=== PATIENT | female | born 1975 | race Caucasian/White ===

== ENCOUNTER 2021-05-12 16:55 | Inpatient (IN) | payer OTHER, SELFPAY ==
--- NOTE | ~2021-05-12 | CT_ITS ---
PROCEDURE: CT GUIDED ABSCESS DRAINAGE CLINICAL INFORMATION: Diverticular abscess. COMPARISON: CT scan of 05/12/2021. TECHNIQUE: CT fluoroscopic-guided abscess drainage catheter placement. This CT examination was performed using dose optimization techniques as appropriate, variously including the following: Automated exposure control. Adjustment of mA and/or kV according to patient size (this includes techniques or standardized protocols for targeted exams where dose is matched to indication/reason for exam; i.e. extremities or head). Use of iterative reconstruction technique. DLP: 953 mGy-cm FINDINGS: Informed consent was obtained from the patient prior to the procedure. During this process, the procedure and potential alternatives were explained, along with the intended outcome and benefits. The risks of the procedure, as well as the risk of not doing the procedure, were discussed. The patient was given the opportunity to ask questions regarding the procedure and appeared competent to make medical decisions. A signed consent form which documents this discussion was placed in the medical record. Using sterile technique and CT fluoroscopic-guidance and 18-gauge Mondragon Lauren needle was directed from an anterolateral approach into the diverticular abscess. A small amount of fluid was removed for culture. A guidewire was coiled within the cavity. Following fascial dilatation, a 12-Lao drainage catheter was placed with pigtail locked. There remained some aspiration of air, therefore, a small amount of contrast was administered through the tube which demonstrated communication with sigmoid colon. For this reason, the catheter was left to gravity drainage and not suction bulb drainage. Due to patient's size and thickness of the abdominal wall, movement over time may displace the catheter. CT/CT guided drainage IMPRESSION: Placement of 12-Lao drainage catheter into diverticular abscess with contrast injection demonstrating communication with the sigmoid colon.
--- NOTE | ~2021-05-12 | CT_ITS ---
EXAMINATION: CT ABDOMEN AND PELVIS WITH CONTRAST CLINICAL INFORMATION: Left lower quadrant pain with question of diverticulitis COMPARISON: CT abdomen pelvis 07/09/2018 TECHNIQUE: Multidetector volumetric images were obtained from the superior aspect of the liver through the pubic symphysis following administration 100 mL of Omnipaque 350 intravenous contrast. Sagittal and coronal reformatted images were obtained on the technologist's workstation. Oral contrast: No This CT examination was performed using dose optimization techniques as appropriate, variously including the following: *Automated exposure control *Adjustment of mA and/or kV according to patient size (this includes techniques or standardized protocols for targeted exams where dose is matched to indication/reason for exam; i.e. extremities or head) *Use of iterative reconstruction technique DLP: 1462 mGy-cm FINDINGS: LUNG BASES: The visualized lung bases are unremarkable. LIVER, GALLBLADDER, AND BILIARY TREE: The liver is enlarged measuring 19.5 cm in length. I suspect that there is fatty infiltration as there may be some focal fatty sparing adjacent to the gallbladder. The gallbladder is unremarkable with no evidence of radiopaque gallstones, gallbladder wall thickening, or obvious pericholecystic inflammatory changes. PANCREAS: Unremarkable. SPLEEN: There is mild splenomegaly with the spleen measuring 13.8 cm in greatest length. ADRENAL GLANDS: Unremarkable. KIDNEYS AND URETERS: The kidneys are normal in size, shape, and attenuation. No hydronephrosis, hydroureter, or calculi seen. No perinephric stranding. BLADDER: Unremarkable. GASTROINTESTINAL TRACT: There is acute uncomplicated diverticulitis involving the sigmoid colon with marked inflammatory changes present and extraluminal air extending into a pericolonic abscess between the sigmoid and the right pelvic wall. The abscess measures 6.9 x 4.8 x 6.8 cm. The connection between the abscess and the sigmoid can be seen (3:73). No free intraperitoneal air is seen. There is fluid along the anterior pararenal fascia. There are some tethering artifacts from the inflammatory process on some adjacent loops of small bowel. The remainder of the small bowel and remainder of the large bowel are unremarkable. The appendix is unremarkable. Of note, at the time of the patient's prior study on 07/10/2018, similar to changes in the sigmoid were present although more marked on today's exam and an abscess was present on the contralateral more medial aspect of the sigmoid. ABDOMINAL WALL: No significant hernia is appreciated. LYMPH NODES: Normal. VASCULAR: Unremarkable. PELVIC VISCERA: There is an anteverted uterus present which sits directly under this inflammatory process. An ovoid mass is seen in the right adnexa which has been noted on prior CTs but appears a bit larger measuring 7.0 x 5.4 x 7.1 cm. OSSEOUS STRUCTURES: Unremarkable. CT/CT abdomen pelvis w con IMPRESSION: Acute diverticulitis complicated by large air and fluid filled taras-sigmoid abscess. This would be amenable to percutaneous drainage. This critical result was discussed with Dr. Chapman at 12:01 AM on 05/13/2021 and it was ascertained that the content and urgency of the report was understood at the time of direct communication. Fleischner guidelines were followed.
[2021-05-12 17:27] VITALS: BP 186/113; PULSE 110; RESP 20; TEMP 36.8; O2SAT 98; BMI 60.0
[2021-05-12 18:05] LABS: MANUAL DIFF FLAG NO
[2021-05-12 18:19] LABS: Anion Gap 18 (12-20); Blood Urea Nitrogen 13 mg/dL (9-16); Calcium 9.9 mg/dL (8.4-10.2); Carbon Dioxide 25 mmol/L (22-29); Chloride 101 mmol/L (96-108); Creatinine Clr Calc Pharmacy 155.9; Estimated Glomerular Filt Rate > 60; Glucose Random 157 mg/dL (60-115); Potassium 4.6 mmol/L (3.3-5.1); Sodium 139 mmol/L (135-145)
[2021-05-12 18:21] LABS: Basophils Absolute Auto 0.1 X10*3/uL (0.0-0.2); Basophils Percent Auto 0.3 % (0-2); Eosinophils Percent Auto 0.1 % (0-4); Hematocrit 43.5 % (37.0-47.0); Hemoglobin 14.6 g/dl (12.0-16.0); Imm Gran Pct Auto 0.6 % (0.0-0.4); Lymphocytes Absolute Auto 0.5 X10*3/uL (1.2-4.9); Lymphocytes Percent Auto 2.9 % (20-40); Mean Corpuscular HGB Conc 33.6 g/dl (31.0-35.0); Mean Corpuscular Hemoglobin 28.5 pg (27.0-33.0); Mean Platelet Volume 9.7 fL (9.4-12.3); Monocytes Absolute Auto 1.1 X10*3/uL (0.1-1.2); Monocytes Percent Auto 6.4 % (2-11); Neutrophils Absolute Auto 15.7 x10*3/uL (2.0-8.3); Neutrophils Percent Auto 89.7 % (45-73); Platelet Count 433 X10*3/uL (160-400); Red Blood Count 5.12 X10*6/uL (4.20-5.50); Red Cell Distribution Width 12.8 % (11.0-16.0); White Blood Count 17.5 X10*3/uL (4.8-10.8)
[2021-05-12 18:27] LABS: Appearance Urine CLOUDY; Glucose Urine UA 100 MG/DL (NEG); Leukocyte Esterase Urine NEG (NEG); Nitrite Urine POS (NEG); PH 6.5 (5.0-8.0); Specific Gravity - Urine >= 1.030 (1.005-1.025); UACC Culture Trigger YES; Urine Blood 3+ (NEG); Urine Ketones >=80 MG/DL (NEG); Urine Protein 3+ MG/DL (NEG-TRACE)
[2021-05-12 18:28] LABS: Urine Pregnancy NEGATIVE (NEGATIVE)
[2021-05-12 18:29] LABS: UPreg QC Valid YES
[2021-05-12 18:31] LABS: Color Urine ORANGE
[2021-05-12 18:37] LABS: Bacteria Urine 2+ /LPF; Squamous Epithelial Cell Urine 2+ /LPF; WBC Urine 0 /HPF (0-4)
[2021-05-12 20:20] VITALS: BP 186/102; PULSE 105; RESP 16; TEMP 37.2; O2SAT 97
[2021-05-12 21:28] VITALS: RESP 16
[2021-05-12] MEDS: ondansetron HCL 4 MG/2 ML VIAL IVPUSH (21:28)
[2021-05-12] MEDS: 0.9 % Sodium Chloride 1,000 ML 999 ML IV (21:28)
[2021-05-12] MEDS: Morphine Sulfate 4 MG/ML CARTRIDGE IVPUSH (21:28)
[2021-05-12 21:35] VITALS: BP 176/92; PULSE 91; RESP 16; TEMP 37; O2SAT 96
--- NOTE | 2021-05-12 22:47 | ED_ITS ---
HPI - Abdominal Pain General Chief Complaint: Urogenital-Female Stated Complaint: abd pain Time Seen by Provider: 05/12/21 20:44 Source: patient Mode of arrival: EMS Limitations: no limitations History of Present Illness HPI narrative: Patient's history of diverticulitis about 5 years ago noticed pain in lower abdo men for last 3- 4 days getting worse seen her primary care doctor for urinary symptoms start on Macrobid pain is getting worse now with severe nausea no back pain or flank pain no vomiting no high fever feels chills in between no blood in the stool Related Data Allergies Allergy/AdvReac Type Severity Reaction Status Date / Time No Known Allergies Allergy Unverified 01/02/20 15:18 Review of Systems Review of Systems Yes all other systems are reviewed and are negative Physical Exam Verdana 4l Vital Signs: Verdana 4d Verdana 4d Vital Signs: Verdana 4d Verdana 4Bd Last Vital Signs Verdana 4d Cushion Maker New 4d Cushion Maker New 4d Temp 99.1 F 05/13/21 00:34 Cushion Maker New 4d Pulse 108 H 05/13/21 00:34 Cushion Maker New 4d Resp 20 05/13/21 00:34 BP 178/115 H 05/13/21 00:34 Pulse Ox 98 05/13/21 00:34 BMI result Body Mass Index 60.0 Appearance: Alert. Oriented X3. Obese patient In moderate distress Eyes: No pallor/ icterus ENT: Pharynx normal. Oral Mucosa moist Neck: Normal inspection. Neck supple. CVS: Normal heart rate and rhythm. Pulses normal. Respiratory: No respiratory distress. Equal air entry bilateral, no wheezing/rales/rhonchi Abdomen: Soft , obese patient, diffuse tenderness suprapubic left lower quadrant, no rebound tenderness ++ guarding , Bowel sounds are present, no mass palpable, no CVA tenderness Skin: Skin warm and dry. Normal skin color. Normal skin turgor. Extremities: No lower extremity edema. No calf tenderness Neuro: Oriented X 3. MDM - Abdominal Pain MDM Narrative Medical decision making narrative: Patient with recurrent diverticulitis with diverticular abscess 7 x 5 x 7 cm will admit patient for IV antibiotic and IR drainage of the abscess Lab Data Attestation: I reviewed the patient's lab results. Result diagrams: 05/12/21 18:00 05/12/21 18:00 Labs: Lab Results 05/12/21 05/12/21 05/12/21 Range/Units 18:00 18:00 18:00 WBC 17.5 H (4.8-10.8) X10*3/uL RBC 5.12 (4.20-5.50) X10*6/uL Hgb 14.6 (12.0-16.0) g/dl Hct 43.5 (37.0-47.0) % MCV 85.0 (80.0-98.0) fL MCH 28.5 (27.0-33.0) pg MCHC 33.6 (31.0-35.0) g/dl RDW 12.8 (11.0-16.0) % Plt Count 433 H (160-400) X10*3/uL MPV 9.7 (9.4-12.3) fL Immature Gran % (Auto) 0.6 H (0.0-0.4) % Neut % (Auto) 89.7 H (45-73) % Lymph % (Auto) 2.9 L (20-40) % [place] % (Auto) 6.4 (2-11) % Eos % (Auto) 0.1 (0-4) % Baso % (Auto) 0.3 (0-2) % Lymph # (Auto) 0.5 L (1.2-4.9) X10*3/uL [place] # (Auto) 1.1 (0.1-1.2) X10*3/uL Eos # (Auto) 0.0 (0.0-0.4) X10*3/uL Baso # (Auto) 0.1 (0.0-0.2) X10*3/uL Abs Immat Gran (auto) 0.10 H (0.00-0.03) X10*3/uL Absolute Neuts (auto) 15.7 H (2.0-8.3) x10*3/uL Absolute Nucleated RBC 0.000 (0.0-0.012) X10*3/uL Nucleated RBC % (auto) 0.0 (0.0-0.2) /100WBC Sodium 139 (135-145) mmol/L Potassium 4.6 (3.3-5.1) mmol/L Chloride 101 (96-108) mmol/L Carbon Dioxide 25 (22-29) mmol/L Anion Gap 18 (12-20) BUN 13 (9-16) mg/dL Creatinine 0.70 (0.5-1.4) mg/dL Estim Creat Clear Calc 155.9 Estimated GFR > 60 Random Glucose 157 H (60-115) mg/dL Lactic Acid (0.5-2.0) mmol/L Calcium 9.9 (8.4-10.2) mg/dL Urine Color ORANGE A Urine Appearance CLOUDY Urine pH 6.5 (5.0-8.0) Ur Specific [place] >= 1.030 H (1.005-1.025) Urine Protein 3+ H (NEG-TRACE) MG/DL Urine Glucose (UA) 100 H (NEG) MG/DL Urine Ketones >=80 (NEG) MG/DL Urine Blood 3+ H (NEG) Urine Nitrite POS H (NEG) Ur Leukocyte Esterase NEG (NEG) Urine RBC 15-29 H (0) /HPF Urine WBC 0 (0-4) /HPF Ur Squamous Epith Cells 2+ /LPF Urine Bacteria 2+ /LPF Urine Yeast 1+ /HPF Urine Test (NEGATIVE) COVID-19 (CANDY) (Negative) COVID-19 Clin Com 05/12/21 05/13/21 05/13/21 Range/Units 18:00 00:29 00:29 WBC (4.8-10.8) X10*3/uL RBC (4.20-5.50) X10*6/uL Hgb (12.0-16.0) g/dl Hct (37.0-47.0) % MCV (80.0-98.0) fL MCH (27.0-33.0) pg MCHC (31.0-35.0) g/dl RDW (11.0-16.0) % Plt Count (160-400) X10*3/uL MPV (9.4-12.3) fL Immature Gran % (Auto) (0.0-0.4) % Neut % (Auto) (45-73) % Lymph % (Auto) (20-40) % [place] % (Auto) (2-11) % Eos % (Auto) (0-4) % Baso % (Auto) (0-2) % Lymph # (Auto) (1.2-4.9) X10*3/uL [place] # (Auto) (0.1-1.2) X10*3/uL Eos # (Auto) (0.0-0.4) X10*3/uL Baso # (Auto) (0.0-0.2) X10*3/uL Abs Immat Gran (auto) (0.00-0.03) X10*3/uL Absolute Neuts (auto) (2.0-8.3) x10*3/uL Absolute Nucleated RBC (0.0-0.012) X10*3/uL Nucleated RBC % (auto) (0.0-0.2) /100WBC Sodium (135-145) mmol/L Potassium (3.3-5.1) mmol/L Chloride (96-108) mmol/L Carbon Dioxide (22-29) mmol/L Anion Gap (12-20) BUN (9-16) mg/dL Creatinine (0.5-1.4) mg/dL Estim Creat Clear Calc Estimated GFR Random Glucose (60-115) mg/dL Lactic Acid 1.2 (0.5-2.0) mmol/L Calcium (8.4-10.2) mg/dL Urine Color Urine Appearance Urine pH (5.0-8.0) Ur Specific [place] (1.005-1.025) Urine Protein (NEG-TRACE) MG/DL Urine Glucose (UA) (NEG) MG/DL Urine Ketones (NEG) MG/DL Urine Blood (NEG) Urine Nitrite (NEG) Ur Leukocyte Esterase (NEG) Urine RBC (0) /HPF Urine WBC (0-4) /HPF Ur Squamous Epith Cells /LPF Urine Bacteria /LPF Urine Yeast /HPF Urine Test NEGATIVE (NEGATIVE) COVID-19 (CANDY) Negative (Negative) COVID-19 Clin Com See Note Imaging Data CT scan - abdomen: Radiologist's impression: Patient: Mana Rodriguez MR#: [id number] : 1975 Acct:[id number] Age/Sex: 46 / F ADM Date: 05/12/21 Loc: HO.ED Attending Dr: Ordering Physician: Rogelio Chapman MD Date of Service: 05/12/21 Procedure(s): CT abdomen pelvis w con Accession Number(s): [id number] cc: Rogelio Chapman MD~ EXAMINATION: CT ABDOMEN AND PELVIS WITH CONTRAST? CLINICAL INFORMATION: Left lower quadrant pain with question of diverticulitis? COMPARISON: CT abdomen pelvis 07/09/2018? TECHNIQUE: Multidetector volumetric images were obtained from the superior aspect of the liver through the pubic symphysis following administration 100 mL of Omnipaque 350 intravenous contrast. Sagittal and coronal reformatted images were obtained on the technologist's workstation.? Oral contrast: No This CT examination was performed using dose optimization techniques as appropriate, variously including the following: *Automated exposure control *Adjustment of mA and/or kV according to patient size (this includes techniques or standardized protocols for targeted exams where dose is matched to indication/reason for exam; i.e. extremities or head) *Use of iterative reconstruction technique DLP: 1462 mGy-cm FINDINGS: LUNG BASES: The visualized lung bases are unremarkable.? LIVER, GALLBLADDER, AND BILIARY TREE: The liver is enlarged measuring 19.5 cm in length. I suspect that there is fatty infiltration as there may be some focal fatty sparing adjacent to the gallbladder.? The gallbladder is unremarkable with no evidence of radiopaque gallstones, gallbladder wall thickening, or obvious pericholecystic inflammatory changes.? PANCREAS: Unremarkable.? SPLEEN: There is mild splenomegaly with the spleen measuring 13.8 cm in greatest length.? ADRENAL GLANDS: Unremarkable.? KIDNEYS AND URETERS: The kidneys are normal in size, shape, and attenuation. No hydronephrosis, hydroureter, or calculi seen. No perinephric stranding. ? BLADDER: Unremarkable.? GASTROINTESTINAL TRACT: There is acute uncomplicated diverticulitis involving the sigmoid colon with marked inflammatory changes present and extraluminal air extending into a pericolonic abscess between the sigmoid and the right pelvic wall. The abscess measures 6.9 x 4.8 x 6.8 cm. The connection between the abscess and the sigmoid can be seen (3:73). No free intraperitoneal air is seen. There is fluid along the anterior pararenal fascia. There are some tethering artifacts from the inflammatory process on some adjacent loops of small bowel. The remainder of the small bowel and remainder of the large bowel are unremarkable. The appendix is unremarkable. Of note, at the time of the patient's prior study on 07/10/2018, similar to changes in the sigmoid were present although more marked on today's exam and an abscess was present on the contralateral more medial aspect of the sigmoid. ABDOMINAL WALL: No significant hernia is appreciated.? LYMPH NODES: Normal. VASCULAR: Unremarkable. PELVIC VISCERA: There is an anteverted uterus present which sits directly under this inflammatory process. An ovoid mass is seen in the right adnexa which has been noted on prior CTs but appears a bit larger measuring 7.0 x 5.4 x 7.1 cm.? OSSEOUS STRUCTURES: Unremarkable.? CT/CT abdomen pelvis w con IMPRESSION: Acute diverticulitis complicated by large air and fluid filled taras-sigmoid abscess. This would be amenable to percutaneous drainage. ? Discharge Plan Discharge Clinical Impression: Diverticulitis of intestine with abscess Patient Disposition: Admitted As Inpatient [facility] Social History Social History Advance Directives: No Advance Directives Information Provided: No Patient : No
[2021-05-12] MEDS: iohexoL 350 MG/ML 100 ML INFUS..BTL IV (23:37)
[2021-05-13] VITALS (9 sets, daily range): BP systolic 145–189; BP diastolic 78–115; PULSE 90–109; RESP 12–20; TEMP 36.6–37.3; O2SAT 93–99
[2021-05-13] MEDS: 0.9 % Sodium Chloride 1,000 ML 999 ML IV (00:25)
[2021-05-13] MEDS: Piperacillin Sodium/Tazobactam 4.5 GM in 0.9 % Sodium Chloride 100 ML IV (00:26)
[2021-05-13 00:51] LABS: COVID-19 Test Negative (Negative)
[2021-05-13 00:58] LABS: Lactic Acid 1.2 mmol/L (0.5-2.0)
--- NOTE | 2021-05-13 01:53 | P.HPHOSP_ITS ---
History of Present Illness Date of Service: 05/13/21 Chief Complaint: abd pain This is a 46 yo F with past medical history of asthma who presents to the hospital with acute complaint of abd pain for the past 3-4 days. pain in located at the left lower quadrant, radiating to the rest of her abdomen, she was also h aving urinary symptoms including urinary frequency and urgency, was started on Macrobid by her primary physician but reports that her symptoms continue to give worsened therefore came into the hospital. She was also having abdominal bloating, nausea and vomiting, has been having diarrhea, feeling chills, no fever. Patient denies any lower extremity edema. No headache or change in vision, no weakness numbness or tingling. On arrival to the ED patient hemodynamically stable with slightly elevated heart rate of 100-110 Labs are significant for WBC count of 17.5, UA that is positive for nitrites , COVID-[address] showed acute diverticulitis complicated by large air and fluid-filled perisigmoid abscess. This would be amenable to percutaneous drainage. Review of Systems Verdana 4l Review of Systems: Yes all other systems are reviewed and Verdana 4d are negative [facility] Medical History (Updated 05/13/21 @ 06:44 by Flaquito Morales MD) Asthma Pertinent family history: No hx of CAD Surgical History (Updated 05/13/21 @ 06:44 by Flaquito Morales MD) No pertinent past surgical history Social History (Updated 05/13/21 @ 06:45 by Flaquito Morales MD) Alcohol intake: current Patient Tobacco Use Status: Never used Tobacco Use of substances other than those prescribed or required for medical reasons: No Advance Directives: No Advance Directives Information Provided: No Patient : No Meds Allergies Allergy/AdvReac Type Severity Reaction Status Date / Time No Known Allergies Allergy Unverified 01/02/20 15:18 Active Medications: Current Medications Acetaminophen (Acetaminophen 325 Mg Tablet) 650 mg PO Q6H PRN PRN Reason: Pain, Mild (Pain Scale 1-3) Ceftriaxone Sodium 1 gm/ (Sodium Chloride) 50 mls @ 100 mls/hr IV Q24H ZEN Metronidazole (Flagyl) 500 mg in 100 mls @ 100 mls/hr IV Q8H ZEN Morphine Sulfate (Morphine Sulfate 4 Mg/Ml Cartridge) 4 mg IVPUSH Q4H PRN; Protocol PRN Reason: Pain, Severe (Pain Scale 7-10) Ondansetron HCl (Ondansetron Hcl 4 Mg/2 Ml Vial) 4 mg IVPUSH Q8H PRN PRN Reason: Nausea and Vomiting Sodium Chloride (0.9 % Sodium Chloride Flush 3 Ml Syringe) 3 ml IVFLUSH QSHIFT ZEN Physical Exam Verdana 4l Vital Signs and Narrative: Verdana 4d Verdana 4d Vital Signs: Verdana 4d Verdana 4Bd Last Vital Signs Verdana 4d Chief Accountant New 4d Chief Accountant New 4d Temp 99.1 F 05/13/21 00:34 Chief Accountant New 4d Pulse 108 H 05/13/21 00:34 Chief Accountant New 4d Resp 20 05/13/21 00:34 BP 178/115 H 05/13/21 00:34 Pulse Ox 98 05/13/21 00:34 BMI result Body Mass Index 60.0 Const: General: cooperative Orientation/consciousness: patient oriented x3 Eyes: General: appearance normal, both eyes and all related structures Pupils: Equal, round and reactive pupils present Resp: Effort & Inspection: normal respiratory effort Auscultation: clear to auscultation bilaterally Cardio: Rate: regular rate Rhythm: regular rhythm GI: Other: obese abdomen diffused tenderness Skin: General skin exam: no rashes or lesions noted Neuro: General: patient oriented x3 Cranial nerves: Yes Equal, round and reactive pupils present Cognition (Neuro): normal cognition Extrem: General: Yes normal to inspection and Yes no pedal edema Results Labs CBC and Chem 7: 05/13/21 05:50 05/13/21 05:50 Labs: Laboratory Results - last 24 hr 05/12/21 05/12/21 05/12/21 18:00 18:00 18:00 MCV 85.0 MCH 28.5 MCHC 33.6 RDW 12.8 Plt Count 433 H MPV 9.7 Immature Gran % (Auto) 0.6 H Neut % (Auto) 89.7 H Lymph % (Auto) 2.9 L [place] % (Auto) 6.4 Eos % (Auto) 0.1 Baso % (Auto) 0.3 Lymph # (Auto) 0.5 L [place] # (Auto) 1.1 Eos # (Auto) 0.0 Baso # (Auto) 0.1 Abs Immat Gran (auto) 0.10 H Absolute Neuts (auto) 15.7 H Absolute Nucleated RBC 0.000 Nucleated RBC % (auto) 0.0 Anion Gap 18 Estim Creat Clear Calc 155.9 Estimated GFR > 60 Random Glucose 157 H Lactic Acid Calcium 9.9 Urine Color ORANGE A Urine Appearance CLOUDY Urine pH 6.5 Ur Specific [place] >= 1.030 H Urine Protein 3+ H Urine Glucose (UA) 100 H Urine Ketones >=80 Urine Blood 3+ H Urine Nitrite POS H Ur Leukocyte Esterase NEG Urine RBC 15-29 H Urine WBC 0 Ur Squamous Epith Cells 2+ Urine Bacteria 2+ Urine Yeast 1+ Urine Test COVID-19 (CANDY) COVID-19 Clin Com 05/12/21 05/13/21 05/13/21 18:00 00:29 00:29 MCV MCH MCHC RDW Plt Count MPV Immature Gran % (Auto) Neut % (Auto) Lymph % (Auto) [place] % (Auto) Eos % (Auto) Baso % (Auto) Lymph # (Auto) [place] # (Auto) Eos # (Auto) Baso # (Auto) Abs Immat Gran (auto) Absolute Neuts (auto) Absolute Nucleated RBC Nucleated RBC % (auto) Anion Gap Estim Creat Clear Calc Estimated GFR Random Glucose Lactic Acid 1.2 Calcium Urine Color Urine Appearance Urine pH Ur Specific [place] Urine Protein Urine Glucose (UA) Urine Ketones Urine Blood Urine Nitrite Ur Leukocyte Esterase Urine RBC Urine WBC Ur Squamous Epith Cells Urine Bacteria Urine Yeast Urine Test NEGATIVE COVID-19 (CANDY) Negative COVID-19 Clin Com See Note Imaging Radiologist's Impressions: Impressions Abdomen/Pelvis CT 05/12/21 23:31 IMPRESSION: Acute diverticulitis complicated by large air and fluid filled taras-sigmoid abscess. This would be amenable to percutaneous drainage. This critical result was discussed with Dr. Chapman at 12:01 AM on 05/13/2021 and it was ascertained that the content and urgency of the report was understood at the time of direct communication. Fleischner guidelines were followed. Assessment and Plan (1) Diverticulitis of intestine with abscess: Status: Acute Plan 46-year-old female with past medical history of asthma presents to the hospital with complaints of abdominal pain found to have diverticulitis with contained abscess # diverticulitis complicated by abscess - will start on IV antibiotics - consult IR for possible drainage - general surgery also consulted - pain control # asthma - no acute exacerbation DVT prophylaxis: SCDs in anticipation of drainage placement Quality Stroke Does the patient have a stroke diagnosis?: No VTE Prior VTE?: No VTE Risk Level:: Medical - moderate - high VTE Device Contraindication: N/A - Device Ordered VTE Drug Contraindication: Treatment Not Indicated
[2021-05-13] MEDS: cefTRIAXone sodium 1 GM in 0.9 % Sodium Chloride 50 ML IV (01:55)
[2021-05-13] MEDS: Morphine Sulfate 4 MG/ML CARTRIDGE IVPUSH ×5 (01:55→23:44)
[2021-05-13] MEDS: metroNIDAZOLE/NS 500 MG/100 ML PIGGYBACK 100 MG IV ×3 (02:47→17:05)
[2021-05-13 05:58] LABS: MANUAL DIFF FLAG NO
[2021-05-13 05:59] LABS: Basophils Percent Auto 0.1 % (0-2); Eosinophils Percent Auto 0.1 % (0-4); Hematocrit 38.3 % (37.0-47.0); Hemoglobin 12.8 g/dl (12.0-16.0); Imm Gran Abs Auto 0.19 X10*3/uL (0.00-0.03); Imm Gran Pct Auto 1.1 % (0.0-0.4); Lymphocytes Absolute Auto 0.8 X10*3/uL (1.2-4.9); Lymphocytes Percent Auto 4.7 % (20-40); Mean Corpuscular HGB Conc 33.4 g/dl (31.0-35.0); Mean Corpuscular Hemoglobin 28.5 pg (27.0-33.0); Mean Corpuscular Volume 85.3 fL (80.0-98.0); Mean Platelet Volume 9.6 fL (9.4-12.3); Monocytes Absolute Auto 1.5 X10*3/uL (0.1-1.2); Monocytes Percent Auto 8.4 % (2-11); Neutrophils Absolute Auto 15.3 x10*3/uL (2.0-8.3); Neutrophils Percent Auto 85.6 % (45-73); Platelet Count 371 X10*3/uL (160-400); Red Blood Count 4.49 X10*6/uL (4.20-5.50); White Blood Count 17.8 X10*3/uL (4.8-10.8)
[2021-05-13 06:25] LABS: Anion Gap 13 (12-20); Blood Urea Nitrogen 11 mg/dL (9-16); Calcium 8.8 mg/dL (8.4-10.2); Carbon Dioxide 26 mmol/L (22-29); Chloride 101 mmol/L (96-108); Creatinine Clr Calc Pharmacy 153.7; Estimated Glomerular Filt Rate > 60; Glucose Random 134 mg/dL (60-115); Potassium 3.8 mmol/L (3.3-5.1); Sodium 136 mmol/L (135-145)
--- NOTE | 2021-05-13 08:00 | PC.NURSE ---
Pt received from night shift supervisor: Pt AOX4 and offers moderate pain to LLQ. Pt ordered for pain medication on scheduled basis. Heart sounds normal and lungs clear. LLQ tenderness noted. Pt remains NPO for pending OR.
--- NOTE | 2021-05-13 08:40 | PHA.MEDREC ---
Pharmacy Consult ? Medication Reconciliation Pharmacy has completed the medication reconciliation. Kelli Marx, PharmD
--- NOTE | 2021-05-13 08:52 | P.HPGS_ITS ---
History of Present Illness History of Present Illness Date of Service: 05/13/21 <Tena Del Real PA-C - Last Filed: 05/13/21 09:14> 05/13/21 <Cm Barrett MD - Last Filed: 05/13/21 15:57> Chief complaint: abd pain <Tena Del Real PA-C - Last Filed: 05/13/21 09:14> Narrative: Mana Rodriguez is a 46 year old female with PMH of asthma who presented to the ED with complaints of LLQ/suprapubic abd pain. She reports the pain began Monday morning. It was associated with nausea without vomiting and diarrhea. She denies fever, chills, blood in stool or melena. She saw her PCP on Monday who diagnosed her with a UTI and started her on PO abx. She however did not improve and the pain became severe, prompting her to seek evaluation in the ED. Work up included CT scan abd/pelvis which demonstrated diverticulitis of the sigmoid with marked inflammatory changes and extraluminal air extending into a pericolonic abscess between the sigmoid and the right pelvic wall measuring 6.9 x 4.8 x 6.8 cm. She also had a leukocytosis of 17.5. She reports a previous episode of diverticulitis with abscess in 2019 where she was admitted for IV abx and underwent CT guided drainage with improvement. She never followed up with surgery regarding further treatment. She has never had a colonoscopy. She feels improved this morning after morphine with decreased pain. <Tena Del Real PA-C - Last Filed: 05/13/21 09:14> Review of Systems Verdana 4l Constitutional: Verdana 4d Verdana 4d Constitutional: Verdana 4d Reports as per HPI, Denies chills and Denies fever(s) Verdana 4Il <Tena Del Real PA-C - Last Filed: 05/13/21 09:14> Verdana 4d Verdana 4l ENT: Verdana 4d Denies dizziness Verdana 4Il <NICOLE Rosales Last Filed: 05/13/21 09:14> Verdana 4d Verdana 4l Cardiovascular: Verdana 4d Verdana 4d Cardiovascular: Verdana 4d Denies chest pain, Denies palpitations and Denies dyspnea Verdana 4Il <Tena Del Real PA-C - Last Filed: 05/13/21 09:14> Verdana 4d Verdana 4l Respiratory: Verdana 4d Verdana 4d Respiratory: Verdana 4d Denies dyspnea Verdana 4Il <Tena Del Real PA-C - Last Filed: 05/13/21 09:14> Verdana 4d Verdana 4l Gastrointestinal: Verdana 4d Verdana 4d Gastrointestinal: Verdana 4d Reports as per HPI, Denies melena, Denies hematochezia, Denies change in stool character, Reports diarrhea and Reports nausea Verdana 4Il <Tena Del Real PA-C - Last Filed: 05/13/21 09:14> Verdana 4d4d Genitourinary: Genitourinary: Denies hematuria and Denies dysuria <Tena Del Real PA-C - Last Filed: 05/13/21 09:14> Integumentary/Breasts: Skin/Breast: Denies rash <Tena Del Real PA-C Last Filed: 05/13/21 09:14> Neurologic: Denies dizziness and Denies focal weakness <Tena Del Real PA-C - Last Filed: 05/13/21 09:14> Endocrine: Endocrine: Denies palpitations <Tena Del Real PA-C Last Filed: 05/13/21 09:14> [facility] Past Medical History Medical History: Medical History (Updated 05/13/21 @ 06:44 by Flaquito Morales MD) Asthma <Tena Del Real PA-C - Last Filed: 05/13/21 09:14> Surgical History Surgical History: Surgical History (Updated 05/13/21 @ 06:44 by Flaquito Morales MD) No pertinent past surgical history <Tena Del Real PA-C Last Filed: 05/13/21 09:14> Social History Social History: Social History (Updated 05/13/21 @ 06:45 by Flaquito Morales MD) Alcohol intake: current Patient Tobacco Use Status: Never used Tobacco Use of substances other than those prescribed or required for medical reasons: No Advance Directives: No Advance Directives Information Provided: No Patient : No <NICOLE Rosales Last Filed: 05/13/21 09:14> Meds Allergies/Adverse reactions: Allergies Allergy/AdvReac Type Severity Reaction Status Date / Time No Known Allergies Allergy Verified 05/13/21 10:40 <Tena Del Real PA-C - Last Filed: 05/13/21 09:14> Active Medications: Current Medications Acetaminophen (Acetaminophen 325 Mg Tablet) 650 mg PO Q6H PRN PRN Reason: Pain, Mild (Pain Scale 1-3) Ceftriaxone Sodium 1 gm/ (Sodium Chloride) 50 mls @ 100 mls/hr IV Q24H [facility] Last Infusion: 05/13/21 02:45 Dose: Infused Documented by: Metronidazole (Flagyl) 500 mg in 100 mls @ 100 mls/hr IV Q8H [facility] Last Admin: 05/13/21 08:10 Dose: 100 mls/hr Documented by: Morphine Sulfate (Morphine Sulfate 4 Mg/Ml Cartridge) 4 mg IVPUSH Q4H PRN; Protocol PRN Reason: Pain, Severe (Pain Scale 7-10) Last Admin: 05/13/21 06:27 Dose: 4 mg Documented by: Ondansetron HCl (Ondansetron Hcl 4 Mg/2 Ml Vial) 4 mg IVPUSH Q8H PRN PRN Reason: Nausea and Vomiting Sodium Chloride (0.9 % Sodium Chloride Flush 3 Ml Syringe) [facility] Admin: 05/13/21 07:05 Dose: Not Given Documented by: <Tena Del Real PA-C - Last Filed: 05/13/21 09:14> Home medications: Home Medications Medication Instructions Recorded Confirmed Last Taken Type albuterol sulfate 1 puff 05/13/21 05/13/21 Unknown History 90 mcg/actuation INHALATION Q4H PRN aerosol inhaler nitrofurantoin 1 cap PO BID 05/13/21 05/13/21 05/12/21 History monohydrate/macro crystals 100 mg capsule <NICOLE Rosales Last Filed: 05/13/21 09:14> Physical Exam Verdana 4l Vital Signs: Verdana 4d Verdana 4d Vital Signs: Verdana 4d Verdana 4Bd Last Vital Signs Verdana 4d Sewer Repairer New 4d Sewer Repairer New 4d Temp 98.1 F 05/13/21 06:14 Sewer Repairer New 4d Pulse 99 05/13/21 06:14 Sewer Repairer New 4d Resp 12 05/13/21 06:14 BP 158/93 H 05/13/21 06:14 Pulse Ox 97 05/13/21 06:14 BMI result Body Mass Index 60.0 <NICOLE Rosales Last Filed: 05/13/21 09:14> Const: General: comfortable, no acute distress and alert <Tena Del Real PA-C [employer] Last Filed: 05/13/21 09:14> Orientation/consciousness: patient oriented x3 <NICOLE Rosales Last Filed: 05/13/21 09:14> Resp: Effort & Inspection: normal respiratory effort <NICOLE Rosales Last Filed: 05/13/21 09:14> Cardio: Rate: regular rate <NICOLE Rosales Last Filed: 05/13/21 09:14> GI: Inspection: No distended and Yes obesity <NICOLE Rosales Last Filed: 05/13/21 09:14> Palpation (GI): Soft to palpation, Tenderness to palpation present (GI) in the LLQ and suprapubicly; Negative for with no rebound tenderness, no guarding and not rigid <NICOLE Rosales Last Filed: 05/13/21 09:14> Percussion: Yes normal to percussion <NICOLE Rosales Last Filed: 05/13/21 09:14> Skin: General skin exam: no rashes or lesions noted <NICOLE Rosales Last Filed: 05/13/21 09:14> Neuro: General: patient oriented x3 <NICOLE Rosales Last Filed: 05/13/21 09:14> Extrem: General: Yes no clubbing, cyanosis or edema <NICOLE Rosales Last Filed: 05/13/21 09:14> Results Results Labs: Short CBC 05/12/21 05/13/21 Range/Units 18:00 05:50 WBC 17.5 H 17.8 H (4.8-10.8) X10*3/uL Hgb 14.6 12.8 (12.0-16.0) g/dl Hct 43.5 38.3 (37.0-47.0) % Plt Count 433 H 371 (160-400) X10*3/uL BMP 05/12/21 05/13/21 18:00 05:50 Sodium 139 136 Potassium 4.6 3.8 Chloride 101 101 Carbon Dioxide 25 26 BUN 13 11 Creatinine 0.70 0.71 Calcium 9.9 8.8 D Urine 05/12/21 05/12/21 Range/Units 18:00 18:00 Urine Color ORANGE A Urine Appearance CLOUDY Urine pH 6.5 (5.0-8.0) Ur Specific [place] >= 1.030 H (1.005-1.025) Urine Protein 3+ H (NEG-TRACE) MG/DL Urine Glucose (UA) 100 H (NEG) MG/DL Urine Test NEGATIVE (NEGATIVE) <Tena Del Real PA-C - Last Filed: 05/13/21 09:14> Assessment and Plan (1) Diverticulitis of intestine with abscess: Status: Acute <Tena Del Real PA-C - Last Filed: 05/13/21 09:14> Patient seen and examined earlier Nontoxic looking Scheduled for CT drainage Abdomen soft and benign Will follow-up Agree with BIBIANA Del Real <Cm Barrett MD - Last Filed: 05/13/21 15:57> Plan 46 year old female who presented with LLQ/suprapubic pain found to have leukocytosis and sigmoid diverticular abscess on CT scan. Patient with previous history of sigmoid diverticulitis with abscess treated with CT guided drainage and IV antibiotics in 2019. She is non toxic appearing with stable vitals. Plan for CT guided drainage this morning. Cont IV abx, bowel rest, IVF. Discussed with her that if she has no improvement following the drainage or worsens or the CT drainage of abscess unable to be performed, we may have to proceed with sigmoid resection and likely colostomy during this admission. If she does improve, she will need to follow up with Dr. Barrett in office to discuss resection of the diseased segment to prevent further recurrences as this is her second complicated diverticulitis episode. She understands. Further plan dependent on clinical course. Case discussed with Dr. Barrett. <Tena Del Real PA-C - Last Filed: 05/13/21 09:14> Quality Stroke Does the patient have a stroke diagnosis?: No <Tena Del Real PA-C - Last Filed: 05/13/21 09:14> VTE Prior VTE?: No <Tena Del Real PA-C - Last Filed: 05/13/21 09:14> VTE Risk Level:: Medical - moderate - high <Tena Del Real PA-C - Last Filed: 05/13/21 09:14> VTE Device Contraindication: N/A - Device Ordered <Tena Del Real PA-C - Last Filed: 05/13/21 09:14> VTE Drug Contraindication: Treatment Not Indicated <Tena Del Real PA-C - Last Filed: 05/13/21 09:14> Procedures Date of Service Date of Service: 05/13/21 <Tena Del Real PA-C - Last Filed: 05/13/21 09:14>
[2021-05-13] MEDS: ondansetron HCL 4 MG/2 ML VIAL IVPUSH ×2 (09:34→23:46)
[2021-05-13 10:20] LABS: INTERNATIONAL NORM RATIO 1.1 (0.9-1.1); Prothrombin Time 12.3 SEC (9.9-13.0)
[2021-05-13 10:22] LABS: Partial Thromboplastin Time 30.5 SEC (24.1-38.0)
--- NOTE | 2021-05-13 10:23 | PC.NURSE ---
MD Barrett at bedside early this morning. Received communication order that pt may get ice chips. Report also give to [facility] and pt will be picked up for procedure around 1130 with table time of 1200. Pt remains in intermittent pain with order PRN medications. RN will continue to monitor.
--- NOTE | 2021-05-13 10:42 | PC.NURSE ---
Pt to [facility] at this time with wheelchair and PCT.
--- NOTE | 2021-05-13 12:14 | MHC.CM.PN ---
CM ATTEMPTED TO MEET WITH PT WHO WAS OFF UNIT CM WILL REVISIT WHEN PT RETURNS FROM [facility]
--- NOTE | 2021-05-13 14:03 | PM.EVENT ---
Event Note Date of Service: 05/13/21 Event Note: Pt seen/examined/chart reviewed. Exam unchanged since admit. Scheduled for IR drainage of abcess. Follow clinically
--- NOTE | 2021-05-13 15:32 | PC.NURSE ---
Pt returned back from PACU at this time. Pt fully recovered in PACU and was able to self transfer from stretcher to bed. Pt offers no complaints at this time. OSVALDO drain noted LLQ- red drainage
--- NOTE | 2021-05-13 15:48 | PC.NURSE ---
Dr Foss made aware of current BP 189/84 and HR 105. No new orders received. Pt remains in no acute distress. RN will continue to monitor.
--- NOTE | 2021-05-13 17:38 | PM.EVENT ---
Event Note Date of Service: 05/13/21 Event Note: underwent succesful CT drain looks comfortable abd soft stable VS oain mgt IV abx clear liquids ffup cultures
[2021-05-14 01:31] VITALS: BP 134/96; PULSE 100; RESP 18; TEMP 36; O2SAT 94
[2021-05-14] MEDS: cefTRIAXone sodium 1 GM in 0.9 % Sodium Chloride 50 ML IV (01:53)
[2021-05-14] MEDS: metroNIDAZOLE/NS 500 MG/100 ML PIGGYBACK 100 MG IV (01:53)
[2021-05-14 05:23] VITALS: BP 148/86; PULSE 91; RESP 16; TEMP 36.4; O2SAT 95
[2021-05-14] MEDS: Morphine Sulfate 4 MG/ML CARTRIDGE IVPUSH ×2 (05:56→12:47)
[2021-05-14 09:21] LABS: MANUAL DIFF FLAG NO
[2021-05-14 09:27] LABS: Basophils Percent Auto 0.1 % (0-2); Eosinophils Absolute Auto 0.1 X10*3/uL (0.0-0.4); Eosinophils Percent Auto 0.6 % (0-4); Hematocrit 38.3 % (37.0-47.0); Hemoglobin 12.4 g/dl (12.0-16.0); Imm Gran Abs Auto 0.07 X10*3/uL (0.00-0.03); Imm Gran Pct Auto 0.5 % (0.0-0.4); Lymphocytes Absolute Auto 1.2 X10*3/uL (1.2-4.9); Lymphocytes Percent Auto 8.3 % (20-40); Mean Corpuscular HGB Conc 32.4 g/dl (31.0-35.0); Mean Corpuscular Hemoglobin 27.7 pg (27.0-33.0); Mean Corpuscular Volume 85.5 fL (80.0-98.0); Mean Platelet Volume 9.5 fL (9.4-12.3); Monocytes Absolute Auto 0.9 X10*3/uL (0.1-1.2); Monocytes Percent Auto 6.7 % (2-11); Neutrophils Absolute Auto 11.7 x10*3/uL (2.0-8.3); Neutrophils Percent Auto 83.8 % (45-73); Platelet Count 394 X10*3/uL (160-400); Red Blood Count 4.48 X10*6/uL (4.20-5.50); Red Cell Distribution Width 13.1 % (11.0-16.0)
[2021-05-14 10:03] LABS: Alanine Aminotransferase 19 U/L (0-31); Albumin Level 3.3 g/dL (3.5-5.0); Alkaline Phosphatase 85 U/L (39-117); Anion Gap 14 (12-20); Aspartate Amino Transferase 9 U/L (5-31); Bilirubin Total 0.7 mg/dL (0.0-1.0); Blood Urea Nitrogen 13 mg/dL (9-16); Calcium 9.1 mg/dL (8.4-10.2); Carbon Dioxide 29 mmol/L (22-29); Chloride 99 mmol/L (96-108); Creatinine Clr Calc Pharmacy 162.9; Estimated Glomerular Filt Rate > 60; Glucose Fasting 116 mg/dL (60-99); Potassium 3.7 mmol/L (3.3-5.1); Sodium 138 mmol/L (135-145); Total Protein 6.4 g/dL (6.5-8.0)
--- NOTE | 2021-05-14 10:12 | P.PNGS_ITS ---
Subjective Subjective Date of Service: 05/14/21 <Tena Del Real PA-C - Last Filed: 05/14/21 10:21> 05/14/21 <Cm Barrett MD - Last Filed: 05/14/21 14:50> Interval history: Feels better this morning but feels blah . Overall less pain and now only reports discomfort at drain site. Tolerating clears. <Tena Del Real PA-C - Last Filed: 05/14/21 10:21> Physical Exam Verdana 4l Vital Signs: Verdana 4d Verdana 4d Vital Signs: Verdana 4d Verdana 4Bd Last Vital Signs Verdana 4d Rn Neurosurgical New 4d Rn Neurosurgical New 4d Temp 97.5 F 05/14/21 05:23 Rn Neurosurgical New 4d Pulse 91 05/14/21 05:23 Rn Neurosurgical New 4d Resp 16 05/14/21 05:23 BP 148/86 H 05/14/21 05:23 Pulse Ox 95 05/14/21 05:23 BMI result Body Mass Index 60.0 <Tena Del Real PA-C - Last Filed: 05/14/21 10:21> Const: General: comfortable and alert <NICOLE Rosales Last Filed: 0 05/14/21 10:21> Orientation/consciousness: patient oriented x3 <NICOLE Rosales Last Filed: 05/14/21 10:21> Resp: Effort & Inspection: normal respiratory effort <Tena Del Real PA-C - Last Filed: 05/14/21 10:21> GI: Other: drain with sanguineous output, some debris in bag <Tena Del Real PA-C - Last Filed: 05/14/21 10:21> Inspection: No distended and Yes obesity <NICOLE Rosales Last Filed: 05/14/21 10:21> Palpation (GI): Soft to palpation, Tenderness to palpation present (GI) (mild LLQ tenderness, tender at drain site), no guarding and not rigid <NICOLE Rosales Last Filed: 05/14/21 10:21> Percussion: Yes normal to percussion <Tena Del Real PA-C - Last Filed: 05/14/21 10:21> Skin: General skin exam: no rashes or lesions noted <Tena Del Real PA-C - Last Filed: 05/14/21 10:21> Neuro: General: patient oriented x3 <NICOLE Rosales Last Filed: 05/14/21 10:21> Objective Data Active Medications Acetaminophen (Acetaminophen 325 Mg Tablet) 650 mg PO Q6H PRN PRN Reason: Pain, Mild (Pain Scale 1-3) Ceftriaxone Sodium 1 gm/ (Sodium Chloride) 50 mls @ 100 mls/hr IV Q24H [facility] [place] Last Infusion: 05/14/21 07:50 Dose: 0 mls/hr Documented by: AIDA Metronidazole (Metronidazole 500 Mg Tablet) 500 mg PO Q8H [facility] [place] Morphine Sulfate (Morphine Sulfate 4 Mg/Ml Cartridge) 4 mg IVPUSH Q4H PRN; Protocol PRN Reason: Pain, Severe (Pain Scale 7-10) Last Admin: 05/14/21 05:56 Dose: 4 mg Documented by: DONNIE Ondansetron HCl (Ondansetron Hcl 4 Mg/2 Ml Vial) 4 mg IVPUSH Q8H PRN PRN Reason: Nausea and Vomiting Last Admin: 05/13/21 23:46 Dose: 4 mg Documented by: DONNIE Oxycodone HCl (Oxycodone Hcl Immed Release 5 Mg Tablet) 5 mg PO Q4H PRN PRN Reason: Pain, Moderate (Pain Scale 4-6 Sodium Chloride (0.9 % Sodium Chloride Flush 3 Ml Syringe) 3 ml IVFLUSH QSHIFT [facility] [place] Last Admin: 05/14/21 07:57 Dose: Not Given Documented by: AIDA Non-Admin Reason: Patient Asleep <NICOLE Rosales Last Filed: 05/14/21 10:21> Labs CBC & Chem 7: : 05/14/21 09:11 05/14/21 09:11 <NICOLE Rosales Last Filed: 05/14/21 10:21> Labs: Laboratory Results - last 24 hr 05/13/21 05/14/21 05/14/21 10:01 09:11 09:11 MCV 85.5 MCH 27.7 MCHC 32.4 RDW 13.1 Plt Count 394 MPV 9.5 Immature Gran % (Auto) 0.5 H Neut % (Auto) 83.8 H Lymph % (Auto) 8.3 L Davis % (Auto) 6.7 Eos % (Auto) 0.6 Baso % (Auto) 0.1 Lymph # (Auto) 1.2 Davis # (Auto) 0.9 Eos # (Auto) 0.1 Baso # (Auto) 0.0 Abs Immat Gran (auto) 0.07 H Absolute Neuts (auto) 11.7 H Absolute Nucleated RBC 0.000 Nucleated RBC % (auto) 0.0 PT 12.3 INR 1.1 APTT 30.5 Anion Gap 14 Estim Creat Clear Calc 162.9 Estimated GFR > 60 Fasting Glucose 116 H Calcium 9.1 Total Bilirubin 0.7 AST 9 ALT 19 Alkaline Phosphatase 85 Total Protein 6.4 L Albumin 3.3 L <Tena Del Real PA-C - Last Filed: 05/14/21 10:21> Microbiology Microbiology Results: Microbiology 05/13/21 14:45 Gram Stain - Final Abscess Intra-abdominal Routine Culture - Preliminary Gram negative mikala 05/13/21 00:29 Blood Culture - Preliminary Blood - Venous No growth after 24 hours. 05/13/21 00:29 Blood Culture - Preliminary Blood - Venous No growth after 24 hours. 05/12/21 19:35 Urine Culture - Preliminary Urine clean catch - Urine araujo top Culture too young to evaluate. <Tena Del Real PA-C - Last Filed: 05/14/21 10:21> Procedures Date of Service Date of Service: 05/14/21 <Tena Del Real PA-C - Last Filed: 05/14/21 10:21> Progress Note: A&P Assessment and plan (1) Diverticulitis of intestine with abscess: Status: Acute <Tena Del Real PA-C - Last Filed: 05/14/21 10:21> Assessment and Plan: Status post CT drain the Feels well No abdominal pain Has not taken pain meds IV antibiotics Follow up cultures Possibly advance diet slowly starting tomorrow Explained plan to patient Exam benign <Cm Barrett MD - Last Filed: 05/14/21 14:50> Plan 46 year old female admitted with sigmoid diverticular abscess on CT scan. Previous history of sigmoid diverticulitis with abscess treated with CT guided drainage and IV antibiotics in 2019. Now s/p CT guided drainage. Small amount of drainage aspirated during procedure. There was aspiration of air and a small amount of contrast was administered which demonstrated communication with sigmoid colon. Catheter was therefore left to gravity drainage. She feels improved this morning- now only with discomfort at drain site. Abd tender at drain site and mild tenderness at LLQ (improved). WBC downtrending. Drain output sanguineous with debris. and remains non toxic appearing. Can continue supportive measures at this time including IV abx, clear liquids, IVF. F/u abscess cultures. Please record drain output in I&Os. <Tena Del Real PA-C - Last Filed: 05/14/21 10:21> Fall Risk Details Current Medications: Current Medications Acetaminophen (Acetaminophen 325 Mg Tablet) 650 mg PO Q6H PRN PRN Reason: Pain, Mild (Pain Scale 1-3) Ceftriaxone Sodium 1 gm/ (Sodium Chloride) 50 mls @ 100 mls/hr IV Q24H [facility] [place] Last Infusion: 05/14/21 07:50 Dose: Infused Documented by: Metronidazole (Metronidazole 500 Mg Tablet) 500 mg PO Q8H [facility] Morphine Sulfate (Morphine Sulfate 4 Mg/Ml Cartridge) 4 mg IVPUSH Q4H PRN; Protocol PRN Reason: Pain, Severe (Pain Scale 7-10) Last Admin: 05/14/21 05:56 Dose: 4 mg Documented by: Ondansetron HCl (Ondansetron Hcl 4 Mg/2 Ml Vial) 4 mg IVPUSH Q8H PRN PRN Reason: Nausea and Vomiting Last Admin: 05/13/21 23:46 Dose: 4 mg Documented by: Oxycodone HCl (Oxycodone Hcl Immed Release 5 Mg Tablet) 5 mg PO Q4H PRN PRN Reason: Pain, Moderate (Pain Scale 4-6 Sodium Chloride (0.9 % Sodium Chloride Flush 3 Ml Syringe) 3 ml IVFLUSH QSHIFT [facility] [place] Last Admin: 05/14/21 07:57 Dose: Not Given Documented by: <Tena Del Real PA-C - Last Filed: 05/14/21 10:21> Time Spent With Patient Time: Total time spent is greater than 50% in coordination of care (as documented) at patient's floor/unit and/or counseling patient: <Tena Del Real PA-C - Last Filed: 05/14/21 10:21> Time with patient: 15 - 24 minutes <Tena Del Real PA-C - Last Filed: 05/14/21 10:21> Quality Stroke Does the patient have a stroke diagnosis?: No <Tena Del Real PA-C - Last Filed: 05/14/21 10:21> VTE Prior VTE?: No <Tena Del Real PA-C - Last Filed: 05/14/21 10:21> VTE Risk Level:: Medical - moderate - high <Tena Del Real PA-C - Last Filed: 05/14/21 10:21> VTE Device Contraindication: N/A - Device Ordered <Tena Del Real PA-C - Last Filed: 05/14/21 10:21> VTE Drug Contraindication: Treatment Not Indicated <Tena Del Real PA-C - Last Filed: 05/14/21 10:21>
[2021-05-14] MEDS: metroNIDAZOLE 500 MG TABLET PO ×2 (10:44→18:15)
--- NOTE | 2021-05-14 14:47 | MHC.CM.PN ---
PT REPORTS SHE LIVES ALONE AND IS INDEPENDENT WITH CARE, WORKS AND DRIVES. PT DENIES USE OF DME OR HOME/COMMUNITY SERVICES PT REPORTS SHE DOES NOT HAVE A PCP SINCE HER INSURANCE CHANGE AT WORK, HOWEVER REPORTS SHE DOES KNOW HOW TO OBTAIN A NEW ONE PT DECLINES TO COMPLETE A HCP DCP HOME NO SERVICES PT TO SELF ARRANGE TRANSPORT
--- NOTE | 2021-05-14 14:58 | P.PNIM_ITS ---
Subjective Subjective Date of Service: 05/14/21 Interval History: Feels better after drain; no other acute complaints. Review of Systems Denies CP Denies SOB Denies N/V/D Pain improved Physical Exam Verdana 4l Vital Signs: Verdana 4d Verdana 4d Vital Signs: Verdana 4d Verdana 4Bd Last Vital Signs Verdana 4d Sanitation Laborer New 4d Sanitation Laborer New 4d Temp 97.5 F 05/14/21 05:23 Sanitation Laborer New 4d Pulse 91 05/14/21 05:23 Sanitation Laborer New 4d Resp 16 05/14/21 05:23 BP 148/86 H 05/14/21 05:23 Pulse Ox 95 05/14/21 05:23 BMI result Body Mass Index 60.0 Const: Other: No acute distress Resp: Other: Clear all morales Cardio: Other: -S4 +S1/S2 -S3 M/R/G GI: Other: soft NABS. Drain LLQ mildly tender Extrem: Other: no edema bilat Objective Data Active Medications Acetaminophen (Acetaminophen 325 Mg Tablet) 650 mg PO Q6H PRN PRN Reason: Pain, Mild (Pain Scale 1-3) Ceftriaxone Sodium 1 gm/ (Sodium Chloride) 50 mls @ 100 mls/hr IV Q24H [facility] Last Infusion: 05/14/21 07:50 Dose: 0 mls/hr Documented by: AIDA Metronidazole (Metronidazole 500 Mg Tablet) 500 mg PO Q8H [facility] Last Admin: 05/14/21 10:44 Dose: 500 mg Documented by: KARINA Morphine Sulfate (Morphine Sulfate 4 Mg/Ml Cartridge) 4 mg IVPUSH Q4H PRN; Protocol PRN Reason: Pain, Severe (Pain Scale 7-10) Last Admin: 05/14/21 12:47 Dose: 4 mg Documented by: KARINA Ondansetron HCl (Ondansetron Hcl 4 Mg/2 Ml Vial) 4 mg IVPUSH Q8H PRN PRN Reason: Nausea and Vomiting Last Admin: 05/13/21 23:46 Dose: 4 mg Documented by: DONNIE Oxycodone HCl (Oxycodone Hcl Immed Release 5 Mg Tablet) 5 mg PO Q4H PRN PRN Reason: Pain, Moderate (Pain Scale 4-6 Sodium Chloride (0.9 % Sodium Chloride Flush 3 Ml Syringe) 3 ml IVFLUSH QSHIFT [facility] Last Admin: 05/14/21 07:57 Dose: Not Given Documented by: AIDA Non-Admin Reason: Patient Asleep Labs CBC & Chem 7: 05/14/21 09:11 05/14/21 09:11 Labs: Laboratory Results - last 24 hr 05/12/21 05/13/21 05/14/21 18:00 05:50 09:11 WBC 17.5 H 17.8 H 14.0 H MCV 85.5 MCH 27.7 MCHC 32.4 RDW 13.1 Plt Count 394 MPV 9.5 Immature Gran % (Auto) 0.5 H Neut % (Auto) 83.8 H Lymph % (Auto) 8.3 L [place] % (Auto) 6.7 Eos % (Auto) 0.6 Baso % (Auto) 0.1 Lymph # (Auto) 1.2 [place] # (Auto) 0.9 Eos # (Auto) 0.1 Baso # (Auto) 0.0 Abs Immat Gran (auto) 0.07 H Absolute Neuts (auto) 11.7 H Absolute Nucleated RBC 0.000 Nucleated RBC % (auto) 0.0 Anion Gap Estim Creat Clear Calc Estimated GFR Fasting Glucose Calcium Total Bilirubin AST ALT Alkaline Phosphatase Total Protein Albumin 05/14/21 09:11 WBC MCV MCH MCHC RDW Plt Count MPV Immature Gran % (Auto) Neut % (Auto) Lymph % (Auto) [place] % (Auto) Eos % (Auto) Baso % (Auto) Lymph # (Auto) [place] # (Auto) Eos # (Auto) Baso # (Auto) Abs Immat Gran (auto) Absolute Neuts (auto) Absolute Nucleated RBC Nucleated RBC % (auto) Anion Gap 14 Estim Creat Clear Calc 162.9 Estimated GFR > 60 Fasting Glucose 116 H Calcium 9.1 Total Bilirubin 0.7 AST 9 ALT 19 Alkaline Phosphatase 85 Total Protein 6.4 L Albumin 3.3 L Microbiology Microbiology Results: Microbiology 05/13/21 14:45 Gram Stain - Final Abscess Intra-abdominal Routine Culture - Preliminary Gram negative mikala Anaerobic Culture - Preliminary Culture in progress. 05/12/21 19:35 Urine Culture - Final Urine clean catch - Urine araujo top 05/13/21 00:29 Blood Culture - Preliminary Blood - Venous No growth after 24 hours. 05/13/21 00:29 Blood Culture - Preliminary Blood - Venous No growth after 24 hours. Assessment and Plan (1) Diverticulitis of intestine with abscess: Status: Acute Plan 46-year-old female with past medical history of asthma presents to the hospital with complaints of abdominal pain found to have diverticulitis with contained abscess 1. Parasgmoid Abcess secondary to TICs - continue IV antibiotics - clears/IVF's 2. asthma - no acute exacerbation DVT prophylaxis: SCDs in anticipation of drainage placement Quality Stroke Does the patient have a stroke diagnosis?: No VTE Prior VTE?: No VTE Risk Level:: Medical - moderate - high VTE Device Contraindication: N/A - Device Ordered VTE Drug Contraindication: Treatment Not Indicated
--- NOTE | 2021-05-14 16:43 | PC.NURSE ---
pt c/o SOB r/t asthma - requesting nebulizer. Dr. Foss notified. awaiting orders.
[2021-05-14] MEDS: Acetaminophen 325 MG TABLET 650 MG PO (16:52)
[2021-05-14] MEDS: oxyCODONE HCl Immed Release 5 MG TABLET PO ×2 (17:03→21:52)
[2021-05-14] MEDS: 0.9 % Sodium Chloride Flush 3 ML SYRINGE IVFLUSH ×2 (17:03→21:53)
--- NOTE | 2021-05-14 18:22 | PC.NURSE ---
emptied approximately 75ml of serosanguinous drainage from drain
[2021-05-14 19:36] VITALS: BP 152/81; PULSE 104; RESP 22; O2SAT 95
[2021-05-14 21:04] VITALS: BP 133/76; PULSE 88; RESP 17; TEMP 36.6; O2SAT 95
[2021-05-15] VITALS (7 sets, daily range): BP systolic 140–159; BP diastolic 83–90; PULSE 81–95; RESP 17–18; TEMP 36.6–37.2; O2SAT 92–98
[2021-05-15] MEDS: cefTRIAXone sodium 1 GM in 0.9 % Sodium Chloride 50 ML IV (01:55)
[2021-05-15] MEDS: metroNIDAZOLE 500 MG TABLET PO ×3 (01:55→17:40)
[2021-05-15] MEDS: oxyCODONE HCl Immed Release 5 MG TABLET PO ×2 (07:28→22:32)
[2021-05-15 08:24] LABS: MANUAL DIFF FLAG NO
[2021-05-15 08:27] LABS: Basophils Percent Auto 0.3 % (0-2); Eosinophils Absolute Auto 0.1 X10*3/uL (0.0-0.4); Hematocrit 36.1 % (37.0-47.0); Hemoglobin 11.7 g/dl (12.0-16.0); Imm Gran Abs Auto 0.07 X10*3/uL (0.00-0.03); Imm Gran Pct Auto 0.6 % (0.0-0.4); Lymphocytes Percent Auto 9.2 % (20-40); Mean Corpuscular HGB Conc 32.4 g/dl (31.0-35.0); Mean Corpuscular Hemoglobin 27.6 pg (27.0-33.0); Mean Corpuscular Volume 85.1 fL (80.0-98.0); Mean Platelet Volume 9.4 fL (9.4-12.3); Monocytes Absolute Auto 0.7 X10*3/uL (0.1-1.2); Monocytes Percent Auto 6.8 % (2-11); Neutrophils Absolute Auto 8.9 x10*3/uL (2.0-8.3); Neutrophils Percent Auto 82.1 % (45-73); Platelet Count 377 X10*3/uL (160-400); Red Blood Count 4.24 X10*6/uL (4.20-5.50); White Blood Count 10.9 X10*3/uL (4.8-10.8)
[2021-05-15 08:49] LABS: Alanine Aminotransferase 16 U/L (0-31); Alkaline Phosphatase 83 U/L (39-117); Anion Gap 14 (12-20); Aspartate Amino Transferase 7 U/L (5-31); Bilirubin Total 0.5 mg/dL (0.0-1.0); Blood Urea Nitrogen 11 mg/dL (9-16); Calcium 8.8 mg/dL (8.4-10.2); Carbon Dioxide 28 mmol/L (22-29); Chloride 99 mmol/L (96-108); Creatinine Clr Calc Pharmacy 170.5; Estimated Glomerular Filt Rate > 60; Glucose Fasting 117 mg/dL (60-99); Potassium 3.5 mmol/L (3.3-5.1); Sodium 137 mmol/L (135-145)
[2021-05-15] MEDS: Acetaminophen 325 MG TABLET 650 MG PO ×2 (10:11→22:32)
[2021-05-15] MEDS: 0.9 % Sodium Chloride Flush 3 ML SYRINGE IVFLUSH ×2 (10:14→17:41)
--- NOTE | 2021-05-15 10:18 | P.PNIM_ITS ---
Subjective Subjective Date of Service: 05/15/21 Interval History: Pain control adequate. No acute issues overnight Review of Systems Denies CP Denies SOB Denies N/V/D Pain improved Physical Exam Verdana 4l Vital Signs: Verdana 4d Verdana 4d Vital Signs: Verdana 4d Verdana 4Bd Last Vital Signs Verdana 4d Fish Processing Supervisor New 4d Fish Processing Supervisor New 4d Temp 98.8 F 05/15/21 08:00 Fish Processing Supervisor New 4d Pulse 89 05/15/21 08:00 Fish Processing Supervisor New 4d Resp 18 05/15/21 08:00 BP 140/84 H 05/15/21 08:00 Pulse Ox 98 05/15/21 08:00 BMI result Body Mass Index 60.0 Const: Other: No acute distress Resp: Other: Clear all morales Cardio: Other: -S4 +S1/S2 -S3 M/R/G GI: Other: soft NABS. Drain LLQ mildly tender Extrem: Other: no edema bilat Objective Data Active Medications Acetaminophen (Acetaminophen 325 Mg Tablet) 650 mg PO Q6H PRN PRN Reason: Pain, Mild (Pain Scale 1-3) Last Admin: 05/15/21 10:11 Dose: 650 mg Documented by: ANA Albuterol Sulfate (Albuterol Sulfate (0.083%) 2.5 Mg/3 Ml Vial.Neb) 2.5 mg INHALE Q4H PRN PRN Reason: Wheezing Ceftriaxone Sodium 1 gm/ (Sodium Chloride) 50 mls @ 100 mls/hr IV Q24H [facility] Last Infusion: 05/15/21 02:52 Dose: 0 mls/hr Documented by: TG Metronidazole (Metronidazole 500 Mg Tablet) 500 mg PO Q8H [facility] Last Admin: 05/15/21 10:10 Dose: 500 mg Documented by: ANA Morphine Sulfate (Morphine Sulfate 4 Mg/Ml Cartridge) 4 mg IVPUSH Q4H PRN; Protocol PRN Reason: Pain, Severe (Pain Scale 7-10) Last Admin: 05/14/21 12:47 Dose: 4 mg Documented by: KARINA Ondansetron HCl (Ondansetron Hcl 4 Mg/2 Ml Vial) 4 mg IVPUSH Q8H PRN PRN Reason: Nausea and Vomiting Last Admin: 05/13/21 23:46 Dose: 4 mg Documented by: DONNIE Oxycodone HCl (Oxycodone Hcl Immed Release 5 Mg Tablet) 5 mg PO Q4H PRN PRN Reason: Pain, Moderate (Pain Scale 4-6 Last Admin: 05/15/21 07:28 Dose: 5 mg Documented by: TG Sodium Chloride (0.9 % Sodium Chloride Flush 3 Ml Syringe) 3 ml IVFLUSH [facility] Last Admin: 05/15/21 10:14 Dose: 3 ml Documented by: ANA Labs CBC & Chem 7: 05/15/21 08:19 05/15/21 08:19 Labs: Laboratory Results - last 24 hr 05/15/21 05/15/21 08:19 08:19 MCV 85.1 MCH 27.6 MCHC 32.4 RDW 13.0 Plt Count 377 MPV 9.4 Immature Gran % (Auto) 0.6 H Neut % (Auto) 82.1 H Lymph % (Auto) 9.2 L [place] % (Auto) 6.8 Eos % (Auto) 1.0 Baso % (Auto) 0.3 Lymph # (Auto) 1.0 L [place] # (Auto) 0.7 Eos # (Auto) 0.1 Baso # (Auto) 0.0 Abs Immat Gran (auto) 0.07 H Absolute Neuts (auto) 8.9 H Absolute Nucleated RBC 0.000 Nucleated RBC % (auto) 0.0 Anion Gap 14 Estim Creat Clear Calc 170.5 Estimated GFR > 60 Fasting Glucose 117 H Calcium 8.8 Total Bilirubin 0.5 AST 7 ALT 16 Alkaline Phosphatase 83 Total Protein 6.0 L Albumin 3.0 L Microbiology Microbiology Results: Microbiology 05/13/21 14:45 Gram Stain - Final Abscess Intra-abdominal Routine Culture - Preliminary Escherichia coli Anaerobic Culture - Preliminary Culture in progress. 05/13/21 00:29 Blood Culture - Preliminary Blood - Venous No growth after 48 hours. 05/13/21 00:29 Blood Culture - Preliminary Blood - Venous No growth after 48 hours. 05/12/21 19:35 Urine Culture - Final Urine clean catch - Urine araujo top Assessment and Plan (1) Diverticulitis of intestine with abscess: Status: Acute Plan 46-year-old female with past medical history of asthma presents to the hospital with complaints of abdominal pain found to have diverticulitis with contained abscess 1. 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 asthma - no acute exacerbation DVT prophylaxis: SCDs in anticipation of drainage placement Quality Stroke Does the patient have a stroke diagnosis?: No VTE Prior VTE?: No VTE Risk Level:: Medical - moderate - high VTE Device Contraindication: N/A - Device Ordered VTE Drug Contraindication: Treatment Not Indicated
--- NOTE | 2021-05-15 14:48 | P.PNGS_ITS ---
Subjective Subjective Date of Service: 05/15/21 Interval history: feeling ok Physical Exam Verdana 4l Vital Signs: Verdana 4d Verdana 4d Vital Signs: Verdana 4d Verdana 4Bd Last Vital Signs Verdana 4d Greenskeeper Laborer New 4d Greenskeeper Laborer New 4d Temp 98.1 F 05/15/21 12:00 Greenskeeper Laborer New 4d Pulse 82 05/15/21 12:00 Greenskeeper Laborer New 4d Resp 18 05/15/21 12:00 BP 151/83 H 05/15/21 12:00 Pulse Ox 98 05/15/21 12:00 BMI result Body Mass Index 60.0 GI: Other: abdo - obese, soft nondistended, tender only at the site of the drain, drain has purulent drainage still Objective Data Active Medications Acetaminophen (Acetaminophen 325 Mg Tablet) 650 mg PO Q6H PRN PRN Reason: Pain, Mild (Pain Scale 1-3) Last Admin: 05/15/21 10:11 Dose: 650 mg Documented by: ANA Albuterol Sulfate (Albuterol Sulfate (0.083%) 2.5 Mg/3 Ml Vial.Neb) 2.5 mg IN CARO Q4H PRN PRN Reason: Wheezing Ceftriaxone Sodium 1 gm/ (Sodium Chloride) 50 mls @ 100 mls/hr IV Q24H [facility] Last Infusion: 05/15/21 02:52 Dose: 0 mls/hr Documented by: TG Metronidazole (Metronidazole 500 Mg Tablet) 500 mg PO Q8H [facility] Last Admin: 05/15/21 10:10 Dose: 500 mg Documented by: ANA Morphine Sulfate (Morphine Sulfate 4 Mg/Ml Cartridge) 4 mg IVPUSH Q4H PRN; Protocol PRN Reason: Pain, Severe (Pain Scale 7-10) Last Admin: 05/14/21 12:47 Dose: 4 mg Documented by: KARINA Ondansetron HCl (Ondansetron Hcl 4 Mg/2 Ml Vial) 4 mg IVPUSH Q8H PRN PRN Reason: Nausea and Vomiting Last Admin: 05/13/21 23:46 Dose: 4 mg Documented by: DONNIE Oxycodone HCl (Oxycodone Hcl Immed Release 5 Mg Tablet) 5 mg PO Q4H PRN PRN Reason: Pain, Moderate (Pain Scale 4-6 Last Admin: 05/15/21 07:28 Dose: 5 mg Documented by: TG Sodium Chloride (0.9 % Sodium Chloride Flush 3 Ml Syringe) [facility] Last Admin: 05/15/21 10:14 Dose: 3 ml Documented by: ANA Labs CBC & Chem 7: 05/15/21 08:19 05/15/21 08:19 Labs: Laboratory Results - last 24 hr 05/15/21 05/15/21 08:19 08:19 MCV 85.1 MCH 27.6 MCHC 32.4 RDW 13.0 Plt Count 377 MPV 9.4 Immature Gran % (Auto) 0.6 H Neut % (Auto) 82.1 H Lymph % (Auto) 9.2 L [place] % (Auto) 6.8 Eos % (Auto) 1.0 Baso % (Auto) 0.3 Lymph # (Auto) 1.0 L [place] # (Auto) 0.7 Eos # (Auto) 0.1 Baso # (Auto) 0.0 Abs Immat Gran (auto) 0.07 H Absolute Neuts (auto) 8.9 H Absolute Nucleated RBC 0.000 Nucleated RBC % (auto) 0.0 Anion Gap 14 Estim Creat Clear Calc 170.5 Estimated GFR > 60 Fasting Glucose 117 H Calcium 8.8 Total Bilirubin 0.5 AST 7 ALT 16 Alkaline Phosphatase 83 Total Protein 6.0 L Albumin 3.0 L Microbiology Microbiology Results: Microbiology 05/13/21 14:45 Gram Stain - Final Abscess Intra-abdominal Routine Culture - Preliminary Escherichia coli Anaerobic Culture - Preliminary Culture in progress. 05/13/21 00:29 Blood Culture - Preliminary Blood - Venous No growth after 48 hours. 05/13/21 00:29 Blood Culture - Preliminary Blood - Venous No growth after 48 hours. 05/12/21 19:35 Urine Culture - Final Urine clean catch - Urine araujo top Procedures Date of Service Date of Service: 05/15/21 Progress Note: A&P Assessment and plan (1) Diverticulitis of intestine with abscess: Status: Acute Plan 46yo female with diverticulitis with localized abscess IR drainage successful and draining well - wbc ok, pt getting restless. suggest slow advancement to low residue diet and see how she tolerates this clinically. cont with iv antibx. most likely will eventually need segmental resection but it would be great to do this electively and have her lose weight - she has BMI of 60 at this point. She understands and says she wants to lose the weight. Fall Risk Details Current Medications: Current Medications Acetaminophen (Acetaminophen 325 Mg Tablet) 650 mg PO Q6H PRN PRN Reason: Pain, Mild (Pain Scale 1-3) Last Admin: 05/15/21 10:11 Dose: 650 mg Documented by: Albuterol Sulfate (Albuterol Sulfate (0.083%) 2.5 Mg/3 Ml Vial.Neb) 2.5 mg INHALE Q4H PRN PRN Reason: Wheezing Ceftriaxone Sodium 1 gm/ (Sodium Chloride) 50 mls @ 100 mls/hr IV Q24H [facility] Last Infusion: 05/15/21 02:52 Dose: Infused Documented by: Metronidazole (Metronidazole 500 Mg Tablet) 500 mg PO Q8H [facility] Last Admin: 05/15/21 10:10 Dose: 500 mg Documented by: Morphine Sulfate (Morphine Sulfate 4 Mg/Ml Cartridge) 4 mg IVPUSH Q4H PRN; Protocol PRN Reason: Pain, Severe (Pain Scale 7-10) Last Admin: 05/14/21 12:47 Dose: 4 mg Documented by: Ondansetron HCl (Ondansetron Hcl 4 Mg/2 Ml Vial) 4 mg IVPUSH Q8H PRN PRN Reason: Nausea and Vomiting Last Admin: 05/13/21 23:46 Dose: 4 mg Documented by: Oxycodone HCl (Oxycodone Hcl Immed Release 5 Mg Tablet) 5 mg PO Q4H PRN PRN Reason: Pain, Moderate (Pain Scale 4-6 Last Admin: 05/15/21 07:28 Dose: 5 mg Documented by: Sodium Chloride (0.9 % Sodium Chloride Flush 3 Ml Syringe) [facility] Last Admin: 05/15/21 10:14 Dose: 3 ml Documented by: Time Spent With Patient Time: Total time spent is greater than 50% in coordination of care (as documented) at patient's floor/unit and/or counseling patient: Time with patient: 15 - 24 minutes Quality Stroke Does the patient have a stroke diagnosis?: No VTE Prior VTE?: No VTE Risk Level:: Medical - moderate - high VTE Device Contraindication: N/A - Device Ordered VTE Drug Contraindication: Treatment Not Indicated
--- NOTE | 2021-05-15 19:49 | PC.NURSE ---
Left abdominal drain put out 44mL of light pink drainage from 7am-6pm.
[2021-05-16] MEDS: cefTRIAXone sodium 1 GM in 0.9 % Sodium Chloride 50 ML IV (01:08)
[2021-05-16] MEDS: 0.9 % Sodium Chloride Flush 3 ML SYRINGE IVFLUSH ×2 (01:08→07:19)
[2021-05-16] MEDS: metroNIDAZOLE 500 MG TABLET PO ×2 (01:08→10:30)
[2021-05-16 03:12] VITALS: BP 148/72; PULSE 82; RESP 18; TEMP 36.5; O2SAT 97
[2021-05-16 05:54] LABS: Alanine Aminotransferase 15 U/L (0-31); Albumin Level 3.1 g/dL (3.5-5.0); Alkaline Phosphatase 86 U/L (39-117); Anion Gap 18 (12-20); Aspartate Amino Transferase 8 U/L (5-31); Bilirubin Total 0.4 mg/dL (0.0-1.0); Blood Urea Nitrogen 12 mg/dL (9-16); Calcium 8.9 mg/dL (8.4-10.2); Carbon Dioxide 27 mmol/L (22-29); Chloride 98 mmol/L (96-108); Creatinine Clr Calc Pharmacy 173.2; Estimated Glomerular Filt Rate > 60; Glucose Fasting 91 mg/dL (60-99); Potassium 3.8 mmol/L (3.3-5.1); Sodium 139 mmol/L (135-145); Total Protein 6.1 g/dL (6.5-8.0)
[2021-05-16 06:23] LABS: Basophils Percent Auto 0.3 % (0-2); Eosinophils Absolute Auto 0.2 X10*3/uL (0.0-0.4); Eosinophils Percent Auto 1.9 % (0-4); Hematocrit 37.4 % (37.0-47.0); Imm Gran Abs Auto 0.11 X10*3/uL (0.00-0.03); Imm Gran Pct Auto 1.1 % (0.0-0.4); Lymphocytes Percent Auto 19.9 % (20-40); MANUAL DIFF FLAG SCAN; Mean Corpuscular HGB Conc 32.1 g/dl (31.0-35.0); Mean Corpuscular Hemoglobin 27.2 pg (27.0-33.0); Mean Corpuscular Volume 84.8 fL (80.0-98.0); Mean Platelet Volume 9.9 fL (9.4-12.3); Monocytes Absolute Auto 0.9 X10*3/uL (0.1-1.2); Monocytes Percent Auto 9.2 % (2-11); Neutrophils Absolute Auto 6.9 x10*3/uL (2.0-8.3); Neutrophils Percent Auto 67.6 % (45-73); Platelet Count 448 X10*3/uL (160-400); Red Blood Count 4.41 X10*6/uL (4.20-5.50); Red Cell Distribution Width 12.9 % (11.0-16.0); SCAN SMEAR FLAG 1; White Blood Count 10.2 X10*3/uL (4.8-10.8)
[2021-05-16 07:21] VITALS: BP 180/96; PULSE 81; RESP 18; TEMP 37.2; O2SAT 95
[2021-05-16 07:53] LABS: SLIDE REVIEW VERIFIED
[2021-05-16 11:36] VITALS: BP 183/99; PULSE 78; RESP 18; TEMP 36.9; O2SAT 98
[2021-05-16] MEDS: oxyCODONE HCl Immed Release 5 MG TABLET PO (13:05)
--- NOTE | 2021-05-16 13:15 | MHC.CM.PN ---
PT TO DC HOME TODAY WITH NO SERVICES PT TO SELF ARRANGE TRANSPORT
--- NOTE | 2021-05-16 13:22 | PM.PNGS ---
Subjective Subjective Date of Service: 05/16/21 Interval history: feels better less drainage from drain - feels pain in the drain area Physical Exam Vital Signs: Vital Signs: Last Vital Signs Temp 98.4 F 05/16/21 11:36 Pulse 78 05/16/21 11:36 Resp 18 05/16/21 11:36 BP 183/99 H 05/16/21 11:36 Pulse Ox 98 05/16/21 11:36 BMI result Body Mass Index 60.0 GI: Other: abdomen is soft nontender other than drain insertion area Objective Data Active Medications Acetaminophen (Acetaminophen 325 Mg Tablet) 650 mg PO Q6H PRN PRN Reason: Pain, Mild (Pain Scale 1-3) Last Admin: 05/15/21 22:32 Dose: 650 mg Documented by: LYNETTE Albuterol Sulfate (Albuterol Sulfate (0.083%) 2.5 Mg/3 Ml Vial.Neb) 2.5 mg INHALE Q4H PRN PRN Reason: Wheezing Ceftriaxone Sodium 1 gm/ (Sodium Chloride) 50 mls @ 100 mls/hr IV Q24H [facility] Last Infusion: 05/16/21 01:44 Dose: 0 mls/hr Documented by: LYNETTE Metronidazole (Metronidazole 500 Mg Tablet) 500 mg PO Q8H [facility] Last Admin: 05/16/21 10:30 Dose: 500 mg Documented by: ANAMARIA Morphine Sulfate (Morphine Sulfate 4 Mg/Ml Cartridge) 4 mg IVPUSH Q4H PRN; Protocol PRN Reason: Pain, Severe (Pain Scale 7-10) Last Admin: 05/14/21 12:47 Dose: 4 mg Documented by: KARINA Ondansetron HCl (Ondansetron Hcl 4 Mg/2 Ml Vial) 4 mg IVPUSH Q8H PRN PRN Reason: Nausea and Vomiting Last Admin: 05/13/21 23:46 Dose: 4 mg Documented by: DONNIE Oxycodone HCl (Oxycodone Hcl Immed Release 5 Mg Tablet) 5 mg PO Q4H PRN PRN Reason: Pain, Moderate (Pain Scale 4-6 Last Admin: 05/16/21 13:05 Dose: 5 mg Documented by: ANAMARIA Sodium Chloride (0.9 % Sodium Chloride Flush 3 Ml Syringe) 3 ml IVFLUSH [facility] Last Admin: 05/16/21 07:19 Dose: 3 ml Documented by: ANAMARIA Labs CBC & Chem 7: 05/16/21 04:30 05/16/21 04:30 Labs: Laboratory Results - last 24 hr 05/16/21 05/16/21 04:30 04:30 MCV 84.8 MCH 27.2 MCHC 32.1 RDW 12.9 Plt Count 448 H MPV 9.9 Immature Gran % (Auto) 1.1 H Neut % (Auto) 67.6 Lymph % (Auto) 19.9 L [place] % (Auto) 9.2 Eos % (Auto) 1.9 Baso % (Auto) 0.3 Lymph # (Auto) 2.0 [place] # (Auto) 0.9 Eos # (Auto) 0.2 Baso # (Auto) 0.0 Abs Immat Gran (auto) 0.11 H Absolute Neuts (auto) 6.9 Absolute Nucleated RBC 0.000 Nucleated RBC % (auto) 0.0 Smear Tech's Comments VERIFIED Anion Gap 18 Estim Creat Clear Calc 173.2 Estimated GFR > 60 Fasting Glucose 91 Calcium 8.9 Total Bilirubin 0.4 AST 8 ALT 15 Alkaline Phosphatase 86 Total Protein 6.1 L Albumin 3.1 L Microbiology Microbiology Results: Microbiology 05/13/21 14:45 Gram Stain - Final Abscess Intra-abdominal Routine Culture - Preliminary Escherichia coli Anaerobic Culture - Preliminary Culture in progress. Procedures Date of Service Date of Service: 05/16/21 Progress Note: A&P Assessment and plan (1) Diverticulitis of intestine with abscess: Status: Acute Plan pt is doing well afebrile, less abdo tenderness but drain still putting out purulent material - volume decreasing she is eating well= plan to dc home on po augmentin, drain in place and f.u with dr Barrett in the office. will eventually need preop conditioning and butler for eventual segmental resection. she understands and agrees with plan Fall Risk Details Current Medications: Current Medications Acetaminophen (Acetaminophen 325 Mg Tablet) 650 mg PO Q6H PRN PRN Reason: Pain, Mild (Pain Scale 1-3) Last Admin: 05/15/21 22:32 Dose: 650 mg Documented by: Albuterol Sulfate (Albuterol Sulfate (0.083%) 2.5 Mg/3 Ml Vial.Neb) 2.5 mg INHALE Q4H PRN PRN Reason: Wheezing Ceftriaxone Sodium 1 gm/ (Sodium Chloride) 50 mls @ 100 mls/hr IV Q24H [facility] Last Infusion: 05/16/21 01:44 Dose: Infused Documented by: Metronidazole (Metronidazole 500 Mg Tablet) 500 mg PO Q8H [facility] Last Admin: 05/16/21 10:30 Dose: 500 mg Documented by: Morphine Sulfate (Morphine Sulfate 4 Mg/Ml Cartridge) 4 mg IVPUSH Q4H PRN; Protocol PRN Reason: Pain, Severe (Pain Scale 7-10) Last Admin: 05/14/21 12:47 Dose: 4 mg Documented by: Ondansetron HCl (Ondansetron Hcl 4 Mg/2 Ml Vial) 4 mg IVPUSH Q8H PRN PRN Reason: Nausea and Vomiting Last Admin: 05/13/21 23:46 Dose: 4 mg Documented by: Oxycodone HCl (Oxycodone Hcl Immed Release 5 Mg Tablet) 5 mg PO Q4H PRN PRN Reason: Pain, Moderate (Pain Scale 4-6 Last Admin: 05/16/21 13:05 Dose: 5 mg Documented by: Sodium Chloride (0.9 % Sodium Chloride Flush 3 Ml Syringe) [facility] Last Admin: 05/16/21 07:19 Dose: 3 ml Documented by: Time Spent With Patient Time: Total time spent is greater than 50% in coordination of care (as documented) at patient's floor/unit and/or counseling patient: Time with patient: 15 - 24 minutes Quality Stroke Does the patient have a stroke diagnosis?: No VTE Prior VTE?: No VTE Risk Level:: Medical - moderate - high VTE Device Contraindication: N/A - Device Ordered VTE Drug Contraindication: Treatment Not Indicated
--- NOTE | 2021-05-16 13:25 | P.DS_ITS ---
DS: Providers Provider Date of Service: 05/16/21 Date of admission: 05/13/21 00:39 Date of discharge: 05/16/21 Primary care physician: None Physician Consults: 05/13/21 00:38 Consult to General Surgery Routine Consulting Provider: Murali Beck Reason for consultation: diverticulitis with abscess Has provider been notified: No DS: Diagnosis Discharge Diagnosis (1) Diverticulitis of intestine with abscess: Status: Acute DS: Summary Hospital Course Hospital Course: This is a 46 yo F with past medical history of asthma who presents to the hospital with acute complaint of abd pain for the past 3-4 days. pain in located at the left lower quadrant, radiating to the rest of her abdomen, she was also having urinary symptoms including urinary frequency and urgency, was started on Macrobid by her primary physician but reports that her symptoms continue to give worsened therefore came into the hospital.? She was also having abdominal bloating, nausea and vomiting, has been having diarrhea, feeling chills, no fever.? Patient denies any lower extremity edema.? No headache or change in vision, no weakness numbness or tingling.? On arrival to the ED patient hemodynamically stable with slightly elevated heart rate of 100-110 Labs are significant for WBC count of 17.5, UA that is positive for nitrites , COVID-[address] showed acute diverticulitis complicated by large air and fluid-filled perisigmoid abscess.? This would be amenable to percutaneous drainage. Hospital Course On 05/14/[address] guided drainage;tolerated well. Seen in consultation by Dr so.Will follow in office. On 05/15/21 diet advanced to low resiue which was tolerated well. Discussed with surgery...home on Augmentin. Will document drainage. Time Spent with Patient Time attestation: Total time spent providing and/or coordinating discharge services: Discharge coordination time: Greater than 30 minutes Quality: Stroke Does the patient have a stroke diagnosis?: No Physical Exam Verdana 4l Vital Signs: Verdana 4d Verdana 4d Vital Signs: Verdana 4d Verdana 4Bd Last Vital Signs Verdana 4d Vending Machine Servicer New 4d Vending Machine Servicer New 4d Temp 98.4 F 05/16/21 11:36 Vending Machine Servicer New 4d Pulse 78 05/16/21 11:36 Vending Machine Servicer New 4d Resp 18 05/16/21 11:36 BP 183/99 H 05/16/21 11:36 Pulse Ox 98 05/16/21 11:36 BMI result Body Mass Index 60.0 Const: Other: Resting comfortably Resp: Other: Clear all morales Cardio: Other: -S4 +S1/S2 -S3 M/R/G GI: Other: soft/=NABS. tender around drain. Site ok Extrem: Other: No edema DS: Data Data Completed and Pending Labs on day of discharge: Laboratory Results - last 24 hr 05/16/21 05/16/21 04:30 04:30 WBC 10.2 RBC 4.41 Hgb 12.0 Hct 37.4 MCV 84.8 MCH 27.2 MCHC 32.1 RDW 12.9 Plt Count 448 H MPV 9.9 Immature Gran % (Auto) 1.1 H Neut % (Auto) 67.6 Lymph % (Auto) 19.9 L [place] % (Auto) 9.2 Eos % (Auto) 1.9 Baso % (Auto) 0.3 Lymph # (Auto) 2.0 [place] # (Auto) 0.9 Eos # (Auto) 0.2 Baso # (Auto) 0.0 Abs Immat Gran (auto) 0.11 H Absolute Neuts (auto) 6.9 Absolute Nucleated RBC 0.000 Nucleated RBC % (auto) 0.0 Smear Tech's Comments VERIFIED Sodium 139 Potassium 3.8 Chloride 98 Carbon Dioxide 27 Anion Gap 18 BUN 12 Creatinine 0.63 Estim Creat Clear Calc 173.2 Estimated GFR > 60 Fasting Glucose 91 Calcium 8.9 Total Bilirubin 0.4 AST 8 ALT 15 Alkaline Phosphatase 86 Total Protein 6.1 L Albumin 3.1 L Preliminary micro results at discharge 05/13/21 14:45 Routine Culture - Preliminary Abscess Intra-abdominal Escherichia coli Anaerobic Culture - Preliminary Culture in progress. 05/13/21 00:29 Blood Culture - Preliminary Blood - Venous No growth after 48 hours. 05/13/21 00:29 Blood Culture - Preliminary Blood - Venous No growth after 48 hours. Discharge Plan Discharge Patient Disposition: Home, Self-Care Discharge Diagnosis: Parasigmoid abcess Referrals: Physician,None [Primary Care Provider] - 1 Week Discharge Medications: New oxycodone 5 mg Tablet 5 mg PO Q4H PRN (Reason: Pain, Moderate (Pain Scale 4-6) Qty: 30 0RF amoxicillin-pot clavulanate [Augmentin] 875-125 mg tablet 1 tab PO BID Qty: 20 0RF Continued albuterol sulfate 90 mcg/actuation HFA aerosol inhaler 1 puff inhalation Q4H PRN (Reason: Wheezing) 0RF Discontinued nitrofurantoin monohyd/m-cryst 100 mg capsule 1 cap PO BID 0RF Discharge Orders: Discharge Order (Routine); Ordered 05/16/21 Ordered By: Mark Foss Diet: advance to usual diet Activity on Discharge: As tolerated Stand Alone Forms: Patient Portal Discharge page Care Plan Goals: Record output from drainage bag daily; bring record with you to Dr So's office. Take Augmentin as ordered. Oxycodone as needed for pain Health Concerns: Keep drain secured. Plan of Treatment: Follow with Dr. So as scheduled. His office will call you with appointment Assessment: as per discharge summary
--- NOTE | 2021-05-16 15:09 | PC.NURSE ---
Discharge instructions reviewed with pt. LLQ drain emptied for 15mL of pink/brownish fluid. Pt return demonstrated emptying drain and verbalizes understanding with care of drain. Verbalized understanding of all discharge instructions.
== END 2021-05-16 16:15 | disposition home or self-care (01) | DRG 392 ==
LOC: HO.ED 05-13 00:20 → HO.EDOVER 05-13 00:46 → HO.S3 05-14 18:38
PROVIDERS: Radiology Diagnostic Radiology; Admitting Provider Internal Medicine; Emergency Provider Internal Medicine; Visit Provider Hospitalist
DX: K57.20 Diverticulitis of large intestine with perforation and abscess without bleeding (principal); Z68.44 Body mass index [BMI] 60.0-69.9, adult; J45.909 Unspecified asthma, uncomplicated; E66.01 Morbid (severe) obesity due to excess calories; Z20.822 Contact with and (suspected) exposure to COVID-19; Z79.899 Other long term (current) drug therapy
CPT/HCPCS: 36415; 74177; 75989; 80048; 80053; 81001; 81025; 83605; 85025; 85610; 85730; 87040; 87071; 87073; 87076; 87077; 87086; 87185; 87186; 87205; 87635; 96361; 96365; 96375; 99152; 99153; 99285; J0696; J2270; J2405; J2543; Q4186; Q9967

== ENCOUNTER → 2021-05-18 15:32 | Outpatient (BNVA) | payer OTHER, SELFPAY | PROVIDERS: Visit Provider Surgery ==

== ENCOUNTER 2021-06-01 08:02 | Outpatient (REF) | payer OTHER, SELFPAY ==
--- NOTE | ~2021-06-01 | CT_ITS ---
EXAMINATION: CT ABDOMEN AND PELVIS WITH CONTRAST CLINICAL INFORMATION: Diverticulitis COMPARISON: Previous CT of the abdomen and pelvis most recent 05/12/2021 TECHNIQUE: Multidetector volumetric images were obtained from the superior aspect of the liver through the pubic symphysis following administration 85 mL of Omnipaque 350 intravenous contrast. Sagittal and coronal reformatted images were obtained on the technologist's workstation. Oral contrast: Yes This CT examination was performed using dose optimization techniques as appropriate, variously including the following: *Automated exposure control *Adjustment of mA and/or kV according to patient size (this includes techniques or standardized protocols for targeted exams where dose is matched to indication/reason for exam; i.e. extremities or head) *Use of iterative reconstruction technique DLP: 1331 mGy-cm FINDINGS: LUNG BASES: The visualized lung bases are unremarkable. LIVER, GALLBLADDER, AND BILIARY TREE: The liver is normal in size, shape, and attenuation. No focal hepatic lesion or biliary ductal dilatation is present. The gallbladder is unremarkable with no evidence of radiopaque gallstones, gallbladder wall thickening, or obvious pericholecystic inflammatory changes. PANCREAS: Unremarkable. SPLEEN: Unremarkable. ADRENAL GLANDS: Unremarkable. KIDNEYS AND URETERS: The kidneys are normal in size, shape, and attenuation. No hydronephrosis, hydroureter, or calculi seen. No perinephric stranding. BLADDER: Unremarkable. GASTROINTESTINAL TRACT: There is diverticulosis of the colon. There is wall thickening of the sigmoid colon and stranding of the surrounding fat suggestive of sigmoid diverticulitis. Appears improved compared to 05/12/2021 exam. There is a left lower quadrant drainage catheter. The catheter is just deep to the anterior abdominal wall. There is still a complex fluid collection seen in the left pelvis measuring approximately 6 cm. This contains several air fluid levels. This is in the left adnexa and difficult to separate from the left ovary.. This does not appear appreciably changed in size from April 2021 exam. This is continuous with the left side of the uterus. There is new air seen in the uterus and cervix and vagina. Possible fistulous communication with the bowel should be considered. Small and large bowel is otherwise unremarkable. The appendix is unremarkable. No free fluid or free air is seen. ABDOMINAL WALL: No significant hernia is appreciated. LYMPH NODES: Normal. VASCULAR: Unremarkable. PELVIC VISCERA: There is still a complex fluid collection seen in the left pelvis measuring approximately 6 cm. This contains several air fluid levels. This is in the left adnexa and difficult to separate from the left ovary.. This does not appear appreciably changed in size from April 2021 exam. This is continuous with the left side of the uterus. There is new air seen in the uterus and cervix and vagina. Possible fistulous communication with the bowel should be considered. There is a 5.5 x 7.6 cm low-attenuation lesion in the right adnexa. This is similar to old exams going back to June 2018. It is uncertain whether this represents a complex adnexal cyst or mass versus subserosal fibroid. Follow-up pelvic ultrasound is recommended. OSSEOUS STRUCTURES: There are degenerative changes of the spine. CT/CT abdomen pelvis w con IMPRESSION: Sigmoid diverticulitis improved from 05/12/2021 exam. Pigtail drainage catheter has pulled out of the left pelvic/adnexal collection and is now just deep to the abdominal wall. No appreciable change in the complex left pelvic or adnexal collection with several air-fluid levels. This is difficult to separate from the left ovary. This is continuous with the left side of the uterus. There is new air in the endometrial cavity, cervix and vagina and possible new fistulous communication should be considered. Stable 5.5 x 7.6 cm low-attenuation right pelvic lesion questionable for a right complex adnexal cyst or mass versus subserosal fibroid. Follow-up pelvic ultrasound recommended. Fleischner guidelines were followed.
[2021-06-01] MEDS: iohexoL 350 MG/ML 100 ML INFUS..BTL IV (09:07)
== END 2021-06-01 08:03 | disposition home or self-care (01) ==
LOC: HO.CT 08:02
PROVIDERS: Visit Provider Surgery
DX: K57.80 Diverticulitis of intestine, part unspecified, with perforation and abscess without bleeding (principal)
CPT/HCPCS: 74177; Q9967

== ENCOUNTER → 2021-06-03 08:33 | Outpatient (BNVA) | payer OTHER, SELFPAY | PROVIDERS: Visit Provider Surgery ==

== ENCOUNTER 2021-11-29 15:18 | Inpatient (IN) | payer OTHER, SELFPAY ==
--- NOTE | ~2021-11-29 | CT_ITS ---
EXAMINATION: CT PELVIS WITH CONTRAST CLINICAL INFORMATION: Follow-up pelvic abscesses COMPARISON: Previous CT scans most recent December 05 and 12/07/2021 TECHNIQUE: Helical scanning was performed with submillimeter collimation through the pelvis with the use of oral contrast and during bolus intravenous injection of 85 mL of Omnipaque 350 intravenous contrast. Sagittal and coronal multiplanar 2-D reconstructions were obtained. This CT examination was performed using dose optimization techniques as appropriate, variously including the following: *Automated exposure control *Adjustment of mA and/or kV according to patient size (this includes techniques or standardized protocols for targeted exams where dose is matched to indication/reason for exam; i.e. extremities or head) *Use of iterative reconstruction technique DLP: 1372 mGy-cm FINDINGS: There is interval improvement in pelvic abscesses. There is a new small caliber pigtail drain in the right lower quadrant. Previously identified approximately 5 x 9.5 cm fluid collection in this region appears significantly decreased in size. There are small residual more inferior fluid collections in the right lower quadrant largest measuring 3 x 5 cm axial image 22 series 2. No residual fluid collection adjacent to the drainage catheter is seen. The larger approximately 5.5 x 9 cm high attenuation collection in the right upper pelvis/adnexa appears unchanged for example axial image 26 series 2. There is a new drainage catheter in the more inferior collection in the right posterior cul-de-sac. Previously identified 6.5 cm collection in the posterior cul-de-sac is no longer seen. There is still a thick walled collection in the left pelvis/left adnexa measuring 4.5 cm. This contains fluid and air. There is a tract that extends to the skin of the left lower quadrant with air in it again suggestive of a fistula. There is a Zabala catheter in the bladder. There is a small amount of air and high attenuation material in the bladder suggestive of a fistula. The uterus is displaced to the right by the pelvic collections. There are postsurgical changes following colostomy. No free air is seen. There is diverticular disease of the colon. Bony structures are unremarkable. CT/CT pelvis w con IMPRESSION: Improved pelvic abscesses.
--- NOTE | ~2021-11-29 | US_ITS ---
EXAMINATION: US PELVIS CLINICAL INFORMATION: Right adnexal mass. Question abscess. COMPARISON: CT abdomen and pelvis 11/30/2019 performed earlier today. TECHNIQUE: Ultrasound of the pelvis is performed using both transabdominal and transvaginal transducers along with Doppler. Patient refused transvaginal ultrasound. FINDINGS: Uterus: The uterus is anteverted, anteflexed and measures 16.9 cm in length, 7.4 cm in AP, and 10.5 cm in transverse dimension. The double wall endometrial thickness is 0.5 cm. The uterus is smooth in contour and has normal myometrial echogenicity. No visible fibroid. Adnexa: Both ovaries are not visualized. There is a large complex multiloculated structure with increased vascularity midline and more to the right of midline, likely a complex abscess. A tubo-ovarian abscess should be considered in the differential diagnosis. No free fluid seen. The bladder is not visualized. US/US pelvic complete IMPRESSION: Large complex echogenic area in the pelvis midline and right paramidline region, likely a complex abscess. Differential diagnosis includes a tubo-ovarian abscess in addition to a pelvic abscess. Involvement of the ovaries is not excluded. These findings are better visualized on CT pelvis than ultrasound. The uterus is unremarkable. The ovaries are not seen. The bladder is not visualized. Results were called by phone to Dr. Murali Stewart at 10:20 AM.
--- NOTE | ~2021-11-29 | CT_ITS ---
PROCEDURE: CT GUIDED DRAINAGE, PERITONEAL ABSCESS CLINICAL INFORMATION: Diverticulitis and pelvic abscesses. COMPARISON: Previous CTs of the abdomen and pelvis, most recent 12/05/2021. TECHNIQUE: Procedure and risks and benefits including bleeding, infection and injury to the bowel or adjacent organs was discussed with the patient and informed consent was obtained. The patient was positioned in the left lateral decubitus position. The left buttock was prepped and draped in the usual sterile fashion. The skin and soft tissues were anesthetized with 1% lidocaine plain. Using a one-stick system, a 10.2 Syri[place] pigtail drainage catheter was positioned in the fluid collection in the posterior cul-de-sac. A total of 300 mL of purulent fluid was removed. Diagnostic specimen was sent for Gram stain and culture. Subsequently, the right lower quadrant was prepped and draped in usual sterile fashion. The skin and soft tissues were anesthetized with 1% lidocaine plain. Using CT guidance and a 22-gauge Chiba needle, access to the fluid collection in the right lower quadrant was obtained. Over a 0.018 wire, an 8.5 Syriac drainage catheter was positioned in the collection. 60 mL of slightly bloody purulent fluid was removed. Diagnostic specimen was sent. Anesthesia was provided by the anesthesia department. This CT examination was performed using dose optimization techniques as appropriate, variously including the following: *Automated exposure control *Adjustment of mA and/or kV according to patient size (this includes techniques or standardized protocols for targeted exams where dose is matched to indication/reason for exam; i.e. extremities or head) *Use of iterative reconstruction technique DLP: 1708 mGy-cm. FINDINGS: Initial CT demonstrates multiloculated complex collections in the right lower quadrant and bilateral pelvis. New air-fluid level is seen in the superior aspect of the collection in the right pelvis in the right lower quadrant that previously just represented fluid. Images post drain placement demonstrate satisfactory position of drains with decrease in fluid collections. CT/CT drain peritoneum IMPRESSION: Unremarkable examination. CT-guided right lower quadrant and pelvic drainage.
--- NOTE | ~2021-11-29 | CT_ITS ---
EXAMINATION: CT ABDOMEN AND PELVIS WITH CONTRAST CLINICAL INFORMATION: Follow-up abdominal abscess. Postop ileus. COMPARISON: Previous CT of the abdomen and pelvis most recent 11/29/2021 TECHNIQUE: Multidetector volumetric images were obtained from the superior aspect of the liver through the pubic symphysis following administration 85 mL of Omnipaque 350 intravenous contrast. Sagittal and coronal reformatted images were obtained on the technologist's workstation. Oral contrast: Yes This CT examination was performed using dose optimization techniques as appropriate, variously including the following: *Automated exposure control *Adjustment of mA and/or kV according to patient size (this includes techniques or standardized protocols for targeted exams where dose is matched to indication/reason for exam; i.e. extremities or head) *Use of iterative reconstruction technique DLP: 1559 mGy-cm FINDINGS: LUNG BASES: There is subsegmental atelectasis at the lung bases. LIVER, GALLBLADDER, AND BILIARY TREE: The liver is normal in size, shape, and attenuation. No focal hepatic lesion or biliary ductal dilatation is present. The gallbladder is unremarkable with no evidence of radiopaque gallstones, gallbladder wall thickening, or obvious pericholecystic inflammatory changes. PANCREAS: Unremarkable. SPLEEN: Unremarkable. ADRENAL GLANDS: Unremarkable. KIDNEYS AND URETERS: The kidneys are normal in size, shape, and attenuation. There is mild right hydronephrosis and ureteral dilatation likely secondary to the right pelvic mass. BLADDER: Zabala catheter in the bladder. The bladder is empty. GASTROINTESTINAL TRACT: There is a new diverting left lower quadrant descending colon colostomy. There is dilated fluid-filled loops of small and large bowel. Large bowel loops distal to the colostomy appear distended and fluid-filled. This favors postoperative ileus over obstruction. Complex partially solid partially cystic pelvic masses appear unchanged from preoperative 11/29/2021 exam. Largest is a left adnexal complex partially solid partially cystic mass measuring 4.5 x 5 cm. This is continuous with a tract to the skin that contains air. Given clinical history this probably represents a fistula. There is a larger right complex partially solid partially cystic mass beginning in the right lower quadrant extending to the pelvis. This has both solid and cystic components and involves the right adnexa and right side of the uterus. This does not appear appreciably changed. Overall this measures 8 x 14 cm in transverse and longitudinal dimension coronal reconstructed image 66 and 10 cm in AP dimension sagittal reconstructed image 69 series 6. Largest fluid component of the complex pelvic masses measure 5 cm in the posterior cul-de-sac for example axial image 88 series 3. Again this is unchanged from preoperative imaging. There is a small amount of free intraperitoneal air that may be postoperative in nature. No appreciable free ascites is seen. ABDOMINAL WALL: There are new postsurgical changes to the anterior abdominal wall. LYMPH NODES: There are small retroperitoneal and bilateral inguinal lymph nodes. No enlarged lymph nodes. VASCULAR: Unremarkable. PELVIC VISCERA: There is deviation of the uterus to the left. There are bilateral pelvic partially solid partially cystic masses, right greater than left. These are inseparable from the bilateral adnexa. These appear unchanged from preoperative exam 11/29/2021. OSSEOUS STRUCTURES: Unremarkable. CT/CT abdomen pelvis w con IMPRESSION: New dilated fluid-filled loops of small and large bowel. New left lower quadrant colostomy. There are dilated fluid-filled loops of large bowel distal to the colostomy and no definite transition zone is seen. This favors postoperative ileus over obstruction. No change in the bilateral pelvic partially solid partially cystic masses involving the adnexa and uterus from preoperative exam. No change in mild right hydronephrosis likely secondary to mass effect from the right pelvic mass.. Fleischner guidelines were followed.
--- NOTE | ~2021-11-29 | CT_ITS ---
EXAMINATION: CT ABDOMEN AND PELVIS WITH CONTRAST CLINICAL INFORMATION: Left lower quadrant pain COMPARISON: 06/01/2021 TECHNIQUE: Multidetector volumetric images were obtained from the superior aspect of the liver through the pubic symphysis following administration of 50 mL of Omnipaque 350 intravenous contrast. Sagittal and coronal reformatted images were obtained on the technologist's workstation. Oral contrast: No This CT examination was performed using dose optimization techniques as appropriate, variously including the following: *Automated exposure control *Adjustment of mA and/or kV according to patient size (this includes techniques or standardized protocols for targeted exams where dose is matched to indication/reason for exam; i.e. extremities or head) *Use of iterative reconstruction technique DLP: 1334 mGy-cm FINDINGS: LUNG BASES: The visualized lung bases are unremarkable. LIVER, GALLBLADDER, AND BILIARY TREE: The liver is normal in size, shape, and attenuation. No focal hepatic lesion or biliary ductal dilatation is present. The gallbladder is unremarkable with no evidence of radiopaque gallstones, gallbladder wall thickening, or obvious pericholecystic inflammatory changes. PANCREAS: Unremarkable. SPLEEN: Unremarkable. ADRENAL GLANDS: Unremarkable. KIDNEYS AND URETERS: The kidneys are normal in size, shape, and attenuation. No hydronephrosis, hydroureter, or calculi seen. No perinephric stranding. BLADDER: Unremarkable. GASTROINTESTINAL TRACT: The stomach is unremarkable. Normal caliber small bowel. No obstruction. There is marked abnormality within the pelvis. There is a complex collection with mixed cystic and solid appearing components in the central to right pelvis. There is a separate collection in the left pelvic region with a gas-filled tract extending to the anterior pelvic wall. There is then a separate tract extending from the muscular wall to the skin surface which appears to be fluid-filled. The dominant right pelvic structure measures 13.5 x 9.5 x 14 cm. There is an adjacent more simple appearing cystic structure anteriorly and superiorly which measures 7 x 4.5 cm. The left pelvic structure measures 6 x 5 cm. There is gas seen within the bladder lumen and in the endometrial cavity. There is likely a normal appendix. The collection abuts the sigmoid colon where there is mild wall thickening. ABDOMINAL WALL: Fluid tract in the left anterior lower abdominal wall from the pelvic collection. This is the site of previous drainage catheter. LYMPH NODES: Normal. VASCULAR: Normal caliber aorta. PELVIC VISCERA: Gas within the endometrial cavity, concerning for fistulization to the pelvic collection. There is also concern for fistulization to the bladder as there is gas in the bladder lumen. No free air. OSSEOUS STRUCTURES: No acute or suspicious osseous abnormality. CT/CT abdomen pelvis w con IMPRESSION: Complex appearance of the pelvis. Multiple areas of complex fluid are seen. When compared to previous imaging, there is an existing left pelvic collection which is again noted. There is a tract of gas and fluid at the site of previous drainage catheter. There is a separate larger heterogeneous mixed cystic and solid appearing collection in the central to right pelvis. Cannot determine if this is true solid component or complex internal fluid/blood products. Cannot exclude tubo-ovarian abscess is a component of the pathology here. This critical result was discussed with Keron Loza MD by telephone at 11/30/2021 12:30 AM and it was ascertained that the content and urgency of the report was understood at the time of direct communication. Fleischner guidelines were followed.
[2021-11-29 17:11] VITALS: BP 139/99; PULSE 109; RESP 20; TEMP 37; O2SAT 100; BMI 59.9
[2021-11-29 17:21] LABS: MANUAL DIFF FLAG NO
[2021-11-29 17:25] LABS: Basophils Percent Auto 0.3 % (0-2); Eosinophils Absolute Auto 0.1 X10*3/uL (0.0-0.4); Eosinophils Percent Auto 0.9 % (0-4); Hematocrit 36.7 % (37.0-47.0); Hemoglobin 11.9 g/dl (12.0-16.0); Imm Gran Abs Auto 0.13 X10*3/uL (0.00-0.03); Imm Gran Pct Auto 0.9 % (0.0-0.4); Lymphocytes Absolute Auto 1.4 X10*3/uL (1.2-4.9); Lymphocytes Percent Auto 9.4 % (20-40); Mean Corpuscular HGB Conc 32.4 g/dl (31.0-35.0); Mean Corpuscular Hemoglobin 26.7 pg (27.0-33.0); Mean Corpuscular Volume 82.5 fL (80.0-98.0); Mean Platelet Volume 9.1 fL (9.4-12.3); Monocytes Absolute Auto 1.2 X10*3/uL (0.1-1.2); Monocytes Percent Auto 8.1 % (2-11); Neutrophils Absolute Auto 12.2 x10*3/uL (2.0-8.3); Neutrophils Percent Auto 80.4 % (45-73); Platelet Count 603 X10*3/uL (160-400); Red Blood Count 4.45 X10*6/uL (4.20-5.50); Red Cell Distribution Width 13.6 % (11.0-16.0); White Blood Count 15.2 X10*3/uL (4.8-10.8)
[2021-11-29 17:49] LABS: Alanine Aminotransferase 27 U/L (0-31); Albumin Level 3.4 g/dL (3.5-5.0); Alkaline Phosphatase 155 U/L (39-117); Anion Gap 16 (12-20); Aspartate Amino Transferase 20 U/L (5-31); Bilirubin Direct 0.4 mg/dL (0.0-0.5); Bilirubin Total 0.7 mg/dL (0.0-1.0); Blood Urea Nitrogen 17 mg/dL (9-16); Calcium 9.4 mg/dL (8.4-10.2); Carbon Dioxide 28 mmol/L (22-29); Chloride 98 mmol/L (96-108); Creatinine Clr Calc Pharmacy 134.2; Estimated Glomerular Filt Rate > 60; Glucose Random 120 mg/dL (60-115); Lipase < 4 U/L (8-78); Sodium 138 mmol/L (135-145); Total Protein 7.5 g/dL (6.5-8.0)
[2021-11-29 20:25] VITALS: BP 138/94; PULSE 116; RESP 16; TEMP 36.8; O2SAT 98
[2021-11-29 20:39] LABS: Appearance Urine Cloudy; Color Urine Red; UACC Culture Trigger YES
[2021-11-29 20:42] LABS: UPreg QC Valid YES; Urine Pregnancy NEGATIVE (NEGATIVE)
[2021-11-29 20:54] LABS: Bacteria Urine 4+ /LPF; Squamous Epithelial Cell Urine 2+ /LPF; WBC Urine TNTC /HPF (0-4)
[2021-11-29 20:55] LABS: RBC Urine TNTC /HPF (0)
[2021-11-29 20:56] LABS: WBC Clumps Urine Present
[2021-11-29 22:35] VITALS: BP 125/67; PULSE 107; RESP 20; TEMP 37.2; O2SAT 98
[2021-11-29] MEDS: 0.9 % Sodium Chloride 1,000 ML 999 ML IV (22:48)
[2021-11-29] MEDS: Ketorolac Tromethamine 30 MG/ML VIAL IVPUSH (22:48)
--- NOTE | 2021-11-29 23:16 | ED.ABDPAIN ---
HPI - Abdominal Pain General Chief Complaint: Abdominal Pain Stated Complaint: Diverticulitis Flare-up Time Seen by Provider: 11/29/21 21:44 Source: patient Mode of arrival: ambulatory Limitations: no limitations History of Present Illness HPI narrative: 46 yold female with pmh of diverticulitis presents to the ED for LLQ abdominal pain for one week. Patient denies any dysuria, or hematuria. Patient states no nausea, vomitting, fever, chills, back pain, vaginal bleeding, or flank pain. Related Data Home Medications Medication Instructions Recorded Confirmed albuterol sulfate 90 mcg/actuation 1 puff inhalation Q4H PRN Wheezing 05/13/21 06/03/21 aerosol inhaler nitrofurantoin 1 cap PO BID 05/18/21 06/03/21 monohydrate/macrocrystals 100 mg capsule Previous Rx's Medication Instructions Recorded amoxicillin 875 mg-potassium 1 tab PO BID #20 tabs 05/16/21 clavulanate 125 mg tablet (Augmentin) oxycodone 5 mg tablet 5 mg PO Q4H PRN Pain, Moderate 05/16/21 (Pain Scale 4-6 #30 tabs Allergies Allergy/AdvReac Type Severity Reaction Status Date / Time No Known Allergies Allergy Verified 05/13/21 10:40 Review of Systems Review of Systems left lower abdominal pain Yes all other systems are reviewed and are negative [facility] Past Medical History Medical History Asthma Borderline diabetes Morbid obesity Surgical History No pertinent past surgical history Social History Social History Household Members: None Housing: Apartment Unable to assess alcohol history related to: Unable to respond Alcohol intake: current Patient Tobacco Use Status: Never used Tobacco Tobacco use type: Cigarette Cigarettes Per Day: 8 Substance Use Type: Marijuana Advance Directives: No Advance Directives Information Provided: No service: No Current occupational status: employed Physical Exam ED Vital Signs: Vital Signs - 24 hr 11/29/21 17:11 11/29/21 20:25 11/29/21 22:35 Temperature 98.6 F 98.2 F 98.9 F Pulse Rate 109 H 116 H 107 H Respiratory Rate 20 16 20 Blood Pressure 139/99 H 138/94 H 125/67 Pulse Oximetry 100 98 98 Oxygen Delivery Method Room Air Room Air Room Air BMI result Body Mass Index 59.9 Const General: cooperative, healthy appearing, comfortable, no acute distress, well developed, alert, awake and Physically active Orientation/consciousness: oriented to person, oriented to place, oriented to time and patient oriented x3 HENMT Head: Yes normal to inspection, Yes No palpable skull fracture present, Yes normocephalic, Yes atraumatic and No abrasion Eyes General: appearance normal, both eyes and all related structures Neck Neck: Yes normal visual inspection, Yes full ROM, Yes no lymphadenopathy, Yes no meningeal signs, Yes trachea midline, Yes supple, No anterior neck swelling and No tender Chest Chest palpation & inspection: normal inspection of the chest and normal palpation of entire chest wall Resp Effort & Inspection: normal respiratory effort and able to speak in complete sentences Auscultation: clear to auscultation bilaterally Cardio Jugular venous distension: no JVD Heart sounds: S1 normal heart sound present and S2 normal heart sound present GI Inspection: Yes normal to inspection and No abdominal wall ecchymosis Palpation (GI): Soft to palpation, not firm, Tenderness to palpation present (GI) in the LLQ, no guarding and not rigid General: No CVA tenderness and Yes no CVA tenderness Back/Spine/Pelvis Back: no CVA tenderness, No CVA tenderness and No back tenderness Skin General skin exam: no rashes or lesions noted, elasticity normal and turgor normal Neuro General: oriented to person, oriented to place, oriented to time, patient oriented x3, gait normal, tone normal, moves all extremities, Normal light touch and pain sensation, no meningeal signs, no focal motor deficits and CN's II-XI intact bilaterally Extrem General: Yes normal to inspection and Yes full ROM Psych Appearance: grossly normal, well kempt and not disheveled Course Course Course Narrative: Labs ordered shows white count [id number]. Toradol ordered. Abdominal CT scan ordered. 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 Patient has sigmoid colitis also on CT scan. When patient's chart reviews seems that patient has had this issue since May after having diverticulitis abscess drain. Spoke with Dr. Elisha Duran about this case and he states this is surgical case due to source of pelvic abscess was a diverticulitis. Case discussed with Dr. Beck who states he will admit patient and possible IR in the morning. Antibiotics started. Patient admitted. Time: 01:53 MDM - Abdominal Pain MDM Narrative Medical decision making narrative: Diverticulitis. Pelvic abscess Lab Data Result diagrams: 11/29/21 17:15 11/29/21 17:15 Labs: Lab Results 11/29/21 11/29/21 11/29/21 Range/Units 17:15 17:15 20:27 WBC 15.2 H (4.8-10.8) X10*3/uL RBC 4.45 (4.20-5.50) X10*6/uL Hgb 11.9 L (12.0-16.0) g/dl Hct 36.7 L (37.0-47.0) % MCV 82.5 (80.0-98.0) fL MCH 26.7 L (27.0-33.0) pg MCHC 32.4 (31.0-35.0) g/dl RDW 13.6 (11.0-16.0) % Plt Count 603 H D (160-400) X10*3/uL MPV 9.1 L (9.4-12.3) fL Immature Gran % (Auto) 0.9 H (0.0-0.4) % Neut % (Auto) 80.4 H (45-73) % Lymph % (Auto) 9.4 L (20-40) % [place] % (Auto) 8.1 (2-11) % Eos % (Auto) 0.9 (0-4) % Baso % (Auto) 0.3 (0-2) % Lymph # (Auto) 1.4 (1.2-4.9) X10*3/uL [place] # (Auto) 1.2 (0.1-1.2) X10*3/uL Eos # (Auto) 0.1 (0.0-0.4) X10*3/uL Baso # (Auto) 0.0 (0.0-0.2) X10*3/uL Abs Immat Gran (auto) 0.13 H (0.00-0.03) X10*3/uL Absolute Neuts (auto) 12.2 H (2.0-8.3) x10*3/uL Absolute Nucleated RBC 0.000 (0.0-0.012) X10*3/uL Nucleated RBC % (auto) 0.0 (0.0-0.2) /100WBC Sodium 138 (135-145) mmol/L Potassium 4.0 (3.3-5.1) mmol/L Chloride 98 (96-108) mmol/L Carbon Dioxide 28 (22-29) mmol/L Anion Gap 16 (12-20) BUN 17 H (9-16) mg/dL Creatinine 0.84 (0.5-1.4) mg/dL Estim Creat Clear Calc 134.2 Estimated GFR > 60 Random Glucose 120 H (60-115) mg/dL Lactic Acid (0.5-2.0) mmol/L Calcium 9.4 (8.4-10.2) mg/dL Total Bilirubin 0.7 (0.0-1.0) mg/dL Direct Bilirubin 0.4 (0.0-0.5) mg/dL AST 20 D (5-31) U/L ALT 27 (0-31) U/L Alkaline Phosphatase 155 H D (39-117) U/L Total Protein 7.5 D (6.5-8.0) g/dL Albumin 3.4 L (3.5-5.0) g/dL Lipase < 4 L (8-78) U/L Urine Color Red A Urine Appearance Cloudy Urine pH TNP Ur Specific [place] TNP Urine Protein TNP Urine Glucose (UA) TNP Urine Ketones TNP Urine Blood TNP Urine Nitrite TNP Ur Leukocyte Esterase TNP Urine RBC TNTC H (0) /HPF Urine WBC TNTC H (0-4) /HPF Urine WBC Clumps Present Ur Squamous Epith Cells 2+ /LPF Urine Bacteria 4+ /LPF Urine Test (NEGATIVE) 11/29/21 11/30/21 Range/Units 20:27 01:17 WBC (4.8-10.8) X10*3/uL RBC (4.20-5.50) X10*6/uL Hgb (12.0-16.0) g/dl Hct (37.0-47.0) % MCV (80.0-98.0) fL MCH (27.0-33.0) pg MCHC (31.0-35.0) g/dl RDW (11.0-16.0) % Plt Count (160-400) X10*3/uL MPV (9.4-12.3) fL Immature Gran % (Auto) (0.0-0.4) % Neut % (Auto) (45-73) % Lymph % (Auto) (20-40) % [place] % (Auto) (2-11) % Eos % (Auto) (0-4) % Baso % (Auto) (0-2) % Lymph # (Auto) (1.2-4.9) X10*3/uL [place] # (Auto) (0.1-1.2) X10*3/uL Eos # (Auto) (0.0-0.4) X10*3/uL Baso # (Auto) (0.0-0.2) X10*3/uL Abs Immat Gran (auto) (0.00-0.03) X10*3/uL Absolute Neuts (auto) (2.0-8.3) x10*3/uL Absolute Nucleated RBC (0.0-0.012) X10*3/uL Nucleated RBC % (auto) (0.0-0.2) /100WBC Sodium (135-145) mmol/L Potassium (3.3-5.1) mmol/L Chloride (96-108) mmol/L Carbon Dioxide (22-29) mmol/L Anion Gap (12-20) BUN (9-16) mg/dL Creatinine (0.5-1.4) mg/dL Estim Creat Clear Calc Estimated GFR Random Glucose (60-115) mg/dL Lactic Acid 1.0 (0.5-2.0) mmol/L Calcium (8.4-10.2) mg/dL Total Bilirubin (0.0-1.0) mg/dL Direct Bilirubin (0.0-0.5) mg/dL AST (5-31) U/L ALT (0-31) U/L Alkaline Phosphatase (39-117) U/L Total Protein (6.5-8.0) g/dL Albumin (3.5-5.0) g/dL Lipase (8-78) U/L Urine Color Urine Appearance Urine pH Ur Specific [place] Urine Protein Urine Glucose (UA) Urine Ketones Urine Blood Urine Nitrite Ur Leukocyte Esterase Urine RBC (0) /HPF Urine WBC (0-4) /HPF Urine WBC Clumps Ur Squamous Epith Cells /LPF Urine Bacteria /LPF Urine Test NEGATIVE (NEGATIVE) Discharge Plan Discharge Clinical Impression: Diverticulitis of intestine with abscess, Pelvis, female abscess Patient Disposition: Admitted As Inpatient
[2021-11-29] MEDS: iohexoL 350 MG/ML 100 ML INFUS..BTL IV (23:53)
[2021-11-30] VITALS (8 sets, daily range): BP systolic 124–178; BP diastolic 60–93; PULSE 88–100; RESP 16–20; TEMP 36.1–37.7; O2SAT 94–100
--- NOTE | 2021-11-30 00:58 | P.CONOB_ITS ---
ELECTROLYSIS INVESTIGATOR - CN: HPI Data of Consult Consult date: 11/30/21 Primary Care Provider: None Physician Consult Narrative Narrative: I was consulted on Mana Rodirguez who is a 46 year old female with history of diverticulitis abscess around 7 cm in April of 2021 was drained percutaneously presented to the emergency room complaining LLQ abdominal pain of one week duration. A follow-up CT scan on 06/01/2021 showed the following: Sigmoid diverticulitis improved from 05/12/2021 exam. Pigtail drainage catheter has pulled out of the left pelvic/adnexal collection and is now just deep to the abdominal wall. No appreciable change in the complex left pelvic or adnexal collection with several air-fluid levels. This is difficult to separate from the left ovary. This is continuous with the left side of the uterus. There is new air in the endometrial cavity, cervix and vagina and possible new fistulous communication should be considered. Stable 5.5 x 7.6 cm low-attenuation right pelvic lesion questionable for a right complex adnexal cyst or mass versus subserosal fibroid. Follow-up pelvic ultrasound recommended. CT scan done in the emergency room tonight showed the following: Complex appearance of the pelvis. Multiple areas of complex fluid are seen. When compared to previous imaging, there is an existing left pelvic collection which is again noted. There is a tract of gas and fluid at the site of previous drainage catheter. There is a separate larger heterogeneous mixed cystic and solid appearing collection in the central to right pelvis. Cannot determine if this is true solid component or complex internal fluid/blood products. Cannot exclude tubo-ovarian abscess is a component of the pathology here. White count 15 K No other symptoms. cc:: CC: OB [facility] Past Medical History Medical History Asthma Borderline diabetes Morbid obesity Surgical History Surgical History No pertinent past surgical history Social History Social History Household Members: None Housing: Apartment Unable to assess alcohol history related to: Unable to respond Alcohol intake: current Patient Tobacco Use Status: Never used Tobacco Tobacco use type: Cigarette Cigarettes Per Day: 8 Substance Use Type: Marijuana Advance Directives: No Advance Directives Information Provided: No service: No Current occupational status: employed Meds Allergies Allergy/AdvReac Type Severity Reaction Status Date / Time No Known Allergies Allergy Verified 05/13/21 10:40 Home Medications Medication Instructions Recorded Confirmed Last Taken Type albuterol sulfate 90 mcg/actuation 1 puff inhalation Q4H PRN Wheezing 05/13/21 06/03/21 Unknown History aerosol inhaler nitrofurantoin 1 cap PO BID 05/18/21 06/03/21 Unknown History monohydrate/macrocrystals 100 mg capsule ELECTROLYSIS INVESTIGATOR Physical Exam Vitals Vital signs: Temp Pulse Resp BP Pulse Ox O2 Del Method 98.9 F 107 H 20 125/67 98 11/29/21 22:35 11/29/21 22:35 11/29/21 22:35 11/29/21 22:35 11/29/21 22:35 11/29/21 22:35 BMI result Body Mass Index 59.9 Additional Comments: Per BIBIANA Borjas in the emergency room, abdominal exam showed the following: Soft to palpation, not firm, Tenderness to palpation present (GI) in the LLQ, no guarding and not rigid ELECTROLYSIS INVESTIGATOR - Results Labs CBC & Chem 7: 11/29/21 17:15 11/29/21 17:15 Labs: Short CBC 11/29/21 Range/Units 17:15 WBC 15.2 H (4.8-10.8) X10*3/uL Hgb 11.9 L (12.0-16.0) g/dl Hct 36.7 L (37.0-47.0) % Plt Count 603 H D (160-400) X10*3/uL BMP 11/29/21 17:15 Sodium 138 Potassium 4.0 Chloride 98 Carbon Dioxide 28 BUN 17 H Creatinine 0.84 Calcium 9.4 Liver Function 11/29/21 Range/Units 17:15 Total Bilirubin 0.7 (0.0-1.0) mg/dL Direct Bilirubin 0.4 (0.0-0.5) mg/dL AST 20 D (5-31) U/L ALT 27 (0-31) U/L Alkaline Phosphatase 155 H D (39-117) U/L Albumin 3.4 L (3.5-5.0) g/dL Urine 11/29/21 11/29/21 Range/Units 20:27 20:27 Urine Color Red A Urine Appearance Cloudy Urine pH TNP Ur Specific [place] TNP Urine Protein TNP Urine Glucose (UA) TNP Urine Test NEGATIVE (NEGATIVE) Imaging CT scan - pelvis: Radiologist's impression: ITS Impressions Abdomen/Pelvis CT 11/30/21 00:00 IMPRESSION: Complex appearance of the pelvis. Multiple areas of complex fluid are seen. When compared to previous imaging, there is an existing left pelvic collection which is again noted. There is a tract of gas and fluid at the site of previous drainage catheter. There is a separate larger heterogeneous mixed cystic and solid appearing collection in the central to right pelvis. Cannot determine if this is true solid component or complex internal fluid/blood products. Cannot exclude tubo-ovarian abscess is a component of the pathology here. This critical result was discussed with Keron Loaz MD by telephone at 11/30/2021 12:30 AM and it was ascertained that the content and urgency of the report was understood at the time of direct communication. Fleischner guidelines were followed. Assessment and Plan (1) Pelvic abscess in female: Status: Acute Plan Differential diagnosis includes diverticulitis with pelvic abscesses and possible fistulas, adnexal mass/possible fibroid, TOA. Recommended the following to BIBIANA Borjas in the emergency: Consult general surgery, start empiric wide spectrum antibiotics coverage, needs IR for abscess drainage shantal. With such a large pelvic abscess and possible fistulas communication with the uterus, cervix and vagina and a complex adnexal mass/ possible fibroids, recommend transfer the patient to [facility] since there is no interventional radiology available at this time at [facility], in addition to the availability of colorectal service, Eligibility Supervisor Oncology and other resources in a tertiary care center. I spent a total of 20 minutes reviewing the chart, communicating with the ER provider and documenting in the medical record.
[2021-11-30] MEDS: levoFLOXacin/D5W 750 MG/150 ML PIGGYBACK 100 MG IV (01:25)
[2021-11-30] MEDS: ondansetron HCL 4 MG/2 ML VIAL IVPUSH ×4 (01:34→21:19)
[2021-11-30] MEDS: HYDROmorphone HCl 1 MG/ML SYRINGE 0.5 MG IVPUSH ×5 (02:20→21:09)
[2021-11-30 02:41] LABS: COVID-19 Test Negative (Negative)
[2021-11-30] MEDS: Dextrose 5 % and Lactated Ring 1,000 ML 125 ML IVCONT ×3 (02:48→21:15)
[2021-11-30] MEDS: metroNIDAZOLE/NS 500 MG/100 ML PIGGYBACK 100 MG IV (03:03)
[2021-11-30] MEDS: Piperacillin Sodium/Tazobactam 3.375 GM in 0.9 % Sodium Chloride 50 ML IV ×4 (03:06→21:09)
[2021-11-30 06:07] LABS: MANUAL DIFF FLAG NO
[2021-11-30 06:09] LABS: Basophils Percent Auto 0.2 % (0-2); Eosinophils Absolute Auto 0.1 X10*3/uL (0.0-0.4); Eosinophils Percent Auto 0.8 % (0-4); Hematocrit 29.6 % (37.0-47.0); Hemoglobin 9.4 g/dl (12.0-16.0); Imm Gran Abs Auto 0.08 X10*3/uL (0.00-0.03); Imm Gran Pct Auto 0.7 % (0.0-0.4); Lymphocytes Absolute Auto 1.4 X10*3/uL (1.2-4.9); Lymphocytes Percent Auto 11.8 % (20-40); Mean Corpuscular HGB Conc 31.8 g/dl (31.0-35.0); Mean Corpuscular Hemoglobin 26.6 pg (27.0-33.0); Mean Corpuscular Volume 83.6 fL (80.0-98.0); Mean Platelet Volume 9.6 fL (9.4-12.3); Monocytes Absolute Auto 1.1 X10*3/uL (0.1-1.2); Monocytes Percent Auto 9.2 % (2-11); Neutrophils Absolute Auto 9.3 x10*3/uL (2.0-8.3); Neutrophils Percent Auto 77.3 % (45-73); Platelet Count 509 X10*3/uL (160-400); Red Blood Count 3.54 X10*6/uL (4.20-5.50); Red Cell Distribution Width 13.8 % (11.0-16.0)
[2021-11-30 06:37] LABS: Glucose Random 367 mg/dL (60-115)
[2021-11-30 06:38] LABS: Anion Gap 16 (12-20); Blood Urea Nitrogen 15 mg/dL (9-16); Calcium 8.2 mg/dL (8.4-10.2); Carbon Dioxide 24 mmol/L (22-29); Chloride 101 mmol/L (96-108); Creatinine Clr Calc Pharmacy 146.5; Estimated Glomerular Filt Rate > 60; Potassium 3.9 mmol/L (3.3-5.1); Sodium 137 mmol/L (135-145)
--- NOTE | 2021-11-30 06:42 | PC.NURSE ---
Poc was 367 report. Notified AXEL Lacy
--- NOTE | 2021-11-30 07:47 | PC.NURSE ---
assumed care of pt
[2021-11-30] MEDS: oxyCODONE HCl Immed Release 5 MG TABLET PO ×3 (08:06→21:09)
--- NOTE | 2021-11-30 08:34 | P.HPGS_ITS ---
History of Present Illness History of Present Illness Date of Service: 11/30/21 <BIBIANA Vazquez - Last Filed: 11/30/21 09:17> 12/01/21 <Murali Beck MD - Last Filed: 12/01/21 07:39> Chief complaint: Complicated sigmoid diverticulitis <BIBIANA Vazquez - Last Filed: 11/30/21 09:17> Narrative: Mana Rodriguez is a 46 year old female with past medical history including morbid obesity, asthma, and borderline diabetes. She was previously hospitalized here in April 2021 with sigmoid diverticulitis and abscess for which she underwent CT guided drainage. She followed up in the office for drain removal on 06/03 but otherwise has not had any surgical/colorectal followup. She returns to the ED today complaining of lower abdominal pain x 1 week. Pain is constant, 7.5/10 currently, associated with nausea and vomiting before coming to the ER. Has not eaten since pain started. Pt denies fever, diarrhea, c onstipation, blood in stool. She reports that she has had ongoing drainage from old drain site ever since it was removed. Denies any dysuria, hematuria. <BIBIANA Vazquez - Last Filed: 11/30/21 09:17> Review of Systems Review of Systems: Yes all other systems are reviewed and are negative <BIBIANA Vazquez - Last Filed: 11/30/21 09:17> [facility] Past Medical History Medical History: Medical History Asthma Borderline diabetes Morbid obesity <BIBIANA Vazquez - Last Filed: 11/30/21 09:17> Functional capacity: independent ambulation <BIBIANA Vazquez - Last Filed: 11/30/21 09:17> Surgical History Surgical History: Surgical History No pertinent past surgical history <BIBIANA Vazquez - Last Filed: 11/30/21 09:17> Social History Social History: Social History Household Members: None Housing: Apartment Do you presently have visiting nurse or other home services: No Unable to assess alcohol history related to: Unable to respond Alcohol intake: current Patient Tobacco Use Status: Current everyday Tobacco user Tobacco use type: Cigarette Cigarettes Per Day: 5 Years Smoked: 25 Smoked in Last 30 Days: Yes e-Cigarette/Vaping Use: Never Used Patient Interested in Nicotine Replacement: No Patient Given Instructions on How to Stop Smoking: Yes Date Education Initiated: 11/30/21 Second Hand Smoke Exposure: No Use of substances other than those prescribed or required for medical reasons: Yes Substance Use Type: Marijuana Substance Use Frequency: Weekly Last Used Substance: Days (ago) Currently Displaying Signs/Symptoms of Drug Intoxication Withdrawal: No Any prior treatment program specific to substance use: No Have you been hit, kicked, punched, or otherwise hurt by someone within the past year? If so, by whom?: No Do you feel safe in your current relationship?: No Is there a partner from a previous relationship who is making you feel unsafe now?: No Are you made to feel afraid or neglected: No Advance Directives: No Advance Directives Information Provided: No Do you have thoughts of harming others: None Do you have a plan to hurt others: No Plan Recently lost weight without trying: Yes How much weight loss: 2-13 pounds Eating poorly because of decreased appetite: Yes Nutrition screen score: 4 Nutrition Risks: Acute nausea or vomiting x1 week Patient : No : No Poor oral hygiene: No service: No Current occupational status: employed <BIBIANA Vazquez - Last Filed: 11/30/21 09:17> Meds Allergies/Adverse reactions: Allergies Allergy/AdvReac Type Severity Reaction Status Date / Time No Known Allergies Allergy Verified 05/13/21 10:40 <BIBIANA Vazquez - Last Filed: 11/30/21 09:17> Active Medications: Current Medications Acetaminophen (Acetaminophen 325 Mg Tablet) 650 mg PO QID PRN PRN Reason: headache, temp > 101 Hydromorphone HCl (Hydromorphone Hcl 1 Mg/Ml Syringe) 0.5 mg IVPUSH Q3H PRN; Protocol PRN Reason: Pain, Severe (Pain Scale 7-10) Last Admin: 11/30/21 06:06 Dose: 0.5 mg Dextrose/Lactated Ringer's (D5lr) 1,000 mls @ 125 mls/hr IVCONT .Q8H [facility] Last Admin: 11/30/21 02:48 Dose: 125 mls/hr Piperacillin Sod/Tazobactam (Sod 3.375 gm/ Sodium Chloride) 50 mls @ 100 mls/hr IV Q6H [facility] Last Admin: 11/30/21 07:55 Dose: 100 mls/hr Ondansetron HCl (Ondansetron Hcl 4 Mg/2 Ml Vial) 4 mg IVPUSH QID PRN PRN Reason: Nausea Last Admin: 11/30/21 07:49 Dose: 4 mg Oxycodone HCl (Oxycodone Hcl Immed Release 5 Mg Tablet) 5 mg PO Q6H PRN PRN Reason: Pain, Moderate (Pain Scale 4-6 Last Admin: 11/30/21 08:06 Dose: 5 mg Pharmacy Consult (Consult Rx Perform Med Rec) 1 each MISCELLANE ONCE PRN PRN Reason: Consult order Sodium Chloride (0.9 % Sodium Chloride Flush 3 Ml Syringe) 3 ml IVFLUSH QSHIFT [facility] Last Admin: 11/30/21 08:05 Dose: Not Given Zolpidem Tartrate (Zolpidem Tartrate 5 Mg Tablet) 5 mg PO BEDTIME PRN PRN Reason: Insomnia <BIBIANA Vazquez - Last Filed: 11/30/21 09:17> Home medications: Home Medications Medication Instructions Recorded Confirmed Last Taken Type albuterol sulfate 90 mcg/actuation 1 puff inhalation Q4H PRN Wheezing 05/13/21 11/30/21 Unknown History aerosol inhaler acetaminophen 325 mg tablet 650 mg PO Q6H PRN Pain 11/30/21 11/30/21 11/29/21 H istory (Tylenol) amoxicillin 875 mg-potassium 1 tab PO BID 11/30/21 11/30/21 11/29/21 History clavulanate 125 mg tablet ibuprofen 800 mg tablet 1 tab PO TID 11/30/21 11/30/21 11/29/21 History <BIBIANA Vazquez - Last Filed: 11/30/21 09:17> Physical Exam Vital Signs: Vital Signs: Last Vital Signs Temp 99.3 F 11/30/21 02:14 Pulse 96 11/30/21 07:14 Resp 16 11/30/21 07:14 BP 152/86 H 11/30/21 07:14 Pulse Ox 98 11/30/21 07:14 O2 Del Method 11/30/21 07:14 BMI result Body Mass Index 59.9 <BIBIANA Vazquez - Last Filed: 11/30/21 09:17> Const: General: cooperative; No comfortable <BIBIANA Vazquez - Last Filed: 11/30/21 09:17> Nutritional Appearance: obese <BIBIANA Vazquez - Last Filed: 11/30/21 09:17> Orientation/consciousness: patient oriented x3 <BIBIANA Vazquez - Last Filed: 11/30/21 09:17> Resp: Effort & Inspection: normal respiratory effort <BIBIANA Vazquez - Last Filed: 11/30/21 09:17> Auscultation: clear to auscultation bilaterally <BIBIANA Vazquez - Last Filed: 11/30/21 09:17> Cardio: Rate: regular rate <BIBIANA Vazquez - Last Filed: 11/30/21 09:17> Rhythm: regular rhythm <BIBIANA Vazquez - Last Filed: 11/30/21 09:17> GI: Other: soft, obese, tenderness in bilateral lower quadrants, no guarding, no rebound; LLQ former drain site with purulent drainage <BIBIANA Vazquez - Last Filed: 11/30/21 09:17> Neuro: General: patient oriented x3 <BIBIANA Vazquez - Last Filed: 11/30/21 09:17> Results Results Labs: Short CBC 11/29/21 11/30/21 Range/Units 17:15 05:34 WBC 15.2 H 12.0 H (4.8-10.8) X10*3/uL Hgb 11.9 L 9.4 L D (12.0-16.0) g/dl Hct 36.7 L 29.6 L (37.0-47.0) % Plt Count 603 H D 509 H (160-400) X10*3/uL BMP 11/29/21 11/30/21 17:15 05:34 Sodium 138 137 Potassium 4.0 3.9 Chloride 98 101 Carbon Dioxide 28 24 BUN 17 H 15 Creatinine 0.84 0.77 Calcium 9.4 8.2 L D Liver Function 11/29/21 Range/Units 17:15 Total Bilirubin 0.7 (0.0-1.0) mg/dL Direct Bilirubin 0.4 (0.0-0.5) mg/dL AST 20 D (5-31) U/L ALT 27 (0-31) U/L Alkaline Phosphatase 155 H D (39-117) U/L Albumin 3.4 L (3.5-5.0) g/dL Urine 11/29/21 11/29/21 Range/Units 20:27 20:27 Urine Color Red A Urine Appearance Cloudy Urine pH TNP Ur Specific [place] TNP Urine Protein TNP Urine Glucose (UA) TNP Urine Test NEGATIVE (NEGATIVE) <BIBIANA Vazquez - Last Filed: 11/30/21 09:17> Abdomen CT scan report/results: report reviewed and image reviewed <BIBIANA Vazquez - Last Filed: 11/30/21 09:17> Additional studies: EXAMINATION: CT ABDOMEN AND PELVIS WITH CONTRAST? CLINICAL INFORMATION: Left lower quadrant pain? COMPARISON: 06/01/2021? TECHNIQUE: Multidetector volumetric images were obtained from the superior aspect of the liver through the pubic symphysis following administration of 50 mL of Omnipaque 350 intravenous contrast. Sagittal and coronal reformatted images were obtained on the technologist's workstation.? Oral contrast: No This CT examination was performed using dose optimization techniques as appropriate, variously including the following: *Automated exposure control *Adjustment of mA and/or kV according to patient size (this includes techniques or standardized protocols for targeted exams where dose is matched to indication/reason for exam; i.e. extremities or head) *Use of iterative reconstruction technique DLP: 1334 mGy-cm FINDINGS: LUNG BASES: The visualized lung bases are unremarkable.? LIVER, GALLBLADDER, AND BILIARY TREE: The liver is normal in size, shape, and attenuation. No focal hepatic lesion or biliary ductal dilatation is present. The gallbladder is unremarkable with no evidence of radiopaque gallstones, gallbladder wall thickening, or obvious pericholecystic inflammatory changes.? PANCREAS: Unremarkable.? SPLEEN: Unremarkable.? ADRENAL GLANDS: Unremarkable.? KIDNEYS AND URETERS: The kidneys are normal in size, shape, and attenuation. No hydronephrosis, hydroureter, or calculi seen. No perinephric stranding. ? BLADDER: Unremarkable.? GASTROINTESTINAL TRACT: The stomach is unremarkable. Normal caliber small bowel. No obstruction. There is marked abnormality within the pelvis. There is a complex collection with mixed cystic and solid appearing components in the central to right pelvis. There is a separate collection in the left pelvic region with a gas-filled tract extending to the anterior pelvic wall. There is then a separate tract extending from the muscular wall to the skin surface which appears to be fluid-filled. The dominant right pelvic structure measures 13.5 x 9.5 x 14 cm. There is an adjacent more simple appearing cystic structure anteriorly and superiorly which measures 7 x 4.5 cm. The left pelvic structure measures 6 x 5 cm. There is gas seen within the bladder lumen and in the endometrial cavity. There is likely a normal appendix. The collection abuts the sigmoid colon where there is mild wall thickening. ABDOMINAL WALL: Fluid tract in the left anterior lower abdominal wall from the pelvic collection. This is the site of previous drainage catheter.? LYMPH NODES: Normal. VASCULAR: Normal caliber aorta. PELVIC VISCERA: Gas within the endometrial cavity, concerning for fistulization to the pelvic collection. There is also concern for fistulization to the bladder as there is gas in the bladder lumen. No free air.? OSSEOUS STRUCTURES: No acute or suspicious osseous abnormality.? CT/CT abdomen pelvis w con IMPRESSION: Complex appearance of the pelvis. Multiple areas of complex fluid are seen. When compared to previous imaging, there is an existing left pelvic collection which is again noted. There is a tract of gas and fluid at the site of previous drainage catheter. There is a separate larger heterogeneous mixed cystic and solid appearing collection in the central to right pelvis. Cannot determine if this is true solid component or complex internal fluid/blood products. Cannot exclude tubo-ovarian abscess is a component of the pathology here. ? This critical result was discussed with Keron Loza MD by telephone at 11/30/2021 12:30 AM and it was ascertained that the content and urgency of the report was understood at the time of direct communication.? ? Fleischner guidelines were followed. <BIBIANA Vazquez - Last Filed: 11/30/21 09:17> Assessment and Plan (1) Pelvic abscess in female: Status: Acute <BIBIANA Vazquez - Last Filed: 11/30/21 09:17> (2) Morbid obesity: Status: Acute <BIBIANA Vazquez - Last Filed: 11/30/21 09:17> (3) Borderline diabetes: Status: Acute <BIBIANA Vazquez - Last Filed: 11/30/21 09:17> Pt with pelvic abscess, currently hemodynamically stable, no peritonitis. Pt seen in consultation by OB-CLOTH WORKER. Discussed with IR- they do not think there will be any benefit to attempting drainage of the collections since attenuation on CT scan suggests solid/cystic components. Will plan to continue NPO/IVF, Zosyn for broad empiric abx coverage. Trend labs/WBC; CEA and CA-125 pending. Transvaginal US pending. Pain control and nausea control PRN. Case discussed with Dr. Beck. <BIBIANA Vazquez - Last Filed: 11/30/21 09:17> Pt with pelvic abscess, currently hemodynamically stable, no peritonitis. Pt seen in consultation by OB-CLOTH WORKER. Discussed with IR- they do not think there will be any benefit to attempting drainage of the collections since attenuation on CT scan suggests solid/cystic components. Will plan to continue NPO/IVF, Zosyn for broad empiric abx coverage. Trend labs/WBC; CEA and CA-125 pending. Transvaginal US pending. Pain control and nausea control PRN. Case discussed with Dr. Beck. 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 There is also the possibility of a tubo-ovarian abscess on the right side per R adiology. Abscess collections are not amenable to IR drainage. Patient continues to have back pain and lower abdominal pain unrelieved with antibiotics. Discussed options with the patient exploratory laparotomy with bowel resection and Marques resection versus continued antibiotics. As she is not improved I recommended exploratory laparotomy and possible Marques procedure. After discussion of the procedure, risks, and alternatives, she consents to the surgery. She has been added onto the operative schedule. <Murali Beck MD - Last Filed: 12/01/21 07:39> Quality Stroke Does the patient have a stroke diagnosis?: No <BIBIANA Vazquez - Last Filed: 11/30/21 09:17> VTE Prior VTE?: No <BIBIANA Vazquez - Last Filed: 11/30/21 09:17> VTE Risk Level:: Surgical - high <BIBIANA Vazquez - Last Filed: 11/30/21 09:17> VTE Device Contraindication: N/A - Device Ordered <BIBIANA Vazquez - Last Filed: 11/30/21 09:17> VTE Drug Contraindication: Treatment Not Indicated <BIBIANA Vazquez - Last Filed: 11/30/21 09:17> Procedures Date of Service Date of Service: 11/30/21 <BIBIANA Vazquez - Last Filed: 11/30/21 09:17>
[2021-11-30] MEDS: 0.9 % Sodium Chloride Flush 3 ML SYRINGE IVFLUSH (17:29)
[2021-11-30] MEDS: Zolpidem Tartrate 5 MG TABLET PO (21:09)
[2021-12-01] VITALS (18 sets, daily range): BP systolic 109–146; BP diastolic 57–88; PULSE 68–96; RESP 16–23; TEMP 36–38.8; O2SAT 85–99
[2021-12-01] MEDS: 0.9 % Sodium Chloride Flush 3 ML SYRINGE IVFLUSH ×3 (01:02→17:26)
[2021-12-01] MEDS: Piperacillin Sodium/Tazobactam 3.375 GM in 0.9 % Sodium Chloride 50 ML IV ×3 (01:02→16:20)
[2021-12-01] MEDS: HYDROmorphone HCl 1 MG/ML SYRINGE 0.5 MG IVPUSH ×5 (01:02→22:00)
[2021-12-01] MEDS: oxyCODONE HCl Immed Release 5 MG TABLET PO (04:36)
[2021-12-01 07:02] LABS: Hemoglobin 9.6 g/dl (12.0-16.0); Mean Corpuscular Hemoglobin 26.5 pg (27.0-33.0); Mean Corpuscular Volume 82.9 fL (80.0-98.0); Mean Platelet Volume 9.3 fL (9.4-12.3); Platelet Count 530 X10*3/uL (160-400); Red Blood Count 3.62 X10*6/uL (4.20-5.50); Red Cell Distribution Width 13.8 % (11.0-16.0); White Blood Count 14.1 X10*3/uL (4.8-10.8)
--- NOTE | 2021-12-01 07:05 | PHA.MEDREC ---
Pharmacy Consult ? Medication Reconciliation Pharmacy has completed the medication reconciliation.
--- NOTE | 2021-12-01 07:56 | PC.NURSE ---
Pt A&Ox4. VSS. Surgical incision to RLQ, dressing intact. Pt c/o chronic pain in back and abdomen. PRN medication administered as ordered. NPO since midnight for surgical procedure today. Pt. educated on pain management techniques and importance of following new diet orders.
[2021-12-01] MEDS: ondansetron HCL 4 MG/2 ML VIAL IVPUSH ×3 (08:30→17:45)
[2021-12-01] MEDS: Dextrose 5 % and Lactated Ring 1,000 ML 125 ML IVCONT ×2 (08:31→18:29)
--- NOTE | 2021-12-01 09:28 | HO.ANESPROP2 ---
[facility] Active Problems Active Problems: All Active Problems (Updated 11/30/21 @ 01:54 by BBIIANA Gibson) Pelvis, female abscess (Acute) Pelvic abscess in female (Acute) Borderline diabetes (Acute) Morbid obesity (Acute) Diverticulitis of intestine with abscess (Acute) Past Medical History Medical History Asthma Borderline diabetes Morbid obesity Functional capacity: independent ambulation Patient : No Family History Family history of problems with anesthesia: Unobtainable Surgical History Surgical History No pertinent past surgical history Social History Social History Household Members: None Housing: Apartment Do you presently have visiting nurse or other home services: No Unable to assess alcohol history related to: Unable to respond Alcohol intake: current Patient Tobacco Use Status: Current everyday Tobacco user Tobacco use type: Cigarette Cigarettes Per Day: 5 Years Smoked: 25 Smoked in Last 30 Days: Yes e-Cigarette/Vaping Use: Never Used Patient Interested in Nicotine Replacement: No Patient Given Instructions on How to Stop Smoking: Yes Date Education Initiated: 11/30/21 Second Hand Smoke Exposure: No Use of substances other than those prescribed or required for medical reasons: Yes Substance Use Type: Marijuana Substance Use Frequency: Weekly Last Used Substance: Days (ago) Currently Displaying Signs/Symptoms of Drug Intoxication Withdrawal: No Any prior treatment program specific to substance use: No Have you been hit, kicked, punched, or otherwise hurt by someone within the past year? If so, by whom?: No Do you feel safe in your current relationship?: No Is there a partner from a previous relationship who is making you feel unsafe now?: No Are you made to feel afraid or neglected: No Advance Directives: No Advance Directives Information Provided: No Do you have thoughts of harming others: None Do you have a plan to hurt others: No Plan Recently lost weight without trying: Yes How much weight loss: 2-13 pounds Eating poorly because of decreased appetite: Yes Nutrition screen score: 4 Nutrition Risks: Acute nausea or vomiting x1 week Patient : No : No Poor oral hygiene: No service: No Current occupational status: employed Meds Allergies Allergy/AdvReac Type Severity Reaction Status Date / Time No Known Allergies Allergy Verified 05/13/21 10:40 Active Medications: Current Medications Acetaminophen (Acetaminophen 325 Mg Tablet) 650 mg PO QID PRN PRN Reason: headache, temp > 101 Albuterol Sulfate (Albuterol Sulfate 90 Mcg 8 Gm Inhaler) 1 puff INHALE Q4H PRN PRN Reason: Wheezing Hydromorphone HCl (Hydromorphone Hcl 1 Mg/Ml Syringe) 0.5 mg IVPUSH Q3H PRN; Protocol PRN Reason: Pain, Severe (Pain Scale 7-10) Last Admin: 12/01/21 08:30 Dose: 0.5 mg Dextrose/Lactated Ringer's (D5lr) 1,000 mls @ 125 mls/hr IVCONT .Q8H [facility] Last Admin: 12/01/21 08:31 Dose: 125 mls/hr Piperacillin Sod/Tazobactam (Sod 3.375 gm/ Sodium Chloride) 50 mls @ 100 mls/hr IV Q6H [facility] Last Admin: 12/01/21 08:31 Dose: 100 mls/hr Ondansetron HCl (Ondansetron Hcl 4 Mg/2 Ml Vial) 4 mg IVPUSH QID PRN PRN Reason: Nausea Last Admin: 12/01/21 08:30 Dose: 4 mg Oxycodone HCl (Oxycodone Hcl Immed Release 5 Mg Tablet) 5 mg PO Q6H PRN PRN Reason: Pain, Moderate (Pain Scale 4-6 Last Admin: 12/01/21 04:36 Dose: 5 mg Pharmacy Consult (Consult Rx Perform Med Rec) 1 each MISCELLANE ONCE PRN PRN Reason: Consult order Sodium Chloride (0.9 % Sodium Chloride Flush 3 Ml Syringe) 3 ml IVFLUSH QSHIFT [facility] Last Admin: 12/01/21 08:31 Dose: 3 ml Zolpidem Tartrate (Zolpidem Tartrate 5 Mg Tablet) 5 mg PO BEDTIME PRN PRN Reason: Insomnia Last Admin: 11/30/21 21:09 Dose: 5 mg Home Medications Medication Instructions Recorded Confirmed Last Taken Type albuterol sulfate 90 mcg/actuation 1 puff inhalation Q4H PRN Wheezing 05/13/21 11/30/21 Unknown History aerosol inhaler acetaminophen 325 mg tablet 650 mg PO Q6H PRN Pain 11/30/21 11/30/21 11/29/21 History (Tylenol) amoxicillin 875 mg-potassium 1 tab PO BID 11/30/21 11/30/21 11/29/21 History clavulanate 125 mg tablet ibuprofen 800 mg tablet 1 tab PO TID 11/30/21 11/30/21 11/29/21 History Exam Exam Date and Time: December 01, 2021 0928 Height,Weight and Vital Signs: Height 5 ft 5 in Weight 163.293 kg Last Vital Signs Temp 99.8 F 12/01/21 07:28 Pulse 95 12/01/21 07:28 Resp 17 12/01/21 07:28 BP 129/66 12/01/21 07:28 Pulse Ox 95 12/01/21 07:28 O2 Del Method 12/01/21 07:28 Pertinent Lab Results Pertinent Lab Results: Laboratory Tests 11/29/21 11/29/21 11/29/21 17:15 17:15 20:27 WBC 15.2 H RBC 4.45 Hgb 11.9 L Hct 36.7 L MCV 82.5 MCH 26.7 L MCHC 32.4 RDW 13.6 Plt Count 603 H D MPV 9.1 L Immature Gran % (Auto) 0.9 H Neut % (Auto) 80.4 H Lymph % (Auto) 9.4 L [place] % (Auto) 8.1 Eos % (Auto) 0.9 Baso % (Auto) 0.3 Lymph # (Auto) 1.4 [place] # (Auto) 1.2 Eos # (Auto) 0.1 Baso # (Auto) 0.0 Abs Immat Gran (auto) 0.13 H Absolute Neuts (auto) 12.2 H Absolute Nucleated RBC 0.000 Nucleated RBC % (auto) 0.0 Sodium 138 Potassium 4.0 Chloride 98 Carbon Dioxide 28 Anion Gap 16 BUN 17 H Creatinine 0.84 Estim Creat Clear Calc 134.2 Estimated GFR > 60 Random Glucose 120 H Lactic Acid Calcium 9.4 Total Bilirubin 0.7 Direct Bilirubin 0.4 AST 20 D ALT 27 Alkaline Phosphatase 155 H D Total Protein 7.5 D Albumin 3.4 L Lipase < 4 L Carcinoembryonic Ag Urine Color Red A Urine Appearance Cloudy Urine pH TNP Ur Specific [place] TNP Urine Protein TNP Urine Glucose (UA) TNP Urine Ketones TNP Urine Blood TNP Urine Nitrite TNP Ur Leukocyte Esterase TNP Urine RBC TNTC H Urine WBC TNTC H Urine WBC Clumps Present Ur Squamous Epith Cells 2+ Urine Bacteria 4+ Urine Test COVID-19 ([facility]) COVID-19 Clin Com 11/29/21 11/30/21 11/30/21 20:27 01:17 02:15 WBC RBC Hgb Hct MCV MCH MCHC RDW Plt Count MPV Immature Gran % (Auto) Neut % (Auto) Lymph % (Auto) [place] % (Auto) Eos % (Auto) Baso % (Auto) Lymph # (Auto) [place] # (Auto) Eos # (Auto) Baso # (Auto) Abs Immat Gran (auto) Absolute Neuts (auto) Absolute Nucleated RBC Nucleated RBC % (auto) Sodium Potassium Chloride Carbon Dioxide Anion Gap BUN Creatinine Estim Creat Clear Calc Estimated GFR Random Glucose Lactic Acid 1.0 Calcium Total Bilirubin Direct Bilirubin AST ALT Alkaline Phosphatase Total Protein Albumin Lipase Carcinoembryonic Ag Urine Color Urine Appearance Urine pH Ur Specific [place] Urine Protein Urine Glucose (UA) Urine Ketones Urine Blood Urine Nitrite Ur Leukocyte Esterase Urine RBC Urine WBC Urine WBC Clumps Ur Squamous Epith Cells Urine Bacteria Urine Test NEGATIVE COVID-19 ([facility]) Negative COVID-19 Clin Com See Note 11/30/21 11/30/21 12/01/21 05:34 05:34 06:46 WBC 12.0 H 14.1 H RBC 3.54 L D 3.62 L Hgb 9.4 L D 9.6 L Hct 29.6 L 30.0 L MCV 83.6 82.9 MCH 26.6 L 26.5 L MCHC 31.8 32.0 RDW 13.8 13.8 Plt Count 509 H 530 H MPV 9.6 9.3 L Immature Gran % (Auto) 0.7 H Neut % (Auto) 77.3 H Lymph % (Auto) 11.8 L [place] % (Auto) 9.2 Eos % (Auto) 0.8 Baso % (Auto) 0.2 Lymph # (Auto) 1.4 [place] # (Auto) 1.1 Eos # (Auto) 0.1 Baso # (Auto) 0.0 Abs Immat Gran (auto) 0.08 H Absolute Neuts (auto) 9.3 H Absolute Nucleated RBC 0.000 0.000 Nucleated RBC % (auto) 0.0 0.0 Sodium 137 Potassium 3.9 Chloride 101 Carbon Dioxide 24 Anion Gap 16 BUN 15 Creatinine 0.77 Estim Creat Clear Calc 146.5 Estimated GFR > 60 Random Glucose 367 H* Lactic Acid Calcium 8.2 L D Total Bilirubin Direct Bilirubin AST ALT Alkaline Phosphatase Total Protein Albumin Lipase Carcinoembryonic Ag 0.90 Urine Color Urine Appearance Urine pH Ur Specific [place] Urine Protein Urine Glucose (UA) Urine Ketones Urine Blood Urine Nitrite Ur Leukocyte Esterase Urine RBC Urine WBC Urine WBC Clumps Ur Squamous Epith Cells Urine Bacteria Urine Test COVID-19 ([facility]) COVID-19 Clin Com Assessment and Plan Final Anesthetic Review Family History of Problems with Anesthesia: Unobtainable
--- NOTE | 2021-12-01 09:59 | MHC.CM.PN ---
Female 46 DX Diverticulitis She lives alone independent works and drives. She declined the offer to document a HCP. She is scheduled for a procedure in the O.R. today. DP home no services family transport.
--- NOTE | 2021-12-01 15:27 | W.PM.OPN ---
Operative Note Operative Note Date of Service: 12/01/21 Narrative: Preoperative diagnosis: Perforated sigmoid diverticulitis with colovesical fistula. Right ovarian cyst Postoperative diagnosis: Same Procedure: Exploratory laparotomy, lysis of adhesions, end sigmoid colostomy Surgeon: Murali Beck MD Temporary Receptionist: JUDITH Campoverde Anesthesia: General endotracheal Indications for procedure: 46-year-old female patient presenting with complaints of lower abdominal and back pain found on CT to have perforated sigmoid diverticulitis with abscess formation and colovesical fistula. Operative findings: Marked adhesions to the sigmoid colon to both the right ovary bladder and uterus. The colon was unable to be completely mobilized therefore no resection was performed. End colostomy was performed to divert the fecal flow. Specimen: None Estimated blood loss: 25 mL Complications: None Procedure details: Patient was brought to the OR placed in supine position. After administering general anesthesia the patient's abdomen was prepped with ChloraPrep and draped in a sterile fashion. A surgical time-out was called the consent confirmed. Patient received preoperative regular dosed antibiotics and Venodyne boots were in place. Local anesthesia consisting of 0.5% Sensorcaine was infiltrated in the midline. A generous midline incision was then created with scalpel carried out through subcutaneous tissue through the linea alba into the peritoneal cavity. The abdomen was explored and the above findings noted. Dense adhesions were noted throughout the pelvis. Sigmoid colon was densely adherent to the pelvis including the bladder and vagina. This was gently dissected free using a combination of electrocautery and sharp dissection. The sigmoid colon was also mobilized along the sidewall and continued up along the descending colon. The white line of Toldt was divided in the mesentery mobilized. No abscess cavity was encountered during the procedure. A large right ovarian cyst was identified. This was drained during the dissection. This tracked of a previous drain was identified appear to enter into the mesentery of the colon. No abscess was noted in this location as well. The decision was made to divert the fecal flow to allow the fistulous tract to close. Sigmoid colon was divided using a Endo-UYEN. The colon was further mobilized along the mesentery using the LigaSure. A colostomy was created in the left lower quadrant lateral to the umbilicus. Circular skin incision was created and this was carried down to the muscle fascia. A cruciate incision was made within the muscle fascia. The peritoneum was entered and 3 finger dilation performed. An Jatin wound retractor was inserted at this time. The end sigmoid colostomy was brought up through this Radha retractor. When the length had been pulled through the circular skin incision the Radha retractor was removed. This was held place with Rich[place]'s while the abdomen was irrigated and suctioned dry. No active bleeding was identified. Fascia was closed in the midline using a running looped 0 PDS suture. Subcutaneous tissue and dermis reapproximated using interrupted 3-0 Polysorb sutures. Skin was closed using skin pat. Ostomy was then matured using interrupted 4-0 Polysorb sutures. Sterile dressings were applied an ostomy appliance applied. The patient tolerated the procedure well. Sponge, instrument, needle counts were reported as correct. The patient was transferred to PACU in stable condition.
--- NOTE | 2021-12-01 15:46 | PC.NURSE ---
Alertv and oriented. C/O back pain, medicated per MAR with some effect. VSS, afebrile, non acute resp. distress noted. Dressing changed to LLQ drainage site. Off the unit to surgery, awaiting return.
[2021-12-01] MEDS: HYDROmorphone HCl 0.5 MG/0.5 ML SYRINGE IVPUSH ×3 (15:48→16:49)
[2021-12-01] MEDS: metroNIDAZOLE/NS 500 MG/100 ML PIGGYBACK 100 MG IV (18:29)
--- NOTE | 2021-12-01 20:02 | PC.NURSE ---
Patient came back from OR via bed. NG tube connected to low wall suction per Dr. Beck. Abdominal incision dressing CDI, Red stoma (appliance intact). Remained on 3L of o2 via NC, VSS, no acute resp. distress noted. IV ABT started. Bed in low position, call light within reach. Reminded patient to call for assistance as needed. Will continue to monitor and treat per plan of care.
[2021-12-01] MEDS: levoFLOXacin/D5W 500 MG/100 ML PIGGYBACK 100 MG IV (21:59)
[2021-12-02] VITALS (7 sets, daily range): BP systolic 126–136; BP diastolic 73–74; PULSE 83–91; RESP 16–20; TEMP 36.2–36.6; O2SAT 94–98
[2021-12-02] MEDS: 0.9 % Sodium Chloride Flush 3 ML SYRINGE IVFLUSH ×4 (01:30→20:55)
[2021-12-02] MEDS: HYDROmorphone HCl 1 MG/ML SYRINGE 0.5 MG IVPUSH ×3 (01:30→09:49)
[2021-12-02] MEDS: metroNIDAZOLE/NS 500 MG/100 ML PIGGYBACK 100 MG IV ×3 (03:41→18:24)
[2021-12-02] MEDS: Dextrose 5 % and Lactated Ring 1,000 ML 125 ML IVCONT ×3 (05:30→17:25)
[2021-12-02 07:23] LABS: Hematocrit 31.1 % (37.0-47.0); Hemoglobin 9.9 g/dl (12.0-16.0); Mean Corpuscular HGB Conc 31.8 g/dl (31.0-35.0); Mean Corpuscular Hemoglobin 26.8 pg (27.0-33.0); Mean Corpuscular Volume 84.1 fL (80.0-98.0); Mean Platelet Volume 9.5 fL (9.4-12.3); Platelet Count 623 X10*3/uL (160-400); Red Cell Distribution Width 13.6 % (11.0-16.0); White Blood Count 13.4 X10*3/uL (4.8-10.8)
[2021-12-02 07:37] LABS: Anion Gap 17 (12-20); Blood Urea Nitrogen 11 mg/dL (9-16); Calcium 8.4 mg/dL (8.4-10.2); Carbon Dioxide 28 mmol/L (22-29); Chloride 99 mmol/L (96-108); Creatinine Clr Calc Pharmacy 173.5; Estimated Glomerular Filt Rate > 60; Glucose Random 115 mg/dL (60-115); Potassium 4.5 mmol/L (3.3-5.1); Sodium 139 mmol/L (135-145)
--- NOTE | 2021-12-02 07:57 | PM.PNGS ---
Subjective Subjective Date of Service: 12/02/21 Interval history: Pod 1 status post exploratory laparotomy, colostomy. Patient is reasonably comfortable with current pain regime. She is more irritated by the nasogastric tube. Urine is clear this morning. Physical Exam Vital Signs: Vital Signs: Last Vital Signs Temp 97.5 F 12/01/21 23:52 Pulse 73 12/01/21 23:52 Resp 18 12/02/21 05:30 BP 123/73 12/01/21 23:52 Pulse Ox 98 12/01/21 23:52 O2 Del Method 12/01/21 23:52 O2 Flow Rate 3 12/01/21 23:52 BMI result Body Mass Index 59.9 Const: General: comfortable and no acute distress Nutritional Appearance: obese Orientation/consciousness: patient oriented x3 Resp: Effort & Inspection: normal respiratory effort, no audible wheezes, no cough and no respiratory distress GI: Other: Midline abdominal incision is clean and intact. Ostomy is pink and viable. Small amount of bloody fluid is noted but no stool or gas. Palpation (GI): Soft to palpation and Tenderness to palpation present (GI) (Elizabet-incisional) Skin: Other: Warm and dry, no rashes Neuro: General: patient oriented x3 Extrem: Other: No edema Objective Data Active Medications Albuterol Sulfate (Albuterol Sulfate 90 Mcg 8 Gm Inhaler) 1 puff INHALE Q4H PRN PRN Reason: Wheezing Albuterol Sulfate (Albuterol Sulfate (0.083%) 2.5 Mg/3 Ml Vial.Neb) 2.5 mg INHALE ONCE PRN PRN Reason: Wheezing Hydromorphone HCl (Hydromorphone Hcl 1 Mg/Ml Syringe) 0.5 mg IVPUSH Q3H PRN; Protocol PRN Reason: Pain, Severe (Pain Scale 7-10) Last Admin: 12/02/21 05:30 Dose: 0.5 mg Documented By: VIOLETTE Dextrose/Lactated Ringer's (D5lr) 1,000 mls @ 125 mls/hr IVCONT .Q8H [facility] Last Admin: 12/02/21 05:30 Dose: 125 mls/hr Documented By: VIOLETTE Promethazine HCl 6.25 mg/ (Sodium Chloride) 50.25 mls @ 201 mls/hr IV ONCE PRN PRN Reason: Nausea and Vomiting Acetaminophen (Ofirmev) 1,000 mg in 100 mls @ 400 mls/hr IV Q6H [facility] Last Infusion: 12/02/21 07:20 Dose: 0 mls/hr Documented By: VIOLETTE Levofloxacin (Levaquin) 500 mg in 100 mls @ 100 mls/hr IV Q24H [facility] Last Infusion: 12/01/21 23:29 Dose: 0 mls/hr Documented By: VIOLETTE Metronidazole (Flagyl) 500 mg in 100 mls @ 100 mls/hr IV Q8H [facility] Last Infusion: 12/02/21 04:46 Dose: 0 mls/hr Documented By: VIOLETTE Ondansetron HCl (Ondansetron Hcl 4 Mg/2 Ml Vial) 4 mg IVPUSH QID PRN PRN Reason: Nausea Last Admin: 12/01/21 17:45 Dose: 4 mg Documented By: ROBBIE Oxycodone HCl (Oxycodone Hcl Immed Release 5 Mg Tablet) 5 mg PO Q6H PRN PRN Reason: Pain, Moderate (Pain Scale 4-6 Last Admin: 12/01/21 04:36 Dose: 5 mg Documented By: RUSTY Pharmacy Consult (Consult Rx Perform Med Rec) 1 each MISCELLANE ONCE PRN PRN Reason: Consult order Sodium Chloride (0.9 % Sodium Chloride Flush 3 Ml Syringe) 3 ml IVFLUSH QSHIFT [facility] Last Admin: 12/02/21 01:30 Dose: 3 ml Documented By: VIOLETTE Zolpidem Tartrate (Zolpidem Tartrate 5 Mg Tablet) 5 mg PO BEDTIME PRN PRN Reason: Insomnia Last Admin: 11/30/21 21:09 Dose: 5 mg Documented By: RUSTY Labs CBC & Chem 7: 12/02/21 06:41 12/02/21 06:41 Labs: Laboratory Results - last 24 hr 12/01/21 12/02/21 12/02/21 11:26 06:41 06:41 MCV 84.1 MCH 26.8 L MCHC 31.8 RDW 13.6 Plt Count 623 H MPV 9.5 Absolute Nucleated RBC 0.000 Nucleated RBC % (auto) 0.0 Anion Gap 17 Estim Creat Clear Calc 173.5 Estimated GFR > 60 Random Glucose 115 Calcium 8.4 Blood Type B Positive Antibody Screen NEGATIVE Microbiology Microbiology Results: Microbiology 11/30/21 01:17 Blood Culture - Preliminary Blood - Venous No growth after 48 hours. 11/30/21 01:17 Blood Culture - Preliminary Blood - Venous No growth after 48 hours. 11/29/21 20:27 Urine Culture - Final Urine clean catch - Urine araujo top Escherichia coli Procedures Date of Service Date of Service: 12/02/21 Progress Note: A&P Assessment and plan (1) Pelvis, female abscess: Status: Acute (2) Morbid obesity: Status: Acute (3) Diverticulitis of intestine with abscess: Status: Acute Assessment and Plan: 46-year-old female with perforated diverticulitis with abscess formation and subsequent colovesical fistula. Patient underwent exploratory laparotomy. Marked inflammation noted from the chronic infection. Diverting colostomy performed. Urine is clear today with no debris noted. Continue IV antibiotics. Encourage patient to get out of bed and ambulate. Nasogastric tube removed. Will start clear liquids this morning. Time Spent With Patient Time: Total time spent is greater than 50% in coordination of care (as documented) at patient's floor/unit and/or counseling patient: Quality Stroke Does the patient have a stroke diagnosis?: No VTE Prior VTE?: No VTE Risk Level:: Surgical - high VTE Device Contraindication: N/A - Device Ordered VTE Drug Contraindication: Treatment Not Indicated
--- NOTE | 2021-12-02 08:58 | HO.POSTANES ---
Post Anesthesia Evaluation Post Anesthesia Evaluation Vital Signs: Vital Signs Temp Pulse Resp BP Pulse Ox O2 Del Method O2 Flow Rate 12/02/21 08:00 97.7 F 83 20 129/74 98 Nasal Cannula 4 12/02/21 05:30 18 12/02/21 01:30 16 12/01/21 22:00 18 12/01/21 23:52 97.5 F 73 18 123/73 98 Nasal Cannula 3 Anesthesia: General Endotracheal-GETA Mental Status: Awake Pain Control: Satisfactory Nausea/Vomiting: None Hydration: Adequate Anesthesia-Related Issues: No Anes. Related Issues
[2021-12-02 09:03] LABS: CA-125 97 U/mL (<35)
[2021-12-02] MEDS: oxyCODONE HCl Immed Release 5 MG TABLET PO (09:57)
[2021-12-02] MEDS: HYDROmorphone HCl 0.5 MG/0.5 ML SYRINGE IVPUSH (12:39)
[2021-12-02] MEDS: ondansetron HCL 4 MG/2 ML VIAL IVPUSH ×2 (12:42→18:24)
[2021-12-02] MEDS: HYDROmorphone HCl 1 MG/ML SYRINGE IVPUSH (14:58)
[2021-12-02] MEDS: Morphine Sulfate 10 MG/ML CARTRIDGE 8 MG IVPUSH ×2 (17:50→20:51)
[2021-12-02] MEDS: levoFLOXacin/D5W 500 MG/100 ML PIGGYBACK 100 MG IV (20:51)
[2021-12-03] VITALS (10 sets, daily range): BP systolic 135–150; BP diastolic 80–95; PULSE 71–101; RESP 16–20; TEMP 35.7–36.7; O2SAT 94–100
[2021-12-03] MEDS: Morphine Sulfate 10 MG/ML CARTRIDGE 8 MG IVPUSH ×7 (00:11→20:22)
[2021-12-03] MEDS: ondansetron HCL 4 MG/2 ML VIAL IVPUSH ×2 (00:16→18:19)
[2021-12-03] MEDS: metroNIDAZOLE/NS 500 MG/100 ML PIGGYBACK 100 MG IV ×3 (00:52→18:16)
[2021-12-03] MEDS: Zolpidem Tartrate 5 MG TABLET PO (00:52)
[2021-12-03] MEDS: Dextrose 5 % and Lactated Ring 1,000 ML 125 ML IVCONT ×3 (01:03→17:37)
[2021-12-03] MEDS: 0.9 % Sodium Chloride Flush 3 ML SYRINGE IVFLUSH ×2 (08:35→20:34)
[2021-12-03] MEDS: oxyCODONE HCl Immed Release 5 MG TABLET 10 MG PO (09:30)
--- NOTE | 2021-12-03 12:10 | MHC.CM.PN ---
Per ROUNDS discussion, Patient is not yet medically cleared for dc (IV Acetaminophen today, IV Levaquin, IV Flagyl, IV Morphine today); home is the goal and CM will continue to follow.
--- NOTE | 2021-12-03 14:11 | P.PNGS_ITS ---
Subjective Subjective Date of Service: 12/03/21 Interval history: Overall patient feels more comfortable today after change in pain medication to morphine. She denies nausea or vomiting. She is tolerating clear liquids without increase in pain. No flatus or BM noted in ostomy. Physical Exam Vital Signs: Vital Signs: Last Vital Signs Temp 98.0 F 12/03/21 07:34 Pulse 101 H 12/03/21 10:59 Resp 20 12/03/21 07:34 BP 135/80 12/03/21 10:59 Pulse Ox 95 12/03/21 13:48 O2 Del Method 12/03/21 13:48 O2 Flow Rate 4 12/03/21 07:34 Oxygen Flow Rate 3 12/03/21 13:48 BMI result Body Mass Index 59.9 Const: General: comfortable and no acute distress Nutritional Appearance: obese Orientation/consciousness: patient oriented x3 Resp: Effort & Inspection: normal respiratory effort, no audible wheezes, no cough and no respiratory distress GI: Other: Midline abdominal incision is clean and intact. Ostomy is pink and viable. Small amount of bloody fluid is noted but no stool or gas. Palpation (GI): Soft to palpation and Tenderness to palpation present (GI) (Elizabet-incisional) Skin: Other: Warm and dry, no rashes Neuro: General: patient oriented x3 Extrem: Other: No edema Objective Data Active Medications Albuterol Sulfate (Albuterol Sulfate 90 Mcg 8 Gm Inhaler) 1 puff INHALE Q4H PRN PRN Reason: Wheezing Albuterol Sulfate (Albuterol Sulfate (0.083%) 2.5 Mg/3 Ml Vial.Neb) 2.5 mg INHALE ONCE PRN PRN Reason: Wheezing Dextrose/Lactated Ringer's (D5lr) 1,000 mls @ 125 mls/hr IVCONT .Q8H [facility] Last Admin: 12/03/21 08:36 Dose: 125 mls/hr Documented By: KOLE Promethazine HCl 6.25 mg/ (Sodium Chloride) 50.25 mls @ 201 mls/hr IV ONCE PRN PRN Reason: Nausea and Vomiting Acetaminophen (Ofirmev) 1,000 mg in 100 mls @ 400 mls/hr IV Q6H [facility] Last Infusion: 12/03/21 13:01 Dose: 0 mls/hr Documented By: KOLE Levofloxacin (Levaquin) 500 mg in 100 mls @ 100 mls/hr IV Q24H [facility] Last Infusion: 12/02/21 23:06 Dose: 0 mls/hr Documented By: KRISSY Metronidazole (Flagyl) 500 mg in 100 mls @ 100 mls/hr IV Q8H [facility] Last Infusion: 12/03/21 13:01 Dose: 0 mls/hr Documented By: KOLE Morphine Sulfate (Morphine Sulfate 10 Mg/Ml Cartridge) 8 mg IVPUSH Q3H PRN; Protocol PRN Reason: Pain, Severe (Pain Scale 7-10) Last Admin: 12/03/21 12:58 Dose: 8 mg Documented By: KOLE Ondansetron HCl (Ondansetron Hcl 4 Mg/2 Ml Vial) 4 mg IVPUSH QID PRN PRN Reason: Nausea Last Admin: 12/03/21 00:16 Dose: 4 mg Documented By: KRISSY Oxycodone HCl (Oxycodone Hcl Immed Release 5 Mg Tablet) 10 mg PO Q4H PRN PRN Reason: Pain, Moderate (Pain Scale 4-6 Last Admin: 12/03/21 09:30 Dose: 10 mg Documented By: KOLE Pharmacy Consult (Consult Rx Perform Med Rec) 1 each MISCELLANE ONCE PRN PRN Reason: Consult order Sodium Chloride (0.9 % Sodium Chloride Flush 3 Ml Syringe) 3 ml IVFLUSH [facility] Last Admin: 12/03/21 08:35 Dose: 3 ml Documented By: KOLE Zolpidem Tartrate (Zolpidem Tartrate 5 Mg Tablet) 5 mg PO BEDTIME PRN PRN Reason: Insomnia Last Admin: 12/03/21 00:52 Dose: 5 mg Documented By: KRISSY Labs CBC & Chem 7: 12/02/21 06:41 12/02/21 06:41 Procedures Date of Service Date of Service: 12/03/21 Progress Note: A&P Assessment and plan (1) Diverticulitis of intestine with abscess: Status: Acute Assessment and Plan: 46-year-old female with perforated diverticulitis with abscess formation and subsequent colovesical fistula. Patient underwent exploratory laparotomy. Marked inflammation noted from the chronic infection. Diverting colostomy performed. Urine today continues to be clear debris. Will request physical therapy consultation to assist with ambulation. Continue IV antibiotics. Encourage patient to get out of bed and ambulate. Nasogastric tube removed. Continue clear liquid diet. (2) Pelvis, female abscess: Status: Acute (3) Morbid obesity: Status: Acute Time Spent With Patient Time: Total time spent is greater than 50% in coordination of care (as documented) at patient's floor/unit and/or counseling patient: Quality Stroke Does the patient have a stroke diagnosis?: No VTE Prior VTE?: No VTE Risk Level:: Surgical - high VTE Device Contraindication: N/A - Device Ordered VTE Drug Contraindication: Treatment Not Indicated
[2021-12-03] MEDS: levoFLOXacin/D5W 500 MG/100 ML PIGGYBACK 100 MG IV (20:23)
[2021-12-03 20:27] LABS: Glucose, Whole Blood 113 mg/dL (60-115)
[2021-12-04] VITALS (8 sets, daily range): BP systolic 142–159; BP diastolic 94–99; PULSE 99–109; RESP 16–20; TEMP 36.1–36.6; O2SAT 94–99
[2021-12-04] MEDS: Morphine Sulfate 10 MG/ML CARTRIDGE 8 MG IVPUSH ×6 (00:06→23:58)
[2021-12-04] MEDS: Dextrose 5 % and Lactated Ring 1,000 ML 125 ML IVCONT (00:10)
[2021-12-04] MEDS: ondansetron HCL 4 MG/2 ML VIAL IVPUSH ×3 (00:20→11:42)
[2021-12-04] MEDS: metroNIDAZOLE/NS 500 MG/100 ML PIGGYBACK 100 MG IV ×3 (01:38→17:39)
--- NOTE | 2021-12-04 09:33 | PM.PNGS ---
Subjective Subjective Date of Service: 12/04/21 Interval history: Patient with no new complaints, reports abdominal pain is controlled with current pain medications. Was out of bed yesterday with physical therapy. Physical Exam Vital Signs: Vital Signs: Last Vital Signs Temp 97.8 F 12/04/21 07:54 Pulse 101 H 12/04/21 07:54 Resp 20 12/04/21 07:54 BP 159/95 H 12/04/21 07:54 Pulse Ox 97 12/04/21 07:54 O2 Del Method 12/04/21 07:54 O2 Flow Rate 4 12/04/21 07:54 Oxygen Flow Rate 3 12/03/21 13:48 BMI result Body Mass Index 59.9 Const: General: cooperative and no acute distress Nutritional Appearance: obese Orientation/consciousness: patient oriented x3 Limitations: no limitations Resp: Effort & Inspection: normal respiratory effort GI: Inspection: Yes obesity Palpation (GI): Soft to palpation, Tenderness to palpation present (GI) (Incisional tenderness), no guarding, not rigid and no hernias Percussion: Yes normal to percussion Skin: General skin exam: no rashes or lesions noted Neuro: General: patient oriented x3 Objective Data Active Medications Albuterol Sulfate (Albuterol Sulfate 90 Mcg 8 Gm Inhaler) 1 puff INHALE Q4H PRN PRN Reason: Wheezing Albuterol Sulfate (Albuterol Sulfate (0.083%) 2.5 Mg/3 Ml Vial.Neb) 2.5 mg INHALE ONCE PRN PRN Reason: Wheezing Dextrose/Lactated Ringer's (D5lr) 1,000 mls @ 80 mls/hr IVCONT .[id number] [facility] Last Admin: 12/04/21 00:10 Dose: 125 mls/hr Documented By: VIJI Promethazine HCl 6.25 mg/ (Sodium Chloride) 50.25 mls @ 201 mls/hr IV ONCE PRN PRN Reason: Nausea and Vomiting Acetaminophen (Ofirmev) 1,000 mg in 100 mls @ 400 mls/hr IV Q6H [facility] Last Infusion: 12/04/21 05:48 Dose: 0 mls/hr Documented By: JACK Levofloxacin (Levaquin) 500 mg in 100 mls @ 100 mls/hr IV Q24H [facility] Last Infusion: 12/03/21 21:37 Dose: 0 mls/hr Documented By: JACK Metronidazole (Flagyl) 500 mg in 100 mls @ 100 mls/hr IV Q8H [facility] Last Infusion: 12/04/21 02:46 Dose: 0 mls/hr Documented By: VIJI Morphine Sulfate (Morphine Sulfate 10 Mg/Ml Cartridge) 8 mg IVPUSH Q3H PRN; Protocol PRN Reason: Pain, Severe (Pain Scale 7-10) Last Admin: 12/04/21 05:04 Dose: 8 mg Documented By: VIJI Ondansetron HCl (Ondansetron Hcl 4 Mg/2 Ml Vial) 4 mg IVPUSH QID PRN PRN Reason: Nausea Last Admin: 12/04/21 05:11 Dose: 4 mg Documented By: VIJI Oxycodone HCl (Oxycodone Hcl Immed Release 5 Mg Tablet) 10 mg PO Q4H PRN PRN Reason: Pain, Moderate (Pain Scale 4-6 Last Admin: 12/03/21 09:30 Dose: 10 mg Documented By: KOLE Pharmacy Consult (Consult Rx Perform Med Rec) 1 each MISCELLANE ONCE PRN PRN Reason: Consult order Sodium Chloride (0.9 % Sodium Chloride Flush 3 Ml Syringe) 3 ml IVFLUSH [facility] Last Admin: 12/03/21 20:34 Dose: 3 ml Documented By: JACK Zolpidem Tartrate (Zolpidem Tartrate 5 Mg Tablet) 5 mg PO BEDTIME PRN PRN Reason: Insomnia Last Admin: 12/03/21 00:52 Dose: 5 mg Documented By: JASONOC Labs CBC & Chem 7: 12/02/21 06:41 12/02/21 06:41 Labs: Laboratory Results - last 24 hr 12/03/21 20:12 POC Glucose 113 Procedures Date of Service Date of Service: 12/04/21 Progress Note: A&P Assessment and plan (1) Diverticulitis of intestine with abscess: Status: Acute Assessment and Plan: 46-year-old female with perforated diverticulitis with abscess formation and subsequent colovesical fistula. Patient underwent exploratory laparotomy POD # 3. Marked inflammation noted from the chronic infection. Diverting colostomy performed. Urine today continues to be clear debris. Continue IV antibiotics. Encourage patient to get out of bed and ambulate. Await return to bowel function. Nasogastric tube removed. Continue clear liquid diet. (2) Pelvis, female abscess: Status: Acute (3) Morbid obesity: Status: Acute Time Spent With Patient Time: Total time spent is greater than 50% in coordination of care (as documented) at patient's floor/unit and/or counseling patient: Quality Stroke Does the patient have a stroke diagnosis?: No VTE Prior VTE?: No VTE Risk Level:: Surgical - high VTE Device Contraindication: N/A - Device Ordered VTE Drug Contraindication: Treatment Not Indicated
[2021-12-04] MEDS: 0.9 % Sodium Chloride Flush 3 ML SYRINGE IVFLUSH ×2 (09:48→16:10)
[2021-12-04] MEDS: Dextrose 5 % and Lactated Ring 1,000 ML 80 ML IVCONT ×2 (11:42→20:59)
[2021-12-04] MEDS: levoFLOXacin/D5W 500 MG/100 ML PIGGYBACK 100 MG IV (20:57)
[2021-12-04] MEDS: oxyCODONE HCl Immed Release 5 MG TABLET 10 MG PO (20:57)
[2021-12-05] VITALS (8 sets, daily range): BP systolic 138–163; BP diastolic 69–97; PULSE 67–103; RESP 16–18; TEMP 36.2–36.7; O2SAT 95–100
[2021-12-05] MEDS: Morphine Sulfate 10 MG/ML CARTRIDGE 8 MG IVPUSH ×3 (03:02→23:12)
[2021-12-05] MEDS: metroNIDAZOLE/NS 500 MG/100 ML PIGGYBACK 100 MG IV ×3 (03:03→18:14)
--- NOTE | 2021-12-05 03:50 | PC.NURSE ---
RN educated for importance of sequential compression boots post-op pt. pt refused to wear at night for the sleep.
[2021-12-05] MEDS: ondansetron HCL 4 MG/2 ML VIAL IVPUSH ×2 (05:51→16:17)
[2021-12-05 06:26] LABS: MANUAL DIFF FLAG NO
[2021-12-05] MEDS: oxyCODONE HCl Immed Release 5 MG TABLET 10 MG PO ×2 (06:26→20:19)
[2021-12-05 06:43] LABS: Basophils Percent Auto 0.3 % (0-2); Eosinophils Absolute Auto 0.2 X10*3/uL (0.0-0.4); Eosinophils Percent Auto 1.1 % (0-4); Hematocrit 32.4 % (37.0-47.0); Hemoglobin 10.2 g/dl (12.0-16.0); Imm Gran Abs Auto 0.16 X10*3/uL (0.00-0.03); Imm Gran Pct Auto 1.1 % (0.0-0.4); Lymphocytes Absolute Auto 1.5 X10*3/uL (1.2-4.9); Lymphocytes Percent Auto 10.5 % (20-40); Mean Corpuscular HGB Conc 31.5 g/dl (31.0-35.0); Mean Corpuscular Hemoglobin 26.4 pg (27.0-33.0); Mean Corpuscular Volume 83.7 fL (80.0-98.0); Mean Platelet Volume 9.1 fL (9.4-12.3); Monocytes Absolute Auto 0.9 X10*3/uL (0.1-1.2); Monocytes Percent Auto 6.2 % (2-11); Neutrophils Absolute Auto 11.3 x10*3/uL (2.0-8.3); Neutrophils Percent Auto 80.8 % (45-73); Platelet Count 636 X10*3/uL (160-400); Red Blood Count 3.87 X10*6/uL (4.20-5.50); Red Cell Distribution Width 13.9 % (11.0-16.0)
[2021-12-05 06:58] LABS: Anion Gap 16 (12-20); Blood Urea Nitrogen 14 mg/dL (9-16); Calcium 8.7 mg/dL (8.4-10.2); Carbon Dioxide 29 mmol/L (22-29); Chloride 99 mmol/L (96-108); Creatinine Clr Calc Pharmacy 168.3; Estimated Glomerular Filt Rate > 60; Glucose Random 115 mg/dL (60-115); Potassium 4.6 mmol/L (3.3-5.1); Sodium 139 mmol/L (135-145)
[2021-12-05] MEDS: Dextrose 5 % and Lactated Ring 1,000 ML 80 ML IVCONT ×2 (08:54→23:01)
[2021-12-05] MEDS: Enoxaparin Sodium 40 MG/0.4 ML SYRINGE SUBCUT ×2 (08:54→20:19)
--- NOTE | 2021-12-05 09:50 | P.PNGS_ITS ---
Subjective Subjective Date of Service: 12/05/21 Interval history: Patient with no new complaints. Denies significant abdominal pain. Note some gas and stool in her ostomy. Physical Exam Vital Signs: Vital Signs: Last Vital Signs Temp 97.2 F 12/05/21 08:00 Pulse 92 12/05/21 08:00 Resp 18 12/05/21 08:00 BP 144/83 H 12/05/21 08:00 Pulse Ox 97 12/05/21 08:00 O2 Del Method 12/05/21 08:00 O2 Flow Rate 4 12/05/21 08:00 Oxygen Flow Rate 4 12/04/21 15:00 BMI result Body Mass Index 59.9 Const: General: cooperative and no acute distress Nutritional Appearance: obese Orientation/consciousness: patient oriented x3 Resp: Effort & Inspection: normal respiratory effort, no audible wheezes, no cough and no respiratory distress GI: Other: Midline incision is clean and intact. Ostomy with some stool within the bag. Inspection: Yes normal to inspection Palpation (GI): Soft to palpation, nontender, no guarding and not rigid Neuro: General: patient oriented x3 Extrem: General: Yes normal to inspection Objective Data Active Medications Albuterol Sulfate (Albuterol Sulfate 90 Mcg 8 Gm Inhaler) 1 puff INHALE Q4H PRN PRN Reason: Wheezing Albuterol Sulfate (Albuterol Sulfate (0.083%) 2.5 Mg/3 Ml Vial.Neb) 2.5 mg INHALE ONCE PRN PRN Reason: Wheezing Enoxaparin Sodium (Enoxaparin Sodium 40 Mg/0.4 Ml Syringe) 40 mg SUBCUT Q12H [facility] Last Admin: 12/05/21 08:54 Dose: 40 mg Documented By: POLLO Dextrose/Lactated Ringer's (D5lr) 1,000 mls @ 80 mls/hr IVCONT .[id number] [facility] Last Admin: 12/05/21 08:54 Dose: 80 mls/hr Documented By: POLLO Promethazine HCl 6.25 mg/ (Sodium Chloride) 50.25 mls @ 201 mls/hr IV ONCE PRN PRN Reason: Nausea and Vomiting Acetaminophen (Ofirmev) 1,000 mg in 100 mls @ 400 mls/hr IV Q6H [facility] Last Infusion: 12/05/21 06:28 Dose: 0 mls/hr Documented By: ARIEL Levofloxacin (Levaquin) 500 mg in 100 mls @ 100 mls/hr IV Q24H [facility] Last Infusion: 12/04/21 22:18 Dose: 0 mls/hr Documented By: KRISSY Metronidazole (Flagyl) 500 mg in 100 mls @ 100 mls/hr IV Q8H [facility] Last Infusion: 12/05/21 04:05 Dose: 0 mls/hr Documented By: ARIEL Promethazine HCl 12.5 mg/ (Sodium Chloride) 50.5 mls @ 202 mls/hr IV Q6H PRN PRN Reason: Nausea and Vomiting Last Infusion: 12/04/21 16:46 Dose: 0 mls/hr Documented By: ROBERT Morphine Sulfate (Morphine Sulfate 10 Mg/Ml Cartridge) 8 mg IVPUSH Q3H PRN; Protocol PRN Reason: Pain, Severe (Pain Scale 7-10) Last Admin: 12/05/21 03:02 Dose: 8 mg Documented By: ARIEL Ondansetron HCl (Ondansetron Hcl 4 Mg/2 Ml Vial) 4 mg IVPUSH QID PRN PRN Reason: Nausea Last Admin: 12/05/21 05:51 Dose: 4 mg Documented By: ARIEL Oxycodone HCl (Oxycodone Hcl Immed Release 5 Mg Tablet) 10 mg PO Q4H PRN PRN Reason: Pain, Moderate (Pain Scale 4-6 Last Admin: 12/05/21 06:26 Dose: 10 mg Documented By: ARIEL Pharmacy Consult (Consult Rx Perform Med Rec) 1 each MISCELLANE ONCE PRN PRN Reason: Consult order Sodium Chloride (0.9 % Sodium Chloride Flush 3 Ml Syringe) 3 ml IVFLUSH QSHIFT [facility] Last Admin: 12/05/21 07:31 Dose: Not Given Documented By: POLLO Non-Admin Reason: IV Running Zolpidem Tartrate (Zolpidem Tartrate 5 Mg Tablet) 5 mg PO BEDTIME PRN PRN Reason: Insomnia Last Admin: 12/03/21 00:52 Dose: 5 mg Documented By: KRISSY Labs CBC & Chem 7: 12/05/21 05:38 12/05/21 05:38 Labs: Laboratory Results - last 24 hr 08/21/22 08/21/22 05:38 05:38 MCV 83.7 MCH 26.4 L MCHC 31.5 RDW 13.9 Plt Count 636 H MPV 9.1 L Immature Gran % (Auto) 1.1 H Neut % (Auto) 80.8 H Lymph % (Auto) 10.5 L [place] % (Auto) 6.2 Eos % (Auto) 1.1 Baso % (Auto) 0.3 Lymph # (Auto) 1.5 [place] # (Auto) 0.9 Eos # (Auto) 0.2 Baso # (Auto) 0.0 Abs Immat Gran (auto) 0.16 H Absolute Neuts (auto) 11.3 H Absolute Nucleated RBC 0.000 Nucleated RBC % (auto) 0.0 Anion Gap 16 Estim Creat Clear Calc 168.3 Estimated GFR > 60 Random Glucose 115 Calcium 8.7 Microbiology Microbiology Results: Microbiology 11/30/21 01:17 Blood Culture - Final Blood - Venous No growth after 5 days. 11/30/21 01:17 Blood Culture - Final Blood - Venous No growth after 5 days. Procedures Date of Service Date of Service: 12/05/21 Progress Note: A&P Assessment and plan (1) Diverticulitis of intestine with abscess: Status: Acute (2) Colovesical fistula: Status: Acute Plan 46-year-old female s/p exploratory laparotomy and diverting colostomy for colovesical fistula due to perforated diverticulitis. Patient's WBC remains mildly elevated despite antibiotics. Ostomy is now producing stool in urine remains clear. I recommended re-evaluation with CT abdomen and pelvis ordered for today. Continue IV antibiotics. Time Spent With Patient Time: Total time spent is greater than 50% in coordination of care (as documented) at patient's floor/unit and/or counseling patient: Quality Stroke Does the patient have a stroke diagnosis?: No VTE Prior VTE?: No VTE Risk Level:: Surgical - high VTE Device Contraindication: N/A - Device Ordered VTE Drug Contraindication: N/A - Med Ordered
[2021-12-05] MEDS: iohexoL 350 MG/ML 100 ML INFUS..BTL IV (14:04)
[2021-12-05] MEDS: Albuterol Sulfate (0.083%) 2.5 MG/3 ML VIAL.NEB INHALE (14:18)
[2021-12-05] MEDS: 0.9 % Sodium Chloride Flush 3 ML SYRINGE IVFLUSH (20:19)
[2021-12-05] MEDS: levoFLOXacin/D5W 500 MG/100 ML PIGGYBACK 100 MG IV (20:19)
[2021-12-06] MEDS: metroNIDAZOLE/NS 500 MG/100 ML PIGGYBACK 100 MG IV ×3 (02:15→18:17)
[2021-12-06] MEDS: Morphine Sulfate 10 MG/ML CARTRIDGE 8 MG IVPUSH ×3 (03:36→22:40)
[2021-12-06 04:00] VITALS: BP 148/65; PULSE 68; RESP 17; TEMP 36.4; O2SAT 97
[2021-12-06 06:54] VITALS: BP 136/73; PULSE 85; RESP 16; TEMP 36.6; O2SAT 92
[2021-12-06 07:12] LABS: MANUAL DIFF FLAG NO
[2021-12-06 07:24] LABS: Basophils Percent Auto 0.3 % (0-2); Eosinophils Absolute Auto 0.2 X10*3/uL (0.0-0.4); Eosinophils Percent Auto 1.8 % (0-4); Hematocrit 31.3 % (37.0-47.0); Hemoglobin 9.9 g/dl (12.0-16.0); Imm Gran Abs Auto 0.13 X10*3/uL (0.00-0.03); Imm Gran Pct Auto 1.1 % (0.0-0.4); Lymphocytes Absolute Auto 1.4 X10*3/uL (1.2-4.9); Lymphocytes Percent Auto 11.9 % (20-40); Mean Corpuscular HGB Conc 31.6 g/dl (31.0-35.0); Mean Corpuscular Hemoglobin 26.6 pg (27.0-33.0); Mean Corpuscular Volume 84.1 fL (80.0-98.0); Mean Platelet Volume 9.1 fL (9.4-12.3); Monocytes Percent Auto 8.1 % (2-11); Neutrophils Percent Auto 76.8 % (45-73); Platelet Count 591 X10*3/uL (160-400); Red Blood Count 3.72 X10*6/uL (4.20-5.50); Red Cell Distribution Width 13.7 % (11.0-16.0); White Blood Count 11.8 X10*3/uL (4.8-10.8)
[2021-12-06] MEDS: ondansetron HCL 4 MG/2 ML VIAL IVPUSH ×2 (08:55→20:18)
[2021-12-06 11:03] LABS: INTERNATIONAL NORM RATIO 1.3 (0.9-1.1); Prothrombin Time 15.4 SEC (10.0-13.1)
[2021-12-06 11:11] VITALS: BP 138/90; PULSE 90; RESP 18; TEMP 36.1; O2SAT 92
--- NOTE | 2021-12-06 13:50 | MHC.CM.PN ---
PER ROUNDS DISCUSSION AND EMR REVIEW PATIENT IS NOT YET MEDICALLY READY FOR DISCHARGE R/T NEED FOR EGD (DEVELOPED PAIN, NAUSEA, VOMITING) AND RE-EVALUATION BY GENERAL SURGERY. D/C PLAN CONTINUES TO BE RETURN TO ASSISTED LIVING FACILITY. CM WILL CONTINUE TO FOLLOW FOR DISCHARGE NEEDS.
[2021-12-06 14:38] VITALS: BP 148/87; PULSE 93; RESP 18; TEMP 36.6; O2SAT 97
--- NOTE | 2021-12-06 15:31 | MHC.CM.PN ---
EMR Review, patient is not yet medically cleared for discharge today R/T elevated WBC-continue IV antibiotics and re-evaluation of CT abdomen and pelvis ordered for 12/06. D/C plan continues to be Home self-care. CM will continue follow for discharge needs.
--- NOTE | 2021-12-06 15:36 | PM.PNGS ---
Subjective Subjective Date of Service: 12/06/21 Interval history: Patient reports feeling okay today, denies significant abdominal pain but still requires abdominal pain medication. She has not got out of bed all weekend but will like to get out of bed today. She denies nausea or vomiting. Ostomy has some stool but no apparent gas. Physical Exam Vital Signs: Vital Signs: Last Vital Signs Temp 98 F 12/06/21 14:38 Pulse 93 12/06/21 14:38 Resp 18 12/06/21 14:38 BP 148/87 H 12/06/21 14:38 Pulse Ox 97 12/06/21 14:38 O2 Del Method 12/06/21 14:38 O2 Flow Rate 4 12/06/21 14:38 Oxygen Flow Rate 4 12/04/21 15:00 BMI result Body Mass Index 59.9 Const: General: comfortable and no acute distress Nutritional Appearance: obese Orientation/consciousness: patient oriented x3 Limitations: no limitations Resp: Other: On nasal O2 this morning. Effort & Inspection: normal respiratory effort GI: Other: Soft, midline incision is clean and intact. Ostomy is patent with some small amount of stool within the bag. No flatus identified. Small amount of serosanguineous fluid as well. Skin: General skin exam: no rashes or lesions noted Neuro: General: patient oriented x3 Extrem: Other: No cyanosis, clubbing, or edema. No calf tenderness, normal capillary refill. Objective Data Active Medications Albuterol Sulfate (Albuterol Sulfate 90 Mcg 8 Gm Inhaler) 1 puff INHALE Q4H PRN PRN Reason: Wheezing Enoxaparin Sodium (Enoxaparin Sodium 40 Mg/0.4 Ml Syringe) 40 mg SUBCUT Q12H [facility] Last Admin: 12/05/21 20:19 Dose: 40 mg Documented By: TG Dextrose/Lactated Ringer's (D5lr) 1,000 mls @ 80 mls/hr IVCONT .[id number] [facility] Last Admin: 12/06/21 12:41 Dose: Not Given Documented By: PRIYA Non-Admin Reason: IV Running Promethazine HCl 6.25 mg/ (Sodium Chloride) 50.25 mls @ 201 mls/hr IV ONCE PRN PRN Reason: Nausea and Vomiting Acetaminophen (Ofirmev) 1,000 mg in 100 mls @ 400 mls/hr IV Q6H [facility] Last Infusion: 12/06/21 12:34 Dose: 0 mls/hr Documented By: PRIYA Levofloxacin (Levaquin) 500 mg in 100 mls @ 100 mls/hr IV Q24H [facility] Last Infusion: 12/05/21 22:34 Dose: 0 mls/hr Documented By: TG Metronidazole (Flagyl) 500 mg in 100 mls @ 100 mls/hr IV Q8H [facility] Last Infusion: 12/06/21 10:04 Dose: 0 mls/hr Documented By: PRIYA Promethazine HCl 12.5 mg/ (Sodium Chloride) 50.5 mls @ 202 mls/hr IV Q6H PRN PRN Reason: Nausea and Vomiting Last Infusion: 12/05/21 11:42 Dose: 0 mls/hr Documented By: POLLO Morphine Sulfate (Morphine Sulfate 10 Mg/Ml Cartridge) 8 mg IVPUSH Q3H PRN; Protocol PRN Reason: Pain, Severe (Pain Scale 7-10) Last Admin: 12/06/21 12:14 Dose: 8 mg Documented By: PRIYA Ondansetron HCl (Ondansetron Hcl 4 Mg/2 Ml Vial) 4 mg IVPUSH QID PRN PRN Reason: Nausea Last Admin: 12/06/21 08:55 Dose: 4 mg Documented By: PRIYA Oxycodone HCl (Oxycodone Hcl Immed Release 5 Mg Tablet) 10 mg PO Q4H PRN PRN Reason: Pain, Moderate (Pain Scale 4-6 Last Admin: 12/05/21 20:19 Dose: 10 mg Documented By: TG Pharmacy Consult (Consult Rx Perform Med Rec) 1 each MISCELLANE ONCE PRN PRN Reason: Consult order Sodium Chloride (0.9 % Sodium Chloride Flush 3 Ml Syringe) 3 ml IVFLUSH [facility] Last Admin: 12/06/21 08:56 Dose: Not Given Documented By: PRIYA Non-Admin Reason: IV Running Zolpidem Tartrate (Zolpidem Tartrate 5 Mg Tablet) 5 mg PO BEDTIME PRN PRN Reason: Insomnia Last Admin: 12/03/21 00:52 Dose: 5 mg Documented By: JASONOC Labs CBC & Chem 7: 12/06/21 07:05 12/05/21 05:38 Labs: Laboratory Results - last 24 hr 12/06/21 12/06/21 07:05 10:47 MCV 84.1 MCH 26.6 L MCHC 31.6 RDW 13.7 Plt Count 591 H MPV 9.1 L Immature Gran % (Auto) 1.1 H Neut % (Auto) 76.8 H Lymph % (Auto) 11.9 L [place] % (Auto) 8.1 Eos % (Auto) 1.8 Baso % (Auto) 0.3 Lymph # (Auto) 1.4 [place] # (Auto) 1.0 Eos # (Auto) 0.2 Baso # (Auto) 0.0 Abs Immat Gran (auto) 0.13 H Absolute Neuts (auto) 9.0 H Absolute Nucleated RBC 0.000 Nucleated RBC % (auto) 0.0 PT 15.4 H INR 1.3 H Procedures Date of Service Date of Service: 12/06/21 Progress Note: A&P Assessment and plan (1) Colovesical fistula: Status: Acute (2) Pelvis, female abscess: Status: Acute (3) Morbid obesity: Status: Acute (4) Diverticulitis of intestine with abscess: Status: Acute Plan Overall patient feels improved and has begun having some stool in her ostomy. WBC is normalizing today. CT abdomen and pelvis reviewed with Dr. Torres. Several collections identified including 1 in the pelvis which she feels a minimal to percutaneous drainage. She is hungry today and would like to start a diet. Patient would like to start a regular diet today but I will make her NPO after midnight in preparation for the CT-guided drainage procedure tomorrow. Will hold Lovenox as well. Time Spent With Patient Time: Total time spent is greater than 50% in coordination of care (as documented) at patient's floor/unit and/or counseling patient: Quality Stroke Does the patient have a stroke diagnosis?: No VTE Prior VTE?: No VTE Risk Level:: Surgical - high VTE Device Contraindication: N/A - Device Ordered VTE Drug Contraindication: N/A - Med Ordered
[2021-12-06] MEDS: oxyCODONE HCl Immed Release 5 MG TABLET 10 MG PO (17:46)
[2021-12-06 19:40] VITALS: BP 155/91; PULSE 84; RESP 18; TEMP 36.2; O2SAT 93
[2021-12-06] MEDS: levoFLOXacin/D5W 500 MG/100 ML PIGGYBACK 100 MG IV (20:17)
[2021-12-06] MEDS: Dextrose 5 % and Lactated Ring 1,000 ML 80 ML IVCONT (21:18)
[2021-12-06 23:19] VITALS: BP 151/81; PULSE 80; RESP 20; TEMP 36.1; O2SAT 97
[2021-12-07] VITALS (9 sets, daily range): BP systolic 130–163; BP diastolic 70–96; PULSE 78–101; RESP 18–20; TEMP 36.1–36.9; O2SAT 93–100
[2021-12-07] MEDS: metroNIDAZOLE/NS 500 MG/100 ML PIGGYBACK 100 MG IV ×3 (01:36→18:14)
[2021-12-07] MEDS: oxyCODONE HCl Immed Release 5 MG TABLET 10 MG PO ×2 (03:16→21:46)
--- NOTE | 2021-12-07 08:02 | P.PNGS_ITS ---
Subjective Subjective Date of Service: 12/07/21 Interval history: Denies any abdominal this morning. 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 Physical Exam Vital Signs: Vital Signs: Last Vital Signs Temp 98.1 F 12/07/21 06:57 Pulse 91 12/07/21 06:57 Resp 18 12/07/21 06:57 BP 142/86 H 12/07/21 06:57 Pulse Ox 98 12/07/21 06:57 O2 Del Method 12/07/21 06:57 O2 Flow Rate 4 12/07/21 06:57 Oxygen Flow Rate 4 12/04/21 15:00 BMI result Body Mass Index 59.9 Const: General: no acute distress and lethargic Nutritional Appearance: obese Orientation/consciousness: lethargic Resp: Effort & Inspection: normal respiratory effort and no respiratory distress GI: Inspection: Yes normal to inspection Palpation (GI): Soft to palpation, nontender, no guarding and No Rebound tenderness present Percussion: Yes normal to percussion Skin: General skin exam: no rashes or lesions noted Objective Data Active Medications Albuterol Sulfate (Albuterol Sulfate 90 Mcg 8 Gm Inhaler) 1 puff INHALE Q4H PRN PRN Reason: Wheezing Enoxaparin Sodium (Enoxaparin Sodium 40 Mg/0.4 Ml Syringe) 40 mg SUBCUT Q12H [facility] Last Admin: 12/05/21 20:19 Dose: 40 mg Documented By: TG Dextrose/Lactated Ringer's (D5lr) 1,000 mls @ 80 mls/hr IVCONT .[id number] [facility] Last Admin: 12/06/21 21:18 Dose: 80 mls/hr Documented By: MELVA Promethazine HCl 6.25 mg/ (Sodium Chloride) 50.25 mls @ 201 mls/hr IV ONCE PRN PRN Reason: Nausea and Vomiting Acetaminophen (Ofirmev) 1,000 mg in 100 mls @ 400 mls/hr IV Q6H [facility] Last Infusion: 12/07/21 07:11 Dose: 0 mls/hr Documented By: MELVA Levofloxacin (Levaquin) 500 mg in 100 mls @ 100 mls/hr IV Q24H [facility] Last Infusion: 12/06/21 21:42 Dose: 0 mls/hr Documented By: MELVA Metronidazole (Flagyl) 500 mg in 100 mls @ 100 mls/hr IV Q8H [facility] Last Infusion: 12/07/21 02:39 Dose: 0 mls/hr Documented By: MELVA Promethazine HCl 12.5 mg/ (Sodium Chloride) 50.5 mls @ 202 mls/hr IV Q6H PRN PRN Reason: Nausea and Vomiting Last Infusion: 12/05/21 11:42 Dose: 0 mls/hr Documented By: POLLO Morphine Sulfate (Morphine Sulfate 10 Mg/Ml Cartridge) 8 mg IVPUSH Q3H PRN; Protocol PRN Reason: Pain, Severe (Pain Scale 7-10) Last Admin: 12/06/21 22:40 Dose: 8 mg Documented By: MELVA Ondansetron HCl (Ondansetron Hcl 4 Mg/2 Ml Vial) 4 mg IVPUSH QID PRN PRN Reason: Nausea Last Admin: 12/06/21 20:18 Dose: 4 mg Documented By: MELVA Oxycodone HCl (Oxycodone Hcl Immed Release 5 Mg Tablet) 10 mg PO Q4H PRN PRN Reason: Pain, Moderate (Pain Scale 4-6 Last Admin: 12/07/21 03:16 Dose: 10 mg Documented By: MELVA Pharmacy Consult (Consult Rx Perform Med Rec) 1 each MISCELLANE ONCE PRN PRN Reason: Consult order Sodium Chloride (0.9 % Sodium Chloride Flush 3 Ml Syringe) [facility] Last Admin: 12/07/21 07:21 Dose: Not Given Documented By: TORITO Non-Admin Reason: IV Running Zolpidem Tartrate (Zolpidem Tartrate 5 Mg Tablet) 5 mg PO BEDTIME PRN PRN Reason: Insomnia Last Admin: 12/03/21 00:52 Dose: 5 mg Documented By: KRISSY Labs CBC & Chem 7: 12/06/21 07:05 12/05/21 05:38 Labs: Laboratory Results - last 24 hr 12/06/21 10:47 PT 15.4 H INR 1.3 H Procedures Date of Service Date of Service: 12/07/21 Progress Note: A&P Assessment and plan (1) Diverticulitis of intestine with abscess: Status: Acute (2) Pelvic abscess in female: Status: Acute Plan POD #6, s/p diverting end sigmoid colostomy for perforated sigmoid divertinculitis with colovessicle fistula. Overall, patient is improved and lamar erated a diet yesterday. She is awaiting IR drainage of 1-2 collections in the pelvis later today. Continue IV antibiotics; Zabala catheter for fistula. Continue PT for ambulation. Time Spent With Patient Time: Total time spent is greater than 50% in coordination of care (as documented) at patient's floor/unit and/or counseling patient: Quality Stroke Does the patient have a stroke diagnosis?: No VTE Prior VTE?: No VTE Risk Level:: Surgical - high VTE Device Contraindication: N/A - Device Ordered VTE Drug Contraindication: N/A - Med Ordered
[2021-12-07] MEDS: Morphine Sulfate 10 MG/ML CARTRIDGE 8 MG IVPUSH (08:29)
[2021-12-07] MEDS: ondansetron HCL 4 MG/2 ML VIAL IVPUSH (08:29)
--- NOTE | 2021-12-07 09:54 | MHC.CM.PN ---
EMR REVIEWED, PT W/DIVERTICULITIS, FISTULA AND S/P SIGMOID COLOSTOMY, PLAN FOR IR DRAINAGE IN OR TODAY, NO PLAN FOR D/C TODAY, CM WILL CONT TO FOLLOW D/C NEEDS.
--- NOTE | 2021-12-07 15:29 | P.CONAN_ITS ---
HPI - Anesthesia Eval Consult details Narrative: 46-year-old obese female presenting for pelvic abscess drainage and drain placement PMFSH Active Problems Active Problems: All Active Problems (Updated 12/07/21 @ 13:00 by Cheryl Charles RN) Diverticulitis of intestine with abscess (Acute) Pelvic abscess in female (Acute) Pelvis, female abscess (Acute) Colovesical fistula (Acute) Borderline diabetes (Acute) Morbid obesity (Acute) Past Medical History Medical History Asthma Borderline diabetes Colostomy in place Morbid obesity Ovarian cyst Functional capacity: independent ambulation Family History Family history of problems with anesthesia: No Surgical History Surgical History No pertinent past surgical history History of Problems with Anesthesia: No Social History Social History Household Members: None Housing: Apartment Do you presently have visiting nurse or other home services: No Unable to assess alcohol history related to: Unable to respond Alcohol intake: current Alcohol intake frequency: holidays/special occasions only Patient Tobacco Use Status: Current everyday Tobacco user Tobacco use type: Cigarette Cigarettes Per Day: 5 Years Smoked: 25 Smoked in Last 30 Days: Yes e-Cigarette/Vaping Use: Never Used Patient Interested in Nicotine Replacement: No Patient Given Instructions on How to Stop Smoking: Yes Date Education Initiated: 11/30/21 Second Hand Smoke Exposure: No Use of substances other than those prescribed or required for medical reasons: Yes Substance Use Type: Marijuana Substance Use Frequency: Daily Last Used Substance: Days (ago) Currently Displaying Signs/Symptoms of Drug Intoxication Withdrawal: No Any prior treatment program specific to substance use: No Have you been hit, kicked, punched, or otherwise hurt by someone within the past year? If so, by whom?: No Do you feel safe in your current relationship?: No Is there a partner from a previous relationship who is making you feel unsafe now?: No Are you made to feel afraid or neglected: No Are you DNR?: No Advance Directives: No Advance Directives Information Provided: No Do you have thoughts of harming others: None Do you have a plan to hurt others: No Plan Recently lost weight without trying: Yes How much weight loss: 2-13 pounds Eating poorly because of decreased appetite: Yes Nutrition screen score: 4 Nutrition Risks: Acute nausea or vomiting x1 week Patient : No : No Poor oral hygiene: No service: No Current occupational status: employed Meds Allergies Allergy/AdvReac Type Severity Reaction Status Date / Time No Known Allergies Allergy Verified 12/07/21 13:00 Active Medications: Current Medications Albuterol Sulfate (Albuterol Sulfate 90 Mcg 8 Gm Inhaler) 1 puff INHALE Q4H PRN PRN Reason: Wheezing Enoxaparin Sodium (Enoxaparin Sodium 40 Mg/0.4 Ml Syringe) 40 mg SUBCUT Q12H [facility] Last Admin: 12/05/21 20:19 Dose: 40 mg Dextrose/Lactated Ringer's (D5lr) 1,000 mls @ 80 mls/hr IVCONT .[id number] [facility] Last Infusion: 12/07/21 10:20 Dose: Infused Promethazine HCl 6.25 mg/ (Sodium Chloride) 50.25 mls @ 201 mls/hr IV ONCE PRN PRN Reason: Nausea and Vomiting Acetaminophen (Ofirmev) 1,000 mg in 100 mls @ 400 mls/hr IV Q6H [facility] Last Infusion: 12/07/21 12:29 Dose: Infused Levofloxacin (Levaquin) 500 mg in 100 mls @ 100 mls/hr IV Q24H [facility] Last Infusion: 12/06/21 21:42 Dose: Infused Metronidazole (Flagyl) 500 mg in 100 mls @ 100 mls/hr IV Q8H [facility] Last Infusion: 12/07/21 11:40 Dose: Infused Promethazine HCl 12.5 mg/ (Sodium Chloride) 50.5 mls @ 202 mls/hr IV Q6H PRN PRN Reason: Nausea and Vomiting Last Infusion: 12/05/21 11:42 Dose: Infused Morphine Sulfate (Morphine Sulfate 10 Mg/Ml Cartridge) 8 mg IVPUSH Q3H PRN; Protocol PRN Reason: Pain, Severe (Pain Scale 7-10) Last Admin: 12/07/21 08:29 Dose: 8 mg Ondansetron HCl (Ondansetron Hcl 4 Mg/2 Ml Vial) 4 mg IVPUSH QID PRN PRN Reason: Nausea Last Admin: 12/07/21 08:29 Dose: 4 mg Oxycodone HCl (Oxycodone Hcl Immed Release 5 Mg Tablet) 10 mg PO Q4H PRN PRN Reason: Pain, Moderate (Pain Scale 4-6 Last Admin: 12/07/21 03:16 Dose: 10 mg Pharmacy Consult (Consult Rx Perform Med Rec) 1 each MISCELLANE ONCE PRN PRN Reason: Consult order Sodium Chloride (0.9 % Sodium Chloride Flush 3 Ml Syringe) 3 ml IVFLUSH QSHIFT [facility] Last Admin: 12/07/21 14:24 Dose: Not Given Zolpidem Tartrate (Zolpidem Tartrate 5 Mg Tablet) 5 mg PO BEDTIME PRN PRN Reason: Insomnia Last Admin: 12/03/21 00:52 Dose: 5 mg Home Medications Medication Instructions Recorded Confirmed Last Taken Type albuterol sulfate 90 mcg/actuation 1 puff inhalation Q4H PRN Wheezing 05/13/21 11/30/21 Unknown History aerosol inhaler acetaminophen 325 mg tablet 650 mg PO Q6H PRN Pain 11/30/21 11/30/21 11/29/21 History (Tylenol) amoxicillin 875 mg-potassium 1 tab PO BID 11/30/21 11/30/21 11/29/21 History clavulanate 125 mg tablet ibuprofen 800 mg tablet 1 tab PO TID 11/30/21 11/30/21 11/29/21 History Exam Exam Date and Time: December 07, 2021 1529 Height,Weight and Vital Signs: Height 5 ft 5 in Weight 360 lb Last Vital Signs Temp 97.3 F 12/07/21 13:08 Pulse 88 12/07/21 13:08 Resp 18 12/07/21 13:08 BP 144/85 H 12/07/21 13:08 Pulse Ox 94 12/07/21 13:08 O2 Del Method 12/07/21 13:08 O2 Flow Rate 3 12/07/21 13:08 Oxygen Flow Rate 4 12/04/21 15:00 Pertinent Lab Results Pertinent Lab Results: Laboratory Tests 11/29/21 11/29/21 11/29/21 17:15 17:15 20:27 WBC 15.2 H RBC 4.45 Hgb 11.9 L Hct 36.7 L MCV 82.5 MCH 26.7 L MCHC 32.4 RDW 13.6 Plt Count 603 H D MPV 9.1 L Immature Gran % (Auto) 0.9 H Neut % (Auto) 80.4 H Lymph % (Auto) 9.4 L Bryan % (Auto) 8.1 Eos % (Auto) 0.9 Baso % (Auto) 0.3 Lymph # (Auto) 1.4 Bryan # (Auto) 1.2 Eos # (Auto) 0.1 Baso # (Auto) 0.0 Abs Immat Gran (auto) 0.13 H Absolute Neuts (auto) 12.2 H Absolute Nucleated RBC 0.000 Nucleated RBC % (auto) 0.0 PT INR Sodium 138 Potassium 4.0 Chloride 98 Carbon Dioxide 28 Anion Gap 16 BUN 17 H Creatinine 0.84 Estim Creat Clear Calc 134.2 Estimated GFR > 60 POC Glucose Random Glucose 120 H Lactic Acid Calcium 9.4 Total Bilirubin 0.7 Direct Bilirubin 0.4 AST 20 D ALT 27 Alkaline Phosphatase 155 H D Total Protein 7.5 D Albumin 3.4 L Lipase < 4 L Carcinoembryonic Ag CA 125 Antigen Urine Color Red A Urine Appearance Cloudy Urine pH TNP Ur Specific [place] TNP Urine Protein TNP Urine Glucose (UA) TNP Urine Ketones TNP Urine Blood TNP Urine Nitrite TNP Ur Leukocyte Esterase TNP Urine RBC TNTC H Urine WBC TNTC H Urine WBC Clumps Present Ur Squamous Epith Cells 2+ Urine Bacteria 4+ Urine Test COVID-19 ([facility]) COVID-19 Clin [facility] Blood Type Antibody Screen 11/29/21 11/30/21 11/30/21 20:27 01:17 02:15 WBC RBC Hgb Hct MCV MCH MCHC RDW Plt Count MPV Immature Gran % (Auto) Neut % (Auto) Lymph % (Auto) Bryan % (Auto) Eos % (Auto) Baso % (Auto) Lymph # (Auto) Bryan # (Auto) Eos # (Auto) Baso # (Auto) Abs Immat Gran (auto) Absolute Neuts (auto) Absolute Nucleated RBC Nucleated RBC % (auto) PT INR Sodium Potassium Chloride Carbon Dioxide Anion Gap BUN Creatinine Estim Creat Clear Calc Estimated GFR POC Glucose Random Glucose Lactic Acid 1.0 Calcium Total Bilirubin Direct Bilirubin AST ALT Alkaline Phosphatase Total Protein Albumin Lipase Carcinoembryonic Ag CA 125 Antigen Urine Color Urine Appearance Urine pH Ur Specific [place] Urine Protein Urine Glucose (UA) Urine Ketones Urine Blood Urine Nitrite Ur Leukocyte Esterase Urine RBC Urine WBC Urine WBC Clumps Ur Squamous Epith Cells Urine Bacteria Urine Test NEGATIVE COVID-19 ([facility]) Negative COVID-19 Clin Com See Note Blood Type Antibody Screen 11/30/21 11/30/21 11/30/21 05:34 05:34 08:34 WBC 12.0 H RBC 3.54 L D Hgb 9.4 L D Hct 29.6 L MCV 83.6 MCH 26.6 L MCHC 31.8 RDW 13.8 Plt Count 509 H MPV 9.6 Immature Gran % (Auto) 0.7 H Neut % (Auto) 77.3 H Lymph % (Auto) 11.8 L Bryan % (Auto) 9.2 Eos % (Auto) 0.8 Baso % (Auto) 0.2 Lymph # (Auto) 1.4 Bryan # (Auto) 1.1 Eos # (Auto) 0.1 Baso # (Auto) 0.0 Abs Immat Gran (auto) 0.08 H Absolute Neuts (auto) 9.3 H Absolute Nucleated RBC 0.000 Nucleated RBC % (auto) 0.0 PT INR Sodium 137 Potassium 3.9 Chloride 101 Carbon Dioxide 24 Anion Gap 16 BUN 15 Creatinine 0.77 Estim Creat Clear Calc 146.5 Estimated GFR > 60 POC Glucose Random Glucose 367 H* Lactic Acid Calcium 8.2 L D Total Bilirubin Direct Bilirubin AST ALT Alkaline Phosphatase Total Protein Albumin Lipase Carcinoembryonic Ag 0.90 CA 125 Antigen 97 H Urine Color Urine Appearance Urine pH Ur Specific [place] Urine Protein Urine Glucose (UA) Urine Ketones Urine Blood Urine Nitrite Ur Leukocyte Esterase Urine RBC Urine WBC Urine WBC Clumps Ur Squamous Epith Cells Urine Bacteria Urine Test COVID-19 ([facility]) COVID-19 Clin Com Blood Type Antibody Screen 12/01/21 12/01/21 12/02/21 06:46 11:26 06:41 WBC 14.1 H 13.4 H RBC 3.62 L 3.70 L Hgb 9.6 L 9.9 L Hct 30.0 L 31.1 L MCV 82.9 84.1 MCH 26.5 L 26.8 L MCHC 32.0 31.8 RDW 13.8 13.6 Plt Count 530 H 623 H MPV 9.3 L 9.5 Immature Gran % (Auto) Neut % (Auto) Lymph % (Auto) Bryan % (Auto) Eos % (Auto) Baso % (Auto) Lymph # (Auto) Bryan # (Auto) Eos # (Auto) Baso # (Auto) Abs Immat Gran (auto) Absolute Neuts (auto) Absolute Nucleated RBC 0.000 0.000 Nucleated RBC % (auto) 0.0 0.0 PT INR Sodium Potassium Chloride Carbon Dioxide Anion Gap BUN Creatinine Estim Creat Clear Calc Estimated GFR POC Glucose Random Glucose Lactic Acid Calcium Total Bilirubin Direct Bilirubin AST ALT Alkaline Phosphatase Total Protein Albumin Lipase Carcinoembryonic Ag CA 125 Antigen Urine Color Urine Appearance Urine pH Ur Specific [place] Urine Protein Urine Glucose (UA) Urine Ketones Urine Blood Urine Nitrite Ur Leukocyte Esterase Urine RBC Urine WBC Urine WBC Clumps Ur Squamous Epith Cells Urine Bacteria Urine Test COVID-19 (CANDY) COVID-19 [facility] Com Blood Type B Positive Antibody Screen NEGATIVE 12/02/21 12/03/21 12/05/21 06:41 20:12 05:38 WBC 14.0 H RBC 3.87 L Hgb 10.2 L Hct 32.4 L MCV 83.7 MCH 26.4 L MCHC 31.5 RDW 13.9 Plt Count 636 H MPV 9.1 L Immature Gran % (Auto) 1.1 H Neut % (Auto) 80.8 H Lymph % (Auto) 10.5 L Bryan % (Auto) 6.2 Eos % (Auto) 1.1 Baso % (Auto) 0.3 Lymph # (Auto) 1.5 Bryan # (Auto) 0.9 Eos # (Auto) 0.2 Baso # (Auto) 0.0 Abs Immat Gran (auto) 0.16 H Absolute Neuts (auto) 11.3 H Absolute Nucleated RBC 0.000 Nucleated RBC % (auto) 0.0 PT INR Sodium 139 Potassium 4.5 Chloride 99 Carbon Dioxide 28 Anion Gap 17 BUN 11 Creatinine 0.65 Estim Creat Clear Calc 173.5 Estimated GFR > 60 POC Glucose 113 Random Glucose 115 Lactic Acid Calcium 8.4 Total Bilirubin Direct Bilirubin AST ALT Alkaline Phosphatase Total Protein Albumin Lipase Carcinoembryonic Ag CA 125 Antigen Urine Color Urine Appearance Urine pH Ur Specific [place] Urine Protein Urine Glucose (UA) Urine Ketones Urine Blood Urine Nitrite Ur Leukocyte Esterase Urine RBC Urine WBC Urine WBC Clumps Ur Squamous Epith Cells Urine Bacteria Urine Test COVID-19 ([facility]) COVID-19 Clin Com Blood Type Antibody Screen 12/05/21 12/06/21 12/06/21 05:38 07:05 10:47 WBC 11.8 H RBC 3.72 L Hgb 9.9 L Hct 31.3 L MCV 84.1 MCH 26.6 L MCHC 31.6 RDW 13.7 Plt Count 591 H MPV 9.1 L Immature Gran % (Auto) 1.1 H Neut % (Auto) 76.8 H Lymph % (Auto) 11.9 L Bryan % (Auto) 8.1 Eos % (Auto) 1.8 Baso % (Auto) 0.3 Lymph # (Auto) 1.4 Bryan # (Auto) 1.0 Eos # (Auto) 0.2 Baso # (Auto) 0.0 Abs Immat Gran (auto) 0.13 H Absolute Neuts (auto) 9.0 H Absolute Nucleated RBC 0.000 Nucleated RBC % (auto) 0.0 PT 15.4 H INR 1.3 H Sodium 139 Potassium 4.6 Chloride 99 Carbon Dioxide 29 Anion Gap 16 BUN 14 Creatinine 0.67 Estim Creat Clear Calc 168.3 Estimated GFR > 60 POC Glucose Random Glucose 115 Lactic Acid Calcium 8.7 Total Bilirubin Direct Bilirubin AST ALT Alkaline Phosphatase Total Protein Albumin Lipase Carcinoembryonic Ag CA 125 Antigen Urine Color Urine Appearance Urine pH Ur Specific [place] Urine Protein Urine Glucose (UA) Urine Ketones Urine Blood Urine Nitrite Ur Leukocyte Esterase Urine RBC Urine WBC Urine WBC Clumps Ur Squamous Epith Cells Urine Bacteria Urine Test COVID-19 ([facility]) COVID-19 Clin Com Blood Type Antibody Screen Airway Mallampati Class: III TM Dist: >3cm Loose/Missing/Broken Teeth: Yes Assessment and Plan Assessment Anesthesia Assessment: Anesthesia Plan Discussed and Chart Reviewed Final Anesthetic Review Family History of Problems with Anesthesia: No History of Problems with Anesthesia: No NPO: Yes ASA Class: III Final Preanesthetic Review: No Changes in Pt Med Stat, Meds/Allgs Chart Reviewed, Consent Obtained/Reviewed and Anes Risks/Benef Reviewed Patient Risk: High Procedure Risk: Low Anesthetic Plan Anesthetic Plan: MAC: Disposition: Standard PACU
--- NOTE | 2021-12-07 16:59 | HO.RADPN ---
RADIOLOGY Narrative Narrative: Transgluteal pelvic abcess 10.2 fr drain placed. 300 ml purulent fluid removed. 8.5 fr rlq abscess drain placed. 60 ml slightly bloody purulent fluid removed. Specimens sent for culture.
--- NOTE | 2021-12-07 17:44 | PC.NURSE ---
UPON TRANSFER TO MED SURG ROOM, ASSISTANCE GIVEN TO CLEAN UP PATIENT AND PLACEMENT OF NEW OSTOMY APPLIANCE. PATIENT EDUCATED THROUGH PROCEDURE WITH PLACEMENT
[2021-12-07] MEDS: Dextrose 5 % and Lactated Ring 1,000 ML 80 ML IVCONT (18:14)
[2021-12-07] MEDS: levoFLOXacin/D5W 500 MG/100 ML PIGGYBACK 100 MG IV (19:23)
[2021-12-07] MEDS: 0.9 % Sodium Chloride Flush 3 ML SYRINGE IVFLUSH (19:23)
[2021-12-07] MEDS: Zolpidem Tartrate 5 MG TABLET PO (21:46)
[2021-12-08] MEDS: metroNIDAZOLE/NS 500 MG/100 ML PIGGYBACK 100 MG IV ×3 (01:46→17:26)
[2021-12-08 03:49] VITALS: BP 125/82; PULSE 81; RESP 18; TEMP 36.2; O2SAT 97
[2021-12-08] MEDS: Morphine Sulfate 10 MG/ML CARTRIDGE 8 MG IVPUSH (05:44)
[2021-12-08] MEDS: ondansetron HCL 4 MG/2 ML VIAL IVPUSH ×2 (05:49→22:42)
[2021-12-08 06:52] VITALS: BP 139/88; PULSE 81; RESP 18; TEMP 36.1; O2SAT 97
--- NOTE | 2021-12-08 10:00 | P.PNGS_ITS ---
Subjective Subjective Date of Service: 12/08/21 Interval history: Reports some pain at the drain insertion site otherwise feels okay. Reports gas and stool from her ostomy. Small amount discharge noted from the vagina yesterday. She denies nausea or vomiting. Physical Exam Vital Signs: Vital Signs: Last Vital Signs Temp 97 F 12/08/21 06:52 Pulse 81 12/08/21 06:52 Resp 18 12/08/21 06:52 BP 139/88 12/08/21 06:52 Pulse Ox 97 12/08/21 06:52 O2 Del Method 12/08/21 06:52 O2 Flow Rate 3 12/08/21 06:52 Oxygen Flow Rate 4 12/04/21 15:00 BMI result Body Mass Index 59.9 Const: General: no acute distress and lethargic Nutritional Appearance: obese Orientation/consciousness: lethargic Resp: Effort & Inspection: normal respiratory effort and no respiratory distress GI: Other: Ostomy is patent and functioning. Incision is clean, dry, and intact. No redness or discharge appreciated. Inspection: Yes normal to inspection Palpation (GI): Soft to palpation, nontender, no guarding and No Rebound tenderness present Percussion: Yes normal to percussion Skin: General skin exam: no rashes or lesions noted Objective Data Active Medications Acetaminophen (Acetaminophen 325 Mg Tablet) 975 mg PO ONCE PRN PRN Reason: Pain, Mild (Pain Scale 1-3) Albuterol Sulfate (Albuterol Sulfate 90 Mcg 8 Gm Inhaler) 1 puff INHALE Q4H PRN PRN Reason: Wheezing Enoxaparin Sodium (Enoxaparin Sodium 40 Mg/0.4 Ml Syringe) 40 mg SUBCUT Q12H [facility] Last Admin: 12/05/21 20:19 Dose: 40 mg Documented By: TG Promethazine HCl 6.25 mg/ (Sodium Chloride) 50.25 mls @ 201 mls/hr IV ONCE PRN PRN Reason: Nausea and Vomiting Acetaminophen (Ofirmev) 1,000 mg in 100 mls @ 400 mls/hr IV Q6H [facility] Last Infusion: 12/08/21 07:06 Dose: 0 mls/hr Documented By: MAEVE Levofloxacin (Levaquin) 500 mg in 100 mls @ 100 mls/hr IV Q24H [facility] Last Infusion: 12/07/21 20:27 Dose: 0 mls/hr Documented By: MAEVE Metronidazole (Flagyl) 500 mg in 100 mls @ 100 mls/hr IV Q8H [facility] Last Admin: 12/08/21 09:01 Dose: 100 mls/hr Documented By: YESIKA Promethazine HCl 12.5 mg/ (Sodium Chloride) 50.5 mls @ 202 mls/hr IV Q6H PRN PRN Reason: Nausea and Vomiting Last Infusion: 12/05/21 11:42 Dose: 0 mls/hr Documented By: POLLO Morphine Sulfate (Morphine Sulfate 10 Mg/Ml Cartridge) 8 mg IVPUSH Q3H PRN; Protocol PRN Reason: Pain, Severe (Pain Scale 7-10) Last Admin: 12/08/21 05:44 Dose: 8 mg Documented By: MAEVE Ondansetron HCl (Ondansetron Hcl 4 Mg/2 Ml Vial) 4 mg IVPUSH QID PRN PRN Reason: Nausea Last Admin: 12/08/21 05:49 Dose: 4 mg Documented By: MAEVE Ondansetron HCl (Ondansetron Hcl 4 Mg/2 Ml Vial) 4 mg IVPUSH ONCE PRN PRN Reason: Nausea and Vomiting Oxycodone HCl (Oxycodone Hcl Immed Release 5 Mg Tablet) 10 mg PO Q4H PRN PRN Reason: Pain, Moderate (Pain Scale 4-6 Last Admin: 12/07/21 21:46 Dose: 10 mg Documented By: MAEVE Pharmacy Consult (Consult Rx Perform Med Rec) 1 each MISCELLANE ONCE PRN PRN Reason: Consult order Sodium Chloride (0.9 % Sodium Chloride Flush 3 Ml Syringe) 3 ml IVFLUSH QSHIFT [facility] Last Admin: 12/08/21 08:18 Dose: Not Given Documented By: TORITO Non-Admin Reason: IV Running Zolpidem Tartrate (Zolpidem Tartrate 5 Mg Tablet) 5 mg PO BEDTIME PRN PRN Reason: Insomnia Last Admin: 12/07/21 21:46 Dose: 5 mg Documented By: MAEVE Labs CBC & Chem 7: 12/06/21 07:05 12/05/21 05:38 Microbiology Microbiology Results: Microbiology 12/07/21 16:45 Routine Culture - Preliminary Peritoneal Fluid No growth to date. Anaerobic Culture - Preliminary No growth to date. Procedures Date of Service Date of Service: 12/08/21 Progress Note: A&P Assessment and plan (1) Diverticulitis of intestine with abscess: Status: Acute (2) Pelvic abscess in female: Status: Acute (3) Morbid obesity: Status: Acute Plan 46-year-old female with history of perforated sigmoid diverticulitis now with a deep pelvic abscess, colovesical fistula, colo endometrial fistula. She is status post exploratory laparotomy with diverting end sigmoid colostomy [address] revealed continued abscess collection in the pelvis on 12/07/2021 with drain placement. Cultures of the fluid are pending. Another more dense collection is noted by Dr. Torres and may benefit from drainage as well. Will repeat CT prior to this. Check CBC in a.m.. Continue antibiotics Time Spent With Patient Time: Total time spent is greater than 50% in coordination of care (as documented) at patient's floor/unit and/or counseling patient: Quality Stroke Does the patient have a stroke diagnosis?: No VTE Prior VTE?: No VTE Risk Level:: Surgical - high VTE Device Contraindication: N/A - Device Ordered VTE Drug Contraindication: N/A - Med Ordered
--- NOTE | 2021-12-08 10:27 | HO.POSTANES ---
Post Anesthesia Evaluation Post Anesthesia Evaluation Vital Signs: Vital Signs Temp Pulse Resp BP Pulse Ox O2 Del Method O2 Flow Rate 12/08/21 06:52 97 F 81 18 139/88 97 Nasal Cannula 3 12/08/21 03:49 97.1 F 81 18 125/82 97 Nasal Cannula 3 12/07/21 23:47 98.3 F 86 18 134/82 96 Nasal Cannula 3 Anesthesia: Monitored Mental Status: Awake Pain Control: Satisfactory (mild pain at incisional sites) Nausea/Vomiting: None Hydration: Adequate Anesthesia-Related Issues: No Anes. Related Issues
[2021-12-08 11:11] VITALS: BP 158/74; PULSE 80; RESP 18; TEMP 36.6; O2SAT 95
[2021-12-08] MEDS: oxyCODONE HCl Immed Release 5 MG TABLET 10 MG PO ×2 (11:19→17:06)
--- NOTE | 2021-12-08 12:09 | MHC.CM.PN ---
Emr reviewed, Pt w/perforated sigmoid diverticulitis now with a deep pelvic abscess, colovesical fistula, colo endometrial fistula. Pt had drain placed in IR yesterday 12/07 and antic pt will need another drain per surgical w/CT scan prior, no plan for d/c at this time, cm will cont to follow d/c needs.
[2021-12-08] MEDS: 0.9 % Sodium Chloride Flush 3 ML SYRINGE IVFLUSH ×2 (14:13→19:15)
[2021-12-08 15:39] VITALS: BP 114/79; PULSE 96; RESP 16; TEMP 37; O2SAT 95
[2021-12-08] MEDS: levoFLOXacin/D5W 500 MG/100 ML PIGGYBACK 100 MG IV (19:10)
[2021-12-08 20:00] VITALS: BP 137/95; PULSE 87; RESP 15; TEMP 36.4; O2SAT 95
[2021-12-08] MEDS: Zolpidem Tartrate 5 MG TABLET PO (22:40)
[2021-12-09] VITALS (7 sets, daily range): BP systolic 140–173; BP diastolic 83–113; PULSE 86–105; RESP 16–18; TEMP 35.9–37.1; O2SAT 93–95
[2021-12-09 00:22] LABS: Glucose, Whole Blood 102 mg/dL (60-115)
[2021-12-09] MEDS: metroNIDAZOLE/NS 500 MG/100 ML PIGGYBACK 100 MG IV ×3 (02:10→17:19)
[2021-12-09] MEDS: Morphine Sulfate 10 MG/ML CARTRIDGE 8 MG IVPUSH (03:45)
[2021-12-09 06:59] LABS: MANUAL DIFF FLAG NO
[2021-12-09 07:06] LABS: Basophils Percent Auto 0.3 % (0-2); Eosinophils Absolute Auto 0.2 X10*3/uL (0.0-0.4); Eosinophils Percent Auto 2.1 % (0-4); Hematocrit 30.2 % (37.0-47.0); Hemoglobin 9.7 g/dl (12.0-16.0); Imm Gran Abs Auto 0.18 X10*3/uL (0.00-0.03); Imm Gran Pct Auto 1.7 % (0.0-0.4); Lymphocytes Absolute Auto 1.8 X10*3/uL (1.2-4.9); Lymphocytes Percent Auto 16.8 % (20-40); Mean Corpuscular HGB Conc 32.1 g/dl (31.0-35.0); Mean Corpuscular Hemoglobin 26.4 pg (27.0-33.0); Mean Corpuscular Volume 82.1 fL (80.0-98.0); Mean Platelet Volume 9.3 fL (9.4-12.3); Monocytes Absolute Auto 0.9 X10*3/uL (0.1-1.2); Monocytes Percent Auto 8.8 % (2-11); Neutrophils Absolute Auto 7.4 x10*3/uL (2.0-8.3); Neutrophils Percent Auto 70.3 % (45-73); Platelet Count 589 X10*3/uL (160-400); Red Blood Count 3.68 X10*6/uL (4.20-5.50); Red Cell Distribution Width 13.6 % (11.0-16.0); White Blood Count 10.5 X10*3/uL (4.8-10.8)
--- NOTE | 2021-12-09 08:06 | PM.PNGS ---
Subjective Subjective Date of Service: 12/09/21 Interval history: Patient did well yesterday, was able to get out of bed and ambulate short distance. She reports some discomfort mainly in the drain site. Denies abdominal pain. Ostomy producing gas and stool. Physical Exam Vital Signs: Vital Signs: Last Vital Signs Temp 96.6 F L 12/09/21 04:00 Pulse 86 12/09/21 04:00 Resp 16 12/09/21 04:00 BP 140/84 H 12/09/21 04:00 Pulse Ox 94 12/09/21 04:00 O2 Del Method 12/09/21 04:00 O2 Flow Rate 3 12/08/21 11:11 Oxygen Flow Rate 3 12/08/21 15:11 BMI result Body Mass Index 59.9 Const: General: no acute distress and lethargic Nutritional Appearance: obese Orientation/consciousness: lethargic Resp: Effort & Inspection: normal respiratory effort and no respiratory distress GI: Other: Ostomy is patent and functioning. Incision is clean, dry, and intact. No redness or discharge appreciated. Inspection: Yes normal to inspection Palpation (GI): Soft to palpation, nontender, no guarding and No Rebound tenderness present Percussion: Yes normal to percussion Skin: General skin exam: no rashes or lesions noted Objective Data Active Medications Albuterol Sulfate (Albuterol Sulfate 90 Mcg 8 Gm Inhaler) 1 puff INHALE Q4H PRN PRN Reason: Wheezing Enoxaparin Sodium (Enoxaparin Sodium 40 Mg/0.4 Ml Syringe) 40 mg SUBCUT Q12H [facility] Last Admin: 12/05/21 20:19 Dose: 40 mg Documented By: TG Levofloxacin (Levaquin) 500 mg in 100 mls @ 100 mls/hr IV Q24H [facility] Last Infusion: 12/08/21 20:28 Dose: 0 mls/hr Documented By: MAEVE Metronidazole (Flagyl) 500 mg in 100 mls @ 100 mls/hr IV Q8H [facility] Last Infusion: 12/09/21 03:10 Dose: 0 mls/hr Documented By: MAEVE Promethazine HCl 12.5 mg/ (Sodium Chloride) 50.5 mls @ 202 mls/hr IV Q6H PRN PRN Reason: Nausea and Vomiting Last Infusion: 12/05/21 11:42 Dose: 0 mls/hr Documented By: POLLO Morphine Sulfate (Morphine Sulfate 10 Mg/Ml Cartridge) 8 mg IVPUSH Q3H PRN; Protocol PRN Reason: Pain, Severe (Pain Scale 7-10) Last Admin: 12/09/21 03:45 Dose: 8 mg Documented By: MAEVE Ondansetron HCl (Ondansetron Hcl 4 Mg/2 Ml Vial) 4 mg IVPUSH QID PRN PRN Reason: Nausea Last Admin: 12/08/21 22:42 Dose: 4 mg Documented By: MAEVE Oxycodone HCl (Oxycodone Hcl Immed Release 5 Mg Tablet) 10 mg PO Q4H PRN PRN Reason: Pain, Moderate (Pain Scale 4-6 Last Admin: 12/08/21 17:06 Dose: 10 mg Documented By: TORITO Pharmacy Consult (Consult Rx Perform Med Rec) 1 each MISCELLANE ONCE PRN PRN Reason: Consult order Sodium Chloride (0.9 % Sodium Chloride Flush 3 Ml Syringe) [facility] Admin: 12/08/21 19:15 Dose: 3 ml Documented By: MAEVE Zolpidem Tartrate (Zolpidem Tartrate 5 Mg Tablet) 5 mg PO BEDTIME PRN PRN Reason: Insomnia Last Admin: 12/08/21 22:40 Dose: 5 mg Documented By: MAEVE Labs CBC & Chem 7: 12/09/21 06:09 12/05/21 05:38 Labs: Laboratory Results - last 24 hr 12/09/21 12/09/21 00:18 06:09 MCV 82.1 MCH 26.4 L MCHC 32.1 RDW 13.6 Plt Count 589 H MPV 9.3 L Immature Gran % (Auto) 1.7 H Neut % (Auto) 70.3 Lymph % (Auto) 16.8 L Stewart % (Auto) 8.8 Eos % (Auto) 2.1 Baso % (Auto) 0.3 Lymph # (Auto) 1.8 Stewart # (Auto) 0.9 Eos # (Auto) 0.2 Baso # (Auto) 0.0 Abs Immat Gran (auto) 0.18 H Absolute Neuts (auto) 7.4 Absolute Nucleated RBC 0.000 Nucleated RBC % (auto) 0.0 POC Glucose 102 Microbiology Microbiology Results: Microbiology 12/07/21 16:45 Gram Stain - Final Peritoneal Fluid Routine Culture - Preliminary No growth to date. Anaerobic Culture - Preliminary Culture in progress. 12/07/21 Unknown Gram Stain - Final Abscess Intra-abdominal Routine Culture - Preliminary No growth to date. Anaerobic Culture - Preliminary Culture in progress. Procedures Date of Service Date of Service: 12/09/21 Progress Note: A&P Assessment and plan (1) Diverticulitis of intestine with abscess: Status: Acute Assessment and Plan: S/P exploratory laparotomy with end sigmoid colostomy. Patient's WBC is now normal. She continues on Levaquin and Flagyl day 8. Awaiting wound cultures from pelvic abscess drainage. (2) Pelvic abscess in female: Status: Acute Assessment and Plan: S/P IR drainage of 2 collections in the pelvis. Will repeat CT in a.m. and evaluate for further drainage procedures if necessary. (3) Colovesical fistula: Status: Acute Assessment and Plan: Patient has some sediment within the urine noted in Zabala catheter. Will continue with Zabala catheter drainage. Will repeat urinalysis/culture. Time Spent With Patient Time: Total time spent is greater than 50% in coordination of care (as documented) at patient's floor/unit and/or counseling patient: Quality Stroke Does the patient have a stroke diagnosis?: No VTE Prior VTE?: No VTE Risk Level:: Surgical - high VTE Device Contraindication: N/A - Device Ordered VTE Drug Contraindication: N/A - Med Ordered
[2021-12-09] MEDS: Enoxaparin Sodium 40 MG/0.4 ML SYRINGE SUBCUT ×2 (08:50→20:35)
[2021-12-09] MEDS: 0.9 % Sodium Chloride Flush 3 ML SYRINGE IVFLUSH ×2 (08:51→17:20)
[2021-12-09] MEDS: oxyCODONE HCl Immed Release 5 MG TABLET 10 MG PO ×2 (12:24→18:28)
[2021-12-09] MEDS: levoFLOXacin/D5W 500 MG/100 ML PIGGYBACK 100 MG IV (19:29)
[2021-12-09] MEDS: Zolpidem Tartrate 5 MG TABLET PO (22:10)
[2021-12-10] VITALS (7 sets, daily range): BP systolic 121–172; BP diastolic 72–92; PULSE 78–87; RESP 18–20; TEMP 36.1–36.6; O2SAT 95–98
[2021-12-10] MEDS: metroNIDAZOLE/NS 500 MG/100 ML PIGGYBACK 100 MG IV ×3 (00:46→18:42)
[2021-12-10] MEDS: 0.9 % Sodium Chloride Flush 3 ML SYRINGE IVFLUSH ×4 (00:49→19:57)
[2021-12-10] MEDS: Morphine Sulfate 10 MG/ML CARTRIDGE 8 MG IVPUSH ×3 (01:33→18:41)
[2021-12-10] MEDS: ondansetron HCL 4 MG/2 ML VIAL IVPUSH ×2 (01:37→10:55)
[2021-12-10] MEDS: Enoxaparin Sodium 40 MG/0.4 ML SYRINGE SUBCUT ×2 (10:55→19:56)
[2021-12-10] MEDS: iohexoL 350 MG/ML 100 ML INFUS..BTL IV (14:51)
--- NOTE | 2021-12-10 16:50 | PM.PNGS ---
Subjective Subjective Date of Service: 12/10/21 Interval history: Patient denies any new complaints. Reports some pain from the posterior drain. Physical Exam Vital Signs: Vital Signs: Last Vital Signs Temp 97.3 F 12/10/21 11:19 Pulse 85 12/10/21 13:29 Resp 18 12/10/21 11:19 BP 145/80 H 12/10/21 13:29 Pulse Ox 98 12/10/21 13:29 O2 Del Method 12/10/21 11:19 O2 Flow Rate 3 12/08/21 11:11 Oxygen Flow Rate 3 12/08/21 15:11 BMI result Body Mass Index 59.9 Const: General: comfortable and no acute distress Nutritional Appearance: obese Orientation/consciousness: patient oriented x3 Limitations: no limitations Resp: Effort & Inspection: normal respiratory effort, no audible wheezes, no cough and no respiratory distress GI: Other: midline incision is clean and intact. Ostomy functioning well. Inspection: Yes normal to inspection Palpation (GI): Soft to palpation, nontender, no guarding and not rigid Neuro: General: patient oriented x3 Extrem: General: Yes edema Objective Data Active Medications Albuterol Sulfate (Albuterol Sulfate 90 Mcg 8 Gm Inhaler) 1 puff INHALE Q4H PRN PRN Reason: Wheezing Enoxaparin Sodium (Enoxaparin Sodium 40 Mg/0.4 Ml Syringe) 40 mg SUBCUT Q12H [facility] Last Admin: 12/10/21 10:55 Dose: 40 mg Documented By: MALATHI Levofloxacin (Levaquin) 500 mg in 100 mls @ 100 mls/hr IV Q24H [facility] Last Infusion: 12/09/21 20:35 Dose: 0 mls/hr Documented By: MAEVE Metronidazole (Flagyl) 500 mg in 100 mls @ 100 mls/hr IV Q8H [facility] Last Infusion: 12/10/21 12:34 Dose: 0 mls/hr Documented By: MALATHI Promethazine HCl 12.5 mg/ (Sodium Chloride) 50.5 mls @ 202 mls/hr IV Q6H PRN PRN Reason: Nausea and Vomiting Last Infusion: 12/05/21 11:42 Dose: 0 mls/hr Documented By: POLLO Morphine Sulfate (Morphine Sulfate 10 Mg/Ml Cartridge) 8 mg IVPUSH Q3H PRN; Protocol PRN Reason: Pain, Severe (Pain Scale 7-10) Last Admin: 12/10/21 10:58 Dose: 8 mg Documented By: MALATHI Ondansetron HCl (Ondansetron Hcl 4 Mg/2 Ml Vial) 4 mg IVPUSH QID PRN PRN Reason: Nausea Last Admin: 12/10/21 10:55 Dose: 4 mg Documented By: MALATHI Oxycodone HCl (Oxycodone Hcl Immed Release 5 Mg Tablet) 10 mg PO Q4H PRN PRN Reason: Pain, Moderate (Pain Scale 4-6 Last Admin: 12/09/21 18:28 Dose: 10 mg Documented By: GARRISON Pharmacy Consult (Consult Rx Perform Med Rec) 1 each MISCELLANE ONCE PRN PRN Reason: Consult order Sodium Chloride (0.9 % Sodium Chloride Flush 3 Ml Syringe) 3 ml IVFLUSH QSHIFT [facility] Last Admin: 12/10/21 10:56 Dose: 3 ml Documented By: MALATHI Zolpidem Tartrate (Zolpidem Tartrate 5 Mg Tablet) 5 mg PO BEDTIME PRN PRN Reason: Insomnia Last Admin: 12/09/21 22:10 Dose: 5 mg Documented By: MISSYQC Labs CBC & Chem 7: 12/09/21 06:09 12/05/21 05:38 Microbiology Microbiology Results: Microbiology 12/07/21 Unknown Gram Stain - Final Abscess Intra-abdominal Routine Culture - Final Group F Streptococcus Anaerobic Culture - Final Bacteroides thetaiotaomicron 12/09/21 10:12 Urine Culture - Final Urine Catheterized - Zabala Catheter Corynebacterium species 12/07/21 16:45 Gram Stain - Final Peritoneal Fluid Routine Culture - Final Group F Streptococcus Anaerobic Culture - Preliminary Culture in progress. Procedures Date of Service Date of Service: 12/10/21 Progress Note: A&P Assessment and plan (1) Diverticulitis of intestine with abscess: Status: Acute Assessment and Plan: S/P exploratory laparotomy with end sigmoid colostomy. Patient's WBC is now normal. She continues on Levaquin and Flagyl day 8. Awaiting wound cultures sensitivities from pelvic abscess drainage. Recheck CBC in AM (2) Pelvic abscess in female: Status: Acute Assessment and Plan: S/P IR drainage of 2 collections in the pelvis. Will repeat CT in a.m. today; report not available; I reviewed the study and the collections in the pelvis and RLQ seem improved after cath drainage. Residual collection noted in the left lower quadrant at side of previous catheter drainage. May need to be redrained. ? Right adnexal mass or abscess collection. (3) Colovesical fistula: Status: Acute Assessment and Plan: Patient has some sediment within the urine noted in Zabala catheter. Will continue with Zabala catheter drainage. Urine culture pending. Time Spent With Patient Time: Total time spent is greater than 50% in coordination of care (as documented) at patient's floor/unit and/or counseling patient: Quality Stroke Does the patient have a stroke diagnosis?: No VTE Prior VTE?: No VTE Risk Level:: Surgical - high VTE Device Contraindication: N/A - Device Ordered VTE Drug Contraindication: N/A - Med Ordered
[2021-12-10] MEDS: levoFLOXacin/D5W 500 MG/100 ML PIGGYBACK 100 MG IV (19:56)
[2021-12-11] VITALS (7 sets, daily range): BP systolic 126–159; BP diastolic 68–90; PULSE 58–97; RESP 15–17; TEMP 36–36.9; O2SAT 93–98
[2021-12-11] MEDS: metroNIDAZOLE/NS 500 MG/100 ML PIGGYBACK 100 MG IV ×3 (02:03→17:37)
[2021-12-11 05:53] LABS: MANUAL DIFF FLAG NO
[2021-12-11 06:02] LABS: Basophils Percent Auto 0.5 % (0-2); Eosinophils Absolute Auto 0.2 X10*3/uL (0.0-0.4); Eosinophils Percent Auto 2.6 % (0-4); Hematocrit 31.3 % (37.0-47.0); Imm Gran Abs Auto 0.23 X10*3/uL (0.00-0.03); Imm Gran Pct Auto 2.8 % (0.0-0.4); Lymphocytes Absolute Auto 1.8 X10*3/uL (1.2-4.9); Mean Corpuscular HGB Conc 31.9 g/dl (31.0-35.0); Mean Corpuscular Hemoglobin 26.2 pg (27.0-33.0); Mean Corpuscular Volume 81.9 fL (80.0-98.0); Mean Platelet Volume 8.9 fL (9.4-12.3); Monocytes Absolute Auto 0.7 X10*3/uL (0.1-1.2); Monocytes Percent Auto 8.9 % (2-11); Neutrophils Absolute Auto 5.2 x10*3/uL (2.0-8.3); Neutrophils Percent Auto 63.2 % (45-73); Platelet Count 575 X10*3/uL (160-400); Red Blood Count 3.82 X10*6/uL (4.20-5.50); Red Cell Distribution Width 13.9 % (11.0-16.0); White Blood Count 8.2 X10*3/uL (4.8-10.8)
[2021-12-11] MEDS: 0.9 % Sodium Chloride Flush 3 ML SYRINGE IVFLUSH ×3 (07:30→19:31)
[2021-12-11] MEDS: Enoxaparin Sodium 40 MG/0.4 ML SYRINGE SUBCUT ×2 (09:30→19:31)
--- NOTE | 2021-12-11 13:05 | P.PNGS_ITS ---
Subjective Subjective Date of Service: 12/11/21 Interval history: feeling well eating and ostomy bag working. not liking the food here much, Physical Exam Vital Signs: Vital Signs: Last Vital Signs Temp 96.8 F 12/11/21 11:31 Pulse 80 12/11/21 11:31 Resp 15 12/11/21 11:31 BP 159/90 H 12/11/21 11:31 Pulse Ox 96 12/11/21 11:31 O2 Del Method 12/11/21 11:31 O2 Flow Rate 3 12/08/21 11:11 Oxygen Flow Rate 3 12/08/21 15:11 BMI result Body Mass Index 59.9 Resp: Effort & Inspection: normal respiratory effort Auscultation: clear to auscultation bilaterally Cardio: Rate: regular rate Rhythm: regular rhythm GI: Other: midline incision looks good nontender ostomy working with brown stool the drains in place and draining the let lower quadrant open area draining purulent material still Objective Data Active Medications Albuterol Sulfate (Albuterol Sulfate 90 Mcg 8 Gm Inhaler) 1 puff INHALE Q4H PRN PRN Reason: Wheezing Enoxaparin Sodium (Enoxaparin Sodium 40 Mg/0.4 Ml Syringe) 40 mg SUBCUT Q12H [facility] Last Admin: 12/11/21 09:30 Dose: 40 mg Documented By: NEGRO Levofloxacin (Levaquin) 500 mg in 100 mls @ 100 mls/hr IV Q24H [facility] Last Infusion: 12/10/21 21:32 Dose: 0 mls/hr Documented By: ABELILRaul Metronidazole (Flagyl) 500 mg in 100 mls @ 100 mls/hr IV Q8H [facility] Last Infusion: 12/11/21 11:40 Dose: 0 mls/hr Documented By: NEGRO Promethazine HCl 12.5 mg/ (Sodium Chloride) 50.5 mls @ 202 mls/hr IV Q6H PRN PRN Reason: Nausea and Vomiting Last Infusion: 12/05/21 11:42 Dose: 0 mls/hr Documented By: POLLO Morphine Sulfate (Morphine Sulfate 10 Mg/Ml Cartridge) 8 mg IVPUSH Q3H PRN; Protocol PRN Reason: Pain, Severe (Pain Scale 7-10) Last Admin: 12/10/21 18:41 Dose: 8 mg Documented By: MALATHI Ondansetron HCl (Ondansetron Hcl 4 Mg/2 Ml Vial) 4 mg IVPUSH QID PRN PRN Reason: Nausea Last Admin: 12/10/21 10:55 Dose: 4 mg Documented By: MALATHI Oxycodone HCl (Oxycodone Hcl Immed Release 5 Mg Tablet) 10 mg PO Q4H PRN PRN Reason: Pain, Moderate (Pain Scale 4-6 Last Admin: 12/09/21 18:28 Dose: 10 mg Documented By: GARRISON Pharmacy Consult (Consult Rx Perform Med Rec) 1 each MISCELLANE ONCE PRN PRN Reason: Consult order Sodium Chloride (0.9 % Sodium Chloride Flush 3 Ml Syringe) 3 ml IVFLUSH QSHIFT [facility] Last Admin: 12/11/21 07:30 Dose: 3 ml Documented By: NEGRO Zolpidem Tartrate (Zolpidem Tartrate 5 Mg Tablet) 5 mg PO BEDTIME PRN PRN Reason: Insomnia Last Admin: 12/09/21 22:10 Dose: 5 mg Documented By: MISSYQC Labs CBC & Chem 7: 12/11/21 05:29 12/05/21 05:38 Labs: Laboratory Results - last 24 hr 12/11/21 05:29 MCV 81.9 MCH 26.2 L MCHC 31.9 RDW 13.9 Plt Count 575 H MPV 8.9 L Immature Gran % (Auto) 2.8 H Neut % (Auto) 63.2 Lymph % (Auto) 22.0 [place] % (Auto) 8.9 Eos % (Auto) 2.6 Baso % (Auto) 0.5 Lymph # (Auto) 1.8 [place] # (Auto) 0.7 Eos # (Auto) 0.2 Baso # (Auto) 0.0 Abs Immat Gran (auto) 0.23 H Absolute Neuts (auto) 5.2 Absolute Nucleated RBC 0.000 Nucleated RBC % (auto) 0.[address] scan - abdomen: Radiologist's impression: Impressions Pelvis CT 12/10/21 14:47 IMPRESSION: Improved pelvic abscesses. Microbiology Microbiology Results: Microbiology 12/07/21 Unknown Gram Stain - Final Abscess Intra-abdominal Routine Culture - Final Group F Streptococcus Anaerobic Culture - Final Bacteroides thetaiotaomicron 12/09/21 10:12 Urine Culture - Final Urine Catheterized - Zabala Catheter Corynebacterium species 12/07/21 16:45 Gram Stain - Final Peritoneal Fluid Routine Culture - Final Group F Streptococcus Anaerobic Culture - Preliminary Culture in progress. Procedures Date of Service Date of Service: 12/11/21 Progress Note: A&P Assessment and plan (1) Diverticulitis of intestine with abscess: Status: Acute Plan 46yo obese pt with perf diverticulitis - overall doing better sp exploration and diversion colostomy creation - all abscess areas looked better on CT scan monday - drains in place and open area still draining cont with advancing diet - needs high protein and suplements - should have nutrition consult and plan for serious healthy weight loss before next surgery cont with iv antibx Time Spent With Patient Time: Total time spent is greater than 50% in coordination of care (as documented) at patient's floor/unit and/or counseling patient: Quality Stroke Does the patient have a stroke diagnosis?: No VTE Prior VTE?: No VTE Risk Level:: Surgical - high VTE Device Contraindication: N/A - Device Ordered VTE Drug Contraindication: N/A - Med Ordered
[2021-12-11] MEDS: Morphine Sulfate 10 MG/ML CARTRIDGE 8 MG IVPUSH (19:30)
[2021-12-11] MEDS: ondansetron HCL 4 MG/2 ML VIAL IVPUSH (19:38)
[2021-12-12] MEDS: metroNIDAZOLE/NS 500 MG/100 ML PIGGYBACK 100 MG IV ×3 (01:45→17:47)
[2021-12-12 04:00] VITALS: BP 127/68; PULSE 84; RESP 17; TEMP 36.3; O2SAT 97
[2021-12-12 07:47] VITALS: BP 154/83; PULSE 72; RESP 20; TEMP 36.6; O2SAT 94
[2021-12-12] MEDS: Enoxaparin Sodium 40 MG/0.4 ML SYRINGE SUBCUT ×2 (09:25→20:09)
--- NOTE | 2021-12-12 11:36 | P.PNGS_ITS ---
Subjective Subjective Date of Service: 12/12/21 Interval history: feels ok no issues, walked yesterday Physical Exam Vital Signs: Vital Signs: Last Vital Signs Temp 97.8 F 12/12/21 07:47 Pulse 72 12/12/21 07:47 Resp 20 12/12/21 07:47 BP 154/83 H 12/12/21 07:47 Pulse Ox 94 12/12/21 07:47 O2 Del Method 12/12/21 07:47 O2 Flow Rate 3 12/08/21 11:11 Oxygen Flow Rate 3 12/08/21 15:11 BMI result Body Mass Index 59.9 GI: Other: abdo obese but looks good - midline pat fine, the ostomy is working well drain B with brownish cloudy fluid drain A not as much Objective Data Active Medications Albuterol Sulfate (Albuterol Sulfate 90 Mcg 8 Gm Inhaler) 1 puff INHALE Q4H PRN PRN Reason: Wheezing Enoxaparin Sodium (Enoxaparin Sodium 40 Mg/0.4 Ml Syringe) 40 mg SUBCUT Q12H [facility] Last Admin: 12/12/21 09:25 Dose: 40 mg Documented By: JOO Metronidazole (Flagyl) 500 mg in 100 mls @ 100 mls/hr IV Q8H [facility] Last Infusion: 12/12/21 10:56 Dose: 0 mls/hr Documented By: JOO Promethazine HCl 12.5 mg/ (Sodium Chloride) 50.5 mls @ 202 mls/hr IV Q6H PRN PRN Reason: Nausea and Vomiting Last Infusion: 12/05/21 11:42 Dose: 0 mls/hr Documented By: POLLO Ondansetron HCl (Ondansetron Hcl 4 Mg/2 Ml Vial) 4 mg IVPUSH QID PRN PRN Reason: Nausea Last Admin: 12/11/21 19:38 Dose: 4 mg Documented By: LYNETTE Oxycodone HCl (Oxycodone Hcl Immed Release 5 Mg Tablet) 10 mg PO Q4H PRN PRN Reason: Pain, Moderate (Pain Scale 4-6 Last Admin: 12/09/21 18:28 Dose: 10 mg Documented By: GARRISON Pharmacy Consult (Consult Rx Perform Med Rec) 1 each MISCELLANE ONCE PRN PRN Reason: Consult order Sodium Chloride (0.9 % Sodium Chloride Flush 3 Ml Syringe) 3 ml IVFLUSH QSHIFT [facility] Last Admin: 12/12/21 09:29 Dose: Not Given Documented By: JOO Non-Admin Reason: IV Running Zolpidem Tartrate (Zolpidem Tartrate 5 Mg Tablet) 5 mg PO BEDTIME PRN PRN Reason: Insomnia Last Admin: 12/09/21 22:10 Dose: 5 mg Documented By: MAEVE Labs CBC & Chem 7: 12/11/21 05:29 12/05/21 05:38 Microbiology Microbiology Results: Microbiology 12/07/21 16:45 Gram Stain - Final Peritoneal Fluid Routine Culture - Final Group F Streptococcus Anaerobic Culture - Final Procedures Date of Service Date of Service: 12/12/21 Progress Note: A&P Assessment and plan (1) Diverticulitis of intestine with abscess: Status: Acute Plan pt doing much better s/p exploration and diverting colostomy for diverticulitis with abscess and other pelvic abscesses- plan to cont with diet - needs high protein but needs to work on weight loss before next surgical intervention cont with drains for now - ct on monday showing improviement cont with iv antibx convert to po when dc home ostomy teaching and care ambulation Time Spent With Patient Time: Total time spent is greater than 50% in coordination of care (as documented) at patient's floor/unit and/or counseling patient: Quality Stroke Does the patient have a stroke diagnosis?: No VTE Prior VTE?: No VTE Risk Level:: Surgical - high VTE Device Contraindication: N/A - Device Ordered VTE Drug Contraindication: N/A - Med Ordered
[2021-12-12 11:38] VITALS: BP 133/84; PULSE 78; RESP 18; TEMP 36.7; O2SAT 92
--- NOTE | 2021-12-12 15:44 | PC.NURSE ---
Ostomy teaching done with read back. Ostomy bag changed, stoma brown with output. Picture sent to MD. Patients malick drains stripped and flowing. B-drain 15ccs output A drain with no output. Patient tolrated well. Up walking around. Patient wants mosher cath d/c'ed. MD said to hold off till tomorrow AM. Patient wants to be d/c'ed tomorrow. Has plan to stay at [facility] house for a couple days and get VNA services/
--- NOTE | 2021-12-12 15:46 | PC.NURSE ---
Patient up walking around independently
[2021-12-12 16:00] VITALS: BP 159/93; PULSE 72; RESP 15; TEMP 36.8; O2SAT 95
[2021-12-12] MEDS: 0.9 % Sodium Chloride Flush 3 ML SYRINGE IVFLUSH ×2 (17:41→20:11)
[2021-12-12] MEDS: oxyCODONE HCl Immed Release 5 MG TABLET 10 MG PO (17:53)
[2021-12-12 19:09] VITALS: BP 151/88; PULSE 83; RESP 15; TEMP 36.8; O2SAT 95
[2021-12-12] MEDS: Zolpidem Tartrate 5 MG TABLET PO (21:35)
[2021-12-12 23:35] VITALS: BP 134/92; PULSE 84; RESP 17; TEMP 36.1; O2SAT 96
[2021-12-13] MEDS: metroNIDAZOLE/NS 500 MG/100 ML PIGGYBACK 100 MG IV ×2 (01:11→09:37)
[2021-12-13] MEDS: oxyCODONE HCl Immed Release 5 MG TABLET 10 MG PO (02:14)
[2021-12-13 03:44] VITALS: BP 144/81; PULSE 75; RESP 17; TEMP 36; O2SAT 96
[2021-12-13 07:28] VITALS: BP 140/89; PULSE 79; RESP 18; TEMP 36.6; O2SAT 95
[2021-12-13] MEDS: 0.9 % Sodium Chloride Flush 3 ML SYRINGE IVFLUSH (09:37)
[2021-12-13] MEDS: Enoxaparin Sodium 40 MG/0.4 ML SYRINGE SUBCUT (09:38)
[2021-12-13 11:20] VITALS: BP 157/90; PULSE 72; RESP 18; TEMP 36.4; O2SAT 93
--- NOTE | 2021-12-13 14:12 | W.MHC.F2F ---
Service Date Service Date: 12/13/21 Encounter Date of encounter: 12/13/21 Reasons for Services Signs and symptoms assessed: Vital signs, abdominal wounds, abdominal drains reviewed Reason for senior care: wound care (IR drain management) and postoperative assessment and/or care Reason for physical therapy: home safety and mobility Overseeing Care: Murali Beck Homebound: Leaving the home is medically contraindicated at this time without the asist of a device and/or another person due th the listed conditions above and below. Reason homebound: unsteady gait / fall risk, leg weakness and weakness related to hospital stay Certification: Based on the above findings, I certify that this patient is confined to the home and needs intermittent senior care care, physical therapy and/or speech therapy, or continues to need occupational therapy. The patient is under my care, and I have initiated the establishment of the plan of care. The patient will be followed by a physician who will periodically review the plan of care.
--- NOTE | 2021-12-13 14:14 | P.DS_ITS ---
DS: Providers Provider Date of Service: 12/13/21 Date of admission: 11/30/21 01:21 Date of discharge: 12/13/21 Primary care physician: Simona Crowe MD Admitting clinician: Murali Beck Discharging clinician: Murali Beck DS: Diagnosis Discharge Diagnosis (1) Diverticulitis of intestine with abscess: Status: Acute (2) Pelvic abscess in female: Status: Acute (3) Colovesical fistula: Status: Acute (4) Morbid obesity: Status: Acute DS: Summary Hospital Course Hospital Course: Mana Rodriguez is a 46 year old female with past medical history including morbid obesity, asthma, and borderline diabetes. She was previously hospitalized here in April 2021 with sigmoid diverticulitis and abscess for which she underwent CT guided drainage. She followed up in the office for drain removal on 06/03 but otherwise has not had any surgical/colorectal followup. She returns to the ED on 11/30/2021 complaining of lower abdominal pain x 1 week. Pain is constant, 7.5/10 currently, associated with nausea and vomiting before coming to the ER. She had not eaten since pain started. Pt denies fever, diarrhea, constipation, blood in stool. She reports that she has had ongoing drainage from old drain site ever since it was removed. Denies any dysuria, hematuria. Workup in the ED revealed a markedly elevated WBC he the abdomen revealed evidence of colovesical fistula, colo uterine fistula, and a pelvic abscess, possibly tubo- ovarian abscess. Patient was admitted to the surgery service and placed on IV antibiotics. Consultation with interventional radiology was requested however they felt the pelvic fluid collections were not amenable to IR drainage. Because of the ongoing infection and colovesical fistula incision was made to proceed to operative exploration. She underwent an exploratory laparotomy on 12/01/2021. For findings were consistent with marked inflammation of the distal sigmoid colon with dense adhesions to the adnexa bilaterally as well as bladder and pelvis. Extensive lysis of adhesions was performed however no abscess co llection could be identified. The decision was made to perform an end sigmoid colostomy to divert the fecal flow. She tolerated this procedure well but did have a delayed return of bowel function. She was kept on IV antibiotics which were based on the urine cultures, Levaquin and Flagyl. After approximately 1 week she began to pass a small amount of stool and flatus from the ostomy. Her WBC gradually improved as well as did her urine. A repeat CT abdomen and pelvis was performed which again showed 2 abscess collections. These were felt to be a minimal to IR drainage therefore she subsequently underwent this procedure, and 2 large abscess collections were drained. She tolerated this procedure very well and had continued improvement following the IR drainage. On 12/11/2021 repeat WBC was normal and she had normal ostomy output solid stool and gas. She was instructed on ostomy care feels comfortable changing her colostomy. She is eager to be discharged to home. Will be discharged home on Levaquin and Flagyl and will return in my office in 1 week for staple removal and wound check. Plan is for reversal the colostomy and elective sigmoid colectomy in approximately 3-4 months once the acute inflammation resolves. A repeat CT will be ordered approximately 1 week to follow-up on the abscess collections. Patient expressed understanding and agrees with the plan. Status at Discharge Functional status at discharge: independent ambulation Overall status at discharge: patient is not back to baseline Time Spent with Patient Time attestation: Total time spent providing and/or coordinating discharge services: Discharge coordination time: Greater than 30 minutes Specific discharge activities: Removal of drains, coordination of ostomy care and VNA services, discharge medications Quality: Safe Use of Opioids Does Pt have an Active Cancer Diagnosis on the Problem List?: No Quality: Stroke Does the patient have a stroke diagnosis?: No Physical Exam Vital Signs: Vital Signs: Last Vital Signs Temp 97.5 F 12/13/21 11:20 Pulse 72 12/13/21 11:20 Resp 18 12/13/21 11:20 BP 157/90 H 12/13/21 11:20 Pulse Ox 93 12/13/21 11:20 O2 Del Method 12/13/21 11:20 O2 Flow Rate 3 12/08/21 11:11 Oxygen Flow Rate 3 12/08/21 15:11 BMI result Body Mass Index 59.9 Const: General: comfortable and no acute distress Nutritional Appearance: well nourished and obese Orientation/consciousness: patient oriented x3 Limitations: no limitations HEENT: Head: Yes normocephalic and Yes atraumatic Ears: hearing grossly normal bilaterally GI: Other: Midline incision is clean, dry, and intact. Ostomy is patent and functioning well. There is a small fistula lateral to this which is draining cloudy fluid. Palpation (GI): Soft to palpation, nontender, no guarding, not rigid and No Rebound tenderness present Percussion: Yes normal to percussion Auscultation: normal bowel sounds Skin: General skin exam: turgor normal Rashes: no rashes Neuro: General: patient oriented x3 Extrem: General: Yes no clubbing, cyanosis or edema DS: Data Data Completed and Pending Completed studies during hospitalization [Text1]: Procedures Drainage of Sigmoid Colon with Drainage Device, Percutaneous Approach (05/13/21) Discharge Plan Discharge Patient Disposition: Home Health Service Discharge Diagnosis: Perforated sigmoid diverticulitis with abscess Referrals: Felipe MCKEON [Outside] - 1 Day (CORRECTION, A NURSE WILL BE CONTACTING YOU TO SET UP YOUR FIRST APPT TOMORROW 12/14. PLEASE CALL [phone] IF YOU HAVE ANY QUESTIONS. ) Simona Crowe MD [Primary Care Provider] - 1 Week Murali Beck MD [Physician] - 1 Week Discharge Medications: New levofloxacin 500 mg tablet 500 mg PO Q24H Qty: 14 0RF metronidazole 500 mg tablet 500 mg PO Q8H Qty: 60 0RF oxycodone 10 mg tablet 10 mg PO Q8H PRN (Reason: pain (scale score 7-10)) Qty: 25 0RF Rx Instructions: Partial Fill upon patient request. Continued albuterol sulfate 90 mcg/actuation HFA aerosol inhaler 1 puff inhalation Q4H PRN (Reason: Wheezing) ibuprofen 800 mg tablet 1 tab PO TID amoxicillin-pot clavulanate 875-125 mg tablet 1 tab PO BID acetaminophen [Tylenol] 325 mg Tablet 650 mg PO Q6H PRN (Reason: Pain) Discharge Orders: Discharge Order (Routine); Ordered 12/13/21 Ordered By: Murali Beck Diet: Advance to usual diet Activity on Discharge: No heavy lifting Stand Alone Forms: Patient Portal Discharge page Care Plan Goals: Return of normal activity and diet Health Concerns: Abdominal abscess, sepsis Plan of Treatment: Sigmoid colostomy, drainage of abscess Assessment: Perforated sigmoid diverticulitis, pelvic abscess
--- NOTE | 2021-12-13 14:14 | MHC.CM.PN ---
PT MEDICALLY CLEARED FOR D/C HOME W/NEW [facility] FOR CARE HOME AND SOC 12/14, PT WILL D/C W/OSTOMY SUPPLIES AND FAMILY FOR TRANSPORT.
== END 2021-12-13 16:08 | disposition home health service (06) | DRG 330 ==
LOC: HO.ED 22:29 → HO.EDOVER 11-30 01:37 → HO.IMC 11-30 07:21 → HO.S3 12-04 13:42
PROVIDERS: Physician Assistant; Radiology Diagnostic Radiology; Admitting Provider Surgery; Emergency Provider Internal Medicine; PCP Internal Medicine Endocrinology, Diabetes & Metabolism; Visit Provider Surgery
PROC: 0D1N0Z4 Bypass Sigmoid Colon to Cutaneous, Open Approach (ICD-10-PCS; CPT 49000; principal; 2021-12-01 11:50)
PROC: 0W9J30Z Drainage of Pelvic Cavity with Drainage Device, Percutaneous Approach (ICD-10-PCS; principal; 2021-12-07 13:30)
DX: K57.20 Diverticulitis of large intestine with perforation and abscess without bleeding (principal); N32.1 Vesicointestinal fistula; Z68.43 Body mass index [BMI] 50.0-59.9, adult; N73.6 Female pelvic peritoneal adhesions (postinfective); N83.201 Unspecified ovarian cyst, right side; E66.01 Morbid (severe) obesity due to excess calories; F17.210 Nicotine dependence, cigarettes, uncomplicated; Z20.822 Contact with and (suspected) exposure to COVID-19; Z71.6 Tobacco abuse counseling; Z79.899 Other long term (current) drug therapy
CPT/HCPCS: 36415; 49406; 72193; 74177; 76856; 80048; 80053; 81003; 81025; 82248; 82378; 82947; 83605; 83690; 85025; 85027; 85610; 86304; 86850; 86900; 86901; 87040; 87071; 87073; 87076; 87086; 87088; 87147; 87186; 87205; 87635; 94640; 96361; 96374; 96375; 97116; 97162; 97530; 99285; C1729; C1758; C1894; J0131; J1100; J1170; J1650; J1885; J1956; J2250; J2270; J2405; J2543; J2550; J2795; J3010; Q4186; Q9967

== ENCOUNTER 2022-02-15 08:43 | Outpatient (REF) | payer OTHER, SELFPAY ==
--- NOTE | ~2022-02-15 | CT_ITS ---
EXAMINATION: CT ABDOMEN AND PELVIS WITH CONTRAST CLINICAL INFORMATION: Follow-up cystic and solid collections in the pelvis. COMPARISON: CT abdomen and pelvis 12/07/2021 and 12/05/2021. TECHNIQUE: Multidetector volumetric images were obtained from the superior aspect of the liver through the pubic symphysis following administration 100 mL of Omnipaque 350 intravenous contrast. Sagittal and coronal reformatted images were obtained on the technologist's workstation. Oral contrast: No This CT examination was performed using dose optimization techniques as appropriate, variously including the following: *Automated exposure control *Adjustment of mA and/or kV according to patient size (this includes techniques or standardized protocols for targeted exams where dose is matched to indication/reason for exam; i.e. extremities or head) *Use of iterative reconstruction technique DLP: 1174 mGy-cm FINDINGS: LUNG BASES: There is plate-like atelectasis right lateral basal segment. LIVER, GALLBLADDER, AND BILIARY TREE: The liver is enlarged in size and extends beyond the left upper quadrant and lateral spleen. There is normal accumulation. No focal hepatic lesion or biliary ductal dilatation is present. The gallbladder is unremarkable with no evidence of radiopaque gallstones, gallbladder wall thickening, or obvious pericholecystic inflammatory changes. PANCREAS: Unremarkable. SPLEEN: Unremarkable. ADRENAL GLANDS: Unremarkable. KIDNEYS AND URETERS: The kidneys are normal in size, shape, and attenuation. No hydronephrosis, hydroureter, or calculi seen. No perinephric stranding. BLADDER: Unremarkable. GASTROINTESTINAL TRACT: There is a left lower quadrant colostomy with mild pericolic fat stranding likely inflammatory changes. The proximal colon is normal caliber. Oral contrast opacified small bowel loops are normal caliber. No free air or free fluid seen. Appendix is not visualized. The stomach is nondistended. ABDOMINAL WALL: Left lower quadrant colostomy with pericolostomy inflammatory changes and fat stranding. LYMPH NODES: Normal. VASCULAR: Unremarkable. PELVIC VISCERA: There is a solid lesion in the right adnexa and to the right of uterus measuring 8.29 x 6.4 x 7.3 cm. It appears minimally larger compared to previous exam likely secondary to resolution of solid and cystic masses surrounding this lesion in the right and left adnexa. A very small cystic collection is seen adjacent to sigmoid colon measuring 2.5 x 1.70 cm on axial image 74/3. OSSEOUS STRUCTURES: No lytic or sclerotic process seen. There are degenerative disc changes L4-L5 and L5-S1 disc levels. CT/CT abdomen pelvis w IV con IMPRESSION: 1. Left lower quadrant colostomy with pericolostomy inflammatory changes. No obstruction seen. 2. There is a solid lesion in the right adnexa and to the right of uterus. It appears minimally larger compared to previous study. This could be secondary to resolution of cystic and solid masses in bilateral adnexa. There is a small cystic collection adjacent to the sigmoid colon measuring 2.5 x 1.70 cm. 3. No abnormal retroperitoneal or mesenteric lymph nodes seen. Fleischner guidelines were followed.
[2022-02-15] MEDS: Barium Sulfate Oral (Vanilla) 450 ML ORAL.SUSP 900 ML PO (11:22)
[2022-02-15] MEDS: iohexoL 350 MG/ML 100 ML INFUS..BTL IV (11:22)
== END 2022-02-15 08:44 | disposition home or self-care (01) ==
LOC: HO.CT 08:43
PROVIDERS: Visit Provider Surgery
DX: K57.80 Diverticulitis of intestine, part unspecified, with perforation and abscess without bleeding (principal); N32.1 Vesicointestinal fistula; N73.9 Female pelvic inflammatory disease, unspecified
CPT/HCPCS: 74177; Q9967

== ENCOUNTER 2022-03-30 | Outpatient (REF) | payer OTHER, SELFPAY ==
[2022-03-09 11:03] VITALS: BMI 59.2
--- NOTE | 2022-03-18 | ECG_ITS ---
Test Reason : asthma obesity Blood Pressure : / mmHG Vent. Rate : 084 BPM Atrial Rate : 084 BPM P-R Int : 132 ms QRS Dur : 102 ms QT Int : 390 ms P-R-T Axes : 024 -05 031 degrees QTc Int : 460 ms Normal sinus rhythm Incomplete right bundle branch block Borderline ECG When compared with ECG of 12-SEP-2016 13:54, No significant change was found Referred By: Josi Beltran Electronically Signed By:Antonio Torrez
[2022-03-18 11:50] LABS: Hematocrit 37.1 % (37.0-47.0); Hemoglobin 11.9 g/dl (12.0-16.0); Mean Corpuscular HGB Conc 32.1 g/dl (31.0-35.0); Mean Platelet Volume 9.5 fL (9.4-12.3); Platelet Count 432 X10*3/uL (160-400); Red Blood Count 4.58 X10*6/uL (4.20-5.50); Red Cell Distribution Width 13.2 % (11.0-16.0); White Blood Count 6.3 X10*3/uL (4.8-10.8)
[2022-03-18 12:25] LABS: Anion Gap 14 (12-20); Blood Urea Nitrogen 15 mg/dL (9-16); Calcium 9.3 mg/dL (8.4-10.2); Carbon Dioxide 26 mmol/L (22-29); Chloride 104 mmol/L (96-108); Creatinine Clr Calc Pharmacy 171.6; Estimated Glomerular Filt Rate > 60; Glucose Random 91 mg/dL (60-115); Potassium 4.5 mmol/L (3.3-5.1); Sodium 139 mmol/L (135-145)
== END 2022-03-30 00:01 | disposition home or self-care (01) ==
LOC: HO.PAT
PROVIDERS: Nurse Practitioner; Visit Provider Surgery
DX: Z01.818 Encounter for other preprocedural examination (principal); K57.80 Diverticulitis of intestine, part unspecified, with perforation and abscess without bleeding; N73.9 Female pelvic inflammatory disease, unspecified; N32.1 Vesicointestinal fistula
CPT/HCPCS: 36415; 80048; 85027; 86850; 86900; 86901; 93005

== ENCOUNTER 2022-10-11 16:45 | Emergency (ER) | payer OTHER, SELFPAY ==
[2022-10-11 16:54] VITALS: BP 157/97; PULSE 106; RESP 16; TEMP 36.3; O2SAT 97; BMI 58.4
--- NOTE | 2022-10-11 16:54 | ED.GENADULT ---
HPI - General Adult General Chief complaint: Abdominal Pain Stated complaint: Abdominal pain Related Data Home Medications Medication Instructions Recorded Confirmed albuterol sulfate 90 mcg/actuation 1 puff inhalation Q4H PRN Wheezing 05/13/21 03/08/22 aerosol inhaler acetaminophen 325 mg tablet 650 mg PO Q6H PRN Pain 11/30/21 03/08/22 (Tylenol) ibuprofen 800 mg tablet 1 tab PO TID PRN Pain 11/30/21 03/08/22 omeprazole magnesium 20 mg 20 mg PO DAILY 03/09/22 03/09/22 tablet,delayed release (Prilosec OTC) Previous Rx's Medication Instructions Recorded metronidazole 500 mg tablet 500 mg PO .COMPLEX pre-op prep #3 01/25/22 tabs neomycin 500 mg tablet 1 g PO .COMPLEX pre-op prep 3 01/25/22 doses #6 tabs amoxicillin 500 mg-potassium 1 tab PO Q8H #30 tabs 03/02/22 clavulanate 125 mg tablet Allergies Allergy/AdvReac Type Severity Reaction Status Date / Time No Known Allergies Allergy Verified 10/11/22 16:54 [facility] Past Medical History Medical History (Updated 10/14/22 @ 08:20 by Sandra Ulloa NP) Acid reflux Asthma Borderline diabetes Colostomy in place History of back pain Migraines Morbid obesity Ovarian cyst Smoker Snores Surgical History (Updated 03/09/22 @ 11:01 by Azul Mejia RN) History of exploratory laparotomy Social History Social History Household Members: None Housing: Apartment Are you a primary pharmacy care coordinator to a significant other at home: No Do you presently have visiting nurse or other home services: No Unable to assess alcohol history related to: Unable to respond Alcohol intake: current Alcohol intake frequency: a few times a month Patient Tobacco Use Status: Current everyday Tobacco user Tobacco use type: Cigarette Cigarettes Per Day: 7 Years Smoked: 25 e-Cigarette/Vaping Use: Never Used Second Hand Smoke Exposure: No Substance Use Type: Marijuana Advance Directives: No Advance Directives Information Provided: No service: No Current occupational status: employed Physical Exam ED Vital Signs: BMI result Body Mass Index 58.4 Course Course Course Narrative: This is an RME: Additional HPI, ROS, PE not included below will be deferred to primary provider. Patient is a 47-year-old female with history of diverticulitis presenting with 2 days of generalized lower abdominal pain. Denies nausea, vomiting, diarrhea, or constipation. Denies fevers. Plan: Labs, UA Discharge Plan Discharge Clinical Impression: Abdominal pain Patient Disposition: Elopement Prescriptions: No Action neomycin 500 mg tablet 1 g PO .COMPLEX Qty: 6 0RF Rx Instructions: 1 gram at 1 PM, 2 PM, and 10 PM the day prior to surgery metronidazole 500 mg tablet 500 mg PO .COMPLEX Qty: 3 0RF Rx Instructions: 500 mg orally 1 pm, 2pm, 10pm on the day prior to surgery; amoxicillin-pot clavulanate 500-125 mg tablet 1 tab PO Q8H Qty: 30 0RF albuterol sulfate 90 mcg/actuation HFA aerosol inhaler 1 puff inhalation Q4H PRN (Reason: Wheezing) ibuprofen 800 mg tablet 1 tab PO TID PRN (Reason: Pain) acetaminophen [Tylenol] 325 mg Tablet 650 mg PO Q6H PRN (Reason: Pain) omeprazole magnesium [Prilosec OTC] 20 mg Tablet,Delayed Release (Dr/Ec) 20 mg PO DAILY Interventions: RAJIV Worksheet Last Done: 10/11/22 19:08 Discharge Date/Time: 10/11/22 19:09
--- OUTSIDE RECORDS SUMMARY | 2022-10-11 18:51 | XMS_ITS | Continuity of Care Document ---
Author Name Unknown Organization [facility] Address [address] [place] [address] [address] [place] [address]- Care Team Providers Care Applications Administrator Name Role Phone Franck Ulloa MD, Simona Lemus Primary Care Physic roger Encounter [facility] Date(s): 07/19/22 - 08/18/22 [facility] [address] [place] [address]- Allergies, Adverse Reactions, Alerts No Known Allergies Medications albuterol 90 mcg/inh inhalation aerosol 2, puffs, Inhalation, 4 times a day, Scheduled / PRN, 34, Gm, 11, 11, 12/09/05 11:49:02, as needed for wheezing, limit 1 canister per month, Print BASILIA Number, [facility] [address] [place] [id number], 65 Start Date: 12/09/05 Stop Date: 12/04/06 Status: Ordered Colace sodium 100 mg oral capsule 100 mg, 1, capsule, By Mouth, 2 times a day, PRN, # 60 capsule, Refills 0, Tot. Refills 0, Maintenance, for constipation, 06/13/22 15:47:00 EST, Route to Pharmacy Electronically, [facility],Partial fill upon patient request if the prescripti... Start Date: 06/13/22 Status: Ordered oxyCODONE 5 mg oral tablet 5 mg, 1, tablet, By Mouth, Every 6 hours, # 18 tablet, Refills 0, Tot. Refills 0, Maintenance, 06/13/22 15:46:00 EST, Route to Pharmacy Electronically, [facility], Partial fill upon patient request if the prescription is for a schedule II opi... Start Date: 06/13/22 Status: Ordered Problem List Condition Confirmation Course Effective Dates Status Health St atus Informant Adnexal mass Confirmed Active Severe obesity Confirmed Active Social History Social History Type Response Smoking Status 5-9 cigarettes (betw een 1/4 to 1/2 pack)/day in last 30 days entered on: 03/25/22 Sex Patient Care team information Care Team Personnel Name: Franck Ulloa MD, Simona Lemus Position: [facility] Physician (General Medicine) Member Role: PCP Address: Address: [address] [place] [address] [place] [address]- Care Team Related Persons Name: MARJ WOODSON Address: home [address] [place] [address] Name: EHSAN WOODSON Address: home [address] [place] [address]
--- OUTSIDE RECORDS SUMMARY | 2022-10-11 18:51 | XMS_ITS | Continuity of Care Document ---
Author Name Unknown Organization [facility] Address [address] [place] [address] [address] [place] [address]- Care Team Providers Care Mri Assistant Name Role Phone Not on Staff, PCP Primary Care Physician Unavail able Encounter [facility] Date(s): 03/28/22 - 04/27/[address] [place] [address]- Allergies, Adverse Reactions, Alerts No Known Allergies Medications albuterol 90 mcg/inh inhalation aerosol 2, puffs, Inhalation, 4 times a day, Scheduled / PRN, 34, Gm, 11, 11, 12/09/05 11:49:02, as needed for wheezing, limit 1 canister per month, Print BASILIA Number, [facility] [address] [place] [id number], 65 Start Date: 12/09/05 Stop Date: 12/04/06 Status: Ordered Flovent 44 mcg/inh inhalation aerosol with adapter 2, puffs, Inhalation, 2 times a day, Scheduled / PRN, 13, Gm, 4, 4, 12/09/05 11:50:42, prn, rinse and spit after use, Print BASILIA Number, [facility] [address] [place] [address], [id number] Start Date: 12/09/05 Stop Date: 05/08/06 Status: Ordered Readi-Cat 2 oral suspension See Instructions, Drink 1 bottle 6 hours before test Drink 2nd bottle 90 mins before test, # 2 each, 0 Refills, Maintenance, 04/21/22 11:19:00 EST, [facility], Partial fill upon patient request if the prescription is for a schedule II opioi... Start Date: 04/21/22 Status: Ordered Robitussin AC Liquid 10, mL, By Mouth, Every 4 hours, Scheduled / PRN, 240, mL, 0, 0, 12/09/05 11:50:56, as needed for cough and congestion, Print BASILIA Number, [facility], [facility] [address] [place] [id number], 51 Start Date: 12/09/05 Status: Ordered Problem List Condition Confirmation Course Effective Dates Status Health St atus Informant Adnexal mass Confirmed Active Severe obesity Confirmed Active Social History Social History Type Response Smoking Status 5-9 cigarettes (betw een 1/4 to 1/2 pack)/day in last 30 days entered on: 03/25/22 Sex Patient Care team information Care Team Personnel Name: Not on Staff, PCP Position: S Physician (General Medicine) Member Role: PCP Care Team Related Persons Name: MARJ WOODSON Name: EHSAN WOODSON Address: home [address] [place] [address]
--- OUTSIDE RECORDS SUMMARY | 2022-10-11 18:51 | XMS_ITS | Continuity of Care Document ---
Author Name Unknown Organization [facility] Address [address] [place] [address] ve [address] [place] [address]- Care Team Providers Care Cable Strander Name Role Phone Franck Ulloa MD, Simona Lemus Primary Care Physic roger Encounter [facility] Date(s): 06/24/22 - 07/01/[address] [place] [address]- Attending Physician: Rafael VELA, Vasiliy Breaux Allergies, Adverse Reactions, Alerts No Known Allergies Medications albuterol 90 mcg/inh inhalation aerosol 2, puffs, Inhalation, 4 times a day, Scheduled / PRN, 34, Gm, 11, 11, 12/09/05 11:49:02, as needed for wheezing, limit 1 canister per month, Print BASILIA Number, [facility] [address] [place] [id number], 65 Start Date: 12/09/05 Stop Date: 12/04/06 Status: Ordered Colace sodium 100 mg oral capsule 100 mg, 1, capsule, By Mouth, 2 times a day, PRN, # 60 capsule, Refills 0, Tot. Refills 0, Maintenance, for constipation, 06/13/22 15:47:00 EST, Route to Pharmacy Electronically, [facility],Partial fill upon patient request if the prescripti... Start Date: 06/13/22 Status: Ordered oxyCODONE 5 mg oral tablet 5 mg, 1, tablet, By Mouth, Every 6 hours, # 18 tablet, Refills 0, Tot. Refills 0, Maintenance, 06/13/22 15:46:00 EST, Route to Pharmacy Electronically, [facility], Partial fill upon patient request if the prescription is for a schedule II opi... Start Date: 06/13/22 Status: Ordered Problem List Condition Confirmation Course Effective Dates Status Health St atus Informant Adnexal mass Confirmed Active Severe obesity Confirmed Active Vital Signs Most recent to oldest [Reference Range]: 1 Height 162 cm (06/24/22 2:39 PM) Social History Social History Type Response Smoking Status 5-9 cigarettes (betw een 1/4 to 1/2 pack)/day in last 30 days entered on: 03/25/22 Sex Patient Care team information Care Team Personnel Name: Simona Coburn MD Position: [facility] Physician (General Medicine) Member Role: PCP Address: Address: [address] [place] [address] [place] [address]- Care Team Related Persons Name: MARJ WOODSON Address: home [address] [place] [address] Name: EHSAN WOODSON Address: home [address] [place] [address]
--- OUTSIDE RECORDS SUMMARY | 2022-10-11 18:51 | XMS_ITS | Continuity of Care Document ---
Author Name Unknown Organization [facility] Address [address] [place] [address] Dr [address] [place] [address]- Care Team Providers Care Observation Assistant Name Role Phone Franck Ulloa MD, Simona Lemus Primary Care Physic roger Encounter [facility] Date(s): 06/06/22 - 07/06/22 [facility] [address] [place] [address]- Allergies, Adverse Reactions, Alerts No Known Allergies Medications albuterol 90 mcg/inh inhalation aerosol 2, puffs, Inhalation, 4 times a day, Scheduled / PRN, 34, Gm, 11, 11, 12/09/05 11:49:02, as needed for wheezing, limit 1 canister per month, Print BASILIA Number, [facility] [address] [place] [id number], 65 Start Date: 12/09/05 Stop Date: 12/04/06 Status: Ordered Colace sodium 100 mg oral capsule 100 mg, 1, capsule, By Mouth, 2 times a day, PRN, # 60 capsule, Refills 0, Tot. Refills 0, Maintenance, for constipation, 06/13/22 15:47:00 EST, Route to Pharmacy Electronically, [facility] # [facility],Partial fill upon patient request if the prescripti... Start Date: 06/13/22 Status: Ordered oxyCODONE 5 mg oral tablet 5 mg, 1, tablet, By Mouth, Every 6 hours, # 18 tablet, Refills 0, Tot. Refills 0, Maintenance, 06/13/22 15:46:00 EST, Route to Pharmacy Electronically, [facility] # [facility], Partial fill upon patient [...] Name: Franck Ulloa MD, Simona Lemus Position: [facility] Physician (General Medicine) Member Role: PCP Address: Address: [address] [place] [address] [place] [address]- [place] Care Team Related Persons Name: MARJ WOODSON Address: home [address] [place] [address] Name: EHSAN WOODSON Address: home [address] [place] [address]
--- OUTSIDE RECORDS SUMMARY | 2022-10-11 18:51 | XMS_ITS | Continuity of Care Document ---
Author Name Unknown Organization [facility] d[facility] Address [address] [place], [place] [address]- Care Team Providers Care Roustabout Supervisor Name Role Phone Jerrod VELA, Azul Ivan Primary Care Physician [phone] Encounter [facility] [id number] Date(s): 07/23/21 - 08/22/21 [place] [address]- Attending Physician: Neymar Graf Admitting Physician: Neymar Graf Referring Physician: AdmNeymar oakley Allergies, Adverse Reactions, Alerts No Known Allergies Medications albuterol 90 mcg/inh inhalation aerosol 2, puffs, Inhalation, 4 times a day, Scheduled / PRN, 34, Gm, 11, 11, 12/09/05 11:49:02, as needed for wheezing, limit 1 canister per month, Print BASILAI Number, [address] [id number], 65 Start Date: 12/09/05 Stop Date: 12/04/06 Status: Ordered Flovent 44 mcg/inh inhalation aerosol with adapter 2, puffs, Inhalation, 2 times a day, Scheduled / PRN, 13, Gm, 4, 4, 12/09/05 11:50:42, prn, rinse and spit after use, Print BASILIA Number, [address] [address], [id number] Start Date: 12/09/05 Stop Date: 05/08/06 Status: Ordered Robitussin AC Liquid 10, mL, By Mouth, Every 4 hours, Scheduled / PRN, 240, mL, 0, 0, 12/09/05 11:50:56, as needed for cough and congestion, Print BASILIA Number, [facility]PP[facility], [facility] [address] [place] [address], 51 Start Date: 12/09/05 Status: Ordered"
--- OUTSIDE RECORDS SUMMARY | 2022-10-11 18:51 | XMS_ITS | Continuity of Care Document ---
Author Name Unknown Organization [facility] Address [address] [place] [address] ve [address] [place] [address]- Care Team Providers Care Director Of Professional Services Name Role Phone Franck Ulloa MD, Simona Lemus Primary Care Physic roger Encounter [facility] Date(s): 07/08/22 - 07/15/22 [facility] [address] [place], [place] [address] Attending Physician: Vasiliy Hall MD Allergies, Adverse Reactions, Alerts No Known Allergies Medications albuterol 90 mcg/inh inhalation aerosol 2, puffs, Inhalation, 4 times a day, Scheduled / PRN, 34, Gm, 11, 11, 12/09/05 11:49:02, as needed for wheezing, limit 1 canister per month, Print BASILIA Number, [facility] [address] [place] [id number], 65 Start Date: 12/09/05 Stop Date: 12/04/06 Status: Ordered amoxicillin-clavulanate 875 mg-125 mg oral tablet 1 tablet, By Mouth, Every 12 hours, for 10 days, # 20 tablet, 0 Refills, Acute 07/18/22 15:01:00 EDT, 07/08/22 15:01:00 EDT, Tablet, [facility], Partial fill upon patient request if the prescription is for a schedule II opioid drug., 162, cm,... Start Date: 07/08/22 Stop Date: 07/18/22 Status: Ordered Colace sodium 100 mg oral capsule 100 mg, 1, capsule, By Mouth, 2 times a day, PRN, # 60 capsule, Refills 0, Tot. Refills 0, Maintenance, for constipation, 06/13/22 15:47:00 EST, Route to Pharmacy Electronically, [facility],Partial fill upon patient request if the prescripti... Start Date: 06/13/22 Status: Ordered oxyCODONE 5 mg oral tablet 5 mg, 1, tablet, By Mouth, Every 6 hours, # 18 tablet, Refills 0, Tot. Refills 0, Maintenance, 06/13/22 15:46:00 EST, Route to Pharmacy Electronically, [facility], Partial fill upon patient request if the prescription is for a schedule II opi... Start Date: 06/13/22 Status: Ordered Problem List Condition Confirmation Course Effective Dates Status Health St atus Informant Adnexal mass Confirmed Active Severe obesity Confirmed Active Vital Signs Most recent to oldest [Reference Range]: 1 Height 162 cm (07/08/22 2:23 PM) Weight 160.8 kg (07/08/22 2:23 PM) Pulse Rate [55-90 bpm] 90 bpm (07/08/22 2:23 PM) Body Mass Index [18.5-24.99 kg/m2] 61.27 kg/m2 *>HHI* (07/08/22 2:23 PM) Blood Pressure [90-138/55-84 mm Hg] 155/ 103mm Hg *H* (07/08/22 2:23 PM) Temperature [96.8-100.4 DegF] 96.8 DegF (07/08/22 2:23 PM) Temperature Route Temporal (07/08/22 2:23 PM) Social History Social History Type Response Smoking Status 5-9 cigarettes (betw een 1/4 to 1/2 pack)/day in last 30 days entered on: 03/25/22 Sex Patient Care team information Care Team Personnel Name: Franck Ulloa MD, Simona Lemus Position: [facility] Physician (General Medicine) Member Role: PCP Address: Address: [address] [place] [address] [place] [address]- Care Team Related Persons Name: MARJ WOODSON Address: home [address] [place] [address] Name: EHSAN WOODSON Address: home [address] [place] [address]
--- OUTSIDE RECORDS SUMMARY | 2022-10-11 18:51 | XMS_ITS | Continuity of Care Document ---
Author Name Unknown Organization [facility] [employer] [facility] Address [address] [place] [address]- Care Team Providers Care Mainframe Consultant Name Role Phone Franck Ulloa MD, Simona Lemus Primary Care Physic roger [place] [facility] [place](s): 07/13/22 - 08/12/22 [facility] REGULATED PROGRAM MANAGER Oncology [address] [place] [address]- Allergies, Adverse Reactions, Alerts No Known Allergies Medications albuterol 90 mcg/inh inhalation aerosol 2, puffs, Inhalation, 4 times a day, Scheduled / PRN, 34, Gm, 11, 11, 12/09/05 11:49:02, as needed for wheezing, limit 1 canister per month, Print BASILIA Number, [facility] [address] [place] [address], 65 Start Date: 12/09/05 Stop Date: 12/04/06 Status: Ordered Colace sodium 100 mg oral capsule 100 mg, 1, capsule, By Mouth, 2 times a day, PRN, # 60 capsule, Refills 0, Tot. Refills 0, Maintenance, for constipation, 06/13/22 15:47:00 EST, Route to Pharmacy Electronically, [facility],Partial fill upon patient request if the prescripti... Start Date: 06/13/22 Status: Ordered oxyCODONE 5 mg oral tablet 5 mg, 1, tablet, By Mouth, Every 6 hours, # 18 tablet, Refills 0, Tot. Refills 0, Maintenance, 06/13/22 15:46:00 EST, Route to Pharmacy Electronically, [facility], Partial fill upon [...] Name: Franck Ulloa MD, Simona Lemus Position: [facility] Physician (General Medicine) Member Role: PCP Address: Address: [address] [place] [address] [place] [address]- [place] Care Team Related Persons Name: MARJ WOODSON Address: home [address] [place] [address] Name: EHSAN WOODSON Address: home [address] [place] [address]
--- OUTSIDE RECORDS SUMMARY | 2022-10-11 18:51 | XMS_ITS | Continuity of Care Document ---
Author Name Unknown Organization [facility] [employer] Oncolog y Address [address] [place] [address]- Care Team Providers Care Extract Wringer Name Role Phone Not on Staff, PCP Primary Care Physician Unavail able Encounter [facility] Date(s): 03/18/22 - 04/17/22 [facility] [employer] Oncology [address] [place] [address]- Allergies, Adverse Reactions, Alerts No Known Allergies Medications albuterol 90 mcg/inh inhalation aerosol 2, puffs, Inhalation, 4 times a day, Scheduled / PRN, 34, Gm, 11, 11, 12/09/05 11:49:02, as needed for wheezing, limit 1 canister per month, Print BASILIA Number, [address] [address], 65 Start Date: 12/09/05 Stop Date: 12/04/06 Status: Ordered Flovent 44 mcg/inh inhalation aerosol with adapter 2, puffs, Inhalation, 2 times a day, Scheduled / PRN, 13, Gm, 4, 4, 12/09/05 11:50:42, prn, rinse and spit after use, Print BASILIA Number, [address] [address], [id number] Start Date: 12/09/05 Stop Date: 05/08/06 Status: Ordered Robitussin AC Liquid 10, mL, By Mouth, Every 4 hours, Scheduled / PRN, 240, mL, 0, 0, 12/09/05 11:50:56, as needed for cough and congestion, Print BASILIA Number, [facility], [address] [address], 51 Start Date: 12/09/05 Status: Ordered Problem [...] MARJ WOODSON Name: EHSAN WOODSON Address: home [address] [place] [id number]
--- OUTSIDE RECORDS SUMMARY | 2022-10-11 18:51 | XMS_ITS | Continuity of Care Document ---
Author Name Unknown Organization [facility] Address [address] [place] [address] Dr [address] [place] [address]- Care Team Providers Care Strategy Intern Name Role Phone Franck Ulloa MD, Simona Lemus Primary Care Physic roger Encounter [facility] Date(s): 06/20/22 - 07/20/22 [facility] [address] [place] [address]- Allergies, Adverse Reactions, Alerts No Known Allergies Medications albuterol 90 mcg/inh inhalation aerosol 2, puffs, Inhalation, 4 times a day, Scheduled / PRN, 34, Gm, 11, 11, 12/09/05 11:49:02, as needed for wheezing, limit 1 canister per month, Print BASILIA Number, [facility] [address] [place] [address], 65 Start Date: 12/09/05 Stop Date: 12/04/06 Status: Ordered Colace sodium 100 mg oral capsule 100 mg, 1, capsule, By Mouth, 2 times a day, PRN, # 60 capsule, Refills 0, Tot. Refills 0, Maintenance, for constipation, 06/13/22 15:47:00 EST, Route to Pharmacy Electronically, [facility],Partial fill upon patient request if the prescripti... Start Date: 06/13/22 Status: Ordered oxyCODONE 5 mg oral tablet 5 mg, 1, tablet, By Mouth, Every 6 hours, # 18 tablet, Refills 0, Tot. Refills 0, Maintenance, 06/13/22 15:46:00 EST, Route to Pharmacy Electronically, [facility] # [facility], Partial fill upon patient [...] Name: Franck Ulloa MD, Simona Lemus Position: [facility] Physician (General Medicine) Member Role: PCP Address: Address: [address] [place] [address] [place] [address]- [place] Care Team Related Persons Name: MARJ WOODSON Address: home [address] [place] [address] Name: EHSAN WOODSON Address: home [address] [place] [address]
--- OUTSIDE RECORDS SUMMARY | 2022-10-11 18:51 | XMS_ITS | Continuity of Care Document ---
Author Name Unknown Organization [facility] ter Address [address] [place] [address]- Care Team Providers Care Crystal Slicer Name Role Phone Not on Staff, PCP Primary Care Physician Unavail able [place] [facility] [place] - [place]/13/[address] [address] Discharge Disposition: A-D/C Home Attending Physician: Vasiliy Hall MD Admitting Physician: Vasiliy Hall MD Referring Physician: Vasiliy Hall MD Allergies, Adverse Reactions, Alerts No Known Allergies Medications albuterol 90 mcg/inh inhalation aerosol 2, puffs, Inhalation, 4 times a day, Scheduled / PRN, 34, Gm, 11, 11, 12/09/05 11:49:02, as needed for wheezing, limit 1 canister per month, Print BASILIA Number, [facility] [address] [place] [id number], 65 Start Date: 12/09/05 Stop Date: 12/04/06 Status: Ordered Colace sodium 100 mg oral capsule 100 mg, 1, capsule, By Mouth, 2 times a day, PRN, # 60 capsule, Refills 0, Tot. Refills 0, Maintenance, for constipation, 06/13/22 15:47:00 EST, Route to Pharmacy Electronically, [facility] # [facility],Partial fill upon patient request if the prescripti... Start Date: 06/13/22 Status: Ordered Fentanyl Inj (PACU ONLY) 25 mcg, Injection, IV Push Slowly, Every 5 minutes for 8 doses/times, in PACU ONLY, PRN for Pain , Moderate, Routine, 06/13/22 15:40:00 EST, Stop date Limited # of times Start Date: 06/13/22 Status: Ordered oxyCODONE 5 mg oral tablet 5 mg, 1, tablet, By Mouth, Every 6 hours, # 18 tablet, Refills 0, Tot. Refills 0, Maintenance, 06/13/22 15:46:00 EST, Route to Pharmacy Electronically, [facility] # [facility], Partial fill upon patient request if the prescription is for a schedule II opi... Start Date: 06/13/22 Status: Ordered Problem List Condition Confirmation Course Effective Dates Status Health St atus Informant Adnexal mass Confirmed Active Severe obesity Confirmed Active Vital Signs Most recent to oldest [Reference Range]: 1 2 3 Height 162 cm (06/13/22 1:21 PM) 162 cm (06/10/22 2:30 PM) Weight 161.1 kg (06/13/22 1:21 PM) 161.1 kg (06/10/22 2:30 PM) Oxygen Saturation [94-100 %] 98 % (06/13/22 4:15 PM) 97 % (06/13/22 3:45 PM) 100 % (06/13/22 3:30 PM) Pulse Rate [55-90 bpm] 71 bpm (06/13/22 1:21 PM) Body Mass Index [18.5-24.99 kg/m2] 61.39 kg/m2 *>HHI* (06/13/22 1:21 PM) 61.39 kg/m2 *>HHI* (06/10/22 2:30 PM) Blood Pressure [90-138/55-84 mm Hg] 159/80mm Hg *H* (06/13/22 3:45 PM) 147/111mm Hg *H* (06/13/22 3:30 PM) 145/86mm Hg *H* (06/13/22 3:15 PM) Respiratory Rate [16-30 br/min] 19 br/min (06/13/22 3:45 PM) 16 br/min (06/13/22 3:39 PM) 21 br/min (06/13/22 3:30 PM) Temperature [96.8-100.4 DegF] 98.3 DegF (06/13/22 3:00 PM) 97.5 DegF (06/13/22 1:21 PM) Mode of Delivery (Oxygen) Room air (06/13/22 4:15 PM) Room air (06/13/22 3:15 PM) Room air (06/13/22 3:00 PM) Blood pressure sites Arm, right (06/13/22 3:00 PM) Arm, left (06/13/22 1:21 PM) Temperature Route Temporal (06/13/22 3:00 PM) Temporal (06/13/22 1:21 PM) Dry Weight 165.6 kg (06/13/22 1:21 PM) 161.1 kg (06/10/22 2:30 PM) Weight Obtained Via Patient/family state d (06/10/22 2:30 PM) Dry Weight Obtained Via Standing scale (06/13/22 1:21 PM) Patient/family stated (06/10/22 2:30 PM) Social History Social History Type Response Smoking Status 5-9 cigarettes (betw een 1/4 to 1/2 pack)/day in last 30 days entered on: 03/25/22 Sex Note * Christianne Bland RN: PERFORM Event Display: Discharge/Transfer Note Hospital Authored Date: [id number] Nursing Discharge Note Entered On: 06/13/2022 16:28 EST Performed On: 06/13/2022 16:28 EST by Christianne Bland RN Nursing Discharge Note 2 Discharge Time : 06/13/2022 16:22 EST Discharge Level of Care at Discharge : Home/Alf/Foster Care Dump Attendant Utilized : No AMA Form Signed : No Patient Left Unit Via : Wheelchair Patient Accompanied Off Unit with : Responsible adult DC Instructions Provided & Signed by Pt : Yes Patient Understands D/C Instructions : Yes Verbalized Understanding of D/C Plan By : Patient Patient Instructions Discharge Signed : Yes Did Pt have Specialty Bed or Wound Vac : No Christianne Bland RN - 06/13/2022 16:28 EST * Christianne Bland RN: PERFORM Event Display: Patient Education/Instruction Authored Date: [id number] Inpatient Adult Discharge Instructions [address] [address] Name: GRIS WOODSON : 1975 Visit: 06/13/2022 11:52:00 Current Date: 06/13/2022 15:59 Account: [id number] Inpatient Adult Discharge Instructions We would like to thank you for allowing us to assist you with your healthcare needs. The following includes patient education materials and information regarding your injury/illness. Our entire staffstrives to provide an excellent experience for our patients and their families. PLEASE ENSURE YOU FOLLOW-UP PER THE INSTRUCTIONS BELOW! ?? YOUR OPINION IS IMPORTANT TO US! Please complete the survey you may receive by mail or email. Your feedback will be used to make improvements to the healthcare experiences of our patients and their families. Surveys are administered by [employer] ?? If further treatment with your primary care physician or another doctor is recommended, it is important for you to keep the appointment. Call your primary care physician or return to the Emergency Department immediately if your condition worsens, fails to improve, or new symptoms develop. If you need to find a doctor, you can call [facility] [employer]our for a referral at [phone] or toll free at [phone] ([phone]) or log in to [email or web address].. ?? You can view and manage your care through the patient portal or by using a health care brent of your choosing. [email or web address] is a website that allows you to securely view your medical information including your hospital discharge summary, office visit summaries, medications and follow-up visits. You can also request appointments, renew medications, and request access to your medical information using a health care brent of your choosing, or just ask a question. You can enroll at [email or web address] or register during your next office visit. You have been discharged from [facility], Patient Care Unit: [facility]. If you have any questions regarding these instructions after you leave, please call us and we will be happy to assist you. [facility] Your Care Team Attending Physician Vasiliy Hall MD Discharging Providers Brian Barajas MD Reason for Admission COLOSTOMY STENOSIS CS DS Tests Performed Below is a partial list of the tests performed during your hospitalization. You may have had other tests and procedures not included in this list. Please discuss all test results with your provider. Primary Care Provider Not on Staff, PCP Advance Directive Health Care Proxy on File No Discharge Vitals Temperature: 98.3 DegF Height: 162 cm Pulse Rate: 71 bpm Weight: 161.1 kg Respiratory Rate: 19 br/min Body Mass Index:??61.39 kg/m2??Critical Systolic Blood Pressure:??159 mm Hg??High Body surface area: 2.69 Diastolic Blood Pressure: 80 mm Hg ?? Oxygen Saturation: 97 % ?? Studies Pending All tests and labs ordered during this hospital stay have been completed unless listed below. Please discuss all pending results with your provider listed above in these instructions. ?? No incomplete studies found What to do next Instructions From Your Doctor Discharge Orders Scheduled Follow-Up Appointments Monday 2:20 PM EDT ?? With: Rafael VELA, Vasiliy Breaux Where: [facility] General [address] [place] [address]- You Need to Schedule the Following Appointments Follow Up with??Vasiliy Hall When?? Where: [address] [place] [address] [address] [place] [address]- Business (1) Follow Up with??PCP Not on Staff When??In 0 days Discharge Medications GRIS WOODSON :1975 Visit Date:06/13/2022 Medications: Please continue your medications until treatment is completed or stopped by your provider. Medications not listed below should be discontinued. Discuss any questions related to medications with your provider. What How Much When Instructions Next Dose Unchanged Albuterol (albuterol 90 mcg/ inh inhalation aerosol) 2 puff(s) Inhalation 4 times a day as needed for as needed for wheezing Duration: 30 Days limit 1 canister per ??month ?? Unchanged Docusate (Colace sodium 100 mg oral capsule) 1 capsule Oral Twice a day as needed for for constipation Unchanged Oxycodone (oxyCODONE 5 mg oral tablet) 1 tab(s) Oral Every 6 hours YOU MAY TAKE YOUR NEXT DOSE OF TYLENOL AT 12 MIDNIGHT TONIGHT. Test Results Below is a partial list of the most recent Laboratory test results done prior to this discharge. You may have had other tests and procedures not included in this list. Please discuss all test resultswith your provider. Allergies (NKA means No Known Allergies) NKA Problems Active Problems??(2) Adnexal mass?? Severe obesity?? Education Materials Below is the list of Educational Leaflet Providered with your Discharge Instructions. Surgery Medical Daystay Surgical Overnight Discharge Instructions?? Valuables and Belongings I fully understand and agree that [facility] accepts no responsibility for all my personal property including clothing, toilet articles, radios, jewelry, dentures, hearing aids, rings, money, or any other property that is in my possession or is brought to me after admission. I understand certain valuables may be placed in a hospital safe for a short period of time. I understand that the hospital is not liable for loss or damage due to accident, fire, or other natural occurrence while said property is in the safe. I accept full responsibility for any personal property that I keep with me, and will not hold the hospital responsible in case of loss or disappearance. I acknowledge that i have been encouraged to send valuables and belongings home. ?? Possessions released to: under tracee with patient Date for Pt to Sign Valuables/Belongings: 06/13/22 13:21:00 ?? Valuables & Belongings ?? Clothes Electronic devices Jewelry Monetary Items Personal devices Miscellaneous Medications (Valuables) Valuables at Bedside Jacket, Pants, Shirt, Shoes, Undergarments Cell phone ? Dentures, partial plate ? Valuables Sent Home ? Valuables Sent to Security ? Other Discharge Information ? Pulmonary Rehab Status?? Pulmonary Rehab Discharge Status?? Respiratory Rate: 19 br/min ? Common Emergency Awareness Tips IS IT A STROKE? Act FAST and Check for these signs: FACE Does the face look uneven? ARM Does one arm drift down? SPEECH Does their speech sound strange? TIME Call at any sign of stroke ?? Heart Attack Signs Chest discomfort: Most heart attacks involve discomfort in the center of the chest and lasts more than a few minutes, or goes away and comes back. It can feel like uncomfortable pressure, squeezing, fullness or pain. Discomfort in upper body: Symptoms can include pain or discomfort in one or both arms, back, neck, jaw or stomach. Shortness of breath: With or without discomfort. Other signs: Breaking out in a cold sweat, nausea, or lightheaded. Remember, MINUTES DO MATTER. If you experience any of these heart attack warning signs, call to get immediate medical attention! ?? Smoking can increase your chances of developing chronic health problems and can cause harmful effects to other family members in your house. If you smoke, you are strongly encouraged to quit. Please call [facility] VideoSurf Link at [phone] or 2-657-481-[employer] ([phone]) or log in to [email or web address] for referrals to smoking cessation programs. ?? The National Suicide Prevention Hotline is available 07/11 if you or someone you know needs to find a reason to keep living. By calling 0-269-712-HQ plus (7630) you'll be connected to a skilled, trained counselor at a crisis center in your area. INPATIENT DISCHARGE INSTRUCTIONS SIGNATURE GRIS MCLAUGHLIN Location:[facility] Registration Date and Time:06/13/2022 11:52 EST Primary Care Physician: Not on Staff, PCP I GRIS WOODSON, have received the above patient education materials/instructions and have verbalized understanding. If ambulance or transport services are being used I further acknowledge being given a choice of service. ?? If you need to contact me, please call me at this number: . Patient/Managed Care Coordinator Name:GRIS WOODSON Patient/Managed Care Coordinator Signature: Relationship to Patient:SELF Witness Name/Signature:CHRISTIANNE BLAND RN/ Date:JUNE 13, 2022 * Christianne Bland RN: PERFORM, SIGN, VERIFY Event Display: Patient Education Handout Authored Date: [id number] * Christianne Bland RN: PERFORM Event Display: Patient Education Leaflets Authored Date: [id number] Surgery Medical Daystay Surgical Overnight Discharge Instructions ?? 295 Medical Daystay/Surgical Overnight Discharge Instructions ? Since your coordination and judgment may be altered by medication and/or anesthesia, a responsible adult must drive you home from the hospital. ? If you have received medication for pain or sedation while under our care, you should not drive, operate machinery, drink alcohol, or sign any legal documents for 24 hours.?? You should have someone with you at home tonight. ? Remain at home the day of discharge.?? You may be up and about unless otherwise instructed by your physician. ? You may resume your daily prescription medication schedule.?? Any depressant medication should be avoided for 24 hours unless otherwise instructed by your surgeon or anesthesiologist. ? Call your physician for a follow-up appointment.? If you experience unusual or severe pain not relied by your pain medication, excessive bleedingor drainage, persistent nausea and vomiting, excessive swelling or redness, foul odor from incisionsite or fever over 100.6F, you need to call your physician. ? A follow-up phone call by a nurse will be made the day after your procedure.?? If you have stayed with us over night, you will not be receiving a follow-up phone call. ? Nausea and vomiting are a common side effect of prescription pain medication.?? We recommend that pills are not taken on an empty stomach.?? While taking any prescription pain medication you should not drive or drink alcohol. ? Patient Care team information Care Team Personnel Name: Not on Staff, PCP Position: [facility] Physician (General Medicine) Member Role: PCP Care Team Related Persons Name: MARJ WOODSON Address: home [address] [place] [address] Name: EHSAN WOODSON Address: home [address] [place] [address]
--- OUTSIDE RECORDS SUMMARY | 2022-10-11 18:51 | XMS_ITS | Continuity of Care Document ---
Author Name Unknown Organization [facility] Address [address] [place], [place] [id number]- Care Team Providers Care Car Seat Upholsterer Name Role Phone Jerrod VELA, Azul Ivan Primary Care Physician Encounter [facility] NBR [id number] Date(s): 06/14/21 - 08/22/21 [facility] [address] [address]- Attending Physician: Gee SCIENTIST IMMUNOLOGY, Carla Carter Allergies, Adverse Reactions, Alerts No Known Allergies Medications albuterol 90 mcg/inh inhalation aerosol 2, puffs, Inhalation, 4 times a day, Scheduled / PRN, 34, Gm, 11, 11, 12/09/05 11:49:02, as needed for wheezing, limit 1 canister per month, Print BASILIA Number, [address] [address], 65 Start Date: 12/09/05 Stop Date: 12/04/06 Status: Ordered Flovent 44 mcg/inh inhalation aerosol with adapter 2, puffs, Inhalation, 2 times a day, Scheduled / PRN, 13, Gm, 4, 4, 12/09/05 11:50:42, prn, rinse and spit after use, Print BASILIA Number, [address] [address], [id number] Start Date: 12/09/05 Stop Date: 05/08/06 Status: Ordered Robitussin AC Liquid 10, mL, By Mouth, Every 4 hours, Scheduled / PRN, 240, mL, 0, 0, 12/09/05 11:50:56, as needed for cough and congestion, Print BASILIA Number, [facility], [address] [address], 51 Start Date: 12/09/05 Status: Ordered
--- OUTSIDE RECORDS SUMMARY | 2022-10-11 18:51 | XMS_ITS | Continuity of Care Document ---
Author Name Unknown Organization [facility] dicine Address [address] [place], [place] [id number]- Care Team Providers Care Order Selector Name Role Phone Jerrod VELA, Azul Ivan Primary Care Physician [phone] Encounter [facility] [id number] Date(s): 06/14/21 - 07/14/21 [facility] [place] [address]- [place] Allergies, Adverse Reactions, Alerts No Known Allergies Medications albuterol 90 mcg/inh inhalation aerosol 2, puffs, Inhalation, 4 times a day, Scheduled / PRN, 34, Gm, 11, 11, 12/09/05 11:49:02, as needed for wheezing, limit 1 canister per month, Print BASILIA Number, [address] [address], 65 Start Date: 12/09/05 Stop Date: 12/04/06 Status: Ordered Flovent 44 mcg/inh inhalation aerosol with adapter 2, puffs, Inhalation, 2 times a day, Scheduled / PRN, 13, Gm, 4, 4, 12/09/05 11:50:42, prn, rinse and spit after use, Print BASILIA Number, [address] [address], [id number] Start Date: 12/09/05 Stop Date: 05/08/06 Status: Ordered Robitussin AC Liquid 10, mL, By Mouth, Every 4 hours, Scheduled / PRN, 240, mL, 0, 0, 12/09/05 11:50:56, as needed for cough and congestion, Print BASILIA Number, [facility], [address] [address], 51 Start Date: 12/09/05 Status: Ordered
--- OUTSIDE RECORDS SUMMARY | 2022-10-11 18:51 | XMS_ITS | Continuity of Care Document ---
Author Name Unknown Organization [facility] Address [address] [place] [address] [address] [place] [address]- Care Team Providers Care Flight Software Test Engineer Name Role Phone Not on Staff, PCP Primary Care Physician Unavail able Encounter [facility] [place] Date(s): 04/20/22 - 04/27/[address] [place] [address]- Attending Physician: Vasiliy Hall MD Referring Physician: Ida Arrieta MD Allergies, Adverse Reactions, Alerts No Known Allergies Medications albuterol 90 mcg/inh inhalation aerosol 2, puffs, Inhalation, 4 times a day, Scheduled / PRN, 34, Gm, 11, 11, 12/09/05 11:49:02, as needed for wheezing, limit 1 canister per month, Print BASILIA Number, [facility] [address] [place] [address], 65 Start Date: 12/09/05 Stop Date: 12/04/06 Status: Ordered Flovent 44 mcg/inh inhalation aerosol with adapter 2, puffs, Inhalation, 2 times a day, Scheduled / PRN, 13, Gm, 4, 4, 12/09/05 11:50:42, prn, rinse and spit after use, Print BASILIA Number, [address] [address], [id number] Start Date: 12/09/05 Stop Date: 05/08/06 Status: [...] cough and congestion, Print BASILIA Number, [facility], [facility] [address] [place] [address], 51 Start Date: 12/09/05 Status: Ordered Problem List Condition Confirmation Course Effective Dates Status Health St atus Informant Adnexal mass Confirmed Active Severe obesity Confirmed Active Vital Signs Most recent to oldest [Reference Range]: 1 Height 164 cm (04/20/22 1:05 PM) Weight 165.8 kg (04/20/22 1:05 PM) Pulse Rate [55-90 bpm] 89 bpm (04/20/22 1:05 PM) Body Mass Index [18.5-24.99 kg/m2] 61.64 kg/m2 *>HHI* (04/20/22 1:05 PM) Blood Pressure [90-138/55-84 mm Hg] 143/ 93mm Hg *H* (04/20/22 1:05 PM) Temperature [96.8-100.4 DegF] 97.1 DegF (04/20/22 1:05 PM) Temperature Route Temporal (04/20/22 1:05 PM) Social History Social History Type Response Smoking Status 5-9 cigarettes (betw een 1/4 to 1/2 pack)/day in last 30 days entered on: 03/25/22 Sex Patient Care team information Care Team Personnel Name: Not on Staff, PCP Position: S Physician (General Medicine) Member Role: PCP Care Team Related Persons Name: MARJ WOODSON Name: EHSAN WOODSON Address: [address] [place] [address]
--- OUTSIDE RECORDS SUMMARY | 2022-10-11 18:51 | XMS_ITS | Continuity of Care Document ---
Author Name Unknown Organization [facility] Address [address] [place] [address]- Care Team Providers Care Director Franchise Sales Name Role Phone Franck Ulloa MD, Simona Lemus Primary Care Physic roger [place] [facility] [place] 08/31/22 [facility] On[facility] [address] [place] [address]- Attending Physician: Neymar Graf Admitting Physician: AdmNeymar oakley Referring Physician: AdmtrNeymar Allergies, Adverse Reactions, Alerts No Known Allergies Medications albuterol 90 mcg/inh inhalation aerosol 2, puffs, Inhalation, 4 times a day, Scheduled / PRN, 34, Gm, 11, 11, 12/09/05 11:49:02, as needed for wheezing, limit 1 canister per month, Print BASILIA Number, [facility] [address] [place] [address], 65 Start Date: 12/09/05 Stop Date: 12/04/06 Status: Ordered Colace sodium 100 mg oral capsule 100 mg, 1, capsule, By Mouth, 2 times a day, PRN, # 60 capsule, Refills 0, Tot. Refills 0, Maintenance, for constipation, 06/13/22 15:47:00 EST, Route to Pharmacy Electronically, [facility] # [facility],Partial fill upon patient request if the prescripti... Start Date: 06/13/22 Status: Ordered oxyCODONE 5 mg oral tablet 5 mg, 1, tablet, By Mouth, Every 6 hours, # 18 tablet, Refills 0, Tot. Refills 0, Maintenance, 06/13/22 15:46:00 EST, Route to Pharmacy Electronically, [facility] # [facility], Partial fill upon patient [...] last 30 days entered on: 03/25/22 Sex Radiology * Event Display: CT Scan Abdomen, Non- Authored Date: Patient Care team information Care Team Personnel Name: Simona Coburn MD Position: [facility] Physician (General Medicine) Member Role: PCP Address: Address: [address] [place] [address] [facility] [address]- Care Team Related Persons Name: MARJ WOODSON Address: home [address] [place] [address] Name: EHSAN WOODSON Address: home [address] [place] [address]
--- OUTSIDE RECORDS SUMMARY | 2022-10-11 18:51 | XMS_ITS | Continuity of Care Document ---
Author Name Unknown Organization [facility] As [facility] Address [address] [place] [address] [address] [place] [address]- Care Team Providers Care Segmental Wall Installer Name Role Phone Franck Ulloa MD, Simona Lemus Primary Care Physic roger Encounter [facility] [place] Date(s): 07/08/22 - 08/07/[address] [place], [place] [address] Attending Physician: Neymar Graf Admitting Physician: AdmNeymar oakley Referring Physician: AdmtrNeymar Allergies, Adverse Reactions, Alerts No Known Allergies Medications albuterol 90 mcg/inh inhalation aerosol 2, puffs, Inhalation, 4 times a day, Scheduled / PRN, 34, Gm, 11, 11, 12/09/05 11:49:02, as needed for wheezing, limit 1 canister per month, Print BASILIA Number, [facility] [address] [place] [id number], 65 Start Date: 12/09/05 Stop Date: 12/04/06 Status: Ordered Colace sodium 100 mg oral capsule 100 mg, 1, capsule, By Mouth, 2 times a day, PRN, # 60 capsule, Refills 0, Tot. Refills 0, Maintenance, for constipation, 06/13/22 15:47:00 EST, Route to Pharmacy Electronically, [facility] # [facility],Partial fill upon patient request if the prescripti... Start Date: 06/13/22 Status: Ordered oxyCODONE 5 mg oral tablet 5 mg, 1, tablet, By Mouth, Every 6 hours, # 18 tablet, Refills 0, Tot. Refills 0, Maintenance, 06/13/22 15:46:00 EST, Route to Pharmacy Electronically, [facility] # 50, Partial fill upon patient [...] Name: Franck Ulloa MD, Simona Lemus Position: [facility] Physician (General Medicine) Member Role: PCP Address: Address: [address] [place] [address] [place] [address]- Care Team Related Persons Name: MARJ WOODSON Address: home [address] [place] [address] Name: EHSAN WOODSON Address: home [address] [place] [address]
--- OUTSIDE RECORDS SUMMARY | 2022-10-11 18:51 | XMS_ITS | Continuity of Care Document ---
Author Name Unknown Organization [facility] As [facility] Address [address] [place] [address] [address] [place] [address]- Care Team Providers Care Regional Operations Director Name Role Phone Not on Staff, PCP Primary Care Physician Unavail able Encounter [facility] [place] Date(s): 05/27/22 - 06/03/[address] [place] [address]- Attending Physician: Rafael VELA, Vasiliy Breaux Referring Physician: Franck Ulloa MD, Simona Lemus Allergies, Adverse Reactions, Alerts No Known Allergies Medications albuterol 90 mcg/inh inhalation aerosol 2, puffs, Inhalation, 4 times a day, Scheduled / PRN, 34, Gm, 11, 11, 12/09/05 11:49:02, as needed for wheezing, limit 1 canister per month, Print BASILIA Number, [facility] [address] [place] [id number], 65 Start Date: 12/09/05 Stop Date: 12/04/06 Status: Ordered Flovent 44 mcg/inh inhalation aerosol with adapter 2, puffs, Inhalation, 2 times a day, Scheduled / PRN, 13, Gm, 4, 4, 12/09/05 11:50:42, prn, rinse and spit after use, Print BASILIA Number, [address] [id number], [id number] Start Date: 12/09/05 Stop Date: 05/08/06 Status: [...] and congestion, Print BASILIA Number, ADS OPPT, [facility] [address] [place] [id number], 51 Start Date: 12/09/05 Status: Ordered Problem List Condition Confirmation Course Effective Dates Status Health St atus Informant Adnexal mass Confirmed Active Severe obesity Confirmed Active Vital Signs Most recent to oldest [Reference Range]: 1 Height 164 cm (05/27/22 1:16 PM) Weight 161.6 kg (05/27/22 1:16 PM) Pulse Rate [55-90 bpm] 98 bpm *H* (05/27/22 1:16 PM) Body Mass Index [18.5-24.99 kg/m2] 60.08 kg/m2 *>HHI* (05/27/22 1:16 PM) Blood Pressure [90-138/55-84 mm Hg] 161/ 109mm Hg *H* (05/27/22 1:16 PM) Temperature [96.8-100.4 DegF] 97.8 DegF (05/27/22 1:16 PM) Temperature Route Temporal (05/27/22 1:16 PM) Social History Social History Type Response Smoking Status 5-9 cigarettes (betw een 1/4 to 1/2 pack)/day in last 30 days entered on: 03/25/22 Sex Patient Care team information Care Team Personnel Name: Not on Staff, PCP Position: S Physician (General Medicine) Member Role: PCP Care Team Related Persons Name: MARJ WOODSON Address: home [address] [place] [address] Name: EHSAN WOODSON Address: [address] [place] [address]
--- OUTSIDE RECORDS SUMMARY | 2022-10-11 18:51 | XMS_ITS | Continuity of Care Document ---
Author Name Unknown Organization [facility] Address [address] [place] [address] [address] [place] [address]- Care Team Providers Care Telephone Collector Name Role Phone Franck Ulloa MD, Simona Lemus Primary Care Physic roger [place] [facility] 07/12/22 - 08/11/22 [facility] [address] [place] [address]- Allergies, Adverse Reactions, Alerts No Known Allergies Medications albuterol 90 mcg/inh inhalation aerosol 2, puffs, Inhalation, 4 times a day, Scheduled / PRN, 34, Gm, 11, 11, 12/09/05 11:49:02, as needed for wheezing, limit 1 canister per month, Print BASILIA Number, [facility] [address] [place] [id number], 65 Start Date: 12/09/05 Stop Date: 12/04/06 Status: Ordered Colace sodium 100 mg oral capsule 100 mg, 1, capsule, By Mouth, 2 times a day, PRN, # 60 capsule, Refills 0, Tot. Refills 0, Maintenance, for constipation, 06/13/22 15:47:00 EST, Route to Pharmacy Electronically, [facility] # [facility],Partial fill upon patient request if the prescripti... Start Date: 06/13/22 Status: Ordered oxyCODONE 5 mg oral tablet 5 mg, 1, tablet, By Mouth, Every 6 hours, # 18 tablet, Refills 0, Tot. Refills 0, Maintenance, 06/13/22 15:46:00 EST, Route to Pharmacy Electronically, [facility] # [facility], Partial fill upon [...] Name: Franck Ulloa MD, Simona Lemus Position: [facility] Physician (General Medicine) Member Role: PCP Address: Address: [address] [place] [address] [place] [address]- Care Team Related Persons Name: MARJ WOODSON Address: home [address] [place] [address] Name: EHSAN WOODSON Address: [address] [place] [address]
--- OUTSIDE RECORDS SUMMARY | 2022-10-11 18:51 | XMS_ITS | Continuity of Care Document ---
Author Name Unknown Organization [facility] Address [address] [place] [address] [address] [place] [address]- Care Team Providers Care Forest Officer Name Role Phone Franck Ulloa MD, Simona Lemus Primary Care Physic roger Encounter [facility] Date(s): 06/20/22 - 07/20/22 [facility] [address] [place] [address]- Allergies, Adverse Reactions, Alerts No Known Allergies Medications albuterol 90 mcg/inh inhalation aerosol 2, puffs, Inhalation, 4 times a day, Scheduled / PRN, 34, Gm, 11, 11, 12/09/05 11:49:02, as needed for wheezing, limit 1 canister per month, Print BASILIA Number, [facility] [address] [place] [id number], 65 Start Date: 12/09/05 Stop Date: 12/04/06 Status: Ordered Colace sodium 100 mg oral capsule 100 mg, 1, capsule, By Mouth, 2 times a day, PRN, # 60 capsule, Refills 0, Tot. Refills 0, Maintenance, for constipation, 06/13/22 15:47:00 EST, Route to Pharmacy Electronically, [facility] # [facility],Partial fill upon patient request if the prescripti... Start Date: 06/13/22 Status: Ordered oxyCODONE 5 mg oral tablet 5 mg, 1, tablet, By Mouth, Every 6 hours, # 18 tablet, Refills 0, Tot. Refills 0, Maintenance, 06/13/22 15:46:00 EST, Route to Pharmacy Electronically, [facility] # 50, Partial fill upon patient [...] Name: Franck Ulloa MD, Simona Lemus Position: [facility] Physician (General Medicine) Member Role: PCP Address: Address: [address] [place] [address] [place] [address]- [place] Care Team Related Persons Name: MARJ WOODSON Address: [address] [place] [address] Name: EHSAN WOODSON Address: [address] [place] [address]
== END 2022-10-11 19:09 | disposition left against medical advice (07) ==
PROVIDERS: Emergency Provider Emergency Medicine
DX: R10.9 Unspecified abdominal pain (principal)
CPT/HCPCS: 99281

== ENCOUNTER 2023-11-25 16:29 | Emergency (ER) | payer OTHER, BC, SELFPAY ==
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
[2023-11-25 16:56] VITALS: BP 179/97; PULSE 91; RESP 18; TEMP 36.3; O2SAT 97; BMI 63.5
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
[2023-11-25 18:01] VITALS: BP 169/100; PULSE 62; RESP 16; TEMP 36.7; O2SAT 96
[2023-11-25 18:22] VITALS: BP 169/100; PULSE 62; RESP 16; TEMP 36.7; O2SAT 96
== END 2023-11-25 18:23 | disposition home or self-care (01) ==
PROVIDERS: Emergency Provider Emergency Medicine Emergency Medical Services; PCP Internal Medicine
DX: S80.02XA Contusion of left knee, initial encounter (principal); Y04.2XXA Assault by strike against or bumped into by another person, initial encounter; Y93.F9 Activity, other caregiving; Y92.239 Unspecified place in hospital as the place of occurrence of the external cause; Y99.0 Civilian activity done for income or pay
CPT/HCPCS: 73562; 99283

== ENCOUNTER 2024-09-23 12:42 | Inpatient (IN) | payer OTHER, SELFPAY ==
--- NOTE | ~2024-09-23 | CT_ITS ---
EXAMINATION: CT ABDOMEN PELVIS WITH IV CONTRAST HISTORY: abdominal pain, right lower quadrant COMPARISON: Comparison is made with the prior examination dated 02/15/2022. TECHNIQUE: CT scan of the abdomen and pelvis was performed following administration of 85 mL Omnipaque 350 using standard departmental protocol. Coronal and sagittal reformatted images were generated and reviewed. Oral contrast material was not administered at the request of the referring physician. This CT exam was performed with one or more of the following dose reduction techniques: automated exposure control, adjustment of the mA and/or kV according to patient size, use of iterative reconstruction technique. DLP: 1482 mGy-cm FINDINGS: LOWER CHEST: The visualized lung bases are clear. There is no pleural effusion. CARDIOVASCULATURE: The heart is normal in size. There is no pericardial effusion. LIVER: The liver is normal in size and contour. There is a 0.9 cm hypodensity in the right lobe which is too small to accurately characterize. The hepatic and portal veins are patent. GALLBLADDER / BILE DUCTS: The gallbladder is unremarkable. There is no intra or extrahepatic biliary ductal dilatation. SPLEEN: The spleen is normal in size. No focal splenic lesion is identified. PANCREAS: The pancreas is unremarkable in appearance. ADRENAL GLANDS: There is a 1.2 cm right adrenal nodule. The left adrenal gland is unremarkable. KIDNEYS/RETROPERITONEUM: No renal calculi are identified. There is no hydronephrosis. No renal masses are identified. LYMPH NODES: No abdominal or pelvic lymphadenopathy. VASCULATURE: The abdominal aorta is normal in caliber. MESENTERY/PERITONEUM: There is a moderate amount of free fluid in the right hemipelvis. There is no free intraperitoneal gas. STOMACH: There is a small hiatal hernia. The remainder of the stomach is unremarkable. SMALL BOWEL: Again seen is a left lower quadrant colostomy. There is a moderate-sized parastomal hernia is new from the prior study. This contains loops of small bowel, one of which demonstrates moderate dilatation and air/fluid levels suggestive of obstruction. COLON: There is no colonic dilatation. APPENDIX: Normal. URINARY BLADDER/PELVIC ORGANS: The urinary bladder is collapsed, limiting evaluation. There are bilateral cystic and solid adnexal masses which are larger than on the prior study. These measure 12.2 x 6.1 x 9.9 cm on the right and 6.9 x 3.6 x 7.2 cm on the left. BONES/SOFT TISSUES: There is a fat-containing umbilical hernia. The bones are intact. CT/CT abdomen pelvis w IV con IMPRESSION: 1. Status post left lower quadrant colostomy. Moderate-sized parastomal hernia containing loops of small bowel, one of which demonstrates moderate dilatation and air/fluid levels, suggestive of obstruction. 2. Bilateral cystic and solid adnexal masses which are larger than on the prior study, suspicious for neoplasm. There is a moderate amount of fluid in the right hemipelvis. RAILROAD DINING CAR STEWARDESS consultation is recommended. Electronically signed by: Mario Alberto Samuels MD 09/23/2024 03:36 PM EDT
--- NOTE | ~2024-09-23 | FL_ITS ---
EXAMINATION: FL SMALL BOWEL SERIES CLINICAL INFORMATION: PSBO COMPARISON: CT abdomen and pelvis 09/23/2024 TECHNIQUE: Following a police captain image of the abdomen, 50/50 diluted Gastrografin contrast was administered orally, and interval abdominal radiographs were performed to assess for contrast progression through the small bowel. Following contrast transit through the small bowel and into the colon, the patient was placed on the fluoroscopy table, and multiple spot images were obtained. FINDINGS: Insurance Sales Supervisor image of the abdomen demonstrates scattered gas in the colon without distention. There is normal transit time of contrast material through the small bowel, with contrast present in the colon by 1 hour 30 minutes. Small bowel loops are of normal caliber throughout the abdomen and pelvis. The jejunal and ileal fold patterns are normal, without evidence of abnormal thickening. No fixed regions of luminal narrowing are seen to suggest stricturing. The terminal ileum demonstrates a normal appearance. There is a left colostomy bag with contrast visualized in the left colostomy bag at 120 minutes. FLUOROSCOPY TIME: 0 mins. FL/FL small bowel follow through IMPRESSION: Normal small bowel transit time of 120 minutes following oral administration of 50/50 diluted Gastrografin. Electronically signed by: Nguyễn Joyce MD 09/27/2024 10:14 AM EDT
--- NOTE | ~2024-09-23 | XR_ITS ---
EXAMINATION: XR ABDOMEN 1 VIEW (KUB) HISTORY: f/up abd pain COMPARISON: Correlation is made with the CT of the abdomen and pelvis dated 09/23/2024. FINDINGS: Four supine views of the abdomen are submitted. There are prominent loops of small bowel in the left midabdomen. Findings are nonspecific. There is gas in the colon. No abnormal calcifications are identified. There are no abnormal soft tissue masses. There is degenerative disc disease of the spine. XR/XR KUB IMPRESSION: Nonspecific bowel gas pattern with prominent loops of small bowel in the left midabdomen. Electronically signed by: Mario Alberto Samuels MD 09/24/2024 08:22 AM EDT
[2024-09-23 12:58] VITALS: BP 122/73; BP 199/150; PULSE 139; PULSE 150; RESP 22; TEMP 37.2; O2SAT 100; O2SAT 96; BMI 60.1
--- NOTE | 2024-09-23 13:04 | ECG_ITS ---
Test Reason : DIVERTICULITIS Blood Pressure : */* mmHG Vent. Rate : 130 BPM Atrial Rate : 130 BPM P-R Int : 134 ms QRS Dur : 94 ms QT Int : 302 ms P-R-T Axes : 1 -29 27 degrees QTcB Int : 444 ms Sinus tachycardia Incomplete right bundle branch block Minimal voltage criteria for LVH, may be normal variant ( R in aVL ) Nonspecific ST abnormality Abnormal ECG When compared with ECG of 18-Mar-2022 11:00, Vent. rate has increased by 46 bpm Referred By: Cm Barrett Electronically Signed By: ALEJANDRO RAM MD
[2024-09-23 14:00] LABS: Hematocrit 38.2 % (37.0-47.0); Hemoglobin 13.3 g/dl (12.0-16.0); Mean Corpuscular HGB Conc 34.8 g/dl (31.0-35.0); Mean Corpuscular Hemoglobin 27.8 pg (27.0-33.0); Mean Corpuscular Volume 79.9 fL (80.0-98.0); Mean Platelet Volume 9.6 fL (9.4-12.3); Platelet Count 388 X10*3/uL (160-400); Red Blood Count 4.78 X10*6/uL (4.20-5.50); Red Cell Distribution Width 13.2 % (11.0-16.0); White Blood Count 10.6 X10*3/uL (4.8-10.8)
[2024-09-23 14:16] LABS: Alanine Aminotransferase 66 U/L (0-31); Albumin Level 3.9 g/dL (3.5-5.0); Alkaline Phosphatase 127 U/L (39-117); Anion Gap 16 (12-20); Aspartate Amino Transferase 75 U/L (5-31); Bilirubin Direct 1.3 mg/dL (0.0-0.5); Bilirubin Total 2.6 mg/dL (0.0-1.0); Blood Urea Nitrogen 13 mg/dL (9-16); Calcium 9.3 mg/dL (8.4-10.2); Carbon Dioxide 21 mmol/L (22-29); Chloride 105 mmol/L (96-108); Creatinine Clr Calc Pharmacy 157.8; Estimated Glomerular Filt Rate > 60; Glucose Random 103 mg/dL (60-115); Lipase 7 U/L (8-78); Potassium 3.4 mmol/L (3.3-5.1); Sodium 139 mmol/L (135-145); Total Protein 7.1 g/dL (6.5-8.0)
[2024-09-23 14:22] LABS: Neutrophils Percent Manual 81 % (45-73)
[2024-09-23 14:25] LABS: Band Neutrophils Percent 15 % (3-5); Basophils Abs Manual 0.1 X10*3/uL (0.0-0.2); Basophils Percent Manual 1 % (0-2); Burr Cells 1+ (0-2) /OIF; Metamyelocytes Absolute 0.1 X10*3/uL; Metamyelocytes Percent 1 %; Monocytes Absolute Manual 0.2 X10*3/uL (0.1-1.2); Monocytes Percent Manual 2 % (2-11); Neutrophils Absolute Manual 10.2 X10*3/uL (2.0-8.3); Platelet Estimate NORMAL (NORMAL); Platelet Morphology Comment NORMAL; RBC Morphology NOTED; Toxic Vacuolation PRESENT
--- NOTE | 2024-09-23 14:30 | ED.ABDPAIN ---
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 Presenting with nausea, vomiting, increased ostomy output, started 2 days ago, possibly exacerbated by food. No reports of fevers or chills. Related Data Home Medications ?Medication ?Instructions ?Recorded ?Confirmed albuterol sulfate 90 mcg/actuation 1 puff inhalation Q4H PRN Wheezing 05/13/21 03/08/22 aerosol inhaler acetaminophen 325 mg tablet 650 mg PO Q6H PRN Pain 11/30/21 03/08/22 (Tylenol) ibuprofen 800 mg tablet 1 tab PO TID PRN Pain 11/30/21 03/08/22 omeprazole magnesium 20 mg 20 mg PO DAILY 03/09/22 03/09/22 tablet,delayed release (Prilosec OTC) Previous Rx's ?Medication ?Instructions ?Recorded metronidazole 500 mg tablet 500 mg PO .COMPLEX pre-op prep #3 01/25/22 tabs neomycin 500 mg tablet 1 g (2 x 500 mg) PO .COMPLEX 01/25/22 pre-op prep 3 doses #6 tabs amoxicillin 500 mg-potassium 1 tab PO Q8H #30 tabs 03/02/22 clavulanate 125 mg tablet lidocaine 5 % topical patch 1 patch topical DAILY #15 ea 11/25/23 Allergies Allergy/AdvReac Type Severity Reaction Status Date / Time No Known Allergies Allergy Verified 09/23/24 13:02 Review of Systems Review of Systems Yes all other systems are reviewed and are negative [facility] Past Medical History Medical History (Updated 09/23/24 @ 17:03 by Jamal Lockett DO) Acid reflux Smoker History of back pain Snores Migraines Colostomy in place Ovarian cyst Borderline diabetes Morbid obesity Asthma Surgical History (Updated 03/09/22 @ 11:01 by Azul Mejia RN) History of exploratory laparotomy Social History Social History Household Members: None Housing: Apartment Are you a primary health care technician to a significant other at home: No Do you presently have visiting nurse or other home services: No Unable to assess alcohol history related to: Unable to respond Alcohol intake: current Alcohol intake frequency: a few times a month Comment: Patient makes her needs well known wiht call villarreal alert and oriented x4 Patient Tobacco Use Status: Current everyday Tobacco user Tobacco use type: Cigarette Cigarettes Per Day: 7 Years Smoked: 25 e-Cigarette/Vaping Use: Never Used Second Hand Smoke Exposure: No Substance Use Type: Marijuana Advance Directives: No Advance Directives Information Provided: No service: No Current occupational status: employed Physical Exam ED Vital Signs: Vital Signs - 24 hr 09/23/24 12:58 09/23/24 14:41 Temperature 98.9 F Pulse Rate 139 H Respiratory Rate 22 H 22 H Blood Pressure 122/73 Pulse Oximetry 96 Oxygen Delivery Method Room Air BMI result Body Mass Index 60.1 Const Other: Morbidly obese patient, examined on the [facility] Generalized tenderness over abdomen, left-sided colostomy with increased output, no parastomal hernias Alert and oriented x4, moving upper and lower extremities symmetrically Medical Decision Making Medical Decision Making MDM Narrative: Consideration for workup as below, at the time of my initial interaction with the patient she was not a significant amount of distress very tender abdomen, we will medicate for pain antiemetics, we will order CT to evaluate for considerations as below. Disposition to be determined, she is very uncomfortable at the time my evaluation, I provided with 2 mg of IV Dilaudid, fluids, 4pm CT is suspicious for SBO associated with parastomal hernia, she also has adnexal masses they may be malignant however this has been noted on multiple prior CTs, I sent patient's information to Dr. Cm Barrett 16:53 Dr. Barrett is at bedside patient feels better after being medicated, Dr. Barrett stated that there is no evidence for obstruction we will update need with the plan. 17:02 patient admitted to surgical service. Patient also told me that the ovarian issues has been going on for quite awhile, she has had follow up with [facility], and there was no surgical recommendation so she is aware of the ovarian masses. Differential Diagnosis Differential Diagnoses: The differential diagnosis associated with the presentation includes SBO, volvulus, bowel per, dehydration, GI bleed Admission/Observation Consideration of admission/observation: Escalation of care including admission/observation considered Consult Healthcare Provider Management of the patient was discussed with: [employer] Make Up Helper (Dr. Barrett/surgery) Lab Data MDM Lab Attestation statement: I reviewed the patient's lab results. 09/23/24 13:52 09/23/24 13:52 Labs: Lab Results 09/23/24 Range/Units 13:52 WBC 10.6 (4.8-10.8) X10*3/uL RBC 4.78 (4.20-5.50) X10*6/uL Hgb 13.3 (12.0-16.0) g/dl Hct 38.2 (37.0-47.0) % MCV 79.9 L (80.0-98.0) fL MCH 27.8 (27.0-33.0) pg MCHC 34.8 (31.0-35.0) g/dl RDW 13.2 (11.0-16.0) % Plt Count 388 (160-400) X10*3/uL MPV 9.6 (9.4-12.3) fL Immature Gran % (Auto) Cancelled Neut % (Auto) Cancelled Lymph % (Auto) Cancelled [place] % (Auto) Cancelled Eos % (Auto) Cancelled Baso % (Auto) Cancelled Lymph # (Auto) Cancelled [place] # (Auto) Cancelled Eos # (Auto) Cancelled Baso # (Auto) Cancelled Abs Immat Gran (auto) Cancelled Absolute Neuts (auto) Cancelled Absolute Nucleated RBC 0.000 (0.0-0.012) X10*3/uL Nucleated RBC % (auto) 0.0 (0.0-0.2) /100WBC Neutrophils % (Manual) 81 H (45-73) % Band Neutrophils % 15 H (3-5) % Monocytes % (Manual) 2 (2-11) % Basophils % (Manual) 1 (0-2) % Metamyelocytes % 1 % Abs Neuts (Manual) 10.2 H (2.0-8.3) X10*3/uL Monocytes # (Manual) 0.2 (0.1-1.2) X10*3/uL Basophils # (Manual) 0.1 (0.0-0.2) X10*3/uL Metamyelocytes # 0.1 X10*3/uL Toxic Vacuolation PRESENT Platelet Estimate NORMAL (NORMAL) Plt Morphology Comment NORMAL RBC Morphology NOTED [place] Cells 1+ (0-2) /OIF Sodium 139 (135-145) mmol/L Potassium 3.4 (3.3-5.1) mmol/L Chloride 105 (96-108) mmol/L Carbon Dioxide 21 L (22-29) mmol/L Anion Gap 16 (12-20) BUN 13 (9-16) mg/dL Creatinine 0.67 (0.5-1.4) mg/dL Estim Creat Clear Calc 157.8 Estimated GFR > 60 Random Glucose 103 (60-115) mg/dL Calcium 9.3 (8.4-10.2) mg/dL Total Bilirubin 2.6 H (0.0-1.0) mg/dL Direct Bilirubin 1.3 H (0.0-0.5) mg/dL AST 75 H (5-31) U/L ALT 66 H (0-31) U/L Alkaline Phosphatase 127 H (39-117) U/L Total Protein 7.1 (6.5-8.0) g/dL Albumin 3.9 (3.5-5.0) g/dL Lipase 7 L (8-78) U/L Radiology Impression Discussion of test interpretation with radiology: I have reviewed the radiologist's reading. Radiologist Impression: CT/CT abdomen pelvis w IV con IMPRESSION: 1. Status post left lower quadrant colostomy. Moderate-sized parastomal hernia containing loops of small bowel, one of which demonstrates moderate dilatation and air/fluid levels, suggestive of obstruction. 2. Bilateral cystic and solid adnexal masses which are larger than on the prior study, suspicious for neoplasm. There is a moderate amount of fluid in the right hemipelvis. SENIOR TECHNICAL TRAINER consultation is recommended. Medications Administered Discontinued Medications Generic Name Dose Route Start Last Admin Trade Name Freq PRN Reason Stop Dose Admin Hydromorphone HCl 2 mg 09/23/24 14:32 09/23/24 14:41 Hydromorphone Hcl 2 Mg/Ml Vial IVPUSH 09/23/24 14:33 2 mg ONCE ONE Administration Protocol Sodium Chloride 1,000 mls @ 999 mls/hr 09/23/24 14:45 09/23/24 14:42 Ns IV 09/23/24 15:45 999 mls/hr .Q1H1M ZEN Administration Iohexol 100 ml 09/23/24 15:10 09/23/24 15:10 Iohexol 350 Mg/Ml 100 Ml Infus..Btl IV 09/23/24 15:11 100 ml ONCE ONE Administration Ondansetron HCl 4 mg 09/23/24 14:32 09/23/24 14:41 Ondansetron Hcl 4 Mg/2 Ml Vial IVPUSH 09/23/24 14:33 4 mg ONCE ONE Administration Critical Care Time Critical Care Time Total Critical Care Time: 45 Attestation: Time is exclusive of separately billable procedures. Time includes: direct patient care, patient reassessment, coordination of patient care, interpretation of data (laboratory data, pulse oximetry, arterial blood gases and chest xrays), review of patient's medical records, medical consultation and documentation of patient care. Procedures excluded from critical care time: central intravenous line placement and electrocardiography. Discharge Plan Discharge Clinical Impression: Abdominal pain, Ovarian mass, right, Morbid obesity Patient Disposition: Admitted As Inpatient Prescriptions: No Action neomycin 500 mg tablet 1 g PO .COMPLEX Qty: 6 0RF Rx Instructions: 1 gram at 1 PM, 2 PM, and 10 PM the day prior to surgery metronidazole 500 mg tablet 500 mg PO .COMPLEX Qty: 3 0RF Rx Instructions: 500 mg orally 1 pm, 2pm, 10pm on the day prior to surgery; amoxicillin-pot clavulanate 500-125 mg tablet 1 tab PO Q8H Qty: 30 0RF albuterol sulfate 90 mcg/actuation HFA aerosol inhaler 1 puff inhalation Q4H PRN (Reason: Wheezing) ibuprofen 800 mg tablet 1 tab PO TID PRN (Reason: Pain) acetaminophen [Tylenol] 325 mg Tablet 650 mg PO Q6H PRN (Reason: Pain) omeprazole magnesium [Prilosec OTC] 20 mg Tablet,Delayed Release (Dr/Ec) 20 mg PO DAILY lidocaine 5 % adhesive patch,medicated 1 patch topical DAILY Qty: 15 0RF Rx Instructions: leave on most painful area for up to 12 hrs Print Language: Urdu
[2024-09-23 14:41] VITALS: RESP 22
[2024-09-23] MEDS: HYDROmorphone HCl 2 MG/ML VIAL IVPUSH (14:41)
[2024-09-23] MEDS: ondansetron HCL 4 MG/2 ML VIAL IVPUSH (14:41)
[2024-09-23] MEDS: 0.9 % Sodium Chloride 1,000 ML 999 ML IV (14:42)
[2024-09-23] MEDS: iohexoL 350 MG/ML 100 ML INFUS..BTL IV (15:10)
--- OUTSIDE RECORDS SUMMARY | 2024-09-23 15:16 | XMS_ITS | Patient Health Record ---
Author Organization [facility] Address [address] [place] [address] Care Team Providers Care Culinary Artist Name Role Phone Sinai Munoz NP Primary Care Provider Syeda Salazar Unavailable [phone] Reason For Referral No Information Medications Medication SIG (Take, Route, Frequency, Duration) Notes Start Date End Date Status Albuterol Sulfate HFA 108 (90 Base) MCG/ACT (Prior Auth#:[id number]) Inhalation for 17 Active Flovent HFA 110 MCG/ACT (Prior Auth#:[id number]) Inhalation for 30 Active Ciclopirox Olamine 0.77 % 1 application to affected area Externally to feet Twice a day for 30 days Active Social History Tobacco Use: Social History Observation Description Date Details (start date - stop date) Current Smoker NA - NA Tobacco Use/Smoking Question Answer Notes Are you a: current smoker How often do you smoke cigarettes? every day How many cigarettes a day do you smoke? 6-10 Alcohol Screen Question Answer Notes Did you have a drink containing alcohol in the p ast year? Yes Points 0 Interpretation Negative Tobacco use other than smoking: Question Answer Notes Are you an other tobacco user? No Plan Of Treatment No Information Insurance Providers Payer Name Payer Address Payer Phone Subscriber Number Group Number Insured Name Patient Relationship to Insured Coverage Start Date Coverage End Date [facility] [address] [place] [address] [phone] [id number] Mana Rodriguez Self - patient is the insured Medical (General) History Medical History History ICD Code Diverticulosis Measles Chicken pox Surgical History Surgery Date(Month/Year)
--- NOTE | 2024-09-23 16:52 | PC.NURSE ---
Dr. Lockett & Dr. Barrett at bedside speaking with patient & family. Ostomy drained, changed with supplies that she brought from home. Pain is 1 out of 10 at this time after Dilaudid administration earlier this shift. Parents at bedside. IV access is patent. Discussing possible admission for hernia repair. Care ongoing by this RN. Prior to medication administration, pt was very uncomfortable, thrashing, occasionally swearing at staff. Pain has been ongoing and worsening since .
--- NOTE | 2024-09-23 17:08 | P.HPGS_ITS ---
History of Present Illness History of Present Illness Date of Service: 09/27/24 Chief complaint: Abdominal pain Narrative: Mana Rodriguez is a 49 year old female very morbidly obese, here in the ER because of abdominal pain. She says that she had abdominal pain starting last week for 2 days. 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 The dissection of the disease segment could not be done at that time. She says she was doing well over the weekend. However, she says that last night she had salad and this morning she woke up with pain mostly on the left side of her abdomen. She also says that she had a lot of stoma output says that her stoma was filling up a lot this morning when she had the pain She describes her pain as mostly on the right side radiating all the way to her vagina. She also had about 3 episodes of vomiting this morning. The last episode of vomiting was about 5 hours ago She also says that she was short of breath earlier. She currently is not nauseous. She had a CAT scan done showing a new parastomal hernia with question of dilatation of the bowel loops within the hernia. I was therefore consulted for possible obstruction. Review of Systems Constitutional: Constitutional: Denies chills and Denies fever(s) Eyes: Eyes: Denies other visual disturbances Cardiovascular: Cardiovascular: Denies chest pain, Denies dyspnea and Denies dyspnea on exertion Respiratory: Respiratory: Denies cough, Denies dyspnea and Denies dyspnea on exertion Gastrointestinal: Gastrointestinal: Denies hematochezia and Denies change in bowel habits Comments: High ileostomy output earlier Genitourinary: Genitourinary: Denies hematuria Musculoskeletal: Musculoskeletal: Denies back pain and Denies limited range of motion Neurologic: Denies focal weakness and Denies convulsions Psychiatric: Psychiatric: Denies depression and Denies mood swings [facility] Past Medical History Medical History (Updated 09/24/24 @ 07:45 by Tena Del Real PA-C) Acid reflux Smoker History of back pain Snores Migraines Colostomy in place Ovarian cyst Borderline diabetes Morbid obesity Asthma Surgical History Surgical History (Updated 03/09/22 @ 11:01 by Azul Mejia RN) History of exploratory laparotomy Social History Social History Household Members: None Housing: House Are you a primary healthcare administration internship to a significant other at home: No Do you presently have visiting nurse or other home services: No Unable to assess alcohol history related to: Unable to respond Alcohol intake: current Alcohol intake frequency: a few times a month Comment: Patient makes her needs well known wiht call villarreal alert and oriented x4 Patient Tobacco Use Status: Current everyday Tobacco user Tobacco use type: Cigarette Cigarettes Per Day: 5 Years Smoked: 25 e-Cigarette/Vaping Use: Never Used Second Hand Smoke Exposure: No Substance Use Type: Marijuana service: No Current occupational status: employed Meds Allergies Allergy/AdvReac Type Severity Reaction Status Date / Time No Known Allergies Allergy Verified 09/23/24 13:02 Home Medications ?Medication ?Instructions ?Recorded ?Confirmed ?Last Taken ?Type albuterol sulfate 90 mcg/actuation 1 puff inhalation Q4H PRN Wheezing 05/13/21 09/23/24 Unknown History aerosol inhaler acetaminophen 325 mg tablet 650 mg PO Q6H PRN Pain 11/30/21 09/23/24 11/29/21 History (Tylenol) tirzepatide (weight loss) 12.5 12.5 mg subcut MO 09/23/24 09/23/24 09/16/24 History mg/0.5 mL subcutaneous pen injector (Zepbound) Physical Exam Vital Signs: Vital Signs: Last Vital Signs Temp 98.9 F 09/23/24 12:58 Pulse 139 H 09/23/24 12:58 Resp 22 H 09/23/24 14:41 BP 122/73 09/23/24 12:58 Pulse Ox 96 09/23/24 12:58 O2 Del Method Room Air 09/23/24 12:58 BMI result Body Mass Index 60.1 Const: Other: Very morbidly obese General: comfortable and no acute distress Orientation/consciousness: patient oriented x3 Neck: Neck: Yes no lymphadenopathy Resp: Auscultation: clear to auscultation bilaterally Cardio: Rhythm: regular rhythm GI: Palpation (GI): Soft to palpation, nontender and no guarding Neuro: General: patient oriented x3 Results Results Labs: Short CBC 09/23/24 Range/Units 13:52 WBC 10.6 (4.8-10.8) X10*3/uL Hgb 13.3 (12.0-16.0) g/dl Hct 38.2 (37.0-47.0) % Plt Count 388 (160-400) X10*3/uL BMP 09/23/24 13:52 Sodium 139 Potassium 3.4 Chloride 105 Carbon Dioxide 21 L BUN 13 Creatinine 0.67 Calcium 9.3 Liver Function 09/23/24 Range/Units 13:52 Total Bilirubin 2.6 H (0.0-1.0) mg/dL Direct Bilirubin 1.3 H (0.0-0.5) mg/dL AST 75 H (5-31) U/L ALT 66 H (0-31) U/L Alkaline Phosphatase 127 H (39-117) U/L Albumin 3.9 (3.5-5.0) g/dL Additional studies: SMALL BOWEL: Again seen is a left lower quadrant colostomy. There is a moderate-sized parastomal hernia is new from the prior study. This contains loops of small bowel, one of which demonstrates moderate dilatation and air/fluid levels suggestive of obstruction. COLON: There is no colonic dilatation. APPENDIX: Normal. URINARY BLADDER/PELVIC ORGANS: The urinary bladder is collapsed, limiting evaluation. There are bilateral cystic and solid adnexal masses which are larger than on the prior study. These measure 12.2 x 6.1 x 9.9 cm on the right and 6.9 x 3.6 x 7.2 cm on the left. BONES/SOFT TISSUES: There is a fat-containing umbilical hernia. The bones are intact. Assessment and Plan (1) Abdominal pain: Status: Acute She came to the ER because of the abdominal pain earlier. She did have some vomiting although this resolved Abdominal exam is very benign currently. She also describes having a high colostomy output suggestive of gastroenteritis. A high colostomy output would go against a diagnosis of obstruction secondary to parastomal hernia. Her CAT scan does show this dilated loop within the parastomal hernia. There is no proximal dilation of bowel loops in the peritoneal cavity. Her urinalysis does suggest she may have a urinary tract infection. She will be started on antibiotics. She does state that she has pain in the lower abdomen radiating all the way to the vagina. She does not have any leukocytosis . In view of the uncertainty of her diagnosis, I told her that it may be best to keep her overnight for observation. We will keep her on sips of clear liquids for now. She will be hydrated and we will repeat her labs in the morning. She says that she has been seeing a surgeon in [facility] who has been following her for possible reversal down the line. She was asked to lose some weight prior to having this done. Her BMI is 60 currently. She understands that this extremely high BMI this has significant perioperative risks. Again her abdominal exam is currently benign. Her parents with her during the discussion in the ER. Quality Stroke Does the patient have a stroke diagnosis?: No VTE Prior VTE?: No VTE Risk Level:: Medical - moderate - high VTE Device Contraindication: N/A - Device Ordered VTE Drug Contraindication: N/A - Med Ordered Procedures Date of Service Date of Service: 09/27/24
[2024-09-23 17:09] VITALS: BP 107/62; PULSE 93; RESP 16; TEMP 36.9; O2SAT 96
--- NOTE | 2024-09-23 18:22 | PHA.MEDREC ---
Addendum entered by Yohana ChristensenD 09/23/24 18:35: reviewed Original Note: Pharmacy Consult ? Medication Reconciliation Pharmacy has completed the medication reconciliation. Spoke to patient and she confirmed she takes Tylenol PRN, Albuterol HFA and Zepbound 12.5 mg every Monday , last dose 09/16/24
[2024-09-23] MEDS: Lactated Ringers 1,000 ML 100 ML IVCONT (19:02)
[2024-09-23] MEDS: Acetaminophen 325 MG TABLET 650 MG PO (19:09)
[2024-09-23 20:14] VITALS: BMI 59.2
[2024-09-23 20:25] VITALS: BP 133/84; PULSE 89; RESP 18; TEMP 36.7; O2SAT 96
[2024-09-23 21:29] VITALS: RESP 18
[2024-09-23] MEDS: Morphine Sulfate 4 MG/ML CARTRIDGE IVPUSH (21:29)
[2024-09-24] VITALS (7 sets, daily range): BP systolic 116–135; BP diastolic 62–73; PULSE 84–102; RESP 16–18; TEMP 36.5–36.9; O2SAT 93–96
[2024-09-24] MEDS: Morphine Sulfate 4 MG/ML CARTRIDGE IVPUSH ×5 (02:13→20:17)
[2024-09-24] MEDS: Lactated Ringers 1,000 ML 100 ML IVCONT ×2 (06:36→17:54)
[2024-09-24 07:05] LABS: Appearance Urine Cloudy; Color Urine Dark Yellow; Glucose Urine UA Negative (Negative); Leukocyte Esterase Urine Small (1+) (Negative); Nitrite Urine Positive (Negative); PH 5.5 (5.0-9.0); Specific Gravity - Urine >= 1.030 (1.005-1.025); UMIC TRIGGER UACC YES; Urine Blood Moderate (2+) (Negative); Urine Ketones Trace mg/dL (Negative); Urine Protein 30 (1+) mg/dL (Neg-Trace)
[2024-09-24] MEDS: ondansetron HCL 4 MG/2 ML VIAL IVPUSH (07:09)
[2024-09-24 07:10] LABS: Bacteria Urine 4+ (None Seen); Hyaline Casts Urine 0-2 /LPF (0-2); UACC Culture Trigger YES; WBC Urine >50 /HPF (0-5)
[2024-09-24 07:38] LABS: Anion Gap 13 (12-20); Blood Urea Nitrogen 14 mg/dL (9-16); Calcium 9.2 mg/dL (8.4-10.2); Carbon Dioxide 26 mmol/L (22-29); Chloride 105 mmol/L (96-108); Creatinine Clr Calc Pharmacy 163.6; Estimated Glomerular Filt Rate > 60; Glucose Random 112 mg/dL (60-115); Potassium 3.9 mmol/L (3.3-5.1); Sodium 140 mmol/L (135-145)
--- NOTE | 2024-09-24 07:39 | P.PNGS_ITS ---
Subjective Subjective Date of Service: 09/24/24 <Tena Del Real PA-C - Last Filed: 09/24/24 07:45> 09/24/24 <Cm Barrett MD - Last Filed: 09/24/24 08:59> Interval history: Feels better this morning, less abdominal pain. Reports its more pelvic in nature. Denies urinary symptoms. No ostomy output overnight but she states this is normal for her and has not eaten since Monday. <Tena Del Real PA-C - Last Filed: 09/24/24 07:45> Physical Exam 2 Vital Signs: Vital Signs: Last Vital Signs Temp 98.2 F 09/24/24 02:16 Pulse 84 09/24/24 02:16 Resp 18 09/24/24 02:16 BP 116/62 09/24/24 02:16 Pulse Ox 96 09/24/24 02:16 O2 Del Method Room Air 09/24/24 02:16 BMI result Body Mass Index 59.2 <Tena Del Real PA-C - Last Filed: 09/24/24 07:45> Const: General: comfortable, no acute distress and alert <Tena Del Real PA-C - Last Filed: 09/24/24 07:45> Orientation/consciousness: patient oriented x3 <NICOLE Rosales Last Filed: 09/24/24 07:45> Resp: Effort & Inspection: normal respiratory effort <Tena Del Real PA-C - Last Filed: 09/24/24 07:45> GI: Other: very corpulent abdomen soft, no significant tenderness ostomy viable appearing, no output surrounding area soft <Tena Del Real PA-C - Last Filed: 09/24/24 07:45> Percussion: Yes normal to percussion <NICOLE Rosales Last Filed: 09/24/24 07:45> Skin: General skin exam: no rashes or lesions noted <NICOLE Rosales Last Filed: 09/24/24 07:45> Neuro: General: patient oriented x3 and moves all extremities <NICOLE Rosales Last Filed: 09/24/24 07:45> Extrem: General: Yes no clubbing, cyanosis or edema <Tena Del Real PA-C - Last Filed: 09/24/24 07:45> Objective Data Active Medications Acetaminophen (Acetaminophen 325 Mg Tablet) 650 mg PO Q6H PRN PRN Reason: Pain, Mild 1-3,fever,headache Last Admin: 09/23/24 19:09 Dose: 650 mg Documented By: STAN Albuterol Sulfate (Albuterol Sulfate 90 Mcg 8 Gm Inhaler) 2 puff INHALE Q4H PRN PRN Reason: Wheezing Heparin Sodium (Porcine) (Heparin Sodium,Porcine 5,000 Unit/Ml Vial) 5,000 unit SUBCUT Q8H ZEN Lactated Ringer's (Lr) 1,000 mls @ 100 mls/hr IVCONT .Q10H [facility] Last Admin: 09/24/24 06:36 Dose: 100 mls/hr Documented By: MAEVE Morphine Sulfate (Morphine Sulfate 4 Mg/Ml Cartridge) 4 mg IVPUSH Q4H PRN; Protocol PRN Reason: Pain, Severe (Pain Scale 7-10) Last Admin: 09/24/24 06:36 Dose: 4 mg Documented By: MAEVE Ondansetron HCl (Ondansetron Hcl 4 Mg/2 Ml Vial) 4 mg IVPUSH Q6H PRN PRN Reason: nausea Last Admin: 09/24/24 07:09 Dose: 4 mg Documented By: MAEVE Sodium Chloride (0.9 % Sodium Chloride Flush 3 Ml Syringe) 3 ml IVFLUSH QSHIFT [facility] Last Admin: 09/23/24 23:43 Dose: Not Given Documented By: CR Non-Admin Reason: IV Running <Tena Del Real PA-C - Last Filed: 09/24/24 07:45> Labs CBC & Chem 7: 09/23/24 13:52 09/24/24 06:34 <Tena Del Real PA-C - Last Filed: 09/24/24 07:45> Labs: Laboratory Results - last 24 hr 09/23/24 09/24/24 09/24/24 13:52 06:34 06:49 MCV 79.9 L MCH 27.8 MCHC 34.8 RDW 13.2 Plt Count 388 MPV 9.6 Immature Gran % (Auto) Cancelled Neut % (Auto) Cancelled Lymph % (Auto) Cancelled [place] % (Auto) Cancelled Eos % (Auto) Cancelled Baso % (Auto) Cancelled Lymph # (Auto) Cancelled [place] # (Auto) Cancelled Eos # (Auto) Cancelled Baso # (Auto) Cancelled Abs Immat Gran (auto) Cancelled Absolute Neuts (auto) Cancelled Absolute Nucleated RBC 0.000 Nucleated RBC % (auto) 0.0 Neutrophils % (Manual) 81 H Band Neutrophils % 15 H Monocytes % (Manual) 2 Basophils % (Manual) 1 Metamyelocytes % 1 Abs Neuts (Manual) 10.2 H Monocytes # (Manual) 0.2 Basophils # (Manual) 0.1 Metamyelocytes # 0.1 Toxic Vacuolation PRESENT Platelet Estimate NORMAL Plt Morphology Comment NORMAL RBC Morphology NOTED [place] Cells 1+ (0-2) Hold Purple Top SEE NOTE Anion Gap 16 13 Estim Creat Clear Calc 157.8 163.6 Estimated GFR > 60 > 60 Random Glucose 103 112 Calcium 9.3 9.2 Total Bilirubin 2.6 H Direct Bilirubin 1.3 H AST 75 H ALT 66 H Alkaline Phosphatase 127 H Total Protein 7.1 Albumin 3.9 Lipase 7 L Urine Color Dark Yellow Urine Appearance Cloudy Urine pH 5.5 Ur Specific [place] >= 1.030 H Urine Protein 30 (1+) H Urine Glucose (UA) Negative Urine Ketones Trace Urine Blood Moderate (2+) H Urine Nitrite Positive H Ur Leukocyte Esterase Small (1+) H Urine RBC 11-20 H Urine WBC >50 H Ur Squamous Epith Cells 6-10 Urine Bacteria 4+ Hyaline Casts 0-2 <Tena Del Real PA-C - Last Filed: 09/24/24 07:45> Procedures Date of Service Date of Service: 09/24/24 <Tena Del Real PA-C - Last Filed: 09/24/24 07:45> 09/24/24 <Cm Barrett MD - Last Filed: 09/24/24 08:59> Progress Note: A&P Assessment and plan (1) Abdominal pain: Status: Acute <Tena Del Real PA-C - Last Filed: 09/24/24 07:45> Assessment and Plan: Further vomiting or nausea overnight Pain level much improved Abdomen is soft and benign No stool from the stoma - she says this is not unusual for her for prolonged periods of time Await KUB Clinically looks well overall Treat UTI Seen and examined independently <Cm Barrett MD - Last Filed: 09/24/24 08:59> (2) UTI (urinary tract infection): Status: Acute <Tena Del Real PA-C - Last Filed: 09/24/24 07:45> Assessment and Plan: 49 year old female presented to the ED with abdominal pain found to have parastomal hernia with dilated small bowel with concern for SBO on CT. However had high ostomy output at that time. Admitted for observation overnight. She feels improved this morning with less abd pain, more pelvic in nature. Denies urinary symptoms. Abd overall benign. Will await KUB. If no significant findings, will advance diet to solids. UA positive for nitrites, leukocyte esterase- will begin rocephin for UTI. patient comfortable with plan. <Tena Del Real PA-C - Last Filed: 09/24/24 07:45> Time Spent With Patient Time: Total time managing care of this patient today ____ minutes. <Tena Del Real PA-C - Last Filed: 09/24/24 07:45> Quality Stroke Does the patient have a stroke diagnosis?: No <Tena Del Real PA-C - Last Filed: 09/24/24 07:45> VTE Prior VTE?: No <Tena Del Real PA-C - Last Filed: 09/24/24 07:45> VTE Risk Level:: Medical - moderate - high <Tena Del Real PA-C - Last Filed: 09/24/24 07:45> VTE Device Contraindication: N/A - Device Ordered <NICOLE Rosales Last Filed: 09/24/24 07:45> VTE Drug Contraindication: N/A - Med Ordered <NICOLE Rosales Last Filed: 09/24/24 07:45>
[2024-09-24] MEDS: cefTRIAXone sodium 2 GM VIAL IVPUSH (07:53)
[2024-09-24] MEDS: 0.9 % Sodium Chloride Flush 3 ML SYRINGE IVFLUSH ×2 (07:54→20:18)
--- NOTE | 2024-09-24 09:28 | MHC.CM.PN ---
PATIENT LIVES IN AN APARTMENT ALONE. FUNCTIONALLY INDEPENDENT. DENIES SERVICES. OSTOMY SUPPLIES VIA [facility]. PCP SHERRI MCCARTY NO HCP. CM PROVIDED EDUCATION AND OFFERED ASSISTANCE. PATIENT DECLINED. DP: GOAL IS HOME SELF CARE. FAMILY TO TRANSPORT. CM WILL CONTINUE TO FOLLOW.
[2024-09-24] MEDS: Magnesium Hydrox/Alum Hydrox 30 ML ORAL.SUSP PO (10:49)
[2024-09-24] MEDS: Albuterol Sulfate 90 MCG 8 GM INHALER 2 PUFF INHALE ×2 (11:53→20:23)
[2024-09-24] MEDS: Heparin Sodium,Porcine 5,000 UNIT/ML VIAL 5000 UNIT SUBCUT ×2 (14:07→21:37)
--- NOTE | 2024-09-24 15:26 | PM.EVENT ---
Event Note Date of Service: 09/24/24 Event Note: Seen earlier on afternoon rounds Denies abdominal pain No nausea or vomiting Tolerating clear liquids No significant output from the colostomy Abdomen is soft and benign Keep on clear liquids for today Treat UTI KUB showing nonspecific bowel gas pattern Time Spent With Patient Time: Total time managing care of this patient today ____ minutes.
[2024-09-24 15:33] LABS: Hematocrit 36.3 % (37.0-47.0); Hemoglobin 11.9 g/dl (12.0-16.0); Mean Corpuscular HGB Conc 32.8 g/dl (31.0-35.0); Mean Corpuscular Hemoglobin 27.5 pg (27.0-33.0); Mean Corpuscular Volume 83.8 fL (80.0-98.0); Mean Platelet Volume 9.8 fL (9.4-12.3); Platelet Count 334 X10*3/uL (160-400); Red Blood Count 4.33 X10*6/uL (4.20-5.50); Red Cell Distribution Width 13.6 % (11.0-16.0); White Blood Count 15.3 X10*3/uL (4.8-10.8)
[2024-09-24] MEDS: Acetaminophen 325 MG TABLET 650 MG PO (16:11)
[2024-09-25] MEDS: Morphine Sulfate 4 MG/ML CARTRIDGE IVPUSH ×6 (00:40→22:09)
[2024-09-25] MEDS: Albuterol Sulfate 90 MCG 8 GM INHALER 2 PUFF INHALE ×3 (00:42→13:40)
[2024-09-25 03:26] VITALS: BP 131/75; PULSE 93; RESP 18; TEMP 36; O2SAT 94
[2024-09-25] MEDS: Lactated Ringers 1,000 ML 100 ML IVCONT ×3 (03:33→23:27)
[2024-09-25] MEDS: Omeprazole 20 MG CAPSULE.DR PO (05:12)
[2024-09-25] MEDS: Heparin Sodium,Porcine 5,000 UNIT/ML VIAL 5000 UNIT SUBCUT ×3 (05:13→22:09)
[2024-09-25 07:43] VITALS: BP 123/70; PULSE 94; RESP 18; TEMP 37; O2SAT 94
[2024-09-25] MEDS: 0.9 % Sodium Chloride Flush 3 ML SYRINGE IVFLUSH ×3 (07:54→22:13)
[2024-09-25] MEDS: cefTRIAXone sodium 2 GM VIAL IVPUSH (07:54)
--- NOTE | 2024-09-25 08:16 | P.PNGS_ITS ---
Subjective Subjective Date of Service: 09/26/24 Interval history: No events reported overnight Describes pelvic pain Says she has been passing flatus via the stoma although no stools yet No nausea or vomiting Physical Exam 2 Vital Signs: Vital Signs: Last Vital Signs Temp 98.6 F 09/25/24 07:43 Pulse 94 09/25/24 07:43 Resp 18 09/25/24 07:43 BP 123/70 09/25/24 07:43 Pulse Ox 94 09/25/24 07:43 O2 Del Method Room Air 09/25/24 07:43 BMI result Body Mass Index 59.2 Const: General: comfortable, no acute distress and alert Nutritional Appearance: obese Resp: Effort & Inspection: normal respiratory effort Cardio: Rate: regular rate GI: Other: Obese, soft, tender mostly on the lower abdomen, stoma without stool but with some gas in bag Palpation (GI): not firm and no guarding Objective Data Active Medications Acetaminophen (Acetaminophen 325 Mg Tablet) 650 mg PO Q6H PRN PRN Reason: Pain, Mild 1-3,fever,headache Last Admin: 09/24/24 16:11 Dose: 650 mg Documented By: RODOLFO Al Hydroxide/Mg Hydroxide (Magnesium Hydrox/Alum Hydrox 30 Ml Oral.Susp) 30 ml PO Q6H PRN PRN Reason: Heartburn Last Admin: 09/24/24 10:49 Dose: 30 ml Documented By: POLLO Albuterol Sulfate (Albuterol Sulfate 90 Mcg 8 Gm Inhaler) 2 puff INHALE Q4H PRN PRN Reason: Wheezing Last Admin: 09/25/24 04:39 Dose: 2 puff Documented By: MAEVE Ceftriaxone Sodium (Ceftriaxone Sodium 2 Gm Vial) 2 gm IVPUSH Q24H [facility] Last Admin: 09/25/24 07:54 Dose: 2 gm Documented By: MALATHI Heparin Sodium (Porcine) (Heparin Sodium,Porcine 5,000 Unit/Ml Vial) 5,000 unit SUBCUT Q8H [facility] Last Admin: 09/25/24 05:13 Dose: 5,000 unit Documented By: MAEVE Lactated Ringer's (Lr) 1,000 mls @ 100 mls/hr IVCONT .Q10H [facility] Last Admin: 09/25/24 03:33 Dose: 100 mls/hr Documented By: MAEVE Morphine Sulfate (Morphine Sulfate 4 Mg/Ml Cartridge) 4 mg IVPUSH Q4H PRN; Protocol PRN Reason: Pain, Severe (Pain Scale 7-10) Last Admin: 09/25/24 04:39 Dose: 4 mg Documented By: MAEVE Ondansetron HCl (Ondansetron Hcl 4 Mg/2 Ml Vial) 4 mg IVPUSH Q6H PRN PRN Reason: nausea Last Admin: 09/24/24 07:09 Dose: 4 mg Documented By: MAEVE Sodium Chloride (0.9 % Sodium Chloride Flush 3 Ml Syringe) 3 ml IVFLUSH QSHIFT ZEN Last Admin: 09/25/24 07:54 Dose: 3 ml Documented By: REJILA Labs 09/24/24 15:25 09/24/24 06:34 Labs: Laboratory Results - last 24 hr 09/24/24 15:25 MCV 83.8 MCH 27.5 MCHC 32.8 RDW 13.6 Plt Count 334 MPV 9.8 Absolute Nucleated RBC 0.000 Nucleated RBC % (auto) 0.0 Procedures Date of Service Date of Service: 09/26/24 Progress Note: A&P Assessment and plan (1) Abdominal pain: Status: Acute Assessment and Plan: She does have a UTI - currently on Rocephin She says her pain is much less still present Does seem to have the tenderness No stool from the stoma Passing flatus Clinically not obstructed despite the presence of parastomal hernia with bowel loops We will keep on clear liquids for now Stable vital signs Encouraged ambulation She understands that if she develops obstructive symptoms, she may need to undergo laparotomy Time Spent With Patient Time: Total time managing care of this patient today ____ minutes. Quality Stroke Does the patient have a stroke diagnosis?: No VTE Prior VTE?: No VTE Risk Level:: Medical - moderate - high VTE Device Contraindication: N/A - Device Ordered VTE Drug Contraindication: N/A - Med Ordered
[2024-09-25 15:09] VITALS: BP 119/68; PULSE 93; RESP 18; TEMP 36.8; O2SAT 94
--- NOTE | 2024-09-25 15:32 | PM.EVENT ---
Event Note Date of Service: 09/25/24 Event Note: Seen on afternoon rounds earlier Denies significant pain Passing flatus through the stoma but no stool No nausea or vomiting Abdomen remained soft Small bowel series could not be done today as there was no radiologist available Continue on clear liquids for now Clinically looks well and comfortable Time Spent With Patient Time: Total time managing care of this patient today ____ minutes.
[2024-09-25 19:33] VITALS: BP 131/73; PULSE 66; RESP 18; TEMP 36.9; O2SAT 94
[2024-09-26] MEDS: Morphine Sulfate 4 MG/ML CARTRIDGE IVPUSH ×4 (03:19→20:58)
[2024-09-26 03:27] VITALS: BP 126/76; PULSE 83; RESP 18; TEMP 36.1; O2SAT 93
[2024-09-26] MEDS: Heparin Sodium,Porcine 5,000 UNIT/ML VIAL 5000 UNIT SUBCUT ×3 (05:44→21:06)
--- NOTE | 2024-09-26 07:49 | PM.PNGS ---
Subjective Subjective Date of Service: 09/27/24 Interval history: says she is ok today passing good flatus via stoma no N/V tolerating clear liquids Physical Exam Vital Signs: Vital Signs: Last Vital Signs Temp 96.9 F 09/26/24 03:27 Pulse 83 09/26/24 03:27 Resp 18 09/26/24 03:27 BP 126/76 09/26/24 03:27 Pulse Ox 93 09/26/24 03:27 O2 Del Method Room Air 09/26/24 03:27 BMI result Body Mass Index 59.2 Const: General: comfortable and no acute distress Nutritional Appearance: obese Resp: Effort & Inspection: normal respiratory effort GI: Other: obese, stoma with large amounts of gas, small amounts of stool particles Palpation (GI): Soft to palpation, not firm, Tenderness to palpation present (GI) (mild tenderness diffusely) and no guarding Objective Data Active Medications Acetaminophen (Acetaminophen 325 Mg Tablet) 650 mg PO Q6H PRN PRN Reason: Pain, Mild 1-3,fever,headache Last Admin: 09/24/24 16:11 Dose: 650 mg Documented By: RODOLFO Al Hydroxide/Mg Hydroxide (Magnesium Hydrox/Alum Hydrox 30 Ml Oral.Susp) 30 ml PO Q6H PRN PRN Reason: Heartburn Last Admin: 09/24/24 10:49 Dose: 30 ml Documented By: POLLO Albuterol Sulfate (Albuterol Sulfate 90 Mcg 8 Gm Inhaler) 2 puff INHALE Q4H PRN PRN Reason: Wheezing Last Admin: 09/25/24 13:40 Dose: 2 puff Documented By: DICK Ceftriaxone Sodium (Ceftriaxone Sodium 2 Gm Vial) 2 gm IVPUSH Q24H [facility] Last Admin: 09/25/24 07:54 Dose: 2 gm Documented By: MALATHI Heparin Sodium (Porcine) (Heparin Sodium,Porcine 5,000 Unit/Ml Vial) 5,000 unit SUBCUT Q8H [facility] Last Admin: 09/26/24 05:44 Dose: 5,000 unit Documented By: SHIRIN Lactated Ringer's (Lr) 1,000 mls @ 100 mls/hr IVCONT .Q10H [facility] Last Admin: 09/25/24 23:27 Dose: 100 mls/hr Documented By: SHIRIN Morphine Sulfate (Morphine Sulfate 4 Mg/Ml Cartridge) 4 mg IVPUSH Q4H PRN; Protocol PRN Reason: Pain, Severe (Pain Scale 7-10) Last Admin: 09/26/24 03:19 Dose: 4 mg Documented By: SHIRIN Ondansetron HCl (Ondansetron Hcl 4 Mg/2 Ml Vial) 4 mg IVPUSH Q6H PRN PRN Reason: nausea Last Admin: 09/24/24 07:09 Dose: 4 mg Documented By: MAEVE Sodium Chloride (0.9 % Sodium Chloride Flush 3 Ml Syringe) 3 ml IVFLUSH QSHIFT [facility] Last Admin: 09/25/24 22:13 Dose: 3 ml Documented By: SHIRIN Labs 09/24/24 15:25 09/24/24 06:34 Microbiology Microbiology Results: Microbiology 09/24/24 Unknown Urine Culture - Final Urine clean catch - Clean Catch Midstream Procedures Date of Service Date of Service: 09/27/24 Progress Note: A&P Assessment and plan (1) Abdominal pain: Status: Acute Assessment and Plan: awaiting SB series today clinically looks well benign exam stoma with good amounts of gas treat UTI ambulate on clears Time Spent With Patient Time: Total time managing care of this patient today ____ minutes. Quality Stroke Does the patient have a stroke diagnosis?: No VTE Prior VTE?: No VTE Risk Level:: Medical - moderate - high VTE Device Contraindication: N/A - Device Ordered VTE Drug Contraindication: N/A - Med Ordered
[2024-09-26 08:00] VITALS: BP 135/70; PULSE 96; RESP 18; TEMP 36.8; O2SAT 95
[2024-09-26] MEDS: cefTRIAXone sodium 2 GM VIAL IVPUSH (08:08)
[2024-09-26] MEDS: 0.9 % Sodium Chloride Flush 3 ML SYRINGE IVFLUSH (08:08)
[2024-09-26 13:09] VITALS: BP 143/88; PULSE 99; RESP 18; TEMP 36.2; O2SAT 95
[2024-09-26] MEDS: Diatrizoate Meglumine, Sodium 120 ML SOLUTION 300 ML PO (13:32)
[2024-09-26] MEDS: Lactated Ringers 1,000 ML 100 ML IVCONT ×2 (13:58→23:44)
--- NOTE | 2024-09-26 14:56 | P.EN_ITS ---
Event Note Date of Service: 09/27/24 Event Note: Seen on afternoon rounds She had Gastrografin study earlier She has been passing large amounts of stoma output including Gastrografin all day She says she has filled up her back many times already No nausea or vomiting Denies significant pain Abdomen is soft She looks well Okay to have regular diet Possible home tomorrow I have instructed her as well to have a follow up with her surgeon in [facility]. Time Spent With Patient Time: Total time managing care of this patient today ____ minutes.
[2024-09-26 15:51] VITALS: BP 142/86; PULSE 97; RESP 18; TEMP 36.9; O2SAT 93
[2024-09-26 20:00] VITALS: BP 134/78; PULSE 88; RESP 19; TEMP 37.1; O2SAT 95
[2024-09-26] MEDS: Albuterol Sulfate 90 MCG 8 GM INHALER 2 PUFF INHALE (20:58)
[2024-09-27] MEDS: Morphine Sulfate 4 MG/ML CARTRIDGE IVPUSH (02:15)
[2024-09-27 04:00] VITALS: BP 152/77; PULSE 85; RESP 19; TEMP 36.3; O2SAT 94
[2024-09-27] MEDS: Heparin Sodium,Porcine 5,000 UNIT/ML VIAL 5000 UNIT SUBCUT (06:01)
[2024-09-27] MEDS: Lactated Ringers 1,000 ML 100 ML IVCONT (06:02)
[2024-09-27 08:00] VITALS: BP 149/84; PULSE 83; RESP 16; TEMP 36.3; O2SAT 94
--- NOTE | 2024-09-27 08:35 | P.PNGS_ITS ---
Subjective Subjective Date of Service: 09/27/24 Interval history: Tolerating diet Stoma functioning well with good output Oral contrast has gone through - she says she has emptied her stoma multiple Physical Exam 2 Vital Signs: Vital Signs: Last Vital Signs Temp 97.4 F 09/27/24 08:00 Pulse 83 09/27/24 08:00 Resp 16 09/27/24 08:00 BP 149/84 H 09/27/24 08:00 Pulse Ox 94 09/27/24 08:00 O2 Del Method Room Air 09/27/24 08:00 BMI result Body Mass Index 59.2 Const: Other: Looks comfortable General: comfortable and no acute distress Resp: Effort & Inspection: normal respiratory effort Cardio: Rate: regular rate GI: Other: Stoma functioning Palpation (GI): Soft to palpation, not firm and no guarding Objective Data Active Medications Acetaminophen (Acetaminophen 325 Mg Tablet) 650 mg PO Q6H PRN PRN Reason: Pain, Mild 1-3,fever,headache Last Admin: 09/24/24 16:11 Dose: 650 mg Documented By: RODOLFO Al Hydroxide/Mg Hydroxide (Magnesium Hydrox/Alum Hydrox 30 Ml Oral.Susp) 30 ml PO Q6H PRN PRN Reason: Heartburn Last Admin: 09/24/24 10:49 Dose: 30 ml Documented By: POLLO Albuterol Sulfate (Albuterol Sulfate 90 Mcg 8 Gm Inhaler) 2 puff INHALE Q4H PRN PRN Reason: Wheezing Last Admin: 09/26/24 20:58 Dose: 2 puff Documented By: KATLYN Ceftriaxone Sodium (Ceftriaxone Sodium 2 Gm Vial) 2 gm IVPUSH Q24H [facility] Last Admin: 09/26/24 08:08 Dose: 2 gm Documented By: SERGE Heparin Sodium (Porcine) (Heparin Sodium,Porcine 5,000 Unit/Ml Vial) 5,000 unit SUBCUT Q8H [facility] Last Admin: 09/27/24 06:01 Dose: 5,000 unit Documented By: KATLYN Lactated Ringer's (Lr) 1,000 mls @ 100 mls/hr IVCONT .Q10H [facility] Last Admin: 09/27/24 06:02 Dose: 100 mls/hr Documented By: KATLYN Morphine Sulfate (Morphine Sulfate 4 Mg/Ml Cartridge) 4 mg IVPUSH Q4H PRN; Protocol PRN Reason: Pain, Severe (Pain Scale 7-10) Last Admin: 09/27/24 02:15 Dose: 4 mg Documented By: KATLYN Ondansetron HCl (Ondansetron Hcl 4 Mg/2 Ml Vial) 4 mg IVPUSH Q6H PRN PRN Reason: nausea Last Admin: 09/24/24 07:09 Dose: 4 mg Documented By: MAEVE Sodium Chloride (0.9 % Sodium Chloride Flush 3 Ml Syringe) 3 ml IVFLUSH QSHIFT [facility] Last Admin: 09/26/24 22:44 Dose: Not Given Documented By: KATLYN Non-Admin Reason: IV Running Labs 09/24/24 15:25 09/24/24 06:34 Procedures Date of Service Date of Service: 09/27/24 Progress Note: A&P Assessment and plan (1) Abdominal pain: Status: Acute Assessment and Plan: Etiology likely multifactorial - she has a UTI, also parastomal hernia with bowel loops Not obstructive clinically - she has passed large amounts of stool with Gastrografin yesterday Passing good amounts of flatus via the stoma as well Abdomen is soft and benign Tolerating diet Okay to DC home today I had a long discussion with her about the above - I had instructed her to follow up with her surgeon in [facility] with regards to her parastomal hernia She is morbidly obese She will be discharged on a course of oral antibiotics for her UTI She is comfortable with the plan and says she is ready to be discharged this morning Time Spent With Patient Time: Total time managing care of this patient today ____ minutes. Quality Stroke Does the patient have a stroke diagnosis?: No VTE Prior VTE?: No VTE Risk Level:: Medical - moderate - high VTE Device Contraindication: N/A - Device Ordered VTE Drug Contraindication: N/A - Med Ordered
--- NOTE | 2024-09-27 08:42 | MHC.CM.PN ---
PT WILL DC HOME TODAY WITH NO SERVICES VIA PRIVATE TRANSPORT
[2024-09-27 08:57] VITALS: BP 178/95; PULSE 83; RESP 16; TEMP 36.5; O2SAT 94
[2024-09-27 09:06] VITALS: BP 160/98; PULSE 83; RESP 16; TEMP 36.5; O2SAT 94
--- NOTE | 2024-09-27 11:59 | P.DS_ITS ---
DS: Providers Provider Date of Service: 09/27/24 Date of admission: 09/23/24 17:14 Date of discharge: 09/27/24 Primary care physician: Lambert Valiente PA-C Admitting clinician: Cm Barrett Attending physician on discharge: Cm Barrett DS: Diagnosis Discharge Diagnosis (1) Abdominal pain: Status: Acute DS: Summary Hospital Course Hospital Course: Admission HPI: Mana Rodriguez is a 49 year old female very morbidly obese, here in the ER because of abdominal pain. She says that she had abdominal pain starting last week for 2 days. 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 The dissection of the disease segment could not be done at that time. She says she was doing well over the weekend. However, she says that last night she had salad and this morning she woke up with pain mostly on the left side of her abdomen. She also says that she had a lot of stoma output says that her stoma was filling up a lot this morning when she had the pain. She describes her pain as mostly on the right side radiating all the way to her vagina. She also had about 3 episodes of vomiting this morning. The last episode of vomiting was about 5 hours ago. She also says that she was short of breath earlier. She currently is not nauseous. She had a CAT scan done showing a new parastomal hernia with question of dilatation of the bowel loops within the hernia. I was therefore consulted for possible obstruction. Hospital Course: The patient was admitted for further evaluation and management. We continued with conservative management. On the second day of admission, the patient was beginning to imrpove. Was still not having and ostomy output. Abdominal pain was resolving, however she was also expericing some pelvic pain. UA was obtained and the patient was found to have a UTI. Antibiotics were ordered to treat the UTI. Patient remained on clear liquid diet. On day 3 of admission, the patient began producing flatus through the stoma. Patient remained stable, and abdominal exam remained benign. Diet was advanced to regular diet, which patient toelrated well. Her exam remained benign. Patient had a SB series, later that day the patient was began passing the gastrografin through the stoma, she had very high output throughtout the rest of the day. Patient was clinically unobstructed. We continued to treat her UTI. This morning patient continued to improve and felt ready for discharge. At the time of discharge the patients abdominal exam was soft an benign, the stoma was functioning properly and the patient was in stable condition. Patient discharged with 3 day prescription for antibiotics for continued management of her UTI at home. Time Attestation Discharge Coordination Time (in mins): 30 Quality: Safe Use of Opioids Does Pt have an Active Cancer Diagnosis on the Problem List?: No Quality: Stroke Does the patient have a stroke diagnosis?: No Physical Exam Vital Signs: Vital Signs: Last Vital Signs Temp 97.7 F 09/27/24 09:06 Pulse 83 09/27/24 09:06 Resp 16 09/27/24 09:06 BP 160/98 H 09/27/24 09:06 Pulse Ox 94 09/27/24 09:06 O2 Del Method Room Air 09/27/24 09:06 BMI result Body Mass Index 59.2 Const: General: comfortable and no acute distress Orientation/consciousness: patient oriented x3 Resp: Effort & Inspection: normal respiratory effort and able to speak in complete sentences GI: Other: Stoma present, functioning properly Inspection: No distended Palpation (GI): Soft to palpation, nontender, no guarding and not rigid Percussion: Yes normal to percussion Neuro: General: patient oriented x3 DS: Data Data Completed and Pending Completed studies during hospitalization [Text1]: Procedures Bypass Sigmoid Colon to Cutaneous, Open Approach (11/30/21) Drainage of Pelvic Cavity with Drainage Device, Percutaneous Approach (11/30/21) Drainage of Pelvic Cavity, Percutaneous Approach (11/30/21) Drainage of Sigmoid Colon with Drainage Device, Percutaneous Approach (05/13/21) Release Peritoneum, Open Approach (11/30/21) Discharge Plan Discharge Anticipated Discharge Date/Time: 09/27/24 10:10 Patient Disposition: Home, Self-Care Discharge Diagnosis: parastomal hernia, UTI Referrals: Lambert Valiente PA-C [Primary Care Provider] - 1 Week Discharge Medications: New nitrofurantoin monohyd/m-cryst [Macrobid] 100 mg capsule 100 mg PO BID Qty: 6 0RF Rx Instructions: must administer with a meal/food Continued albuterol sulfate 90 mcg/actuation HFA aerosol inhaler 1 puff inhalation Q4H PRN (Reason: Wheezing) acetaminophen [Tylenol] 325 mg Tablet 650 mg PO Q6H PRN (Reason: Pain) Zepbound 12.5 mg/0.5 mL pen injector 12.5 mg SUBCUT MO Discharge Orders: Discharge Order (Routine); Ordered 09/27/24 Ordered By: Bertram Wills Diet: Advance to usual diet Activity on Discharge: As tolerated Stand Alone Forms: Patient Portal Discharge page, Work/School Release Print Language: Angolan Activity Restrictions/Additional Instructions: Follow up with your PCP upon discharge. Follow up with your general surgeon at [facility] regarding your parastomal hernia. Call Your Doctor or Return to ED If: ? ? -Your temperature exceeds 101.5? F? ? ? -You experience excessive pain or swelling ? ? -You have an unexpected reaction to medication ? ? -You experience continued vomiting/nausea Care Plan Goals: Return to baseline health. Health Concerns: hx of diverticulitis, s/p colostomy parastomal hernia UTI Plan of Treatment: IV abx supportive with IVF, bowel rest, SBFT f/u with PCP f/u with general surgeon at [facility] Assessment: Improved Patient Instructions: Urinary Tract Infection in Women (DC) Discharge Date/Time: 09/27/24 10:25
== END 2024-09-27 10:25 | disposition home or self-care (01) | DRG 690 ==
LOC: HO.ED 17:03 → HO.EDOVER 17:25 → HO.S3 19:21
PROVIDERS: Admitting Provider Surgery; Emergency Provider Emergency Medicine; PCP Physician Assistant Surgical; Visit Provider Surgery
DX: N39.0 Urinary tract infection, site not specified (principal); Z68.43 Body mass index [BMI] 50.0-59.9, adult; K43.5 Parastomal hernia without obstruction or gangrene; F17.210 Nicotine dependence, cigarettes, uncomplicated; E66.01 Morbid (severe) obesity due to excess calories; Z71.3 Dietary counseling and surveillance; Z71.6 Tobacco abuse counseling; Z93.3 Colostomy status; Z79.899 Other long term (current) drug therapy
CPT/HCPCS: 36415; 74018; 74177; 74250; 80048; 80076; 81001; 81003; 83690; 85007; 85025; 85027; 87086; 93005; 94640; 99285; J0696; J1171; J1644; J2270; J2405; J7120; Q9967

== ENCOUNTER → 2024-09-23 13:04 | Outpatient (BNV) | payer OTHER, SELFPAY | PROVIDERS: Admitting Provider Surgery; Emergency Provider Emergency Medicine; PCP Physician Assistant Surgical; Visit Provider Internal Medicine Cardiovascular Disease | DX: I45.10 Unspecified right bundle-branch block (principal); R00.0 Tachycardia, unspecified | CPT/HCPCS: 93010 ==

== ENCOUNTER → 2024-09-23 14:34 | Outpatient (BNV) | payer BC, SELFPAY | PROVIDERS: Emergency Provider Emergency Medicine; PCP Physician Assistant Surgical; Visit Provider Radiology Diagnostic Radiology | DX: N83.201 Unspecified ovarian cyst, right side (principal); N83.202 Unspecified ovarian cyst, left side | CPT/HCPCS: 74177 ==

== ENCOUNTER 2024-09-23 17:14 | Outpatient (BNV) | payer OTHER, SELFPAY | END 2024-09-24 07:00 | PROVIDERS: Admitting Provider Surgery; Emergency Provider Emergency Medicine; PCP Physician Assistant Surgical; Visit Provider Radiology Diagnostic Radiology | DX: R10.9 Unspecified abdominal pain (principal) | CPT/HCPCS: 74018 ==

== ENCOUNTER 2024-09-23 17:14 | Outpatient (BNV) | payer OTHER, SELFPAY | END 2024-09-26 09:40 | PROVIDERS: Admitting Provider Surgery; Emergency Provider Emergency Medicine; PCP Physician Assistant Surgical; Visit Provider Radiology Diagnostic Radiology | DX: R14.3 Flatulence (principal) | CPT/HCPCS: 74250 ==

== ENCOUNTER → 2024-09-23 17:14 | Outpatient (BNV) | payer OTHER, SELFPAY | PROVIDERS: Admitting Provider Surgery; Emergency Provider Emergency Medicine; PCP Physician Assistant Surgical; Visit Provider Surgery | DX: R10.9 Unspecified abdominal pain (principal) | CPT/HCPCS: 99232; 99499 ==